=== PATIENT | female | born 1940 | race Caucasian/White ===

== ENCOUNTER → 2018-06-03 13:21 | Outpatient (CLI) | payer MEDICARE, OTHER, SELFPAY ==
--- NOTE | 2018-06-03 13:24 | BI_ITS ---
MAMMOGRAPHY - BILATERAL DIAGNOSTIC REASON FOR EXAM: Female, 77 years old. LT 2 LUMPS FOUND BY T 1 WEEK AGO-ALMOND SIZE JUST UNDER THE SKIN SURFACE UIQ CLOSE TOGETHER WITH SKIN REDNESS AND IRRITATION PERTINENT HISTORY: P/H AGE 68, MAT AUNT AGE 60, SISTER AGE 71, MAT COUSIN AGE 40 AND 60 LT LUMPECTOMY 03/29/11 WITH RAD TX , LT NEEDLE BX 10+YRS AGO, LT BRUISE BIPPLE AREA FROM FALL 5 MONTHS AGO TECHNIQUE: Digital bilateral breast opal (3D mammographic acquisition) in the CC and MLO projections. 2-D mediolateral oblique (MLO) and craniocaudad (CC) views of both breasts were obtained. CAD: Full Field Digital Mammography with Computer Added Detection was performed. COMPARISON: 07/10/2017, 07/06/2016, 07/05/2015 FINDINGS: Breast Composition: The breasts are heterogeneously dense, which may obscure small masses. There is a scar in the upper medial aspect of the left breast at a previous lumpectomy site is unchanged since the previous studies. No other significant abnormalities are identified. BI/DIAG MAMM W/CAD, BILAT IMPRESSION: No mammographic abnormality in the area of palpable lump. Further evaluation by ultrasound is recommended and is performed on the same day. ASSESSMENT CATEGORY: BIRADS Category 0: Incomplete. Need additional imaging evaluation. A letter regarding these results will be sent to the patient by the facility within 30 days. Approximately 10% of breast cancers are not detected by mammography. A normal mammogram should not delay biopsy of a clinically suspicious abnormality. Electronically Signed: hPil Noguera MD at 19:10 EDT Tel , Service support ,
--- NOTE | 2018-06-03 13:24 | US_ITS ---
STUDY: ULTRASOUND BREAST - LEFT REASON FOR EXAM: Female, 77 years old. Palpable lump at the upper inner aspect of the left breast TECHNIQUE: Axial and longitudinal images of the LEFT breast were performed with a high resolution ultrasound transducer. COMPARISON: None. FINDINGS: LEFT Breast: There is a lesion #1 in the upper inner quadrant. The lesion measures 1.6 x 1.2 x 0.8 cm in size. Clock notation: 9 o'clock position. Distance from nipple: 3 cm. Posterior Enhancement: No. Posterior Shadowing: None. Margins: Sharp and smooth. Echogenicity: Hyperechoic. Compression effect on Shape: No change. There is a lesion #2 in the upper inner quadrant. The lesion measures 1.5 x 2.5 x 0.8 cm in size. Clock notation: 10 o'clock position. Distance from nipple: 3 cm. Posterior Enhancement: No. Posterior Shadowing: None. Margins: Sharp and smooth. Echogenicity: Hyperechoic. Compression effect on Shape: No change. US/Breast Limited Unilateral IMPRESSION: 2 lesions in the upper outer aspect of the left breast most likely represent lipomas. A follow-up in 6 months would be recommended to ensure stability. ASSESSMENT CATEGORY: BIRADS Category 3: Probably Benign - Short-Interval Follow-up Suggested. A letter regarding these results will be sent to the patient by the facility within 30 days. Electronically Signed: Phil Noguera MD at 19:04 EDT Tel , Service support ,
== END ==
PROVIDERS: Family Provider Family Medicine; PCP Family Medicine; Visit Provider Internal Medicine Hematology & Oncology
DX: D05.12 Intraductal carcinoma in situ of left breast (principal); N63.20 Unspecified lump in the left breast, unspecified quadrant
CPT/HCPCS: 76642; 77062; 77066; G0279

== ENCOUNTER → 2018-06-17 16:11 | Outpatient (CLI) | payer MEDICARE, OTHER, SELFPAY ==
--- NOTE | 2018-06-17 13:30 | BRBX_PTH ---
PATIENT: RAYMUNDO LANDRY LOC: [facility] U#:[id number] AGE/SX: 85/F ROOM: RE06/17/[address]: Dr. Reuben Membreno MD : [id number] BED: DIS: SPEC #: [id number] RECD: 06/17/18 15:36 STATUS: PHILIP NICOLETTE #: [id number] RENUKA: 06/17/18 13:[address]: Reuben Membreno DEPT: SURGICAL PATHOLOGY RECD BY: Ru Roa ENTERED: 06/18/18 07:05 SP TYPE: BREAST BX OTHR DR: Dr. Justin Tierney MD Tissues: A - Left breast, NOS B - Left breast, NOS Procedures: Surgery Specimen Level IV HEADER OPERATION: Left breast core x2 PRE-OP DIAGNOSIS: Palp breast lump x2 TISSUE SUBMITTED: A ? Left breast 9 o?clock, B ? Left breast 10 o?clock MICROSCOPIC DIAGNOSIS A. Left breast, 9 o?clock, core biopsy: Extensive fat necrosis, chronic inflammation and fibrosis. Negative for malignancy. B. Left breast, 10 o?clock, core biopsy: Extensive fat necrosis, chronic inflammation and fibrosis. Negative for malignancy. Breast tissue is not identified in the submitted specimen. SJ:rg 06/19/18 COMMENT A. The specimen predominantly consists of fibroadipose tissue. 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 MICROSCOPIC DESCRIPTION Slides are reviewed. GROSS DESCRIPTION A - Received in fixative is one container labeled with the patient's name and designated left breast 9 o?clock. The specimen consists of an elongated piece of garcia-yellow fibroadipose tissue measuring 1.5 cm in length and 0.1 cm in diameter. The specimen is totally submitted in one cassette. B - Received in fixative is one container labeled with the patient's name and designated left breast 10 o?clock. The specimen consists of multiple elongated fragments of garcia-yellow fibroadipose tissue measuring in aggregate 2.5 x 0.5 x 0.1 cm. The specimen is totally submitted in one cassette. / SJ:rg 06/18/18 TC:5 CPT: 66970 x2
== END ==
PROVIDERS: Family Provider Family Medicine; PCP Family Medicine; Visit Provider Surgery
DX: N63.0 Unspecified lump in unspecified breast (principal)
CPT/HCPCS: 88305

== ENCOUNTER → 2018-10-17 12:49 | Outpatient (CLI) | payer MEDICARE, OTHER, SELFPAY ==
[2018-06-12 08:37] VITALS: BMI 32.1
--- NOTE | 2018-10-17 13:03 | BD_ITS ---
STUDY: DUAL ENERGY X-RAY ABSORPTIOMETRY / DXA REASON FOR EXAM: Female, 78 years old. The patient is postmenopausal. Loss of height. TECHNIQUE: Bone Mineral Density (BMD) measurements of lumbar spine and bilateral hips were obtained. COMPARISON: Comparison is made with prior study dated July 06, 2016. FINDINGS: Lumbar Spine (L1-L4): g/cm2 (1.169) / T-score (0.0) / Z-score (1.8) Findings are suggestive of normal bone density with a low fracture risk. Left Femur Total: g/cm2 (0.859) / T-score (-1.2) / Z-score (0.6) Left Femoral Neck: g/cm2 (0.725) / T-score (-2.3) / Z-score (-0.3) Right Femur Total: g/cm2 (0.874) / T-score (-1.1) / Z-score (0.7) Right Femoral Neck: g/cm2 (0.757) / T-score (-2.0) / Z-score (-0.1) The T-Scores on the most recent prior examination were: Lumbar Spine (L1-L4): There has been improvement of bone density since the previous examination. Left Femur Total: which represents a worsening of 0.1%. Right Femur Total: which represents no significant change. . BD/Dexa Bone Density Study IMPRESSION: The patient is considered osteopenic as outlined below according to World Jet Organization (WHO) criteria with a moderate fracture risk. There has been worsening of bone density since the previous examination. Reference Information: The T-score is the number of standard deviations above or below the standard which is normal for young adults at their peak bone mineral density. The World Health Organization (WHO) interprets the T-scores as follows: Above -1 Normal bone density Between -1 and -2.5 Osteopenia Equal to / or below -2.5 Osteoporosis As a practical clinical guideline, osteopenia may be graded as follows: Mild -1 through -1.5 Moderate -1.6 through -2.0 Severe -2.1 through -2.4 The Z-score is the number of standard deviations above or below age-matched controls. A Z-score of less than -1.5 would be considered abnormal. References: 1. NIH Osteoporosis and Related Bone Diseases http://www.osteo.org 2. International Society for Clinical Densitometry http://www.iscd.org 3. National Osteoporosis Foundation http://www.nof.org Electronically Signed: Gurpreet Chase MD at 11:38 EST Tel [phone], Service support ,
== END ==
PROVIDERS: Family Provider Family Medicine; PCP Family Medicine; Visit Provider Physician Assistant
DX: M89.9 Disorder of bone, unspecified (principal); Z13.820 Encounter for screening for osteoporosis; M75.41 Impingement syndrome of right shoulder; M75.51 Bursitis of right shoulder
CPT/HCPCS: 77080; 97110

== ENCOUNTER 2018-10-31 10:00 | Outpatient (RCR) | payer MEDICARE, OTHER, SELFPAY ==
[2018-06-12 08:37] VITALS: BMI 32.1
--- NOTE | 2018-09-30 14:24 | HP.PTEVAL_ITS ---
Patient's Visit Information RAYMUNDO LANDRY is a 78 year old F referred to Physical Therapy by Justin Tierney MD with a diagnosis of SHOULDER RIGHT BURSITIS ,SHOULDER IMPINGEMENT SYNDROME RIGHT. Date of Evaluation: 09/30/18 Physical Therapist: Nnamdi Newman PT, - Visit Plan Frequency: 2x /Week Duration: 4 Weeks Plan: RTC/SCAPULAR STRENGTHENING,POSTURAL EX''S ,MODALITIES FOR PAIN RELEIVE - Subjective Subjective: This 78 y/o female presents to physical therapy with right shoulder pain for 2 weeks. Patient pain became worse especially at night. Patient pain left shoulder UE to deltoid/scapular. Described as sharp pain.Seen DR injection right shoulder decreased pain . Patient pain worse with sleeping ,reaching, ifting . Patinet pain bettter with heat/MEDS. Denies parathesia/tingling.Patient pain affects QOL and ADL'S. SOCAIL: single. VOCATION: retired - Pain Right Shoulder Pain Intensity (Out of 10): 3 - Objective POSTURE: mild foward posture. PALAPTION:tender AC joint. NEURO: denies parathesia/tingling. AROM: shoulder 140 degrees flexion pain ,abduction 120 degrees pain,ER 80 degrees,IR 65 degrees pain. PROM: 150 degrees abd/flexion. OVERPRRESSURE: incease pain. MMT: infraspinatius 4-/5,supraspinatous 4-/5 pain ,subscapularis 4/5,deltoid 4-/5 pain. CERVICAL ROM: flexion min ,lateral flexion/rotation mod pain to UT right,left min/mod. extension mod - Special Tests C/S Radiculapathy - Left Upper limb tension test: Negative C/S Radiculapathy - Left Spurlings: Negative C/S Radiculapathy - Left Cervical distraction: Positive R Shoulder External Rotation Lag Test - RC Tear: Negative R Shoulder Neer - Impingement: Positive R Shoulder Santiago Adeel - Impingement: Positive - Goals Goal 1:: Independant with HEP Goal Time Frame: 4-6 Weeks Goal 2:: Improve posture for ADL'S Goal Time Frame: 2-4 Weeks Goal 3:: Decrease shoulder pain by 50% or greatwer to improve function Goal Time Frame: 4-6 Weeks Goal 4:: Patient improve ROM right shoulder symmtrical right to left with less pain for ADL'S Goal Time Frame: 4-6 Weeks Goal 5:: Patient be able to perform ADL's and houseworks choeres above 90 Degrees Goal Time Frame: 4-6 Weeks Goal 6:: Patient improve dash shoulder by 10 pints to improve QOL Goal Time Frame: 4-6 Weeks - Rehabilitation Potential Physical Therapy Diagnosis: This patient has impingement right shoulder with RTC involevment with pain weakness loss ROM along with h/o cervical pain radiating to right UT impairs ADL'S and housework task's thus benifits from skilled PT Rehabilitation Potential: Good - Anticipated Interventions Patient/Client Instruction: Educate patient on: Condition, Plan of Care For the Purpose of:: To decrease pain, To increase ROM, To improve muscle perfo rmance and motor function, To improve ability to perform ADL's, To increase tolerance to activity/condition/position, To improve ability of physical actions for home/community/work/leisure, To improve health of tissue, To decrease soft tissue restriction, To increase flexibility/ROM, To improve ability to perform tasks related to life management TENS: Yes IF ES: Yes Cryotherapy (ice pack, ice massage): Yes Thermo therapy (hot pack): Yes Ultrasound (thermal/non thermal): Yes For the Purpose of:: To decrease pain, To decrease swelling/inflammation, To increase ROM, To improve nutrient delivery to tissue, To improve health of tissue, To decrease soft tissue restriction Thank you for the opportunity to evaluate your patient. For Medicare and Medicare HMO plans, please review the plan of care and approve it. It will need to be FAXED BACK to us at [phone] for Medicare purposes. Please let me know if there are questions or concerns regarding this plan of care. Physician Signature: Date:
--- NOTE | 2018-10-31 10:28 | HP.PTDCSUM_ITS ---
HP - PT D/C Summary It has been my pleasure to treat RAYMUNDO LANDRY under orders from Justin Tierney MD, for the diagnosis of SHOULDER RIGHT BURSITIS ,SHOULDER IMPINGEMENT SYNDROME RIGHT for a total of 8 visit(s). Discharge Date: 10/31/18 Please see the following information for a summary of their discharge status. - Subjective Subjective: Doing well..Return to prior level of functin - Pain Right Shoulder Pain Intensity (Out of 10): 0 - Overall Improvement % Improvement: 95 - Objective Objective/Function: POSTURE: mild foward posture. AROM: flexion shoulder 160 de grees,150 degrees abd,ER 90. MMT:RTC 4/5,DELTOID 4-/5 no pain - Goals Goal 1:: Independant with HEP Goal Progress: Goal Met Goal 2:: Improve posture for ADL'S Goal Progress: Goal Met Goal 3:: Decrease shoulder pain by 50% or greatwer to improve function Goal Progress: Goal Met Goal 4:: Patient improve ROM right shoulder symmtrical right to left with less pain for ADL'S Goal Progress: Goal Met Goal 5:: Patient be able to perform ADL's and houseworks choeres above 90 Degrees Goal Progress: Goal Met Goal 6:: Patient improve dash shoulder by 10 pints to improve QOL Goal Progress: Goal Met - Plan Plan: D/C TO [facility] - D/C Information Discharge Comments: [facility] If there are questions or concerns regarding this patient's physical therapy, please feel free to call me at [phone]. Thank you for the referral of this patient. Sincerely, Nnamdi Newman PT, Cert MDT, OCS
== END 2018-10-31 19:00 | disposition home or self-care (01) ==
LOC: PT 10:00
PROVIDERS: Family Provider Family Medicine; PCP Family Medicine; Referring Provider Family Medicine; Visit Provider Family Medicine
DX: M75.51 Bursitis of right shoulder (principal); M75.41 Impingement syndrome of right shoulder
CPT/HCPCS: 97035; 97110; 97162; 97530

== ENCOUNTER 2018-11-26 21:14 | Emergency (ER) | payer MEDICARE, OTHER, SELFPAY ==
[2018-11-26 21:15] VITALS: BP 151/82; PULSE 67; RESP 20; TEMP 36.7; O2SAT 95; BMI 34.0
--- NOTE | 2018-11-26 21:50 | CT_ITS ---
STUDY: CT ABDOMEN AND PELVIS WITH CONTRAST REASON FOR EXAM: Female, 78 years old. Trauma. Breast cancer. RADIATION DOSAGE (If Supplied By Facility): CTDIvol = ( 25.20 ) mGy, DLP = ( 1074.79 ) mGycm TECHNIQUE: Transaxial images were obtained from the dome of the diaphragm to the symphysis pubis without oral contrast. 100ML ml of Isovue 300 contrast was administered. Sagittal and coronal images were reconstructed. Individualized dose optimization techniques were used for this CT. COMPARISON: 01/22/16. FINDINGS: See separate report for CT of the chest. There is decreased attenuation of the liver consistent with steatosis. There is hepatomegaly. Normal gallbladder and extrahepatic biliary system. Normal spleen. Normal pancreas. Normal bilateral adrenal glands. Normal right kidney. Normal left kidney. Evaluation of the GI tract is limited by absence of oral contrast. Cannot exclude stomach wall thickening. No dilated loops of bowel or evidence for obstruction. Cannot exclude segmental thickening of the sexton of the small or large bowel. Cannot exclude enteritis or colitis. Moderate diffuse fecal retention. Appendix has been removed. Normal abdominal aorta. Normal inferior vena cava. Normal retroperitoneum. Normal urinary bladder. Normal visualized uterus. Normal abdominal wall. There are diffuse degenerative changes of the visualized lumbar spine. CT/Abdomen/Pelvis W IV Cont ONLY IMPRESSION: There is no acute abnormality. Electronically Signed: Tristan Alfaro MD at 23:07 EST , Service support ,
--- NOTE | 2018-11-26 21:50 | CT_ITS ---
STUDY: CT BRAIN WITHOUT CONTRAST REASON FOR EXAM: Female, 78 years old. Fall. RADIATION DOSAGE (If Supplied By Facility): CTDIvol = ( 44.99 ) mGy, DLP = ( 909.99 ) mGycm TECHNIQUE: Transaxial CT imaging of the brain was performed without administration of intravenous contrast material. Individualized dose optimization techniques were used for this CT. COMPARISON: None. FINDINGS: There is a very large focal 4.5 cm subcutaneous hematoma over the left zygoma. There is also very prominent scalp hematoma and soft tissue swelling over the top of the skull. No definite fractures. Normal size ventricles and extra-axial spaces for the patient's age. Normal white matter tracts of the cerebral hemispheres. Normal basal ganglia and thalami. Normal brainstem. Normal cerebellum. There is no intracranial hemorrhage. There are no findings of an acute ischemic infarction. Normal visualized paranasal sinuses. CT/Brain/Head without Contrast IMPRESSION: Normal unenhanced CT scan of the brain. Prominent right cheek and upper scalp hematomas. Electronically Signed: Tristan Alfaro MD at 22:51 EST , Service support ,
--- NOTE | 2018-11-26 21:50 | EKG12_ITS ---
Test Reason : CP Blood Pressure : / mmHG Vent. Rate : 060 BPM Atrial Rate : 060 BPM P-R Int : 156 ms QRS Dur : 086 ms QT Int : 370 ms P-R-T Axes : 070 064 066 degrees QTc Int : 370 ms Normal sinus rhythm Normal ECG Confirmed by GERALDO HARRISON, SHAWNA ([id number]), sound editor KAHLIL ROBERTS ([id number]) on 11/28/2018 3:45:19 PM Referred By: ALEX DEE Confirmed By:SHAWNA CHOW MD
--- NOTE | 2018-11-26 21:51 | CT_ITS ---
STUDY: CT CERVICAL SPINE WITHOUT CONTRAST REASON FOR EXAM: Female, 78 years old. Fall. RADIATION DOSAGE (If Supplied By Facility): CTDIvol = ( 16.70 ) mGy, DLP = ( 330.72 ) mGycm TECHNIQUE: High resolution transaxial imaging was performed without contrast material. Sagittal and coronal images were reconstructed. Individualized dose optimization techniques were used for this CT. COMPARISON: None FINDINGS: No definite acute fracture/dislocation. The cervical junction is intact. C1-C2 articulation is intact. There is straightening. There is 4 mm anterolisthesis of C2 on C3, otherwise normal alignment. Facet joints are intact at all levels bilaterally. No jumped facets. There is multilevel spondyloarthropathy. Multilevel degenerative disc disease seen. Multilevel loss of disc height. Multilevel posterior marginal osteophytes and disc bulges. Multilevel neural foraminal narrowing. Findings most prominent at C5-C6. Visualized paraspinal soft tissues and structures are unremarkable. CT/Spine Cervical without Contras IMPRESSION: There is no definite acute fracture/dislocation. Degenerative changes. Electronically Signed: Tristan Alfaro MD at 22:57 EST , Service support ,
--- NOTE | 2018-11-26 21:51 | CT_ITS ---
STUDY: CT CHEST WITHOUT CONTRAST REASON FOR EXAM: Female, 78 years old. Fall. Breast cancer. Chest pain. RADIATION DOSAGE (If Supplied By Facility): CTDIvol = ( 18.96 ) mGy, DLP = ( 620.61 ) mGycm TECHNIQUE: Transaxial imaging was performed without the administration of intravenous contrast material. Individualized dose optimization techniques were used for this CT. COMPARISON: None. FINDINGS: There is hyperexpansion of the lungs. Streaky densities radiating from the left hilum to the pleural surface of the left upper lobe are most consistent with fibrosis probably from radiation treatments. Small areas of probable scarring seen in the periphery of the right middle lobe and both posterior lower lobes. No pneumothorax. No infiltrates. No masses or suspicious nodules. No effusions. Normal heart and pericardium. There are calcifications of the coronary arteries. Normal mediastinum. Normal hilar regions. There is prominence of the pulmonary hilar arteries without peripheral pulmonary vascular congestion, suggesting pulmonary hypertension. There is atherosclerotic calcification of the aortic arch with tortuosity and elongation of the aortic arch and descending thoracic aorta. There are multi-level degenerative changes of the thoracic spine. There is a mildly displaced and mildly angulated fracture through the upper aspect of the sternum, only seen on lateral view, axial image 146. CT/Chest without Contrast IMPRESSION: Fracture of the upper sternum. 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 Electronically Signed: Tristan Alfaro MD at 23:02 EST , Service support ,
--- NOTE | 2018-11-26 21:52 | RAD_ITS ---
STUDY: X-RAY - LEFT HAND REASON FOR EXAM: Female, 78 years old. Fall. Pain. TECHNIQUE: 3 view(s) of the hand. COMPARISON: None. FINDINGS: No acute fracture or dislocation. Severe demineralization. Normal visualized carpal bones. Normal carpal articulations There is degenerative arthrosis of the carpometacarpal (CMC) articulation of the thumb. Normal second through fifth carpometacarpal joints. Normal metacarpi. There is degenerative arthrosis of the metacarpophalangeal (MCP) joints. Normal interphalangeal joint of the thumb. Normal proximal and distal phalanges of the thumb. Normal metacarpophalangeal joints of the second through fifth fingers. Normal proximal and distal interphalangeal joints of the second through fifth fingers. Normal phalanges of the second through fifth fingers. The soft tissue structures are unremarkable. RAD/Hand Min 3 Views IMPRESSION: No acute fracture or dislocation. Electronically Signed: Tristan Alfaro MD at 23:12 EST , Service support ,
--- NOTE | 2018-11-26 21:52 | RAD_ITS ---
STUDY: X-RAY - LEFT KNEE REASON FOR EXAM: Female, 78 years old. Status post fall pain TECHNIQUE: 3 view(s) of the knee. COMPARISON: None. FINDINGS: Normal visualized distal femur. Normal visualized proximal tibia and fibula. Normal proximal tibiofibular articulation. There is visualized soft tissue swelling especially anterior to the patellar tendon. There is a left knee arthroplasty. There is no visualized fracture. RAD/Knee 3 Views IMPRESSION: Left knee arthroplasty. Superficial soft tissue swelling no visualized fracture. Electronically Signed: Vanessa Alcantara MD at 23:19 EST Tel , Service support ,
--- NOTE | 2018-11-26 21:52 | CT_ITS ---
STUDY: CT FACIAL BONES WITHOUT CONTRAST REASON FOR EXAM: Female, 78 years old. Fall. RADIATION DOSAGE (If Supplied By Facility): CTDIvol = ( 29.38 ) mGy, DLP = ( 330.72 ) mGycm TECHNIQUE: The patient was scanned in a multi detector CT scanner. Sagittal and coronal images were reconstructed. Individualized dose optimization techniques were used for this CT. COMPARISON: None. FINDINGS: Prominent subcutaneous hematoma seen over the right zygoma, 4.5 cm in size and surrounded by additional induration. No fractures are seen. Normal orbital sexton and orbital contents. Normal nasal bones and anterior nasal spine. Normal facial bones. There is no demonstrated fracture. Normal visualized paranasal sinuses. CT/Sinus/Facial Bone IMPRESSION: No facial fractures are seen. Electronically Signed: Tristan Alfaro MD at 22:55 EST , Service support ,
[2018-11-26] MEDS: fentaNYL 100 MCG/2 ML Ampul 50 MCG IV (22:02)
[2018-11-26] MEDS: 0.9% Normal Saline 1,000 ML 150 ML IV (22:02)
[2018-11-26 22:05] VITALS: BP 151/80; PULSE 72; RESP 12; O2SAT 95
--- NOTE | 2018-11-26 22:07 | RAD_ITS ---
STUDY: X-RAY - RIGHT HAND REASON FOR EXAM: Female, 78 years old. Fall. Pain. TECHNIQUE: 3 view(s) of the hand. COMPARISON: None. FINDINGS: No acute fracture or dislocation. Severe demineralization. Normal visualized carpal bones. Normal carpal articulations There is degenerative arthrosis of the carpometacarpal articulation of the thumb with lateral subluxation of the first metacarpus. Normal second through fifth carpometacarpal joints. Normal metacarpi. Normal metacarpophalangeal joint of the thumb. Normal interphalangeal joint of the thumb. Normal proximal and distal phalanges of the thumb. Normal metacarpophalangeal joints of the second through fifth fingers. Normal proximal and distal interphalangeal joints of the second through fifth fingers. Normal phalanges of the second through fifth fingers. The soft tissue structures are unremarkable. RAD/Hand Min 3 Views IMPRESSION: No acute fracture or dislocation. Electronically Signed: Tristan Alfaro MD at 23:11 EST , Service support ,
--- NOTE | 2018-11-26 22:07 | RAD_ITS ---
STUDY: X-RAY - RIGHT KNEE REASON FOR EXAM: Female, 78 years old. Fall. TECHNIQUE: 3 view(s) of the knee. COMPARISON: None. FINDINGS: Normal visualized distal femur. Normal visualized proximal tibia and fibula. Normal proximal tibiofibular articulation. There is no demonstrated fracture. Normal appearance of the total knee arthroplasty. The soft tissue structures are unremarkable. RAD/Knee 3 Views IMPRESSION: No acute fracture or dislocation. Electronically Signed: Tristan Alfaro MD at 23:15 EST , Service support ,
[2018-11-26 22:28] LABS: Absolute Lymphocyte Count 1.24 X10^3/ul (0.83-4.51); Basophil# 0.01 X10^3/uL; Basophil% 0.1 % (0-1); Eosinophil# 0.12 X10^3/uL; Eosinophils% 1.3 % (0-5); Hematocrit 43.3 % (37-47); Hemoglobin 14.2 g/dl (12.0-15.0); Lymphocyte # 1.24 X10^3/ul (4.0); Lymphocyte % 13.5 % (19-41); Mean Corp Hgb Conc 32.8 g/gl (32-36); Mean Corpuscular Hgb 29.8 pg (27.0-32.0); Mean Platelet Vol. 9.6 fl (6.2-12.0); Monocyte# 0.84 X10^3/uL; Monocyte% 9.1 % (0-10); Neutrophil # 6.96 X10^3/uL (2.7-7.7); Neutrophil % 75.7 % (47-70); Platelet Count 241 K/mm3 (150-450); RBC Distribution Width CV 13.3 % (11.6-14.6); RBC Distribution Width SD 44.2 fl (35.1-43.9); Red Blood Count 4.76 M/mm3 (4.2-5.4); White Blood Count 9.2 K/mm3 (4.4-11.0)
[2018-11-26 22:37] LABS: ALB/GLOB Ratio 1.1 RATIO (0.9-2.4); AST(SGOT) 14 U/L (15-37); Alanine Aminotransfer ALT/SGPT 14 U/L (13-56); Albumin, Serum 3.8 g/dL (3.2-5.0); Alkaline Phosphatase 71 U/L (45-117); Anion Gap 9 (5-15); BUN 18 mg/dL (7-18); BUN/Creat Ratio 19.5 RATIO (10-20); Calcium,Total 9.1 mg/dL (8.5-10.1); Chloride 98 mmol/L (98-107); Creatinine, Serum 0.92 mg/dL (0.55-1.02); EST Glomerular Filtration Rate 63 mL/min (>60); Est Glom Filt Rate - Afr Amer 76 mL/min (>60); Estimated Creatinine Clearance 43.03 ml/min; Globulin 3.4 g/dL (2.2-4.2); Glucose 101 mg/dL (74-106); Potassium 3.4 mmol/L (3.5-5.1); Protein, Total 7.2 g/dL (6.4-8.2); Sodium Level 137 mmol/L (136-145)
[2018-11-26 22:40] LABS: POSITIVE COUNT NO; POSITIVE DIFFERENTIAL NO; POSITIVE MORPHOLOGY NO
--- NOTE | 2018-11-26 22:40 | RAD_ITS ---
STUDY: X-RAY - LEFT ANKLE REASON FOR EXAM: Female, 78 years old. Trauma. Previous surgeries. TECHNIQUE: 3 view(s) of the ankle. COMPARISON: None. FINDINGS: There is no acute fracture or dislocation. However there is widening of the ankle mortise. Compression plate and screws are seen across the distal fibula. 2 screws are seen through the medial malleolus. Probable widening of the intraosseous space. RAD/Ankle min 3 Views IMPRESSION: No acute fracture or dislocation. Widening of the ankle mortise. Electronically Signed: Tristan Alfaro MD at 23:09 EST , Service support ,
--- NOTE | 2018-11-27 | ED.VISSUMM ---
- ER Visit Summary Date of Service: 11/27/18 Chief Complaint: [Mechanical fall] History of Present Illness: The patient is a 78 F [presents to the emergency department with complaint of a fall that occurred while at a restaurant tonight. Patient apparently fell head over heels down a flight of 6 steps made of marble. Patient denies loss of consciousness. She is complaining of head and chest pain. Patient complaining of bilateral knee pain and left ankle pain. Patient has a mild headache and states that she has a lump on her scalp. Patient complaining of right-sided facial pain. She denies any significant abdominal pain. She denies any significant neck pain. She denied any numbness or tingling or weakness the extremities.] Physical Examination: [HEENT-PERRLA, EOMI. Cranial nerves II through XII grossly intact. TMs clear. Mucous membranes moist. No adenopathy. Patient has a large posterior scalp hematoma. Patient has a large hematoma over the right zygomatic arch with about a 2.5 cm superficial laceration. The wound does not gape open and there is a large hematoma underlying the laceration therefore I cannot approximate the wound edges with pressure.. No significant C-spine tenderness on palpation. Cardiovascular-regular rate and rhythm without murmur or ectopy Lungs-clear to auscultation, chest wall stable without crepitus or subcu emphysema. Patient does have tenderness palpation over the sternum and anterior chest wall. Abdomen-normoactive bowel sounds, soft. Patient has some diffuse tenderness palpation with some mild guarding. No rebound, rigidity, or perineal signs. Extremities-intact ?4, normal range of motion, normal pulses. Right hand-patient has diffuse soft tissue swelling and ecchymosis about the right middle finger with some mild diffuse tenderness. No obvious deformity. Neurovascular intact. Evaluation of the left hand reveals soft tissue swelling hematoma to the dorsal lateral aspect of the hand over the area of the fourth and fifth meta carpals. Knees-patient has some diffuse tenderness to both knees without any significant ecchymosis or bruising noted. Patient is able to flex and extend the knees without difficulty. She is neurovascular intact distally. Dilation of the left ankle reveals some diffuse tenderness palpation and again there is no ecchymosis or bruising noted.] Test Results: [EKG obtained arrival shows sinus rhythm with a ventricular rate of 60 bpm with no acute I segment changes. CBC with differential was unremarkable. Chemistries unremarkable. Troponin was slightly elevated 0.051. CT scan of the brain without contrast showed nothing acute just a hematoma. CT of the cervical spine showed degenerative changes. CT scan of the abdomen pelvis showed nothing acute. CT scan of the chest showed sternal fracture that is nondisplaced. Facial bone CT showed no fractures. X-rays of bilateral hands and bilateral knees and left ankle obtained showed no fractures.] Emergency Department Course and Treatment: [Patient was medicated with fentanyl 50 mg IV. Patient was given normal saline. Patient had to be remedicated with fentanyl.] Treatment Plan: [Transfer to trauma center. Discussed case with [facility] at the patient's request given that hospitalist here did not feel comfortable keeping the patient here being that she is a trauma and suspect she may have a cardiac contusion associated with her sternal fracture. Patient was accepted at [facility] by Dr. Rossi who was the trauma surgeon on-call.] Disposition: [Transfer] Impression: [Mechanical fall Closed head injury Sternal fracture Cardiac contusion Facial contusion with superficial laceration-no repair indicated. Bilateral knee contusions Bilateral hand contusions Left ankle sprain] This note was generated with vLex dictation software. It may contain incorrect words, spelling, and punctuation that were not noted in review of the chart prior to signing ED Disposition - Plan for ED Patient: Chief Complaint: Fall Referrals: Justin Tierney MD [Primary Care Provider] -
--- NOTE | 2018-11-27 00:08 | ED.DCSUM_ITS ---
- ER Visit Summary Date of Service: 11/27/18 Chief Complaint: [Mechanical fall] History of Present Illness: The patient is a 78 F [presents to the emergency department with complaint of a fall that occurred while at a restaurant tonight. Patient apparently fell head over heels down a flight of 6 steps made of marble. Patient denies loss of consciousness. She is complaining of head and chest pain. Patient complaining of bilateral knee pain and left ankle pain. Patient has a mild headache and states that she has a lump on her scalp. Patient complaining of right-sided facial pain. She denies any significant abdominal pain. She denies any significant neck pain. She denied any numbness or tingling or weakness the extremities.] Physical Examination: [HEENT-PERRLA, EOMI. Cranial nerves II through XII grossly intact. TMs clear. Mucous membranes moist. No adenopathy. Patient has a large posterior scalp hematoma. Patient has a large hematoma over the right zygomatic arch with about a 2.5 cm superficial laceration. The wound does not gape open and there is a large hematoma underlying the laceration therefore I cannot approximate the wound edges with pressure.. No significant C-spine tenderness on palpation. Cardiovascular-regular rate and rhythm without murmur or ectopy Lungs-clear to auscultation, chest wall stable without crepitus or subcu emphysema. Patient does have tenderness palpation over the sternum and anterior chest wall. Abdomen-normoactive bowel sounds, soft. Patient has some diffuse tenderness palpation with some mild guarding. No rebound, rigidity, or perineal signs. Extremities-intact ?4, normal range of motion, normal pulses. Right hand- patient has diffuse soft tissue swelling and ecchymosis about the right middle finger with some mild diffuse tenderness. No obvious deformity. Neurovascular intact. Evaluation of the left hand reveals soft tissue swelling hematoma to the dorsal lateral aspect of the hand over the area of the fourth and fifth meta carpals. Knees-patient has some diffuse tenderness to both knees without any significant ecchymosis or bruising noted. Patient is able to flex and extend the knees without difficulty. She is neurovascular intact distally. Dilation of the left ankle reveals some diffuse tenderness palpation and again there is no ecchymosis or bruising noted.] Test Results: [EKG obtained arrival shows sinus rhythm with a ventricular rate of 60 bpm with no acute I segment changes. CBC with differential was unremarkable. Chemistries unremarkable. Troponin was slightly elevated 0.051. CT scan of the brain without contrast showed nothing acute just a hematoma. CT of the cervical spine showed degenerative changes. CT scan of the abdomen pelvis showed nothing acute. CT scan of the chest showed sternal fracture that is nondisplaced. Facial bone CT showed no fractures. X-rays of bilateral hands and bilateral knees and left ankle obtained showed no fractures.] Emergency Department Course and Treatment: [Patient was medicated with fentanyl 50 mg IV. Patient was given normal saline. Patient had to be remedicated with fentanyl.] Treatment Plan: [Transfer to trauma center. Discussed case with [facility] at the patient's request given that hospitalist here did not feel comfortable keeping the patient here being that she is a trauma and suspect she may have a cardiac contusion associated with her sternal fracture. Patient was accepted at [facility] by Dr. Rossi who was the trauma surgeon on-call.] Disposition: [Transfer] Impression: [Mechanical fall Closed head injury Sternal fracture Cardiac contusion Facial contusion with superficial laceration-no repair indicated. Bilateral knee contusions Bilateral hand contusions Left ankle sprain] This note was generated with [employer] dictation software. It may contain incorrect words, spelling, and punctuation that were not noted in review of the chart prior to signing ED Disposition - Plan for ED Patient: Chief Complaint: Fall Referrals: Justin Tierney MD [Primary Care Provider] -
[2018-11-27 00:09] VITALS: BP 145/99; PULSE 80; RESP 17; O2SAT 95
[2018-11-27] MEDS: fentaNYL 100 MCG/2 ML Ampul 50 MCG IV (00:10)
[2018-11-27] MEDS: Diphth,Pertuss(Acell),Tet Vac 0.5 ML Vial IM (00:10)
[2018-11-27 00:50] VITALS: BP 121/54; PULSE 74; RESP 17; O2SAT 96
== END 2018-11-27 01:09 | disposition short-term general hospital (02) ==
PROVIDERS: Emergency Provider Emergency Medicine; Family Provider Family Medicine; PCP Family Medicine
DX: S26.91XA Contusion of heart, unspecified with or without hemopericardium, initial encounter (principal); S22.20XA Unspecified fracture of sternum, initial encounter for closed fracture; S01.411A Laceration without foreign body of right cheek and temporomandibular area, initial encounter; S80.02XA Contusion of left knee, initial encounter; S80.01XA Contusion of right knee, initial encounter; S60.222A Contusion of left hand, initial encounter; S60.221A Contusion of right hand, initial encounter; S93.402A Sprain of unspecified ligament of left ankle, initial encounter; S09.90XA Unspecified injury of head, initial encounter; I10 Essential (primary) hypertension; E78.00 Pure hypercholesterolemia, unspecified; Z79.82 Long term (current) use of aspirin; Z79.891 Long term (current) use of opiate analgesic; Z79.899 Other long term (current) drug therapy; W10.9XXA Fall (on) (from) unspecified stairs and steps, initial encounter; Y93.01 Activity, walking, marching and hiking; Y92.511 Restaurant or cafe as the place of occurrence of the external cause; Y99.8 Other external cause status
CPT/HCPCS: 70450; 70486; 71250; 72125; 73130; 73562; 73610; 74177; 80053; 84484; 85025; 90715; 93005; 96361; 96374; 96376; 99285; J7030; Q9967; A4216

== ENCOUNTER → 2019-04-15 | Outpatient (CLI) | payer MEDICARE, OTHER, MEDICAID, SELFPAY ==
[2019-04-08 10:35] VITALS: BMI 31.6
[2019-04-15 10:59] LABS: AST(SGOT) 12 U/L (15-37); Alanine Aminotransfer ALT/SGPT 11 U/L (13-56); Albumin, Serum 3.8 g/dL (3.2-5.0); Alkaline Phosphatase 68 U/L (45-117); Bilirubin, Direct 0.17 mg/dL (0.00-0.30); Cholesterol 103 mg/dL (200); Globulin 3.8 g/dL (2.2-4.2); High Density Lipoprotein 42 mg/dL; Protein, Total 7.6 g/dL (6.4-8.2); Triglycerides 108 mg/dL; Very Low Density Lipoprotein 22 mg/dL (5-40)
== END | disposition home or self-care (01) ==
PROVIDERS: Family Provider Family Medicine; PCP Family Medicine; Referring Provider Internal Medicine Cardiovascular Disease; Visit Provider Internal Medicine Cardiovascular Disease
DX: E78.5 Hyperlipidemia, unspecified (principal); R06.09 Other forms of dyspnea; R74.8 Abnormal levels of other serum enzymes
CPT/HCPCS: 36415; 80061; 80076

== ENCOUNTER → 2019-05-06 | Outpatient (CLI) | payer MEDICARE, OTHER, MEDICAID, SELFPAY ==
[2019-04-08 10:35] VITALS: BMI 31.6
--- NOTE | 2019-05-06 13:51 | ECHOD_ITS ---
Reason For Study: CHEST PAIN Procedure This was a 2D Doppler, Color Flow transthoracic echocardiogram. Exam performed in department. Left Ventricle Normal size and thickness. The estimated ejection fraction is 70 %. Stage 1 diastolic dysfunction. No regional wall motion abnormalities noted. Right Ventricle Normal size and thickness. Normal systolic function. Atria Normal left atrium. Normal right atrium. Normal atrial septum. Mitral Valve The mitral valve is structurally normal. No prolapse or stenosis seen. Mild (1+) mitral valve insufficiency. Tricuspid Valve Normal tricuspid valve. Mild (1+) eccentric tricuspid valve insufficiency. Right ventricular systolic pressure estimated to be 54 mmHg. Moderate pulmonary hypertension. Aortic Valve Trisinus/trileaflet aortic valve. Mild diffuse aortic valve thickening. Pulmonic Valve Normal pulmonic valve. Great Vessels Normal aortic root. Normal arch. Normal inferior vena cava. Inferior vena cava collapse with sniff. Pericardium/Pleural No pericardial effusion. MMode/2D Measurements & Calculations LVIDd: 4.1 cm IVSd: 0.89 cm Ao root diam: 3.4 cm LVIDs: 3.0 cm LVPWd: 0.78 cm RVDd: 3.3 cm FS: 26.9 % LAV(MOD-bp): 58.5 ml LVAd ap4: 27.6 cm2 SV(MOD-sp4): 50.6 ml LAV(MOD-bp) Indexed: 30.9 ml/m2 EDV(MOD-sp4): 84.9 ml LAV(MOD-sp2): 67.1 ml EDV(sp4-el): 89.8 ml LAV(MOD-sp4): 48.9 ml LVAs ap4: 15.6 cm2 ESV(MOD-sp4): 34.2 ml ESV(sp4-el): 34.6 ml EF(MOD-sp4): 59.7 % EF(sp4-el): 61.4 % SV(sp4-el): 55.2 ml LA A4 area: 18.4 cm2 LA dimension(2D): 3.7 cm RA A4 area: 13.8 cm2 Time Measurements MV dec time: 0.27 sec Doppler Measurements & Calculations MV E max ramos: 91.8 cm/sec Lat Peak E' Ramos: 8.4 cm/sec Med Peak E' Ramos: 9.1 cm/sec MV A max ramos: 125.7 cm/sec E/E' lat: 10.9 E/E' med: 10.1 MV E/A: 0.73 Ao V2 max: 171.1 cm/sec LV V1 max: 121.0 cm/sec PA V2 max: 98.6 cm/sec Ao max P.7 mmHg LV V1 max P.9 mmHg TR max ramos: 349.2 cm/sec TR max P.8 mmHg Interpretation Summary The estimated ejection fraction is 70 %. Stage 1 diastolic dysfunction. Mild (1+) mitral valve insufficiency. Mild (1+) eccentric tricuspid valve insufficiency. Right ventricular systolic pressure estimated to be 54 mmHg. Moderate pulmonary hypertension. Compared to echo report dated 11/19/2007, LV function has remained the same, but RVSP has increased from 26 to 54 mm Hg. Ordering Physician: Raul Valdez Referring Physician: NANCY CARROLL Performed By: Lisa Wyman RDCS
== END | disposition home or self-care (01) ==
LOC: CVS 13:50
PROVIDERS: Family Provider Family Medicine; PCP Family Medicine; Referring Provider Internal Medicine Cardiovascular Disease; Visit Provider Internal Medicine Cardiovascular Disease
DX: R06.09 Other forms of dyspnea (principal); R07.9 Chest pain, unspecified
CPT/HCPCS: 93306

== ENCOUNTER → 2019-05-12 | Outpatient (CLI) | payer MEDICARE, OTHER, MEDICAID, SELFPAY ==
[2019-04-08 10:35] VITALS: BMI 31.6
--- NOTE | 2019-05-12 08:25 | CT_ITS ---
STUDY: CTA CHEST REASON FOR EXAM: Female, 78 years old. Abnormal echo, history of breast cancer RADIATION DOSAGE (If Supplied By Facility): CTDIvol = ( 11.28 ) mGy, DLP = ( 482.95 ) mGycm TECHNIQUE: The examination was performed with the intravenous administration of 100 IV Isovue 300. Post-processing of the angiographic images was performed, with multiplanar reformation and 3D reconstruction. Individualized dose optimization techniques were used for this CT. COMPARISON: 11/26/2018 FINDINGS: Normal enhancement of the main pulmonary artery and right and left pulmonary arteries. Normal enhancement of the bilateral peripheral pulmonary arteries. There is no demonstrated pulmonary embolism. Normal thoracic aorta and visualized great vessels. There is no demonstrated aortic dissection. Normal heart and pericardium. Normal mediastinum. Normal hilar regions. Normal visualized trachea and bronchi. Stable scarring in the left lung. Normal pleura. Normal chest wall structures. There are degenerative changes of thoracic spine. Normal visualized upper abdomen. CT/CTA Chest W/WO Contrast IMPRESSION: Normal CTA chest examination, without a demonstrated pulmonary embolism or arterial dissection. Electronically Signed: Rico Perdomo MD at 9:06 EDT Tel , Service support ,
[2019-05-12 08:46] LABS: CREATININE FINGERSTICK 0.9 mg/dL (0.55-1.02); EGFR FINGERSTICK > 60.0000 mL/min (>60)
== END | disposition home or self-care (01) ==
LOC: CT 08:22
PROVIDERS: Family Provider Family Medicine; PCP Family Medicine; Referring Provider Internal Medicine Cardiovascular Disease; Visit Provider Internal Medicine Cardiovascular Disease
DX: R06.02 Shortness of breath (principal); R07.9 Chest pain, unspecified; I27.20 Pulmonary hypertension, unspecified
CPT/HCPCS: 71275; Q9967

== ENCOUNTER → 2019-05-14 09:13 | Outpatient (CLI) | payer MEDICARE, OTHER, MEDICAID, SELFPAY ==
[2019-04-08 10:35] VITALS: BMI 31.6
--- NOTE | 2019-05-14 09:16 | STEWCON_ITS ---
Reason For Study: Chest Pain Stress Results Protocol: Dobutamine Stress Echo Maximum Predicted HR: 144 bpm Target HR: 122 bpm % Maximum Predicted HR: 84 % DurationHeart Rate Stage (mm:ss) (bpm) BP Comment Baseline 68 139/79No Chest Pain; Diluted Definity 7 ML Given DSE 10 MCG 3:10 77 120/66No Chest Pain DSE 20 MCG 3:04 94 132/56Mild Chest Pain DSE 30 MCG 3:00 109 120/7010/10 Chest Pain-Aching DSE 40 MCG 1:46 121 136/7210/10 Chest Pain-Aching; Mild SOB Recovery 90 147/79No Chest Pain Stress Duration: 11:00 mm:ss Maximum Stress HR: 121 bpm METS: 1 Baseline Echocardiogram Findings The estimated ejection fraction is 65 %. Stress Echo Wall motion Data Resting WM Intermediate WM Stress WM Resting Wall Motion Wall Motion Stress No regional wall motion No regional wall motion abnormalities noted. abnormalities noted. EKG Data The baseline ECG displays normal sinus rhythm. The patient was titrated from 10 mcg to a maximum of 40 mcg of dobutamine during the stress. The maximum heart rate attained was 131 beats per minute. This was 90% of maximum predicted heart rate. During dobutamine infusion, there were no ST or T wave changes noted to suggest ischemia. No clinical angina was noted. Interpretation Summary The estimated ejection fraction is 65 %. Normal, adequate, dobutamine echocardiogram. Negative for ischemia by EKG and echocardiographic criteria. No anginal symptoms noted. Rare PVCs noted. Appropriate blood pressure response to dobutamine. Decreased sensitivity due to poor echo windows requiring Definity agent. Final LVEF is 75%. Test terminated due to target heart rate achieved. No complications. The study was technically difficult. A transesophageal echocardiogram is recommended. Ordering Physician: Raul Valdez Referring Physician: Justin Tierney Performed By: Agustina Rashid, HIMANSHU, RVT
== END ==
PROVIDERS: Family Provider Family Medicine; PCP Family Medicine; Referring Provider Internal Medicine Cardiovascular Disease; Visit Provider Internal Medicine Cardiovascular Disease
DX: R07.9 Chest pain, unspecified (principal); R06.09 Other forms of dyspnea; I10 Essential (primary) hypertension; E78.5 Hyperlipidemia, unspecified; E74.8 Other specified disorders of carbohydrate metabolism
CPT/HCPCS: 93017; 93350; J7040; Q9957; A4216; C8928

== ENCOUNTER → 2019-05-20 | Outpatient (CLI) | payer MEDICARE, OTHER, MEDICAID, SELFPAY ==
[2019-04-08 10:35] VITALS: BMI 31.6
== END | disposition home or self-care (01) ==
LOC: SL 20:22
PROVIDERS: Family Provider Family Medicine; PCP Family Medicine; Referring Provider Psychiatry & Neurology Psychiatry; Visit Provider Psychiatry & Neurology Psychiatry
DX: G47.33 Obstructive sleep apnea (adult) (pediatric) (principal)
CPT/HCPCS: 95810

== ENCOUNTER 2019-08-11 16:00 | Outpatient (RCR) | payer MEDICARE, MEDICAID, OTHER, SELFPAY ==
[2019-04-08 10:35] VITALS: BMI 31.6
--- NOTE | 2019-06-07 10:52 | HP.PTEVAL_ITS ---
Patient's Visit Information RAYMUNDO LANDRY is a 78 year old F referred to Physical Therapy by Justin Tierney MD with a diagnosis of L shoulder pain. Date of Evaluation: 06/04/19 Physical Therapist: Paul Garcia DPT - Visit Plan Frequency: 2-3x /Week Duration: 4 Weeks Plan: 1) Start with modalities to reduce symptoms 2.) progress PROM/AAROM as tolerated don't push too far into painful symptoms, 3.) add in isometrics of deltoid and RTC. 4.) once ROM has been restored progress RTC phase III light. - Subjective Findings: Pt. is here today for her initial evaluation with diagnosis of L shoulder pain. Pt. reports physician thinks she might have some bursitis in her L shoulder. Pt. reprots falling down some stairs ~5-6 months ago resulting in head contusion and broken sternum. Pt. reports that has healed, but ~2 weeks ago started having increased L shoulder pain limiting her ability to raise her arm, lift, get dressed and complete ADls. Pt. reports some difficulty sleeping on that side as well. Pt. denies N/T. Pt. has not trialed any exercises at this point in time. Pt. 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 - Pain L shoulder Pain Intensity (Out of 10): 2 Pain Intensity Range: 1, 8 Comment: increased pain with any overhead movements. - Objective POSTURE: Pt. has fwrd head posture, rounded shoulders, equal shoulder heights. PALPATION: Pt. has increased pain at subacromial space, posterior aspect of lópez barcomial space, infraspinatus insertion, infraspinatus muscle belly and bicipital groove. NEURO: normal throughout. ROM: RUE- flexion 155deg, abd 150deg, functional ER C2, functional IR L5. LUE- shoulder- flexion 88deg, abd 78deg, functional ER C1 abherrant motion, functional IR greater trochanter. MMT: RUE_ 4+/5 throughout; LUE- ebow 4+/5 throughout; shoulder- flexion 4-/5, abd 4-/5, IR 4-/5 increase NW, ER 4/5 increase NW, ext 5/5 NE. - Special Tests L Shoulder External Rotation Lag Test - RC Tear: Negative L Shoulder Supine Impingement Test - RC Tear: Negative L Shoulder Lift Off Test - Subscapular Tear: Negative L Shoulder Drop Sign - IS Test: Negative L Shoulder Empty Can - SS: Positive L Shoulder Belly Press - SupScap: Negative L Shoulder Neer - Impingement: Positive L Shoulder Santiago Adeel - Impingement: Positive L Shoulder Apprehension Test - Anterior Instability: Negative L Shoulder Speeds Test - Labrum/Biceps: Positive L Shoulder Sulcus Sign - Inferior Laxity: Negative - Goals Goal 1:: Pt. to be I with HEP. Goal Time Frame: 4-6 Weeks Goal 2:: Pt. to have increased AROM of L shoulder symmetrical to R without increase in symptoms. Goal Time Frame: 4-6 Weeks Goal 3:: Pt. to sleep throughout the night without increase insymptoms. Goal Time Frame: 4-6 Weeks Goal 4:: Pt. to have icnreased L shoulder strength increased by 1/2 grade of all effective musculature. Goal Time Frame: 4-6 Weeks Goal 5:: Pt. to complete all ADLs and household work without increase insymptoms. - Rehabilitation Potential Physical Therapy Diagnosis: Pt. has signs and symptoms consistent with L shoulder pain. Her symptoms suggest RTC involvement, tendonitis vs partial tear. Without mechanism of injury I would presume either degenerative tear vs tendonitis. I will treat her with modalities to calm her symptoms progressing ROM as tolerated. With talking to her she also have some vertigo like symptoms. From her history and subjective it appears to be BPPV due to increased symptoms with rolling in bed and with positional changes, but PT Hamlet Gustavo will evaluate next week. Rehabilitation Potential: Fair - Anticipated Interventions Patient/Client Instruction: Educate patient on: Condition, Plan of Care, Risk Factors, Benefits of Fitness Program For the Purpose of:: To improve decision making, To facilitate caregiver knowledge, To improve self management, To prevent re-injury, To improve ability to perform tasks related to life management, To improve tolerance to ADL's Therapeutic Exercise to Include: Strength training, Power training, Endurance training, Postural training, Flexibilty training, Passive ROM, Active ROM, Jagdish Exercises, Scapular Strength/Stabilization For the Purpose of:: To decrease pain, To increase ROM, To improve nutrient delivery to tissue, To increase oxygenation perfusion, To improve muscle performance and motor function, To improve ability to perform ADL's, To improve health of tissue, To decrease soft tissue restriction, To increase flexibility/ROM Manual Therapy Techniques to Include: Mobilization, Passive ROM For the Purpose of:: To decrease pain, To decrease swelling/inflammation, To increase ROM TENS: Yes IF ES: Yes Cryotherapy (ice pack, ice massage): Yes Ultrasound (thermal/non thermal): Yes For the Purpose of:: To decrease pain, To decrease swelling/inflammation, To increase ROM, To improve nutrient delivery to tissue Thank you for the opportunity to evaluate your patient. For Medicare and Medicare HMO plans, please review the plan of care and approve it. It will need to be FAXED BACK to us at [phone] for Medicare purposes. For Medicare only, by signing this I certify the plan of care. Please let me know if there are questions or concerns regarding this plan of care. Physician Signature: Date:
--- NOTE | 2019-06-10 11:43 | HP.PTEVAL2 ---
Patient's Visit Information RAYMUNDO LANDRY is a 78 year old F referred to Physical Therapy by Justin Tierney MD with a diagnosis of vertigo. Date of Evaluation: 06/10/19 Physical Therapist: Hamlet Chen, LIANET, OCS, CSCS - Visit Plan Frequency: 2x /Week Duration: 4-6 Weeks Plan: 1-2x/week for 4-6 weeks: Start with positional treatments for BPPV. When improved, move on to balance exercises 2x/week and gait training - Subjective Findings: Going down stairs in November and fell adn hit head and broke sternum. Recovering adn is in therapy for shoulder. Is here now for vertigo which started shortly after fall. Now she gets vertigo if turns in bed and it spins and funny head and it lasts for less than a minute. That happens almost daily when turning in bed. Can also get it getting out of bed and down to bed. Annoying for a minute or so. Bending can also cause it. Sometimes it comes out of the blue. This dizzyness makes some things challenging but I am bullheaded. No other falls since then. Uses cane if walks distance, not at home. No neuropathy. No dizzyness prior to fall. No head aches. Sleeps not great but that is normal for her. Not employed. Spends day watching TV and has started going to [employer] for breakfast and play bingo and dos not get dizzy there. - Objective Objective: Walks slow but I without AD. Trasnfers I. C/S AROM WFL with some pain at symmetrical end range. UE AROM limited to 90 B with L sided pain. + R hallpike for up torsional nystagmus and dizzy for 10 seconds. Treated with Sheri 2x and much better second hallpike. - Goals Goal 1:: abolish vertigo feeling with moving in bed Goal Time Frame: 2-4 Weeks Goal 2:: FGA improved to to minimize fall risk. Goal Time Frame: 4-6 Weeks Goal 3:: I approp balance HEp to minimize future problems. Goal Time Frame: 4-6 Weeks - Rehabilitation Potential Physical Therapy Diagnosis: vertigo and balance problems. Rehabilitation Potential: Fair - Anticipated Interventions Patient/Client Instruction: Educate patient on: Condition, Plan of Care For the Purpose of:: To increase tolerance to activity/condition/position, To improve gait and locomotor functions Therapeutic Exercise to Include: Balance training For the Purpose of:: To increase tolerance to activity/condition/position, To improve gait and locomotor functions, To improve balance, To improve safety with gait Thank you for the opportunity to evaluate your patient. For Medicare and Medicare HMO plans, please review the plan of care and approve it. It will need to be FAXED BACK to us at [phone] for Medicare purposes. For Medicare only, by signing this I certify the plan of care. Please let me know if there are questions or concerns regarding this plan of care. Physician Signature: Date:
--- NOTE | 2019-07-01 16:39 | HP.PTREVAL_ITS ---
Justin Tierney MD, It has been my pleasure to treat RAYMUNDO LANDRY over the last 6 visits for L shoulder pain. Please see the progress note below for an update on the physical therapy plan of care! Subjective: L shoulder pain is still getting better, but its still there Objective/Function: L shoulder ROM: flex= 110, abd= 85, ER= 30, IR WNL. L shoulder MMT: grossly 4-/5 throughout available range and painfull with all testing. L shoulder pain 2/10. 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 to be I with HEP. Goal Time Frame: 4-6 Weeks Goal Progress: Progressing Goal 2:: Pt. to have increased AROM of L shoulder symmetrical to R without increase in symptoms. Goal Time Frame: 4-6 Weeks Goal Progress: Progressing Goal 3:: Pt. to sleep throughout the night without increase insymptoms. Goal Time Frame: 4-6 Weeks Goal Progress: Progressing Goal 4:: Pt. to have icnreased L shoulder strength increased by 1/2 grade of all effective musculature. Goal Time Frame: 4-6 Weeks Goal Progress: Progressing Goal 5:: Pt. to complete all ADLs and household work without increase insymptoms. Goal Progress: Progressing Anticipated Interventions Patient/Client Instruction: Educate patient on: Condition, Plan of Care, Risk Factors, Benefits of Fitness Program For the Purpose of:: To improve decision making, To facilitate caregiver knowledge, To improve self management, To prevent re-injury, To improve ability to perform tasks related to life management, To improve tolerance to ADL's Therapeutic Exercise to Include: Strength training, Power training, Endurance training, Postural training, Flexibilty training, Passive ROM, Active ROM, Jagdish Exercises, Scapular Strength/Stabilization For the Purpose of:: To decrease pain, To increase ROM, To improve nutrient delivery to tissue, To increase oxygenation perfusion, To improve muscle performance and motor function, To improve ability to perform ADL's, To improve health of tissue, To decrease soft tissue restriction, To increase flexibility/ROM Manual Therapy Techniques to Include: Mobilization, Passive ROM For the Purpose of:: To decrease pain, To decrease swelling/inflammation, To increase ROM TENS: Yes IF ES: Yes Cryotherapy (ice pack, ice massage): Yes Ultrasound (thermal/non thermal): Yes For the Purpose of:: To decrease pain, To decrease swelling/inflammation, To increase ROM, To improve nutrient delivery to tissue Please do not hesitate to contact me at [phone] by phone or if you have questions or concerns regarding this new plan of care! Sincerely, Dimitri Pate, PT, ATC
--- NOTE | 2019-07-11 15:23 | HP.PTRE(2) ---
Justin Tierney MD, It has been my pleasure to treat RAYMUNDO LANDRY over the last 4 visits for vertigo. Please see the progress note below for an update on the physical therapy plan of care! Subjective: Dizzyness is mostly gone. None in a while. Has stopped knee to ceiling with head ex as she has been good. Does not think balance is ideal. No falls. Using cane to get around all the time. Objective/Function/Assessment: - B hallpike adn - roll test today. Positional dizzyness seems abolished. No MSQ positions make her dizzy today. Balance still below normal for age and on the verge of fall risk. Educated to use cane and appropriate to [facility] PT for balance work and progress to HEP. Plan Plan: 2x/week for 4 weeks to work on balance vestibular, head turns, foam , weight shifts and gait and progress to I program. Fair prognosis toward balance goals. Goals - Goals Goal 1:: abolish vertigo feeling with moving in bed Goal Time Frame: 2-4 Weeks Goal Progress: Goal Met Goal 2:: FGA improved to to minimize fall risk. Goal Time Frame: 4-6 Weeks Goal Progress: Progressing Goal 3:: I approp balance HEp to minimize future problems. Goal Time Frame: 4-6 Weeks Goal Progress: not yet. Goal 4:: FGA / to minimize fall risk. Goal Time Frame: 2-4 Weeks Goal Progress: NEW GOAL Anticipated Interventions Patient/Client Instruction: Educate patient on: Condition, Plan of Care For the Purpose of:: To increase tolerance to activity/condition/position, To improve gait and locomotor functions Therapeutic Exercise to Include: Balance training For the Purpose of:: To increase tolerance to activity/condition/position, To improve gait and locomotor functions, To improve balance, To improve safety with gait Please do not hesitate to contact me at [phone] by phone or if you have questions or concerns regarding this new plan of care! Sincerely, Hamlet Chen, DPT, OCS, CSCS
--- NOTE | 2019-11-13 13:36 | HP.PTDCNRP_ITS ---
HP - Discharge Summary (1) - Patient Information RAYMUNDO LANDRY was seen in my office for initial evaluation on 06/04/19. The following Plan of Care was established for this patient: Initial Frequency: 2-3x /Week Initial Duration: 4 Weeks - Anticipated Interventions Patient/Client Instruction: Educate patient on: Condition, Plan of Care, Risk Factors, Benefits of Fitness Program For the Purpose of:: To improve decision making, To facilitate caregiver knowledge, To improve self management, To prevent re-injury, To improve ability to perform tasks related to life management, To improve tolerance to ADL's Therapeutic Exercise to Include: Strength training, Power training, Endurance training, Postural training, Flexibilty training, Passive ROM, Active ROM, Jagdish Exercises, Scapular Strength/Stabilization For the Purpose of:: To decrease pain, To increase ROM, To improve nutrient delivery to tissue, To increase oxygenation perfusion, To improve muscle pe rformance and motor function, To improve ability to perform ADL's, To improve health of tissue, To decrease soft tissue restriction, To increase flexibility/ROM Manual Therapy Techniques to Include: Mobilization, Passive ROM For the Purpose of:: To decrease pain, To decrease swelling/inflammation, To increase ROM TENS: Yes IF ES: Yes Cryotherapy (ice pack, ice massage): Yes Ultrasound (thermal/non thermal): Yes For the Purpose of:: To decrease pain, To decrease swelling/inflammation, To increase ROM, To improve nutrient delivery to tissue This patient was last seen in our office 08/11/19. Pertinent comments regarding their Physical therapy will appear below: Pt. was seen for her L shoulder and vestibular issues in PT. Pt. did well with both, but never was 100% better in each. Pt. was no longer having positional dizziness, but was having some L shoulder pain with reaching over head. Pt. was given HEP for both to complete on her own. Pt. was to follow up with PT if needed. Pt. as not been seen in several months and will be DC from PT at this point in time. At this point I will be discontinuing this patient from physical therapy. I would be happy to see this patient again in the future if found appropriate by the physician. Thank you! Paul Garcia DPT
== END 2019-08-11 19:00 | disposition home or self-care (01) ==
LOC: PT 16:00
PROVIDERS: Family Provider Family Medicine; PCP Family Medicine; Referring Provider Family Medicine; Visit Provider Family Medicine
DX: M89.8X1 Other specified disorders of bone, shoulder (principal); M25.512 Pain in left shoulder
CPT/HCPCS: 97035; 97110; 97140; 97161; 97530

== ENCOUNTER 2019-10-11 11:16 | Emergency (ER) | payer MEDICARE, SELFPAY ==
[2019-09-10 15:16] VITALS: BMI 32.1
[2019-10-11 11:17] VITALS: BP 179/83; PULSE 77; RESP 17; TEMP 36.7; O2SAT 97; BMI 32.5
--- NOTE | 2019-10-11 11:35 | EKG12_ITS ---
Test Reason : SHOULDER PAIN Blood Pressure : / mmHG Vent. Rate : 067 BPM Atrial Rate : 067 BPM P-R Int : 126 ms QRS Dur : 074 ms QT Int : 368 ms P-R-T Axes : 025 011 000 degrees QTc Int : 388 ms Normal sinus rhythm with sinus arrhythmia Normal ECG Confirmed by TAHMINA HARRISON, BELKYS ([id number]), magazine editor KAHLIL ROBERTS ([id number]) on 10/13/2019 2:42:39 PM Referred By: ALEX Confirmed By:BELKYS MARTEL MD
--- NOTE | 2019-10-11 11:41 | RAD_ITS ---
STUDY: X-RAY - LEFT SHOULDER REASON FOR EXAM: Female, 79 years old. Left shoulder pain TECHNIQUE: 4 view(s) of the shoulder. COMPARISON: None. FINDINGS: There is no evidence of fracture or dislocation. There are advanced degenerative changes noted. There are no radiodense foreign bodies. RAD/Shoulder min 2 Views IMPRESSION: No fracture or dislocation of the left shoulder. Advanced degenerative change. Electronically Signed: Shola Hong, at 12:12 EST Tel , Service support ,
[2019-10-11] MEDS: HYDROcodone Bitartrate/Apap 5/325 Tablet PO (11:42)
--- NOTE | 2019-10-11 12:37 | ED.DCSUM_ITS ---
- ER Visit Summary Date of Service: 10/11/19 Chief Complaint: [Left shoulder pain] History of Present Illness: The patient is a 79 F [presents to the emergency department with complaint of left shoulder pain that became severe yesterday. Patient states that she is had off-and-on problems with that left shoulder in the past and is gone through physical therapy for it. Patient has history of arthritis. She denies any trauma to it. Patient states that she is scheduled to see her orthopedic surgeon but not till 21 October. Patient was seen at urgent care this morning and was referred to the emergency department to rule out cardiac etiology of her pain. She denies any fevers or significant chest p ain although she states the pain tends to radiate kind of into her chest and into her neck. Patient states that the pain is positional. Patient has not had any fevers.] Physical Examination: ] HE ENT-patient normocephalic and atraumatic, PERRLA, EOMI, mucous membranes moist, TMs are clear. Cardiovascular-heart is regular rate and rhythm without murmur. Lungs-clear to auscultation without rales or wheezes. Chest wall nontender. Abdomen-nontender, normal bowel sounds, soft Extremities-left shoulder-patient has no evidence of trauma. No deformity. Patient has pain with range of motion at the glenohumeral joint. Range of motion reproduces her pain. Neurovascularly intact distally with normal pulses and normal sensation. Test Results: [EKG obtained arrival shows sinus rhythm with a ventricular rate of 67 bpm with occasional PACs. X-rays of the left shoulder showed arthritic changes otherwise nothing acute.] Emergency Department Course and Treatment: [Patient was given 1 [place] in the emergency department she had some pain relief with that.] I feel her pain is musculoskeletal I do not feel patient is having acute coronary syndrome. I suspect she may have a bursitis or pain related to arthritic changes or possibly tendinitis. Treatment Plan: [She will be given a sling however she is advised to take her arm out of the sling for 5 times a day to exercise the arm so that she does not develop a frozen shoulder. Patient to see her orthopedic surgeon on the . Patient advised to return if worsening pain, chest pain, shortness of breath, or conditions worsen anyway.] Disposition: [Discharged home in stable condition] Impression: [Left shoulder pain] This note was generated with [employer] dictation software. It may contain incorrect words, spelling, and punctuation that were not noted in review of the chart prior to signing ED Disposition - Plan for ED Patient: Referrals: Justin Tierney MD [Primary Care Provider] -
--- NOTE | 2019-10-11 12:41 | ED.DEP ---
ED Disposition - Plan for ED Patient: Instructions: SHOULDER PAIN (Uncertain Cause) Prescriptions: Hydrocodone Bitart/Apap 5-325 [[place] 5MG-325MG] 1 tab PO Q4H PRN PRN 2 Days #20 tab PRN Reason: Pain Prescription Printed Referrals: Justin Tierney MD [Primary Care Provider] - Felton Baum MD [STAFF PHYSICIAN] - 5-7 Days
== END 2019-10-11 12:52 | disposition home or self-care (01) ==
LOC: ED 11:43
PROVIDERS: Emergency Provider Emergency Medicine; Family Provider Family Medicine; PCP Family Medicine
DX: M25.512 Pain in left shoulder (principal); K21.9 Gastro-esophageal reflux disease without esophagitis; I10 Essential (primary) hypertension; E78.00 Pure hypercholesterolemia, unspecified; E03.9 Hypothyroidism, unspecified; Z79.82 Long term (current) use of aspirin; Z79.899 Other long term (current) drug therapy
CPT/HCPCS: 73030; 93005; 99283

== ENCOUNTER → 2019-11-10 13:43 | Outpatient (CLI) | payer MEDICARE, SELFPAY ==
[2019-10-11 11:17] VITALS: BMI 32.5
--- NOTE | 2019-11-10 13:44 | BI_ITS ---
MAMMOGRAPHY - BILATERAL SCREENING 3-D TOMOSYNTHESIS REASON FOR EXAM: Female, 79 years old. 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 TECHNIQUE: 2-D mammograms and 3-D Tomosynthesis of the breast (s) were performed. CAD was performed. COMPARISON: 03 June 2018. FINDINGS: The breast composition is heterogeneously dense that can obscure small breast masses. Scattered benign calcifications are seen. No dense spiculated masses or suspicious microcalcifications are identified. No architectural distortion is identified. There is no skin thickening or retraction. 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 There are multiple typically benign-appearing calcifications bilaterally. There are multiple, stable, well-circumscribed, subcentimeter nodules. There has been no significant change since the prior study. BI/SCREEN MAMM (CAD) W/ROSENDO BILAT IMPRESSION: No mammographic signs of malignancy. Routine yearly mammograms recommended. ASSESSMENT CATEGORY: BIRADS Category 2: Benign. A letter regarding these results will be sent to the patient by the facility within 30 days. FOLLOW UP RECOMMENDATION: Yearly follow up mammogram recommended. (A) Approximately 10% of breast cancers are not detected by mammography. A normal mammogram should not delay biopsy of a clinically suspicious abnormality. Electronically Signed: Sukhdev Nielson MD at 16:05 EST , Service support ,
== END ==
PROVIDERS: Family Provider Family Medicine; PCP Family Medicine; Referring Provider Radiology Radiation Oncology; Visit Provider Radiology Radiation Oncology
DX: Z12.31 Encounter for screening mammogram for malignant neoplasm of breast (principal); Z85.3 Personal history of malignant neoplasm of breast
CPT/HCPCS: 77063; 77067

== ENCOUNTER → 2020-12-03 14:17 | Outpatient (CLI) | payer MEDICARE, MEDICAID, SELFPAY ==
--- NOTE | 2020-12-03 14:20 | BI_ITS ---
MAMMOGRAPHY - BILATERAL SCREENING REASON FOR EXAM: Female, 80 years old. Routine annual screening examination. PERTINENT HISTORY: Personal history of breast cancer. Prior left lumpectomy and radiation treatment. Sister with breast cancer. Aunt with breast cancer. TECHNIQUE: Digital bilateral breast rosendo (3D mammographic acquisition) in the CC and MLO projections. 2-D mediolateral oblique (MLO) and craniocaudad (CC) views of both breasts were obtained. CAD: Full Field Digital Mammography with Computer Added Detection was performed. COMPARISON: Comparison is made with prior examination dated 11/10/2019 and 06/03/2018. FINDINGS: Breast Composition: The breasts are heterogeneously dense, which may obscure small masses. There are no dominant masses or suspicious calcifications. Once again, the patient is status post lumpectomy in the upper deep central portion of the left breast with resultant deformity and scarring at the operative site. This is unchanged. No other significant abnormalities are identified. There has been no significant change since the prior study. BI/SCRN MAMM (CAD)W/ROSENDO BILAT IMPRESSION: Stable bilateral screening mammogram. Yearly follow-up mammogram recommended. (A) ASSESSMENT CATEGORY: BIRADS Category 2: Benign. A letter regarding these results will be sent to the patient by the facility within 30 days. Approximately 10% of breast cancers are not detected by mammography. A normal mammogram should not delay biopsy of a clinically suspicious abnormality. [id number] Electronically Signed: Gurpreet Chsae MD at 15:22 EST , Service support ,
== END ==
PROVIDERS: PCP Family Medicine; Referring Provider Radiology Radiation Oncology; Visit Provider Radiology Radiation Oncology
DX: Z12.31 Encounter for screening mammogram for malignant neoplasm of breast (principal); Z85.3 Personal history of malignant neoplasm of breast
CPT/HCPCS: 77063; 77067

== ENCOUNTER 2020-12-23 16:28 | Emergency (ER) | payer MEDICARE, MEDICAID, SELFPAY ==
[2020-12-23 16:29] VITALS: BP 162/86; PULSE 71; RESP 18; TEMP 36.4; O2SAT 96; BMI 31.2
--- NOTE | 2020-12-23 16:40 | RAD_ITS ---
STUDY: X-RAY - LEFT ELBOW REASON FOR EXAM: Female, 80 years old. twisting injury, left elbow pain, best images possible obtained due to patients'' pain TECHNIQUE: 4 view(s) of the elbow. COMPARISON: None. FINDINGS: Normal visualized humerus, radius and ulna. Small cortical osteophytes are present at the radial head neck junction as well as the distal humerus proximal ulnar articulation. The soft tissue structures are unremarkable. There is no demonstrated fracture. RAD/Elbow min 3 Views IMPRESSION: No visualized acute fracture. Electronically Signed: Rickie Najera MD at 17:33 EST , Service support ,
--- NOTE | 2020-12-23 17:58 | ED.DCSUM_ITS ---
- ER Visit Summary Date of Service: 12/23/20 Chief Complaint: [Left elbow pain] History of Present Illness: The patient is a 80 F [presents to the emergency department complaint of left elbow pain that started yesterday. Patient denies any injury or trauma. Patient states that she was getting ready to shovel some snow and had a broom and a shovel in her arms when she started having sudden onset of severe pain. She denies falling. She had not started shoveling it. Patient states the pain is severe and especially worse with movement. The pain at times will radiate towards the wrist and at times towards her left shoulder. She denies any chest pain or shortness of breath. Patient states that she was scheduled to have a heart cath tomorrow.] Physical Examination: [HEENT-PERRLA, EOMI. Cranial nerves II through XII grossly intact. TMs clear. Mucous membranes moist. No adenopathy. Cardiovascular-regular rate and rhythm without murmur or ectopy Lungs-clear to auscultation, chest wall stable without crepitus or subcu emphysema Abdomen-normoactive bowel sounds, soft, nontender, no rebound or rigidity, no peritoneal signs. Extremities-intact ?4, normal range of motion, normal pulses, atraumatic. Left elbow-patient has tenderness palpation over the radial head which is where the patient points to the area of maximum pain. She has pain with pronation and supination. She is neurovascular intact distally with normal station will cap refill. She has normal pulses.] Test Results: [X-rays of the left elbow obtained read by radiology as no acute disease process. On my interpretation however I suspect the patient may have a radial head fracture. I will send radiologist note to relook at the films. Clinically I feel patient also likely has a radial head fracture.] Emergency Department Course and Treatment: [Patient was given 1 [place] in the department. Patient will be placed in a sling. Patient will be referred to orthopedics] Treatment Plan: [Patient given a prescription for [place] and referral to orthopedics for follow-up.] Disposition: [Discharged home in stable condition] Impression: [Left elbow pain Left radial head fracture] This note was generated with [employer] dictation software. It may contain incorrect words, spelling, and punctuation that were not noted in review of the chart prior to signing ED Disposition - Plan for ED Patient: Referrals: Justin Tierney MD [Primary Care Provider] -
--- NOTE | 2020-12-23 18:01 | DCINST.ED_ITS ---
ED Disposition - Plan for ED Patient: Instructions: ED Radial Head Fracture Prescriptions: Hydrocodone Bitart/Apap 5-325 [[place] 5MG-325MG] 1 tab PO Q4H PRN PRN 2 Days #14 tab PRN Reason: Pain Prescription Printed Referrals: Aurelio Nagy MD [STAFF PHYSICIAN] - 3-5 Days
[2020-12-23] MEDS: HYDROcodone Bitartrate/Apap 5/325 Tablet PO (18:11)
== END 2020-12-23 18:26 | disposition home or self-care (01) ==
LOC: ED 18:06
PROVIDERS: Emergency Provider Emergency Medicine; PCP Family Medicine
DX: S52.122A Displaced fracture of head of left radius, initial encounter for closed fracture (principal); I10 Essential (primary) hypertension; X50.9XXA Other and unspecified overexertion or strenuous movements or postures, initial encounter; Y93.89 Activity, other specified; Y92.098 Other place in other non-institutional residence as the place of occurrence of the external cause; Y99.8 Other external cause status
CPT/HCPCS: 73080; 99283

== ENCOUNTER → 2021-10-10 09:07 | Outpatient (CLI) | payer MEDICARE, MEDICAID, SELFPAY ==
--- NOTE | 2021-10-10 09:10 | US_ITS ---
STUDY: ULTRASOUND BREAST - LEFT REASON FOR EXAM: Female, 81 years old. Palpable lump left breast. TECHNIQUE: Axial and longitudinal images of the LEFT breast were performed with a high resolution ultrasound transducer. # OF IMAGES: 17 COMPARISON: Comparison is made with prior mammogram done earlier today. FINDINGS: LEFT Breast: The palpable abnormality corresponds to a 7 mm x 6 mm x 9 mm hypoechoic irregular nodular density with posterior acoustical shadowing at the 12 o''clock position of the breast at 11 cm from nipple. A biopsy recommended. US/Breast Limited Unilateral IMPRESSION: The palpable mildly corresponds to 7 mm x 6 mm x 9 mm hypoechoic irregular nodular density with posterior acoustical shadowing at the 12 o''clock position at 11 cm from the nipple. A biopsy recommended. ASSESSMENT CATEGORY: BIRADS Category 4: Suspicious - Biopsy Should Be Considered. A letter regarding these results will be sent to the patient by the facility within 30 days. Electronically Signed: Gurpreet Chase MD at 12:29 EST , Service support ,
--- NOTE | 2021-10-10 09:10 | BI_ITS ---
MAMMOGRAPHY - UNILATERAL DIAGNOSTIC: LEFT BREAST REASON FOR EXAM: Female, 81 years old. Patient presents with a 3 week history of left breast lump and tenderness. PERTINENT HISTORY: Personal history of breast cancer. Prior left lumpectomy. Sister with breast cancer. Aunt with breast cancer. TECHNIQUE: Digital unilateral breast opal (3D mammographic acquisition) in the CC and MLO projections. 2-D mediolateral oblique (MLO) and craniocaudad (CC) views of both breasts were obtained. CAD: Full Field Digital Mammography with Computer Added Detection was performed. COMPARISON: Comparison is made with prior study dated 12/03/2020 and 11/10/2019. FINDINGS: Breast Composition: The breasts are heterogeneously dense, which may obscure small masses. There are no dominant masses or suspicious calcifications. The patient is status post lumpectomy in the upper deep central portion of the left breast. Postoperative changes are seen. There is been no change. No other significant abnormalities are identified. There has been no significant change since the prior study. BI/DIAG MAMM W/CAD, UNILAT IMPRESSION: Stable unilateral diagnostic mammogram. With the patient''s history of a palpable lump in the left breast, correlation with ultrasound is recommended. ASSESSMENT CATEGORY: BIRADS Category 0: Incomplete. Need additional imaging evaluation. A letter regarding these results will be sent to the patient by the facility within 30 days. Approximately 10% of breast cancers are not detected by mammography. A normal mammogram should not delay biopsy of a clinically suspicious abnormality. Electronically Signed: Gurpreet Chase MD at 10:53 EST , Service support ,
== END ==
PROVIDERS: PCP Family Medicine; Referring Provider Internal Medicine Hematology & Oncology; Visit Provider Internal Medicine Hematology & Oncology
DX: N63.20 Unspecified lump in the left breast, unspecified quadrant (principal); Z85.3 Personal history of malignant neoplasm of breast
CPT/HCPCS: 76642; 77061; 77065; G0279

== ENCOUNTER → 2021-10-14 | Outpatient (CLI) | payer MEDICARE, MEDICAID, SELFPAY ==
--- NOTE | 2021-10-14 | BRBX_PTH ---
PATIENT: RAYMUNDO LANDRY LOC: [facility] U#:[id number] AGE/SX: 81/F ROOM: RE10/14/[address]: Dr. Reuben Membreno MD : 1940 BED: DIS: 10/14/2021 SPEC #: [id number] RECD: 10/14/21 16:13 STATUS: PHILIP REGucci #: [id number] RENUKA: 10/14/21 00:[address]: Reuben Membreno DEPT: SURGICAL PATHOLOGY RECD BY: Rohit Valadez ENTERED: 10/17/21 10:39 SP TYPE: BREAST BX OTHR DR: Dr. Justin Tierney MD Tissues: Left breast, NOS Procedures: Surgery Specimen Level IV HEADER OPERATION: Left breast biopsy PRE-OP DIAGNOSIS: Abnormal breast ultrasound TISSUE SUBMITTED: Left breast tissue MICROSCOPIC DIAGNOSIS Left breast, ultrasound-guided core biopsy: Fibrofatty tissue with focal elastosis. No evidence of malignancy. See comment. AM:ezequiel 10/18/2021 COMMENT Glandular elements are not present in the biopsy. Clinical correlation is suggested. Reference is made to the patient's previous left breast biopsies from 2018 ([id number]) in which extensive fat necrosis was identified. MICROSCOPIC DESCRIPTION Slides are reviewed. GROSS DESCRIPTION Received in fixative is one container labeled with the patient's name and designated left breast tissue. The specimen consists of multiple elongated fragments of garcia-yellow fibroadipose tissue that in aggregate measure 1.3 x 0.5 x 0.1 cm. The entire specimen is submitted in one cassette. / SJ:ezequiel 10/17/21 TC:5 CPT: 47144
== END | disposition home or self-care (01) ==
PROVIDERS: PCP Family Medicine; Visit Provider Surgery
DX: R92.8 Other abnormal and inconclusive findings on diagnostic imaging of breast (principal)
CPT/HCPCS: 88305

== ENCOUNTER 2022-01-19 13:25 | Outpatient (CLI) | payer MEDICARE, MEDICAID, SELFPAY ==
--- NOTE | 2022-01-19 13:31 | BI_ITS ---
MAMMOGRAPHY - BILATERAL SCREENING REASON FOR EXAM: Female, 81 years old. Routine annual screening examination. PERTINENT HISTORY: Personal history of breast cancer. Status post left lumpectomy with radiation therapy. Sister with breast cancer. Underwent with breast cancer. TECHNIQUE: Digital bilateral breast rosendo (3D mammographic acquisition) in the CC and MLO projections. 2-D mediolateral oblique (MLO) and craniocaudad (CC) views of both breasts were obtained. CAD: Full Field Digital Mammography with Computer Added Detection was performed. COMPARISON: Comparison is made with prior study dated 12/03/2020 and 10/10/2021. FINDINGS: Breast Composition: The breasts are heterogeneously dense, which may obscure small masses. There are no dominant masses or suspicious calcifications. The patient is status post lumpectomy in the upper deep central portion of the left breast. Postsurgical changes are seen. No other significant abnormalities are identified. There has been no significant change since the prior study. BI/SCRN MAMM (CAD)W/ROSENDO BILAT IMPRESSION: Stable bilateral screening mammogram. Yearly follow-up mammogram recommended. (A) ASSESSMENT CATEGORY: BIRADS Category 2: Benign. A letter regarding these results will be sent to the patient by the facility within 30 days. Approximately 10% of breast cancers are not detected by mammography. A normal mammogram should not delay biopsy of a clinically suspicious abnormality. [id number] Electronically Signed: Gurpreet Chase MD at 15:11 EST ,
--- NOTE | 2022-01-19 13:31 | US_ITS ---
STUDY: ULTRASOUND BREAST - LEFT REASON FOR EXAM: Female, 81 years old. Follow-up for prior left breast biopsy. TECHNIQUE: Axial and longitudinal images of the LEFT breast were performed with a high resolution ultrasound transducer. # OF IMAGES: 15 COMPARISON: Comparison is made with prior ultrasound dated 10/10/2021 and prior mammogram dated 01/19/2022. FINDINGS: LEFT Breast: Stable 7 mm x 5 mm x 10 mm hypoechoic nodule at the 12 o''clock position of the breast at 11 cm from nipple with posterior acoustical shadowing. A tissue clip marker is seen within. US/Breast Limited Unilateral IMPRESSION: Stable appearance of the hypoechoic nodule at the 12 o''clock position of the breast at the 11 signs of nipple. A tissue clip marker is seen within it. ASSESSMENT CATEGORY: BIRADS Category 2: Benign. A letter regarding these results will be sent to the patient by the facility within 30 days. Electronically Signed: Gurpreet Chase MD at 12:30 EST ,
== END 2022-01-19 23:59 | disposition home or self-care (01) ==
LOC: OPBI 13:26
PROVIDERS: PCP Family Medicine; Visit Provider Surgery
DX: D05.12 Intraductal carcinoma in situ of left breast (principal); Z12.31 Encounter for screening mammogram for malignant neoplasm of breast
CPT/HCPCS: 76642; 77063; 77067

== ENCOUNTER 2022-07-22 22:21 | Inpatient (IN) | payer MEDICARE, MEDICAID, SELFPAY ==
[2022-07-22 22:22] VITALS: BP 148/80; PULSE 79; RESP 16; TEMP 36.9; O2SAT 98; BMI 30.6
--- NOTE | 2022-07-22 22:44 | EKG12_ITS ---
Test Reason : DYSRYTHMIA Blood Pressure : / mmHG Vent. Rate : 078 BPM Atrial Rate : 078 BPM P-R Int : 142 ms QRS Dur : 080 ms QT Int : 352 ms P-R-T Axes : 058 029 019 degrees QTc Int : 401 ms Normal sinus rhythm Normal ECG Confirmed by TAHMINA HARRISON, BELKYS ([id number]), content editor ALYCIA PAZ ([id number]) on 07/24/2022 11:28:16 AM Referred By: ALEX Confirmed By:BELKYS MARTEL MD
--- NOTE | 2022-07-22 22:45 | EDS_ITS ---
HPI HPI - GI History of Present Illness Chief Complaint: GI Bleed Nausea/Vomiting/Emesis GI Symptom: Positive for Nausea; Negative for Vomiting Diarrhea/Melena/Hematochezia GI Symptom: Positive for Melena; Negative for Hematochezia Onset: Weeks (1) Associated Symptoms Associated Symptoms: Negative for Dysuria, Frequency, Hematuria or Urgency Narrative Narrative: Patient has been having melanotic stools for the past week, saw her doctor yesterday had some blood counts that she does not know the results of yet, she had a positive Hemoccult, her omeprazole was doubled from 20 once daily to 20 twice daily, she is still taking her baby aspirin which she takes for preventative purposes. She is not anticoagulated. 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 She has had some lightheadedness with sitting up but that is nothing new, she had that prior to any of the symptoms. She denies any near-syncope or syncope. She has been standing and walking without difficulty. She has felt malaise. No dyspnea or chest pain. No abdominal pain. Nausea but no vomiting. 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 She takes a baby aspirin, she has been continuing that. [facility] Medical History Anemia Arthritis Benign positional vertigo Breast mass, left Cardiac contusion (11/27/18) Chronic kidney disease (CKD) Dyspnea on exertion Elevated troponin (11/27/18) FRACTURE LEFT ANKLE GERD (gastroesophageal reflux disease) History of fall (11/27/18) History of left heart catheterization History of subdural hematoma (post traumatic) (03/19/16) Hx of breast cancer Hyperlipidemia Hypertension Osteopenia Pleural effusion on left Sternal fracture (11/27/18) Thyroid disease Home Medications metoprolol tartrate 50 mg tablet 25 mg PO BID 12/04/14 [History Last Taken 10/11/19] oxybutynin chloride 5 mg tablet 10 mg PO BID 01/23/16 [History Last Taken 10/10/19] aspirin 81 mg tablet,delayed release (Adult Low Dose Aspirin) 81 mg PO QDAY 06/12/18 [History Last Taken 10/11/19] cholecalciferol (vitamin D3) 1,250 mcg (50,000 unit) capsule 50,000 unit PO QWEEK 04/02/19 [History Last Taken 10/05/19] omeprazole 20 mg capsule,delayed release 20 mg PO BID 04/02/19 [History Last Taken 10/11/19] simvastatin 20 mg tablet 20 mg PO QHS 04/02/19 [History Last Taken 10/10/19] trazodone 100 mg tablet 100 mg PO QHS 04/02/19 [History Last Taken 10/10/19] lidocaine 4 % topical patch 1 patch topical DAILY PRN Pain 04/08/19 [History Last Taken 10/09/19] ferrous sulfate 325 mg (65 mg iron) tablet (iron) 325 mg PO QODAY 07/22/22 [History Last Taken Unknown] hydrochlorothiazide 12.5 mg tablet 12.5 mg PO DAILY 07/22/22 [History Last Taken Unknown] Allergy/AdvReac Type Severity Reaction Status Date / Time diazepam [From Valium] AdvReac Severe Other Verified 07/22/22 22:24 eszopiclone [From Lunesta] AdvReac Severe confusion Verified 07/22/22 22:24 morphine AdvReac Severe Other Verified 07/22/22 22:24 paroxetine HCl [From Paxil] AdvReac Severe Other Verified 07/22/22 22:24 zolpidem [From Ambien] AdvReac Severe confusion Verified 07/22/22 22:24 Family History Sister Breast cancer Heart disease Hypertension Father Heart disease Hypertension Surgical History History of bilateral knee replacement History of lumpectomy of left breast History of oophorectomy History of right cataract surgery History of tubal ligation Social History Smoking Status: Never smoker second hand exposure: No alcohol intake: never substance use type: does not use caffeine: Yes Type: coffee Number of servings: 2 what type of physical activity do you participate in: none frequency: does not exercise amador/faith: [employer]ologist of [employer] seatbelt use: sometimes additional 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 She worked in an [employer], had to fly to get there. ROS ROS ED Constitutional Constitutional ED: Reports malaise; Denies chills or fever(s) Eyes Eyes: Denies change in vision or diplopia ENT ENT ED: Denies rhinorrhea or sore throat Cardiovascular Cardiovascular: Denies chest pain or palpitations Respiratory/Chest Respiratory/Chest: Denies cough or dyspnea Gastrointestinal Gastrointestinal: Reports melena and nausea; Denies abdominal pain, diarrhea or vomiting Genitourinary Genitourinary ED: Denies dysuria or hematuria Musculoskeletal Musculoskeletal: Denies back pain or neck pain Integumentary Denies abscess or rash Neurologic Neurologic: Denies headache(s), paresthesias or weakness Psychiatric Psychiatric: Denies anxiety or suicidal thoughts EXAM Physical Exam Const Vital Signs: 07/22/22 22:22 07/22/22 22:50 07/22/22 23:33 Temperature 98.5 F Temperature Source Temporal Pulse Rate 79 83 Pulse Rate [Lying] 77 Pulse Rate [Sitting (for 1 minute prior to obtaining)] 81 Respiratory Rate 16 21 H Blood Pressure 148/80 H 131/70 H Blood Pressure [Lying] 131/62 H Blood Pressure [Sitting (for 1 minute prior to obtaining)] 132/76 H Blood Pressure [Standing (for 1 minute prior to obtaining)] 136/81 H Blood Pressure Mean 102 90 Blood Pressure Mean [Lying] 85 Blood Pressure Mean [Sitting (for 1 minute prior to obtaining)] 94 Blood Pressure Mean [Standing (for 1 minute prior to obtaining)] 99 Pulse Ox 98 91 Oxygen Delivery Method Room Air Room Air Oxygen Flow Rate (L/min) 07/23/22 00:52 07/23/22 02:00 Temperature Temperature Source Pulse Rate 74 88 Pulse Rate [Lying] Pulse Rate [Sitting (for 1 minute prior to obtaining)] Respiratory Rate 16 17 Blood Pressure 117/72 113/66 Blood Pressure [Lying] Blood Pressure [Sitting (for 1 minute prior to obtaining)] Blood Pressure [Standing (for 1 minute prior to obtaining)] Blood Pressure Mean 87 81 Blood Pressure Mean [Lying] Blood Pressure Mean [Sitting (for 1 minute prior to obtaining)] Blood Pressure Mean [Standing (for 1 minute prior to obtaining)] Pulse Ox 93 97 Oxygen Delivery Method Room Air Nasal Cannula Oxygen Flow Rate (L/min) 2 Positive well nourished and well developed Constitutional Narrative: Well-appearing conversive in full sentences General Appearance ED: well developed and NAD HEENT Reports moist mucous membranes normocephalic and atraumatic Eyes PERRL and EOMs intact bilaterally Neck full ROM and supple Resp normal respiratory effort and clear to auscultation bilaterally Cardio regular rate, regular rhythm and no murmurs Rate: Negative for tachycardic GI non-distended GI Narrative: Very mild subjective tenderness in the epigastrium, right of the umbilicus and left of the umbilicus. No guarding or rebound. No pulsatile mass. Active bowel sounds present. Auscultation: normoactive bowel sounds Palpation: soft Back/Spine no CVA tenderness General Back: other FROM Extremity normal to inspection General Extremety ED: Negative for edema, pulses abnormal or tenderness General Extremity: Negative for edema or pulses abnormal Neuro oriented x3, CN's II-XII intact bilaterally and no sensory deficits noted Sensorium / Orientation: awake and alert Motor Exam: strength 5/5 throughout Skin no rashes or lesions noted and no wounds MDM MDM MDM Narrative Medical decision making narrative: Patient's hemoglobin is stable, good at 12.5, orthostatics were technically negative although she did have some lightheadedness when she sat up. While we are waiting for testing to return, the patient did have a couple episodes of mild hypoxemia that was asymptomatic. Initially, she was not hypoxic until she walked to the bathroom and back, she was not hypoxic with ambulating but then she had a reading at 88% with a good waveform on room air. Then that resolved. Then later, she transiently went down to 84% with a good waveform. She developed no tachycardia with this, nor any dyspnea. She states she has a history of pulmonary hypertension, unclear if that is related or if the hypoxemia is even real since she is not hypoxic the majority of time she is resting here, and as I discussed with her, she could also have vascular disease in her left upper extremity where the pulse oximeter has been the entire time that is altering the flow of blood although she is perfusing her arm very well with a palpable pulse. In order to further evaluate, we had an ABG obtained, and it does show a PO2 of 61 correlating with a pulse ox of approximately 90% meaning that the pulse oximetry was probably real. She did develop some left lower chest discomfort, her 2 view chest x-ray on my interpretation shows a large air bubble in the stomach with an elevated left hemidiaphragm that coexists. Otherwise her lungs are clear and there is no free air under the diaphragm. Give her a dose of Mylanta that contains simethicone for this. This resolved her left upper quadrant/left lower chest symptoms/discomfort. Subsequently, her oxygenation was better, maintaining 93-94% at rest, but with ambulation she still desaturates to 87% on room air. I had a D-dimer sent, and as expected it is abnormally elevated, which could be the case because of her GI bleeding. She was then sent for CT angiography of the chest as well as CT of the abdomen/pelvis using that bolus to our advantage since she was having some abdominal pains as well. The results below are noted, it is possible that she has pneumonia causing this hypoxemia. It is also possible that there is mild hypoxemia due to the lingular infiltrate and she chronically is borderline. Since she has an oxygen requirement right now, I am giving her Rocephin and azithromycin and the plan will be for admission and further treatment. We will also give her a dose of Carafate. Of note, GI is not available this weekend. It is Sunday morning. I was not going to admit her for the GI bleeding as it is controlled/stable, and her treatment plan was doubling up on her omeprazole which she already started, Carafate, discontinuing aspirin, and I already gave her a dose of Protonix IV 40 mg here since she already had 2 doses of omeprazole in the past 12-24 hours. Lab Data Attestation: I reviewed the patient's lab results. Labs: Laboratory Results - last 24 hr 07/22/22 07/22/22 07/22/22 23:03 23:03 23:03 WBC 5.2 RBC 4.09 L Hgb 12.5 Hct 37.9 MCV 92.7 MCH 30.6 MCHC 33.0 RDW Std Deviation 43.8 RDW Coeff of Scott 12.9 Plt Count 277 MPV 9.1 Immature Gran % (Auto) 0.400 Neut % (Auto) 65.3 Lymph % (Auto) 19.3 [place] % (Auto) 13.1 H Eos % (Auto) 1.7 Baso % (Auto) 0.2 Absolute Neuts (auto) 3.4 Absolute Lymphs (auto) 1.00 Nucleated RBC % 0 D-Dimer Quant (PE/DVT) Sodium 139 Potassium 3.8 Chloride 103 Carbon Dioxide 30.0 Anion Gap 6 BUN 20 H Creatinine 1.09 H Estim Creat Clear Calc 34.62 Est GFR (MDRD) Af Amer 62 Est GFR (MDRD) Non-Af 51 L BUN/Creatinine Ratio 18.3 Glucose 112 H Calcium 9.2 Troponin I High Sens Blood Type O POSITIVE Antibody Screen NEGATIVE 07/22/22 07/22/22 23:03 23:03 WBC RBC Hgb Hct MCV MCH MCHC RDW Std Deviation RDW Coeff of Scott Plt Count MPV Immature Gran % (Auto) Neut % (Auto) Lymph % (Auto) [place] % (Auto) Eos % (Auto) Baso % (Auto) Absolute Neuts (auto) Absolute Lymphs (auto) Nucleated RBC % D-Dimer Quant (PE/DVT) 2.69 H* Sodium Potassium Chloride Carbon Dioxide Anion Gap BUN Creatinine Estim Creat Clear Calc Est GFR (MDRD) Af Amer Est GFR (MDRD) Non-Af BUN/Creatinine Ratio Glucose Calcium Troponin I High Sens 6 Blood Type Antibody Screen ABG Data ABG results: ABG 07/23/22 01:44 Specimen Type ART Sample Site L Radial pH 7.36 Bicarbonate Actual 27.0 H Total CO2 29 Base Excess 2 O2 Saturation 90 L ABG pCO2 47.7 H ABG pO2 61 L Jose De Jesus Test Positive O2 Delivery Device Room Air Radiography Diagnostic Testing: Clinical Impression(s) from Imaging Studies Chest X-Ray 07/22/22 23:50 IMPRESSION: No radiographic evidence of acute cardiopulmonary disease. Electronically Signed: Fatoumata Nagy MD at 1:18 EDT , Chest CTA 07/23/22 01:52 IMPRESSION: 1. No CTA demonstrated pulmonary embolism or arterial dissection. 2. Lingular airspace disease could represent pneumonia. Electronically Signed: Fatoumata Nagy MD at 3:20 EDT , Abdomen/Pelvis CT 07/23/22 01:54 IMPRESSION: Fluid-filled small bowel and colon suggest possible sequela of acute infectious or inflammatory enteritis or colitis. Electronically Signed: Fatoumata Nagy MD at 3:32 EDT Reading Location ID and State: [facility] / [place] , Service support , Rhythm Strip Rhythm Strip: Sinus Rhythm Rate: 80 Ectopy: None EKG Initial EKG: Attestation: I personally reviewed and interpreted this EKG as follows: Interpretation: Sinus Rhythm and No Acute Injury Pattern Comments: Normal EKG Discharge Plan Dx/Rx/DC Orders Clinical Impression: Hypoxemia, Acute upper gastrointestinal bleeding, Pneumonia, Hx of pulmonary hypertension, Acute abdominal pain in left upper quadrant Disposition Disposition: Acute Care Hospital [facility]
[2022-07-22 22:50] VITALS: BP 131/70; PULSE 83; RESP 21; O2SAT 91
--- NOTE | 2022-07-22 23:13 | ED.RN ---
no old ekgs
[2022-07-22 23:23] LABS: Absolute Neutrophil Count 3.4 X10^3/uL (2.0-7.7); Basophil# 0.01 X10^3/uL; Basophil% 0.2 % (0-1); Eosinophil# 0.09 X10^3/uL; Eosinophils% 1.7 % (0-5); Hematocrit 37.9 % (37-47); Hemoglobin 12.5 g/dL (12.0-15.0); Lymphocyte % 19.3 % (19-41); Mean Corpuscular Hgb 30.6 pg (27.0-32.0); Mean Corpuscular Volume 92.7 fL (81-99); Mean Platelet Vol. 9.1 fl (6.2-12.0); Monocyte# 0.68 X10^3/uL; Monocyte% 13.1 % (0-10); NRBC Flagged by Analyzer 0 % (0-5); Neutrophil # 3.39 X10^3/uL (2.7-7.7); Neutrophil % 65.3 % (47-70); Platelet Count 277 K/mm3 (150-450); RBC Distribution Width CV 12.9 % (11.6-14.6); RBC Distribution Width SD 43.8 fl (35.1-43.9); Red Blood Count 4.09 M/mm3 (4.2-5.4); White Blood Count 5.2 K/mm3 (4.4-11.0)
--- NOTE | 2022-07-22 23:30 | ED.RN ---
pt pulse ox dropping to 87-88% with a good waveform dr meyers notified, cxr ordered
[2022-07-22] MEDS: Ondansetron 4 MG/2 ML Vial IV (23:31)
[2022-07-22 23:33] VITALS: BP 131/62; BP 132/76; BP 136/81; PULSE 77; PULSE 81
[2022-07-22 23:34] LABS: Anion Gap 6 (5-15); BUN 20 mg/dL (7-18); BUN/Creat Ratio 18.3 RATIO (10-20); Calcium,Total 9.2 mg/dL (8.5-10.1); Chloride 103 mmol/L (98-107); Creatinine, Serum 1.09 mg/dL (0.55-1.02); EST Glomerular Filtration Rate 51 mL/min (>60); Est Glom Filt Rate - Afr Amer 62 mL/min (>60); Estimated Creatinine Clearance 34.62 ml/min; Glucose 112 mg/dL (74-106); Potassium 3.8 mmol/L (3.5-5.1); Sodium Level 139 mmol/L (136-145)
--- NOTE | 2022-07-22 23:50 | RAD_ITS ---
STUDY: X-RAY CHEST REASON FOR EXAM: Female, 81 years old patient with hypoxia. TECHNIQUE: PA and lateral views of the chest. COMPARISON: 01/22/2016. FINDINGS: Cardiac monitoring leads are present. There is moderate elevation of left hemidiaphragm. The right lung is hyperexpanded. There is no definite airspace consolidation. There is no demonstrated pleural abnormality. There is borderline cardiomegaly. Normal mediastinum and merrill. Normal visualized pulmonary arteries. There is atherosclerotic calcification of the aortic arch with tortuosity. There is demineralization of the osseous structures. There are degenerative changes of the shoulders and spine. There is a large amount bowel gas in the upper abdomen. RAD/Chest PA and Lateral IMPRESSION: No radiographic evidence of acute cardiopulmonary disease. Electronically Signed: Fatoumata Nagy MD at 1:18 EDT ,
[2022-07-23] VITALS (15 sets, daily range): BP systolic 113–132; BP diastolic 62–74; PULSE 74–92; RESP 16–20; TEMP 36.6–36.8; O2SAT 91–98; BMI 30.2
[2022-07-23] MEDS: Mag Hydrox/Al Hydrox/Simeth 30 ML UDC PO (01:27)
[2022-07-23 01:51] LABS: Allen Test Positive; Base Excess 2 mmol/L (-2 to +2); Blood Gas Specimen Type ART; O2 Delivery Device Room Air; PO2 61 mmHG (75-100); SITE L Radial; SO2 90 % (95-99); Total Carbon Dioxide 29 mmol/L; pCO2 47.7 mmHg (35-45); pH 7.36 (7.35-7.45)
--- NOTE | 2022-07-23 01:52 | CT_ITS ---
STUDY: CTA CHEST REASON FOR EXAM: Female, 81 years old patient with chest pain, hypoxia, and elevated D-Dimer RADIATION DOSAGE (If Supplied By Facility): CTDIvol = ( 16.66 ) mGy, DLP = ( 645.96 ) mGycm TECHNIQUE: The examination was performed with the intravenous administration of 100 mL of Isovue-370. Post-processing of the angiographic images was performed, with multiplanar reformation and 3D reconstruction. Individualized dose optimization techniques were used for this CT. COMPARISON: None. FINDINGS: Normal enhancement of the main pulmonary artery and right and left pulmonary arteries. Normal enhancement of the bilateral peripheral pulmonary arteries. There is no demonstrated pulmonary embolism. There is atherosclerotic calcification of the aortic arch with tortuosity. There is no demonstrated aortic dissection. Normal heart and pericardium. There are calcifications of the coronary arteries. Normal mediastinum. Normal hilar regions. Normal visualized trachea and bronchi. The lungs are well expanded. There is lingular airspace consolidation). Visualized lungs appear to be clear. Normal pleura. Normal chest wall structures. There are degenerative changes of thoracic spine. There is deformity of the sternum suggesting sequela of fracture. Normal visualized upper abdomen. CT/CTA Chest W/WO Contrast IMPRESSION: 1. No CTA demonstrated pulmonary embolism or arterial dissection. 2. Lingular airspace disease could represent pneumonia. Electronically Signed: Fatoumata Nagy MD at 3:20 EDT ,
--- NOTE | 2022-07-23 01:54 | CT_ITS ---
STUDY: CT ABDOMEN AND PELVIS WITH CONTRAST REASON FOR EXAM: Female, 81 years old patient with left upper quadrant abdominal pain. RADIATION DOSAGE (If Supplied By Facility): CTDIvol = ( 21.66 ) mGy, DLP = ( 1067.14 ) mGycm TECHNIQUE: Transaxial images were obtained from the dome of the diaphragm to the symphysis pubis without oral contrast. 100 mL of IV Isovue-370 was administered. Sagittal and coronal images were reconstructed. Individualized dose optimization techniques were used for this CT. COMPARISON: CT of abdomen and pelvis dated 11/26/2018. FINDINGS: The visualized lung bases are unremarkable. The visualized portions of the heart are within normal limits. There is hepatomegaly with diffuse hepatic enlargement. Liver measures approximately 22 cm in greatest dimension. Normal gallbladder and extrahepatic biliary system. Normal spleen. Normal pancreas. Normal bilateral adrenal glands. No evidence for hydronephrosis, hydroureter or radiopaque ureteral calculus. There may be some right-sided renal parenchymal loss possibly secondary to previous infection or ischemia. Normal visualized stomach. There is no obvious dilated bowel, ascites or pneumoperitoneum. There is a large amount of bowel gas as well as fluid filled bowel suggesting possible sequela of acute infectious or inflammatory enteritis. There is also fluid-filled colon. There is gaseous distention of the colon suggesting possible ileus. The appendix is visualized and appears normal. There is mild atherosclerotic calcification of the abdominal aorta with mild elongation and tortuosity, but without a demonstrated aneurysm. Normal inferior vena cava. Normal retroperitoneum. Normal urinary bladder. Normal abdominal wall. There are diffuse degenerative changes of the visualized lumbar spine. CT/Abdomen/Pelvis W IV Cont ONLY IMPRESSION: Fluid-filled small bowel and colon suggest possible sequela of acute infectious or inflammatory enteritis or colitis. Electronically Signed: Fatoumata Nagy MD at 3:32 EDT ,
[2022-07-23 02:26] LABS: D-Dimer Quantitative (DVT/PE) 2.69 FEU/ug/m (0.27-0.49)
[2022-07-23 02:34] LABS: Troponin-I HS 6 pg/mL (3.0-54.0)
--- NOTE | 2022-07-23 03:52 | HP.PCM.HOS_ITS ---
HPI - General General Date of Admission: 07/23/22 Date of Service: 07/23/22 HPI Narrative RAYMUNDO LANDRY, is a 81 F with a PMH as outlined who presents via the ED on with a complaint of melena stools. She had been having these melena stools for ~ 1 week and she had had her omeprazole dose doubled to 20mg bid by her PCP. She had a large melenic stool in the early hours of today, and says her BP checks at home were systolic in the 90s. She had some associated lightheadedness and mild abdominal pain as well. She is on aspirin. She denied any dizziness, palpitations, or any other symptoms. She was not on any other anticoagulants. She was also noted to be hypoxic with ambulation, with her sats dropping to the high 80s. Vitals were BP of 113/66, KS of 88 and RR of 17. She was saturating at ~ 84% on room air, but went up to 97% on 2L of oxygen. CBC showed hb of 12.5. wbc of 5.2 and platelets of 277. CHemistry was essentialy unremarkable apart from Cr of 1.09. ABG showed pH of 7.36 and pCO2 of 47.7 as well as pO2 of 61mmHg. D dimer was 2.69, but CTA of the chest showed no evidence of PE and lingular airspace disease which could represent pneumonia. Initial troponin was negative. ED initially planned to dc her home as her GI bleed was stable, to follow up with GI on outpatient basis. However, patient remained hypoxic on room air, and with CTA findings of lingular airspace disease, she was started on ceftriaxone and azithromycin, and admitted to be managed for hypoxia due to community acquired pneumonia. Patient did state that she had a history of pulmonary hypertension and wondered if that could be the cause of her hypoxia. [facility] Medical History Anemia Arthritis Benign positional vertigo Breast mass, left Cardiac contusion (11/27/18) Chronic kidney disease (CKD) Dyspnea on exertion Elevated troponin (11/27/18) FRACTURE LEFT ANKLE GERD (gastroesophageal reflux disease) History of fall (11/27/18) History of left heart catheterization History of subdural hematoma (post traumatic) (03/19/16) Hx of breast cancer Hyperlipidemia Hypertension Osteopenia Pleural effusion on left Sternal fracture (11/27/18) Thyroid disease Home Medications metoprolol tartrate 50 mg tablet 25 mg PO BID 12/04/14 [History Last Taken 10/11/19] oxybutynin chloride 5 mg tablet 10 mg PO BID 01/23/16 [History Last Taken 10/10/19] aspirin 81 mg tablet,delayed release (Adult Low Dose Aspirin) 81 mg PO QDAY 06/12/18 [History Last Taken 10/11/19] cholecalciferol (vitamin D3) 1,250 mcg (50,000 unit) capsule 50,000 unit PO QWEEK 04/02/19 [History Last Taken 10/05/19] omeprazole 20 mg capsule,delayed release 20 mg PO BID 04/02/19 [History Last Taken 10/11/19] simvastatin 20 mg tablet 20 mg PO QHS 04/02/19 [History Last Taken 10/10/19] trazodone 100 mg tablet 100 mg PO QHS 04/02/19 [History Last Taken 10/10/19] lidocaine 4 % topical patch 1 patch topical DAILY PRN Pain 04/08/19 [History Last Taken 10/09/19] ferrous sulfate 325 mg (65 mg iron) tablet (iron) 325 mg PO QODAY 07/22/22 [History Last Taken Unknown] hydrochlorothiazide 12.5 mg tablet 12.5 mg PO DAILY 07/22/22 [History Last Taken Unknown] Allergy/AdvReac Type Severity Reaction Status Date / Time diazepam [From Valium] AdvReac Severe Other Verified 07/22/22 22:24 eszopiclone [From Lunesta] AdvReac Severe confusion Verified 07/22/22 22:24 morphine AdvReac Severe Other Verified 07/22/22 22:24 paroxetine HCl [From Paxil] AdvReac Severe Other Verified 07/22/22 22:24 zolpidem [From Ambien] AdvReac Severe confusion Verified 07/22/22 22:24 Family History Sister Breast cancer Heart disease Hypertension Father Heart disease Hypertension Surgical History History of bilateral knee replacement History of lumpectomy of left breast History of oophorectomy History of right cataract surgery History of tubal ligation Social History Smoking Status: Never smoker second hand exposure: No alcohol intake: never substance use type: does not use caffeine: Yes Type: coffee Number of servings: 2 what type of physical activity do you participate in: none frequency: does not exercise 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 She worked in an [employer], had to fly to get there. ROS Review of Systems ROS Unobtainable: Denies due to encephalopathy Constitutional Constitutional: Denies anorexia, chills, fatigue, fever(s), malaise, night sweats or weakness Eyes Eyes: Denies change in vision ENT HEENT: Reports ear pain; Denies dysphagia, headache(s), nasal congestion or sore throat Cardiovascular Cardiovascular: Reports lightheadedness; Denies chest pain, dyspnea on exertion, edema, orthopnea, palpitations, paroxysmal nocturnal dyspnea, rapid heart rate or syncope Respiratory/Chest Respiratory/Chest: Reports hemoptysis; Denies cough, dyspnea, productive cough, shortness of breath at rest, shortness of breath with exertion or wheezing Gastrointestinal Gastrointestinal: Reports abdominal pain and melena; Denies coffee ground arlen sis, constipation, diarrhea, dyspepsia, hematemesis, nausea or vomiting Genitourinary Genitourinary: Denies burning urination, difficulty urinating or dysuria Musculoskeletal Musculoskeletal: Denies arthralgias Neurologic Neurologic: Denies confusion, dizziness, focal weakness, headache(s), seizures, syncope or tingling Psychiatric Psychiatric: Denies anxiety or depression Endocrine Endocrinology: Denies change in body appearance Hematologic/Lymphatic Hematologic/Lymphatic: Denies anemia Vital Signs Vital Signs Vital Signs: 07/22/22 22:22 07/22/22 22:50 07/22/22 23:33 Temperature 98.5 F Temperature Source Temporal Pulse Rate 79 83 Pulse Rate [Lying] 77 Pulse Rate [Sitting (for 1 minute prior to obtaining)] 81 Respiratory Rate 16 21 H Blood Pressure 148/80 H 131/70 H Blood Pressure [Lying] 131/62 H Blood Pressure [Sitting (for 1 minute prior to obtaining)] 132/76 H Blood Pressure [Standing (for 1 minute prior to obtaining)] 136/81 H Blood Pressure Mean 102 90 Blood Pressure Mean [Lying] 85 Blood Pressure Mean [Sitting (for 1 minute prior to obtaining)] 94 Blood Pressure Mean [Standing (for 1 minute prior to obtaining)] 99 Pulse Ox 98 91 Oxygen Delivery Method Room Air Room Air Oxygen Flow Rate (L/min) 07/23/22 00:52 07/23/22 02:00 Temperature Temperature Source Pulse Rate 74 88 Pulse Rate [Lying] Pulse Rate [Sitting (for 1 minute prior to obtaining)] Respiratory Rate 16 17 Blood Pressure 117/72 113/66 Blood Pressure [Lying] Blood Pressure [Sitting (for 1 minute prior to obtaining)] Blood Pressure [Standing (for 1 minute prior to obtaining)] Blood Pressure Mean 87 81 Blood Pressure Mean [Lying] Blood Pressure Mean [Sitting (for 1 minute prior to obtaining)] Blood Pressure Mean [Standing (for 1 minute prior to obtaining)] Pulse Ox 93 97 Oxygen Delivery Method Room Air Nasal Cannula Oxygen Flow Rate (L/min) 2 Weight Weight: 173 lb Body Mass Index (BMI) 30.6 Physical Exam Const alert, oriented x3 and no apparent distress General Appearance: cooperative HEENT normocephalic, head/scalp atraumatic, hearing grossly normal bilaterally and moist oral mucous membranes Mouth: oral and palatal mucosa normal Eyes PERRL, EOMs intact bilaterally and conjunctivae normal Neck no lymphadenopathy, supple and no JVD Resp Resp Narrative: diminished breath sounds bibasally, no wheezes or crackles. On 2L of oxygen by nasal canula Cardio regular rate, regular rhythm, S1 normal heart sound, S2 normal heart sound and no murmurs GI soft to palpation and non-tender GI Narrative: mild abdominal distension, no guarding or rebound tenderness, abdomen tympanitic to percussion Extremity normal to inspection, full ROM and no clubbing, cyanosis or edema Neuro oriented x3, CN's II-XII intact bilaterally, moves all extremities and no focal motor deficits Sensorium / Orientation: awake and alert Speech: speech normal Motor Exam: strength 5/5 throughout Psych affect normal Results Lab / Micro Data Result Diagrams: 07/22/22 23:03 07/22/22 23:03 Labs: Laboratory Results - last 24 hr 07/22/22 23:03: Blood Type O POSITIVE, Antibody Screen NEGATIVE 07/22/22 23:03: WBC 5.2, RBC 4.09 L, Hgb 12.5, Hct 37.9, MCV 92.7, MCH 30.6, MCHC 33.0, RDW Std Deviation 43.8, RDW Coeff of Scott 12.9, Plt Count 277, MPV 9.1, Immature Gran % (Auto) 0.400, Neut % (Auto) 65.3, Lymph % (Auto) 19.3, [place] % (Auto) 13.1 H, Eos % (Auto) 1.7, Baso % (Auto) 0.2, Absolute Neuts (auto) 3.4, Absolute Lymphs (auto) 1.00, Nucleated RBC % 0 07/22/22 23:03: Sodium 139, Potassium 3.8, Chloride 103, Carbon Dioxide 30.0, Anion Gap 6, BUN 20 H, Creatinine 1.09 H, Estim Creat Clear Calc 34.62, Est GFR (MDRD) Af Amer 62, Est GFR (MDRD) Non-Af 51 L, BUN/Creatinine Ratio 18.3, Glucose 112 H, Calcium 9.2 07/22/22 23:03: D-Dimer Quant (PE/DVT) 2.69 H* 07/22/22 23:03: Troponin I High Sens 6 ABG Data ABG results: ABG 07/23/22 01:44 Specimen Type ART Sample Site L Radial pH 7.36 Bicarbonate Actual 27.0 H Total CO2 29 Base Excess 2 O2 Saturation 90 L ABG pCO2 47.7 H ABG pO2 61 L Jose De Jesus Test Positive O2 Delivery Device Room Air Rhythm Strip Rhythm Strip: Sinus Rhythm Rate: 80 Ectopy: None Radiology Impression Chest X-Ray 07/22/22 23:50 IMPRESSION: No radiographic evidence of acute cardiopulmonary disease. Electronically Signed: Fatoumata Nagy MD at 1:18 EDT , Chest CTA 07/23/22 01:52 IMPRESSION: 1. No CTA demonstrated pulmonary embolism or arterial dissection. 2. Lingular airspace disease could represent pneumonia. Electronically Signed: Fatoumata Nagy MD at 3:20 EDT , Abdomen/Pelvis CT 07/23/22 01:54 IMPRESSION: Fluid-filled small bowel and colon suggest possible sequela of acute infectious or inflammatory enteritis or colitis. Electronically Signed: Fatoumata Nagy MD at 3:32 EDT Reading Location ID and State: [address] [place] [address] , Service support , Assessment & Plan Assessment/Plan (1) Acute upper gastrointestinal bleeding: (2) Hypoxemia: (3) Pneumonia: PLAN: Plan #Acute GI bleed * Hb is stable at ~ 12.5. * had been having melena stools for a week, and had a large melena stool today, which made her come to the ED * on pantoprazole 20mg bid. * will place on IV pantoprazole 40mg bid * hydrate gently with IVF * stop aspirin * consult GI; GI apparently not available this weekend, so will likely see tomorrow * CT abdomen and pelvis showed fluid filled small bowel and colon suggest possible sequela of acute infectious or inflammatory enteritis or colitis * #Hypoxia due to community acquired pneumonia * Patient was saturating in the 80s. She required 2 L of oxygen to saturate in the 90s. * CTA chest done to rule out a PE but did show lingular airspace disease likely pneumonia. * She does not have any leukocytosis and says she does have a history of pulmonary hypertension. * 2D echo from 2019 showed RVSP of 54 mmHg indicating moderate pulmonary hypertension with EF of 70% and stage I diastolic dysfunction. * Patient started on IV ceftriaxone and azithromycin. Check urine for strep and Legionella antigens. * Titrate oxygen to maintain saturation above 90%. Breathing treatments with bronchodilators. * she also tells me she has a history of JEANA, diagnosed per sleep study, but has never been on CPAP because she wasnt fitted for it. * #hyperlipidemia: on statin #Hypertension: on metoprolol #History of breast cancer: stable DVT prophylaxis: SCDs. No anticoagulation due to GI bleed COde status: full code * Patient counseled extensively about different types of CODE STATUS including full code, DNR CCA and DNR CCA. Patient elects to be full code. * Total oqbe-fp-[id number] time 16 minutes. Charges/Coding Visit Charges OBSV E&M: 19959 Initial observation care L2 Procedures Hospitalists Procedures: 91365 Advncd Care Plan 30 Min
[2022-07-23] MEDS: Ceftriaxone 1 GM/50 ML BAG IV ×2 (04:00→22:05)
[2022-07-23] MEDS: Sucralfate 1 GM Tablet PO (04:37)
[2022-07-23] MEDS: 0.9% Normal Saline 1,000 ML 125 ML IV (06:25)
--- NOTE | 2022-07-23 07:26 | PN.HOSP_ITS ---
Hospitalist Note Seen and examined. H&P, vitals, labs, imaging assessment plan reviewed. Patient 81-year-old female was admitted with melena intermittently for 1 week. Her blood pressure at home was systolic 90s. She had lightheadedness mild abdominal pain. Denies chest pain or palpitation. Not on anticoagulant. She has never smoked. Denies history of chronic lung disease including COPD, asthma, environmental or occupational exposure or ILD. Patient was hypoxic on room air, CTA shows lingular airspace disease and was started on ceftriaxone and azithromycin 1. Acute GI bleed: Hemoglobin 11.8 g. Hematocrit 36%. Platelet count 265,000. Did not need blood transfusion. Heart rate and blood pressure in normal range. Continue IV PPI 40 mg twice daily. GI consulted. Aspirin started.CT abdomen and pelvis showed fluid filled small bowel and colon suggest possible sequela of acute infectious or inflammatory enteritis or colitis 2. Hypoxia probably due to community-acquired pneumonia: Urinary antigens are negative. Initially patient required 2 L of oxygen but currently pulse ox 96% on room air. Hypoxia resolved. CTA shows lingular airspace likely pneumonia. On IV ceftriaxone and azithromycin. Echo shows EF 70% with stage I diastolic dysfunction, RVSP 54 mmHg on echo from 2019 suggestive of chronic HFpEF with moderate pulmonary hypertension. Obstructive sleep apnea, never had CPAP. Microbiology Past 72 Hours 07/23/22 05:50 Urine, Clean Catch Legionella Antigen - Final 07/23/22 05:50 Urine, Clean Catch Streptococcus pneumoniae Antigen (M - Final Laboratory Results 07/22/22 23:03: Blood Type O POSITIVE, Antibody Screen NEGATIVE 07/22/22 23:03: WBC 5.2, RBC 4.09 L, Hgb 12.5, Hct 37.9, MCV 92.7, MCH 30.6, MCHC 33.0, RDW Std Deviation 43.8, RDW Coeff of Scott 12.9, Plt Count 277, MPV 9.1, Immature Gran % (Auto) 0.400, Neut % (Auto) 65.3, Lymph % (Auto) 19.3, [place] % (Auto) 13.1 H, Eos % (Auto) 1.7, Baso % (Auto) 0.2, Absolute Neuts (auto) 3.4, Absolute Lymphs (auto) 1.00, Nucleated RBC % 0 07/22/22 23:03: Sodium 139, Potassium 3.8, Chloride 103, Carbon Dioxide 30.0, Anion Gap 6, BUN 20 H, Creatinine 1.09 H, Estim Creat Clear Calc 34.62, Est GFR (MDRD) Af Amer 62, Est GFR (MDRD) Non-Af 51 L, BUN/Creatinine Ratio 18.3, Glucose 112 H, Calcium 9.2 07/22/22 23:03: D-Dimer Quant (PE/DVT) 2.69 H* 07/22/22 23:03: Troponin I High Sens 6 07/22/22 23:03: B-Natriuretic Peptide 82.0 07/23/22 01:44: Specimen Type ART, Sample Site L Radial, pH 7.36, Bicarbonate Actual 27.0 H, Total CO2 29, Base Excess 2, O2 Saturation 90 L, ABG pCO2 47.7 H, ABG pO2 61 L, Jose De Jesus Test Positive, O2 Delivery Device Room Air 07/23/22 07:33: WBC 5.2, RBC 3.93 L, Hgb 11.8 L, Hct 36.8 L, MCV 93.6, MCH 30.0, MCHC 32.1, RDW Std Deviation 45.1 H, RDW Coeff of Scott 13.1, Plt Count 265, MPV 9 .2, Immature Gran % (Auto) 0.800, Neut % (Auto) 67.3, Lymph % (Auto) 18.0 L, [place] % (Auto) 12.2 H, Eos % (Auto) 1.5, Baso % (Auto) 0.2, Absolute Neuts (auto) 3.5, Absolute Lymphs (auto) 0.93, Nucleated RBC % 0 07/23/22 07:33: Sodium 137, Potassium 3.4 L, Chloride 102, Carbon Dioxide 29.0, Anion Gap 6, BUN 14, Creatinine 0.85, Estim Creat Clear Calc 44.39, Est GFR (MDRD) Af Amer 83, Est GFR (MDRD) Non-Af 69, BUN/Creatinine Ratio 16.5, Glucose 89, Calcium 8.7
[2022-07-23 08:03] LABS: Absolute Lymphocyte Count 0.93 X10^3/uL (0.83-4.51); Absolute Neutrophil Count 3.5 X10^3/uL (2.0-7.7); Basophil# 0.01 X10^3/uL; Basophil% 0.2 % (0-1); Eosinophil# 0.08 X10^3/uL; Eosinophils% 1.5 % (0-5); Hematocrit 36.8 % (37-47); Hemoglobin 11.8 g/dL (12.0-15.0); Lymphocyte # 0.93 X10^3/ul (0.83-4.51); Mean Corp Hgb Conc 32.1 g/dL (32-36); Mean Corpuscular Volume 93.6 fL (81-99); Mean Platelet Vol. 9.2 fl (6.2-12.0); Monocyte# 0.63 X10^3/uL; Monocyte% 12.2 % (0-10); NRBC Flagged by Analyzer 0 % (0-5); Neutrophil # 3.49 X10^3/uL (2.7-7.7); Neutrophil % 67.3 % (47-70); Platelet Count 265 K/mm3 (150-450); RBC Distribution Width CV 13.1 % (11.6-14.6); RBC Distribution Width SD 45.1 fl (35.1-43.9); Red Blood Count 3.93 M/mm3 (4.2-5.4); White Blood Count 5.2 K/mm3 (4.4-11.0)
[2022-07-23 08:40] LABS: Anion Gap 6 (5-15); BUN 14 mg/dL (7-18); BUN/Creat Ratio 16.5 RATIO (10-20); Calcium,Total 8.7 mg/dL (8.5-10.1); Chloride 102 mmol/L (98-107); Creatinine, Serum 0.85 mg/dL (0.55-1.02); EST Glomerular Filtration Rate 69 mL/min (>60); Est Glom Filt Rate - Afr Amer 83 mL/min (>60); Estimated Creatinine Clearance 44.39 ml/min; Glucose 89 mg/dL (74-106); Potassium 3.4 mmol/L (3.5-5.1); Sodium Level 137 mmol/L (136-145)
[2022-07-23] MEDS: Oxybutynin 5 MG Tablet 10 MG PO ×2 (09:48→21:23)
[2022-07-23] MEDS: Ferrous Sulfate 325 MG Tablet PO (09:48)
[2022-07-23] MEDS: hydroCHLOROthiazide 12.5mg 12.5 MG PO (09:48)
[2022-07-23] MEDS: Metoprolol Tartrate 25 MG Tablet PO ×2 (09:49→21:23)
[2022-07-23] MEDS: Acetaminophen 325 MG Tablet 650 MG PO (14:06)
[2022-07-23] MEDS: Ondansetron 4 MG/2 ML Vial IV (20:24)
[2022-07-23] MEDS: 0.9% Saline Lock 10 ML Syringe IV ×2 (20:24→21:22)
[2022-07-23] MEDS: traZODone 100 MG Tablet PO (21:23)
[2022-07-23] MEDS: Atorvastatin Calcium 10 MG Tablet PO (21:24)
[2022-07-23] MEDS: Calcium Carbonate 500 MG Tablet PO (22:48)
[2022-07-24] VITALS (9 sets, daily range): BP systolic 100–125; BP diastolic 57–84; PULSE 63–86; RESP 16–18; TEMP 36.7–36.8; O2SAT 93–95
[2022-07-24] MEDS: Metoprolol Tartrate 25 MG Tablet PO ×2 (10:11→20:44)
[2022-07-24] MEDS: Oxybutynin 5 MG Tablet 10 MG PO ×2 (10:11→20:44)
[2022-07-24] MEDS: hydroCHLOROthiazide 12.5mg 12.5 MG PO (10:11)
[2022-07-24] MEDS: Calcium Carbonate 500 MG Tablet PO ×2 (10:15→16:05)
[2022-07-24] MEDS: 0.9% Saline Lock 10 ML Syringe IV ×3 (10:15→20:01)
--- NOTE | 2022-07-24 10:30 | CASEMGMT ---
RN CM Face to Face with patient for initial transition planning/care coordination assessment. RN CM introduced self and role at [facility]. Patient lying in bed, alert and oriented. Patient willing to participate in assessment and is able to answer all questions appropriately. Care providers, pharmacy, and demographics verified. Patient wishes to discharge home, will monitor for HHC vs SNF pending progress with therapy. Patient states she has no further needs or concerns at this time. CM to follow for discharge planning needs that may arise. PCP: Kelsy Specialists: [place] medicare insurance specialist [facility]erred Pharmacy: [facility] Insurance: [employer] Prescription Benefit: yes Living Will/HPOA: none LNOK: sister, nephew Living Arrangements: patient lives alone in a mobile home with elevator lift for patient. Patient states she is independent at home for self care and goes to [employer] 2 times per week. Transportation: self, [place], Nephew DME/HHC: Shower chair, raised toilet, cane, walker, rollator, and grab bars. Patient has had HHC in the past but cannot recall agency. Patient has previously been to [facility]. Disposition Plan: TBD, HHC vs SNF pending progress with therapy. Blanka TORRES, RN, CM
--- NOTE | 2022-07-24 11:24 | PCM.PN.HOSP ---
Documented by User: Luzma Samaniego NP, AUTO JOB ESTIMATOR-C 07/24/22 11:45 Subjective Subjective Patient seen and examined. Patient denies shortness of breath. Now on room air. Plan for work-up for GI bleed. Objective Data Objective Data Vital Signs: Vital Signs Temp Pulse Resp BP Pulse Ox O2 Del Method O2 Flow Rate 98.2 F 86 18 125/60 H 95 Room Air 1 07/24/22 08:00 07/24/22 10:11 07/24/22 08:00 07/24/22 08:00 07/24/22 08:16 07/24/22 08:16 07/23/22 07:30 Oxygen Flow Rate (L/min) 1 Oxygen Delivery Method Room Air Weight: 170 lb 13.732 oz Body Mass Index (BMI) 30.2 Intake & Output: Intake and Output for Last 24 Hours 07/22/22 07/23/22 07/24/22 23:59 23:59 23:59 Intake Total 2015.92 / 2014. 288.5 / 288.5 Output Total 550 / 550 Balance 1465.92 / 1465.92 288.5 / 288.5 Lab / Micro Data Result Diagrams: 07/23/22 07:33 07/23/22 07:33 Micro: Microbiology 07/23/22 05:50 Urine, Clean Catch Legionella Antigen - Final 07/23/22 05:50 Urine, Clean Catch Streptococcus pneumoniae Antigen (M - Final Rhythm Strip Rhythm Strip: Sinus Rhythm Rate: 80 Ectopy: None Physical Exam Const alert and oriented x3 HEENT normocephalic and moist oral mucous membranes Eyes PERRL, EOMs intact bilaterally and conjunctivae normal Neck no lymphadenopathy Resp clear to auscultation bilaterally Auscultation: diminished lung sounds Cardio regular rate, regular rhythm and no murmurs Peripheral Pulses: pulses 2+ throughout GI normal to inspection, nondistended, normoactive bowel sounds, non-tender and non-distended Extremity normal to inspection General Extremity: edema bilateral lower extremity Details: trace Skin no rashes or lesions noted Lesions: no lesions Rashes: no rashes Trauma: no lacerations or abrasions Neuro CN's II-XII intact bilaterally, no focal motor deficits, no sensory deficits noted and deep tendon reflexes 2+ bilaterally Psych mental status grossly normal and affect normal Assessment & Plan Assessment/Plan (1) Acute upper gastrointestinal bleeding: (2) Hypoxemia: (3) Pneumonia: PLAN: Plan 1. GI bleed-recent ongoing melanotic stool. IV PPI. GI consulted. Hemoglobin stable. Plan for endoscopy. 2. Acute hypoxia secondary to community-acquired pneumonia-oxygen now stable on room air. Patient will need ambulatory pulse ox prior to discharge. IV azithromycin and IV Rocephin. Albuterol and DuoNeb aerosols. 3. Hypertension-stable, continue home regimen. 4. Hyperlipidemia-continue statin. 5. History of breast cancer-continue outpatient follow-up. 6. JEANA-previously diagnosed however did not follow-up with getting CPAP. Recommend outpatient follow-up. DVT prophylaxis- SCDs This patient was seen by АЛЕКСАНДР Spencer under the supervision of Dr. Montague. Time spent examining patient, reviewing data and subsequent management of care: 14 minutes Documented by User: Dr. Desmond Montague MD 07/24/22 13:06 Objective Data Lab / Micro Data Result Diagrams: 07/23/22 07:33 07/23/22 07:33 Assessment & Plan Assessment/Plan (1) Acute upper gastrointestinal bleeding: (2) Hypoxemia: (3) Pneumonia: Charges/Coding Addendum Addendum: Addendum: Dr. Montague I personally examined the patient and reviewed the chart. I agree with the above. 81-year-old female presented to the hospital with melena as well as shortness of breath. Her hypoxia has resolved and her anemia has been stable at 11.8. We will continue her IV antibiotics for community-acquired pneumonia. Her GI bleed is stable and we have increased her PPI. GI has been consulted so will await their evaluation prior to making discharge planning. Likely endoscopy. Clinical time spent in all aspects of patient care: 20 minutes Visit Charges Inpatient E&M: 44076 Subs Hosp L2
--- NOTE | 2022-07-24 11:46 | CM.UR ---
Social Work SW called [facility] home Blanka PEÑA ([phone]). Updated and informed of pt admittance to [facility]. Blanka reported pt receives 5 meals every two weeks and also goes to [facility] [place] on Sunday and . MARIANA Moscoso requesting discharge information when pt is ready to leave. JASON Machado
[2022-07-24] MEDS: Ondansetron 4 MG/2 ML Vial IV (20:01)
[2022-07-24] MEDS: Acetaminophen 325 MG Tablet 650 MG PO (20:01)
[2022-07-24] MEDS: Ceftriaxone 1 GM/50 ML BAG IV (20:40)
[2022-07-24] MEDS: traZODone 100 MG Tablet PO (20:44)
[2022-07-24] MEDS: Atorvastatin Calcium 10 MG Tablet PO (20:44)
[2022-07-25] VITALS (8 sets, daily range): BP systolic 110–128; BP diastolic 61–68; PULSE 59–81; RESP 16–18; TEMP 36.4–36.7; O2SAT 89–94
[2022-07-25 06:12] LABS: Absolute Lymphocyte Count 1.07 X10^3/uL (0.83-4.51); Absolute Neutrophil Count 3.8 X10^3/uL (2.0-7.7); Basophil# 0.02 X10^3/uL; Basophil% 0.3 % (0-1); Eosinophil# 0.18 X10^3/uL; Eosinophils% 3.1 % (0-5); Hematocrit 35.4 % (37-47); Hemoglobin 11.5 g/dL (12.0-15.0); Lymphocyte # 1.07 X10^3/ul (0.83-4.51); Lymphocyte % 18.6 % (19-41); Mean Corp Hgb Conc 32.5 g/dL (32-36); Mean Corpuscular Hgb 30.3 pg (27.0-32.0); Mean Corpuscular Volume 93.2 fL (81-99); Monocyte# 0.69 X10^3/uL; NRBC Flagged by Analyzer 0 % (0-5); Neutrophil # 3.77 X10^3/uL (2.7-7.7); Neutrophil % 65.7 % (47-70); Platelet Count 241 K/mm3 (150-450); RBC Distribution Width CV 12.6 % (11.6-14.6); RBC Distribution Width SD 43.1 fl (35.1-43.9); White Blood Count 5.8 K/mm3 (4.4-11.0)
[2022-07-25 06:48] LABS: Anion Gap 8 (5-15); BUN 6 mg/dL (7-18); BUN/Creat Ratio 8.1 RATIO (10-20); Calcium,Total 8.7 mg/dL (8.5-10.1); Chloride 95 mmol/L (98-107); Creatinine, Serum 0.74 mg/dL (0.55-1.02); EST Glomerular Filtration Rate 80 mL/min (>60); Est Glom Filt Rate - Afr Amer 97 mL/min (>60); Estimated Creatinine Clearance 37.74 ml/min; Glucose 97 mg/dL (74-106); Potassium 3.9 mmol/L (3.5-5.1); Sodium Level 132 mmol/L (136-145)
[2022-07-25] MEDS: hydroCHLOROthiazide 12.5mg 12.5 MG PO (09:32)
[2022-07-25] MEDS: Metoprolol Tartrate 25 MG Tablet PO (09:32)
[2022-07-25] MEDS: Oxybutynin 5 MG Tablet 10 MG PO (09:32)
[2022-07-25] MEDS: Ferrous Sulfate 325 MG Tablet PO (09:36)
[2022-07-25] MEDS: 0.9% Saline Lock 10 ML Syringe IV ×2 (10:26→10:52)
[2022-07-25] MEDS: Lidocaine 5% Patch 1 PATCH TOPICAL (10:32)
[2022-07-25] MEDS: Acetaminophen 325 MG Tablet 650 MG PO (10:32)
--- NOTE | 2022-07-25 12:57 | DCINST_ITS ---
Discharge Instructions Diet Discharge Diet: Light diet - advance as tolerated Activity Discharge Activity: Return to Normal Activity Dressing / Incision Call your doctor if you observe: Shortness of breath, Dizziness and Chest pain Follow Up Care Test Results: Test results from this visit will be discussed in further detail at your follow- up appointment, if applicable. Discharge Plan Admission Admit Date/Time: 07/23/22 12:59 Primary Reason for Your Visit: Pneumonia Attending Provider: Desmond Montague Primary Care Provider: Justin Tierney Consulting Providers: Fara Young ; Tiburcio Arteaga Discharge Orders/Prescriptions Prescriptions: New sucralfate [Carafate] 1 gram tablet 1 g PO TID Qty: 90 0RF amoxicillin-pot clavulanate 875-125 mg tablet 1 tab PO BID Qty: 10 0RF pantoprazole [Protonix] 40 mg tablet,delayed release (DR/EC) 40 mg PO BID Qty: 60 0RF Continued aspirin [Adult Low Dose Aspirin] 81 mg tablet,delayed release (DR/EC) 81 mg PO QHS cholecalciferol (vitamin D3) 50,000 unit capsule 50,000 unit PO Rx Instructions: simvastatin 20 mg tablet 20 mg PO QHS trazodone 100 mg tablet 100 mg PO QHS lidocaine 4 % adhesive patch,medicated 1 patch TOPICAL DAILY PRN (Reason: Pain) metoprolol tartrate 50 MG tablet 25 mg PO BID Label Comments: blood pressure oxybutynin chloride 5 MG tablet 10 mg PO BID Label Comments: BLADDER CONTROL ferrous sulfate [iron] 325 mg (65 mg iron) Tablet 325 mg PO QODAY hydrochlorothiazide 12.5 mg Tablet 12.5 mg PO DAILY cyanocobalamin (vitamin B-12) 1,000 mcg tablet 1,000 mcg PO DAILY Label Comments: Take 1 tablet by mouth once daily. Discontinued omeprazole 20 mg capsule,delayed release(DR/EC) 20 mg PO BID Referrals / Follow Up: Justin Tierney MD [Primary Care Provider] - In 1 Week Reynaldo Littlejohn DO [Med Staff - Active Staff] - Within 2 Weeks Disposition Disposition (needs filled in before D/C Order can be placed): Home, Self Care
--- NOTE | 2022-07-25 13:05 | DS.PCM_ITS ---
Documented by User: Luzma Samaniego NP, [employer] OPERATOR-C 07/25/22 13:10 Providers Date of Admission: 07/23/22 Date of Discharge: 07/25/22 Primary Care Physician: Dr. Justin Tierney MD Consultations 07/23/22 14:57 Consult: Gastroenterology Routine Consulting Provider: [facility] Reason for Consult: acute upper gi bleed for 7 days, stable vitals EMERGENT Consult: No MD Notified: Yes Date Notified: 07/23/22 Time Notified: 14:57 Method of Notification: Text Reason For Visit: ACUTE GI BLEED, HYPOXIA Diagnosis Discharge Diagnosis (1) Acute upper gastrointestinal bleeding: Status: Acute Code(s): K92.2 - Gastrointestinal hemorrhage, unspecified (2) Hypoxemia: Status: Acute Code(s): R09.02 - Hypoxemia (3) Pneumonia: Status: Acute Code(s): J18.9 - Pneumonia, unspecified organism Medications at Discharge Home Medications metoprolol tartrate 50 mg tablet 25 mg PO BID HTN 12/04/14 oxybutynin chloride 5 mg tablet 10 mg PO BID bladder 01/23/16 cholecalciferol (vitamin D3) 1,250 mcg (50,000 unit) capsule 50,000 unit PO TH supplement 04/02/19 simvastatin 20 mg tablet 20 mg PO QHS cholesterol 04/02/19 trazodone 100 mg tablet 100 mg PO QHS sleep 04/02/19 lidocaine 4 % topical patch 1 patch topical DAILY PRN Pain 04/08/19 ferrous sulfate 325 mg (65 mg iron) tablet (iron) 325 mg PO QODAY supplement 07/22/22 hydrochlorothiazide 12.5 mg tablet 12.5 mg PO DAILY diuretic 07/22/22 cyanocobalamin (vitamin B-12) 1,000 mcg tablet 1,000 mcg PO DAILY supplement 07/23/22 amoxicillin 875 mg-potassium clavulanate 125 mg tablet 1 tab PO BID #10 tabs 07/25/22 pantoprazole 40 mg tablet,delayed release (Protonix) 40 mg PO BID #60 tabs 07/25/22 sucralfate 1 gram tablet (Carafate) 1 g PO TID #90 tabs 07/25/22 Hospital Course Operations None Procedures None Summary of Care Provided Hospital Course: Patient is a 81-year-old female admitted 07/23/2022 due to dark stools. 1. GI bleed-recent melanotic stool.? No further BM during admission. Hemoglobin has remained stable. Plan for outpatient follow-up with GI. Continue PPI, Carafate. Follow-up with PCP in 1 week. 2. Acute hypoxia secondary to community-acquired pneumonia-ambulatory pulse ox completed and patient did not require further supplemental oxygen. IV azithromycin and IV Rocephin during admission, transition to oral Augmentin at discharge to complete course.? 3. Hypertension-stable, continue home regimen. 4. Hyperlipidemia-continue statin. 5. History of breast cancer-continue outpatient follow-up. 6. JEANA-previously diagnosed however did not follow-up with getting CPAP.? Recommend outpatient follow-up. Physical Exam Const alert and oriented x3 HEENT normocephalic and moist oral mucous membranes Eyes PERRL, EOMs intact bilaterally and conjunctivae normal Neck no lymphadenopathy Resp clear to auscultation bilaterally Auscultation: diminished lung sounds Cardio regular rate, regular rhythm and no murmurs Peripheral Pulses: pulses 2+ throughout GI normal to inspection, nondistended, normoactive bowel sounds, non-tender and non-distended Extremity normal to inspection General Extremity: edema bilateral lower extremity Details: trace Skin no rashes or lesions noted Lesions: no lesions Rashes: no rashes Trauma: no lacerations or abrasions Neuro CN's II-XII intact bilaterally, no focal motor deficits, no sensory deficits noted and deep tendon reflexes 2+ bilaterally Psych mental status grossly normal and affect normal Patient seen and examined prior to discharge. Physical assessment as noted above. Patient is stable for discharge with follow up recommendations as noted above. This patient was seen by АЛЕКСАНДР Spencer under the supervision of Dr. Montague. Time spent examining patient, reviewing data and subsequent management of care: 23 minutes Weight / BMI Weight Weight: 170 lb 13.732 oz Body Mass Index (BMI) 30.2 ABG / Lab / Microbiology Data Result Diagrams: 07/25/22 06:00 07/25/22 06:00 Laboratory: Laboratory Results - last 24 hr 07/25/22 06:00: WBC 5.8, RBC 3.80 L, Hgb 11.5 L, Hct 35.4 L, MCV 93.2, MCH 30.3, MCHC 32.5, RDW Std Deviation 43.1, RDW Coeff of Scott 12.6, Plt Count 241, MPV 9.0, Immature Gran % (Auto) 0.300, Neut % (Auto) 65.7, Lymph % (Auto) 18.6 L, Steele % (Auto) 12.0 H, Eos % (Auto) 3.1, Baso % (Auto) 0.3, Absolute Neuts (auto) 3.8, Absolute Lymphs (auto) 1.07, Nucleated RBC % 0 07/25/22 06:00: Sodium 132 L, Potassium 3.9, Chloride 95 L, Carbon Dioxide 29.0, Anion Gap 8, BUN 6 L, Creatinine 0.74, Estim Creat Clear Calc 37.74, Est GFR (MDRD) Af Amer 97, Est GFR (MDRD) Non-Af 80, BUN/Creatinine Ratio 8.1 L, Glucose 97, Calcium 8.7 Microbiology: Microbiology 07/23/22 05:50 Urine, Clean Catch Legionella Antigen - Final 07/23/22 05:50 Urine, Clean Catch Streptococcus pneumoniae Antigen (M - Final D/C Instructions Discharge Diet: Light diet - advance as tolerated Call your doctor if you observe: Shortness of breath, Dizziness and Chest pain Meaningful Use Info Meaningful Use Diagnoses (Choose all that apply): None applicable Discharge Plan Admission Admit Date/Time: 07/23/22 12:59 Primary Reason for Your Visit: Pneumonia Attending Provider: Desmond Montague Primary Care Provider: Justin Tierney Consulting Providers: aFra Young ; Tiburcio Arteaga Discharge Orders/Prescriptions Prescriptions: New sucralfate [Carafate] 1 gram tablet 1 g PO TID Qty: 90 0RF amoxicillin-pot clavulanate 875-125 mg tablet 1 tab PO BID Qty: 10 0RF pantoprazole [Protonix] 40 mg tablet,delayed release (DR/EC) 40 mg PO BID Qty: 60 0RF Continued cholecalciferol (vitamin D3) 50,000 unit capsule 50,000 unit PO TH Rx Instructions: simvastatin 20 mg tablet 20 mg PO QHS trazodone 100 mg tablet 100 mg PO QHS lidocaine 4 % adhesive patch,medicated 1 patch TOPICAL DAILY PRN (Reason: Pain) metoprolol tartrate 50 MG tablet 25 mg PO BID Label Comments: blood pressure oxybutynin chloride 5 MG tablet 10 mg PO BID Label Comments: BLADDER CONTROL ferrous sulfate [iron] 325 mg (65 mg iron) Tablet 325 mg PO QODAY hydrochlorothiazide 12.5 mg Tablet 12.5 mg PO DAILY cyanocobalamin (vitamin B-12) 1,000 mcg tablet 1,000 mcg PO DAILY Label Comments: Take 1 tablet by mouth once daily. Discontinued aspirin [Adult Low Dose Aspirin] 81 mg tablet,delayed release (DR/EC) 81 mg PO QHS omeprazole 20 mg capsule,delayed release(DR/EC) 20 mg PO BID Referrals / Follow Up: Justin Tierney MD [Primary Care Provider] - In 1 Week FriendReynaldo DO [Med Staff - Active Staff] - Within 2 Weeks Disposition Disposition (needs filled in before D/C Order can be placed): Home, Self Care Documented by User: Dr. Desmond Montague MD 07/25/22 13:13 Providers Date of Admission: 07/23/22 Reason For Visit: ACUTE GI BLEED, HYPOXIA Diagnosis Discharge Diagnosis (1) Acute upper gastrointestinal bleeding: Status: Acute Code(s): K92.2 - Gastrointestinal hemorrhage, unspecified (2) Hypoxemia: Status: Acute Code(s): R09.02 - Hypoxemia (3) Pneumonia: Status: Acute Code(s): J18.9 - Pneumonia, unspecified organism Medications at Discharge Home Medications metoprolol tartrate 50 mg tablet 25 mg PO BID HTN 12/04/14 oxybutynin chloride 5 mg tablet 10 mg PO BID bladder 01/23/16 cholecalciferol (vitamin D3) 1,250 mcg (50,000 unit) capsule 50,000 unit PO TH supplement 04/02/19 simvastatin 20 mg tablet 20 mg PO QHS cholesterol 04/02/19 trazodone 100 mg tablet 100 mg PO QHS sleep 04/02/19 lidocaine 4 % topical patch 1 patch topical DAILY PRN Pain 04/08/19 ferrous sulfate 325 mg (65 mg iron) tablet (iron) 325 mg PO QODAY supplement 07/22/22 hydrochlorothiazide 12.5 mg tablet 12.5 mg PO DAILY diuretic 07/22/22 cyanocobalamin (vitamin B-12) 1,000 mcg tablet 1,000 mcg PO DAILY supplement 07/23/22 amoxicillin 875 mg-potassium clavulanate 125 mg tablet 1 tab PO BID #10 tabs 07/25/22 pantoprazole 40 mg tablet,delayed release (Protonix) 40 mg PO BID #60 tabs 07/25/22 sucralfate 1 gram tablet (Carafate) 1 g PO TID #90 tabs 07/25/22 ABG / Lab / Microbiology Data Result Diagrams: 07/25/22 06:00 07/25/22 06:00 Discharge Plan Admission Admit Date/Time: 07/23/22 12:59 Primary Reason for Your Visit: Pneumonia Attending Provider: Desmond Montague Primary Care Provider: Justin Tierney Consulting Providers: Fara Young ; Tiburcio Arteaga Discharge Orders/Prescriptions Prescriptions: New sucralfate [Carafate] 1 gram tablet 1 g PO TID Qty: 90 0RF amoxicillin-pot clavulanate 875-125 mg tablet 1 tab PO BID Qty: 10 0RF pantoprazole [Protonix] 40 mg tablet,delayed release (DR/EC) 40 mg PO BID Qty: 60 0RF Continued cholecalciferol (vitamin D3) 50,000 unit capsule 50,000 unit PO Rx Instructions: simvastatin 20 mg tablet 20 mg PO QHS trazodone 100 mg tablet 100 mg PO QHS lidocaine 4 % adhesive patch,medicated 1 patch TOPICAL DAILY PRN (Reason: Pain) metoprolol tartrate 50 MG tablet 25 mg PO BID Label Comments: blood pressure oxybutynin chloride 5 MG tablet 10 mg PO BID Label Comments: BLADDER CONTROL ferrous sulfate [iron] 325 mg (65 mg iron) Tablet 325 mg PO QODAY hydrochlorothiazide 12.5 mg Tablet 12.5 mg PO DAILY cyanocobalamin (vitamin B-12) 1,000 mcg tablet 1,000 mcg PO DAILY Label Comments: Take 1 tablet by mouth once daily. Discontinued aspirin [Adult Low Dose Aspirin] 81 mg tablet,delayed release (DR/EC) 81 mg PO QHS omeprazole 20 mg capsule,delayed release(DR/EC) 20 mg PO BID Referrals / Follow Up: Justin Tierney MD [Primary Care Provider] - In 1 Week Friend,DO Reynaldo [Med Staff - Active Staff] - Within 2 Weeks Disposition Disposition (needs filled in before D/C Order can be placed): Home, Self Care Charges/Coding Addendum Addendum: Dr. Montague I personally examined the patient and reviewed the chart. I agree with the above.? 81-year-old female presented to the hospital with melena as well as shortness of breath.? Her hypoxia has resolved and her anemia has been stable at 11.8.? We will continue her IV antibiotics for community-acquired pneumonia.? Her GI bleed is stable and we have increased her PPI.? GI has been consulted so will await their evaluation prior to making discharge planning.? Likely endoscopy.? Clinical time spent in all aspects of patient care: 20 minutes 07/25/2022: Doing well today, no longer hypoxic and her hemoglobin is stable. She is little bit constipated so we did discuss [id number] medications that she can take at home. Furthermore she is unsure whether or not she wants to undergo testing for GI bleeding. She states that is the 1 test that she has avoided doing and she is never had a colonoscopy. Since she is stable and her hemoglobin remained stable I discussed with her the possibility for discharge and she expressed understanding of the risk and benefits of going home and would like to go home today. I did encourage her to speak to her primary care physician and also with gastroenterology as an outpatient so that way she could fully understand the risks and benefits of these procedures and that way she can make a more informed decision of proceeding with testing on her own terms. We will continue with outpatient antibiotics for her pneumonia as well as doubling up her PPI to twice daily dosing as well as her on care at I also encouraged her hold her aspirin until she follows up with her PCP and gastroenterology. I do recommend PCP follow-up in 3 to 5 days and we will also have her follow-up with gastroenterology as an outpatient. Clinical time spent in all aspects of patient care including discharge plannin minutes Visit Charges Inpatient E&M: 32271 Disch Hosp
--- NOTE | 2022-07-25 13:09 | CASEMGMT ---
Addendum entered by Sarita Michael 07/25/22 14:11: Pt states her machine rebuilder from [facility] is setting up her unskilled care. She is aware that this RN CM is setting up skilled care only. Addendum entered by Sarita Michael 07/25/22 14:08: Spoke with Misty from [facility], they can accept pt for services. She wanted pt to know the aide will be coming out of the [place] office and the therapy will be coming from the [place] office. Updated pt on the above. Original Note: RN CM in to pt room, pt sitting up in chair dressed. Discussed HHC with patient. Pt is agreeable to having HHC therapy. She states she will also have an aide in the future. Patient was provided a list of HHC providers including quality and resource use data and consistent with the patient?s preferred geographic region, medical needs, and insurance network were provided from the [facility] Guide. Pt chose [facility] as this is where her aide will be through. Referral made to [facility] via [facility] at this time.
--- NOTE | 2022-07-26 15:15 | CASEMGMT ---
Social Work This SW received notification from [facility] ADELIA Miller, that Blanka Zayas from [facility] called to request discharge instructions for pt. This SW faxed over requested information to MARIANA Moscoso at this time. JASON Machado
== END 2022-07-25 14:59 | disposition home health service (06) | DRG 194 ==
LOC: ED 07-23 03:56 → MS3 07-23 04:37
PROVIDERS: Nurse Practitioner Family; Admitting Provider Student in an Organized Health Care Education/Training Program; Emergency Provider Emergency Medicine; PCP Family Medicine; Visit Provider Family Medicine
DX: J18.9 Pneumonia, unspecified organism (principal); K92.1 Melena; I27.20 Pulmonary hypertension, unspecified; I12.9 Hypertensive chronic kidney disease with stage 1 through stage 4 chronic kidney disease, or unspecified chronic kidney disease; E78.5 Hyperlipidemia, unspecified; K21.9 Gastro-esophageal reflux disease without esophagitis; N18.2 Chronic kidney disease, stage 2 (mild); G47.33 Obstructive sleep apnea (adult) (pediatric); D64.9 Anemia, unspecified; Z87.19 Personal history of other diseases of the digestive system; Z85.3 Personal history of malignant neoplasm of breast; Z79.899 Other long term (current) drug therapy; Z79.82 Long term (current) use of aspirin; R09.02 Hypoxemia
CPT/HCPCS: 36415; 36600; 71046; 71275; 74177; 80048; 82803; 83880; 84484; 85025; 85379; 86850; 86900; 86901; 87449; 93005; 97162; 97165; 97530; 99285; J7030; J7050; Q9967; A4216; J2405; J3490

== ENCOUNTER 2022-10-04 23:49 | Inpatient (IN) | payer MEDICARE, MEDICAID, SELFPAY ==
[2022-10-04 23:49] VITALS: BP 82/52; PULSE 92; RESP 18; TEMP 36.8; O2SAT 81; BMI 31.0
[2022-10-04 23:54] VITALS: BP 85/52; PULSE 92; RESP 18; TEMP 36.8; O2SAT 81
[2022-10-04 23:55] VITALS: PULSE 89; RESP 20; O2SAT 90
--- NOTE | 2022-10-04 23:59 | EKG12_ITS ---
Test Reason : WEAKNESS Blood Pressure : / mmHG Vent. Rate : 086 BPM Atrial Rate : 086 BPM P-R Int : 140 ms QRS Dur : 084 ms QT Int : 362 ms P-R-T Axes : 064 047 020 degrees QTc Int : 433 ms Normal sinus rhythm Nonspecific ST abnormality Abnormal ECG Confirmed by TAHMINA HARRISON, BELKYS ([id number]), greeting card editor ALYCIA PAZ ([id number]) on 10/09/2022 11:48:24 AM Referred By: Confirmed By:BELKYS MARTEL MD
[2022-10-05] VITALS (18 sets, daily range): BP systolic 93–129; BP diastolic 50–80; PULSE 87–121; RESP 16–28; TEMP 36.6–37.2; O2SAT 92–100; BMI 29.7
--- NOTE | 2022-10-05 00:01 | EDS_ITS ---
HPI History of Present Illness Chief Complaint: Weakness Detail of Chief Complaint: Generalized weakness and cough since yesterday Informant: patient Narrative Narrative: Patient presents the emergency department complaint not feeling well since yesterday. Patient generally feels weak. Patient states she chronically has a cough but it is changed since yesterday and is more frequent. He has had no fever. Cough is nonproductive. She denies chest pain. She denies abdominal pain. She denies urinary symptoms. Patient has had her COVID-vaccine. [facility] Medical History Anemia Arthritis Benign positional vertigo Breast mass, left Cardiac contusion (11/27/18) Chronic kidney disease (CKD) Dyspnea on exertion Elevated troponin (11/27/18) FRACTURE LEFT ANKLE GERD (gastroesophageal reflux disease) History of fall (11/27/18) History of left heart catheterization History of subdural hematoma (post traumatic) (03/19/16) Hx of breast cancer Hyperlipidemia Hypertension Osteopenia Pleural effusion on left Sternal fracture (11/27/18) Thyroid disease Home Medications metoprolol tartrate 50 mg tablet 25 mg PO BID HTN 12/04/14 [History Last Taken 07/22/22] cholecalciferol (vitamin D3) 1,250 mcg (50,000 unit) capsule 50,000 unit PO TH supplement 04/02/19 [History Last Taken 07/20/22] simvastatin 20 mg tablet 20 mg PO QHS cholesterol 04/02/19 [History Last Taken 07/21/22] trazodone 100 mg tablet 100 mg PO QHS sleep 04/02/19 [History Last Taken ] lidocaine 4 % topical patch 1 patch topical DAILY PRN Pain 04/08/19 [History Last Taken 10/09/19] hydrochlorothiazide 12.5 mg tablet 12.5 mg PO DAILY diuretic 07/22/22 [History Last Taken 07/22/22] cyanocobalamin (vitamin B-12) 1,000 mcg tablet 1,000 mcg PO DAILY supplement 07/23/22 [History Last Taken 07/22/22] pantoprazole 40 mg tablet,delayed release (Protonix) 40 mg PO BID #60 tabs [Rx Last Taken Unknown] acyclovir 400 mg tablet 400 mg TID 10/05/22 [History Last Taken Unknown] aspirin 81 mg capsule 81 mg PO DAILY 10/05/22 [History Last Taken Unknown] benzonatate 200 mg capsule 200 mg PO TID 10/05/22 [History Last Taken Unknown] glucosamine 250 [id number]-[id number]-csq 200 mg-D3 1,500 [id number]-A-pvuex-herbs tablet 1 tab PO DAILY 10/05/22 [History Last Taken Unknown] nabumetone 500 mg tablet 500 mg DAILY 10/05/22 [History Last Taken Unknown] oxybutynin chloride 10 mg tablet,extended release 24 hr 20 mg PO DAILY 10/05/22 [History Last Taken Unknown] sucralfate 1 gram tablet (Carafate) 1 g PO QODAY 10/05/22 [History Last Taken Unknown] Allergy/AdvReac Type Severity Reaction Status Date / Time diazepam [From Valium] AdvReac Severe Other Verified 10/05/22 00:01 eszopiclone [From Lunesta] AdvReac Severe confusion Verified 10/05/22 00:01 morphine AdvReac Severe Other Verified 10/05/22 00:01 paroxetine HCl [From Paxil] AdvReac Severe Other Verified 10/05/22 00:01 zolpidem [From Ambien] AdvReac Severe confusion Verified 10/05/22 00:01 Family History Sister Breast cancer Heart disease Hypertension Father Heart disease Hypertension Surgical History History of bilateral knee replacement History of lumpectomy of left breast History of oophorectomy History of right cataract surgery History of tubal ligation Social History Smoking Status: Never smoker second hand exposure: No alcohol intake: never substance use type: does not use caffeine: Yes Type: coffee Number of servings: 2 what type of physical activity do you participate in: none frequency: does not exercise amador/worship: Zoroastrianism of [place] Islam seatbelt use: sometimes additional 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 She worked in an [employer], had to fly to get there. ROS ROS ED Review of Systems ROS Unobtainable: other Constitutional Constitutional ED: Reports lethargy; Denies chills, fever(s), sweats or weight loss Eyes Eyes: Denies blurry vision, change in vision or diplopia ENT ENT ED: Denies rhinorrhea or sore throat Cardiovascular Cardiovascular: Denies chest pain, orthopnea or racing heartbeat Respiratory/Chest Respiratory/Chest: Reports cough, dyspnea and dyspnea on exertion; Denies orthopnea or sputum Gastrointestinal Gastrointestinal: Denies abdominal pain, diarrhea, nausea or vomiting Genitourinary Genitourinary ED: Denies dysuria, hematuria or urinary frequency Musculoskeletal Musculoskeletal: Denies arthralgias, back pain, myalgias or neck pain Integumentary Denies abscess, Abrasions or rash Neurologic Neurologic: Reports weakness; Denies headache(s) Psychiatric Psychiatric: Denies anxiety, depression or suicidal thoughts Endocrine Endocrinology: Denies polydipsia, polyphagia or polyuria Hematologic/Lymphatic Hematologic/Lymphatic: Denies easy bleeding, easy bruising or lymphadenopathy Allergic/Immunologic Allergic/Immunologic ED: Denies mouth swelling, tongue swelling or urticaria EXAM Physical Exam Const Vital Signs: 10/04/22 23:49 10/04/22 23:54 10/04/22 23:55 Temperature 98.2 F 98.2 F Temperature Source Oral Oral Pulse Rate 92 92 89 Respiratory Rate 18 18 20 H Respiratory Effort Respiratory Pattern Blood Pressure 82/52 L 85/52 L Blood Pressure Mean 62 63 Pulse Ox 81 81 90 Oxygen Delivery Method Room Air Room Air Nasal Cannula Oxygen Flow Rate (L/min) 4 10/05/22 00:22 10/05/22 00:25 10/05/22 01:09 Temperature Temperature Source Pulse Rate 87 87 Respiratory Rate 26 H 28 H Respiratory Effort Non-Labored Respiratory Pattern Normal Blood Pressure 93/51 L 101/54 L Blood Pressure Mean 65 69 Pulse Ox 92 95 Oxygen Delivery Method Nasal Cannula Nasal Cannula Oxygen Flow Rate (L/min) 4 4 Positive well nourished and well developed General Appearance ED: well developed and NAD HEENT Reports TM's clear and moist mucous membranes normocephalic and atraumatic; Negative for trauma or tenderness Tympanic Membrane ED: Yes TM's clear Eyes PERRL and EOMs intact bilaterally General Eye ED: Negative for pale conjunctiva or scleral icterus Neck no lymphadenopathy, supple and no JVD General: Negative for tenderness Chest Wall inspection of chest normal and palpation of chest normal Chest: Negative for tenderness Resp normal respiratory effort Resp Narrative: No significant tachypnea. No sensory muscle use or retractions. No conversational dyspnea. Patient does have some coarse rhonchi bilaterally. With few rales in the bases. Effort and Inspection: Negative for respiratory distress or pain with movement Auscultation: rhonchi; Negative for wheezes or diminished lung sounds Cardio regular rate, regular rhythm, S1 normal heart sound, S2 normal heart sound and no murmurs Peripheral Pulses: pulses 2+ throughout GI normal to inspection, nondistended, normoactive bowel sounds, soft to palpation, non-tender, non-distended and no masses Back/Spine no CVA tenderness and no thoracic nor lumbar tenderness Extremity normal to inspection General Extremety ED: Negative for edema General Extremity: Negative for edema Neuro oriented x3, CN's II-XII intact bilaterally, no sensory deficits noted and gait normal Sensorium / Orientation: awake, alert, oriented to person, oriented to place and oriented to time Motor Exam: strength 5/5 throughout and strength abnormal Psych mental status grossly normal Skin no rashes or lesions noted and no wounds MDM MDM MDM Narrative Medical decision making narrative: I feel establish arrival. Patient had blood cultures ordered. Lab work-up showed white count of 12.3. Lactate was 2.0. Troponin was normal at 46. BNP was elevated 414. Chemistries showed a slightly depressed potassium of 3.2 and BUN was 29 creatinine 1.42. Chest x-ray obtained showed bibasilar infiltrates. Patient was placed on nasal cannula O2. Patient was given a liter normal saline fluid bolus. Her blood pressure responded and is now in the low 100s systolic. Patient started on Rocephin and Zithromax. COVID and influenza rapid test were negative. Patient will be discussed with hospitalist evaluate patient for admission. Lab Data Attestation: I reviewed the patient's lab results. Labs: Laboratory Results - last 24 hr 10/05/22 10/05/22 10/05/22 00:05 00:05 00:05 WBC 12.3 H RBC 3.63 L Hgb 10.5 L Hct 33.4 L MCV 92.0 MCH 28.9 MCHC 31.4 L RDW Std Deviation 43.9 RDW Coeff of Scott 13.0 Plt Count 249 MPV 9.3 Immature Gran % (Auto) 2.500 H Neut % (Auto) 86.8 H Lymph % (Auto) 3.4 L [place] % (Auto) 7.1 Eos % (Auto) 0.0 Baso % (Auto) 0.2 Absolute Neuts (auto) 10.6 H Absolute Lymphs (auto) 0.42 L Nucleated RBC % 0 Differential Comment SCANNED Sodium Potassium Chloride Carbon Dioxide Anion Gap BUN Creatinine Estim Creat Clear Calc Est GFR (MDRD) Af Amer Est GFR (MDRD) Non-Af BUN/Creatinine Ratio Glucose Lactic Acid 2.0 Calcium Troponin I High Sens 46 B-Natriuretic Peptide 10/05/22 10/05/22 00:05 00:05 WBC RBC Hgb Hct MCV MCH MCHC RDW Std Deviation RDW Coeff of Scott Plt Count MPV Immature Gran % (Auto) Neut % (Auto) Lymph % (Auto) [place] % (Auto) Eos % (Auto) Baso % (Auto) Absolute Neuts (auto) Absolute Lymphs (auto) Nucleated RBC % Differential Comment Sodium 136 Potassium 3.2 L Chloride 100 Carbon Dioxide 29.0 Anion Gap 7 BUN 29 H Creatinine 1.42 H Estim Creat Clear Calc 26.14 Est GFR (MDRD) Af Amer 46 L Est GFR (MDRD) Non-Af 38 L BUN/Creatinine Ratio 20.4 H Glucose 131 H Lactic Acid Calcium 8.9 Troponin I High Sens B-Natriuretic Peptide 414.7 H Radiography Diagnostic Testing: Clinical Impression(s) from Imaging Studies Chest X-Ray 10/05/22 00:25 IMPRESSION: Bibasilar pneumonia. Electronically Signed: Phil Noguera MD at 0:51 EST , 1 view chest x-ray obtained interpreted by myself as bilateral infiltrates. Radiology in agreement. EKG Initial EKG: Attestation: I personally reviewed and interpreted this EKG as follows: Comments: Sinus rhythm with a ventricular rate of [address] changes. Discharge Plan Dx/Rx/DC Orders Clinical Impression: Pneumonia, Hypoxemia, Transient hypotension, Weakness, HANNY (acute kidney injury), Sepsis Disposition Disposition: Acute Care Hospital [facility]
[2022-10-05] MEDS: 0.9% Normal Saline 1,000 ML 999 ML IV (00:16)
[2022-10-05 00:23] LABS: Absolute Lymphocyte Count 0.42 X10^3/uL (0.83-4.51); Absolute Neutrophil Count 10.6 X10^3/uL (2.0-7.7); Basophil# 0.02 X10^3/uL; Basophil% 0.2 % (0-1); Hematocrit 33.4 % (37-47); Hemoglobin 10.5 g/dL (12.0-15.0); Lymphocyte # 0.42 X10^3/ul (0.83-4.51); Lymphocyte % 3.4 % (19-41); Mean Corp Hgb Conc 31.4 g/dL (32-36); Mean Corpuscular Hgb 28.9 pg (27.0-32.0); Mean Platelet Vol. 9.3 fl (6.2-12.0); Monocyte# 0.87 X10^3/uL; Monocyte% 7.1 % (0-10); NRBC Flagged by Analyzer 0 % (0-5); Neutrophil # 10.64 X10^3/uL (2.7-7.7); Neutrophil % 86.8 % (47-70); POSITIVE DIFFERENTIAL YES; Platelet Count 249 K/mm3 (150-450); RBC Distribution Width SD 43.9 fl (35.1-43.9); Red Blood Count 3.63 M/mm3 (4.2-5.4); White Blood Count 12.3 K/mm3 (4.4-11.0)
--- NOTE | 2022-10-05 00:25 | RAD_ITS ---
STUDY: X-RAY CHEST REASON FOR EXAM: Female, 82 years old. dyspnea TECHNIQUE: Single AP portable view of the chest. COMPARISON: None. FINDINGS: Patchy airspace opacities are seen in the right and left lung bases suggesting bilateral pneumonia. There is no demonstrated pleural abnormality. Normal size heart. Normal mediastinum and merrill. Normal visualized pulmonary arteries. Normal visualized aortic arch and descending thoracic aorta. Normal visualized thoracic spine. There is degenerative osteoarthritis of the bilateral shoulders. There is no demonstrated abnormality of the visualized soft tissue structures of the upper abdomen. RAD/Chest 1 View (Portable) IMPRESSION: Bibasilar pneumonia. Electronically Signed: Phil Noguera MD at 0:51 EST ,
[2022-10-05 00:26] LABS: Differential Indicated SCAN CRITERIA MET
[2022-10-05 00:42] LABS: Troponin-I HS 46 pg/mL (3.0-54.0)
[2022-10-05 00:43] LABS: Differential Comment SCANNED
[2022-10-05 00:44] LABS: BNP,B-Type NATRIURETIC PEPTIDE 414.7 pg/mL (0-100)
[2022-10-05 01:04] LABS: Anion Gap 7 (5-15); BUN 29 mg/dL (7-18); BUN/Creat Ratio 20.4 RATIO (10-20); Calcium,Total 8.9 mg/dL (8.5-10.1); Chloride 100 mmol/L (98-107); Creatinine, Serum 1.42 mg/dL (0.55-1.02); EST Glomerular Filtration Rate 38 mL/min (>60); Est Glom Filt Rate - Afr Amer 46 mL/min (>60); Estimated Creatinine Clearance 26.14 ml/min; Glucose 131 mg/dL (74-106); Potassium 3.2 mmol/L (3.5-5.1); Sodium Level 136 mmol/L (136-145)
[2022-10-05] MEDS: Ceftriaxone 1 GM/50 ML BAG IV ×2 (01:07→21:02)
[2022-10-05] MEDS: Potassium Chloride Oral Tablet 20 MEQ 40 MEQ PO (01:13)
--- NOTE | 2022-10-05 01:42 | HP.PCM.HOS_ITS ---
HPI - General General Date of Admission: 10/05/22 Date of Service: 10/05/22 Chief Complaint: weakness HPI Narrative RAYMUNDO LANDRY, is a 82 F with a significant history of GERD; pulmonary hypertension and hypertension who presents to the emergency department with 2- day history of progressively worsening weakness. On the day of presentation patient was too weak that she sat down between the shower and the toilet and she could not get up. Associated with her symptom is progressively worsening cough. Her cough is dry. Also she reports subjective fever. She denies chills. COUNTS INCLUDE 234 BEDS AT THE [facility] Medical History Anemia Arthritis Benign positional vertigo Breast mass, left Cardiac contusion (11/27/18) Chronic kidney disease (CKD) Dyspnea on exertion Elevated troponin (11/27/18) FRACTURE LEFT ANKLE GERD (gastroesophageal reflux disease) History of fall (11/27/18) History of left heart catheterization History of subdural hematoma (post traumatic) (03/19/16) Hx of breast cancer Hx of pulmonary hypertension Hyperlipidemia Hypertension Osteopenia Pleural effusion on left Sternal fracture (11/27/18) Thyroid disease Home Medications metoprolol tartrate 50 mg tablet 25 mg PO BID HTN 12/04/14 [History Last Taken 07/22/22] cholecalciferol (vitamin D3) 1,250 mcg (50,000 unit) capsule 50,000 unit PO TH supplement 04/02/19 [History Last Taken 07/20/22] simvastatin 20 mg tablet 20 mg PO QHS cholesterol 04/02/19 [History Last Taken 07/21/22] trazodone 100 mg tablet 100 mg PO QHS sleep 04/02/19 [History Last Taken 07/21/22] lidocaine 4 % topical patch 1 patch topical DAILY PRN Pain 04/08/19 [History Last Taken 10/09/19] hydrochlorothiazide 12.5 mg tablet 12.5 mg PO DAILY diuretic 07/22/22 [History Last Taken 07/22/22] cyanocobalamin (vitamin B-12) 1,000 mcg tablet 1,000 mcg PO DAILY supplement 07/23/22 [History Last Taken 07/22/22] pantoprazole 40 mg tablet,delayed release (Protonix) 40 mg PO BID #60 tabs 07/25/22 [Rx Last Taken Unknown] acyclovir 400 mg tablet 400 mg TID 10/05/22 [History Last Taken Unknown] aspirin 81 mg capsule 81 mg PO DAILY 10/05/22 [History Last Taken Unknown] benzonatate 200 mg capsule 200 mg PO TID 10/05/22 [History Last Taken Unknown] glucosamine 250 mo-olirn-utv 200 mg-D3 1,500 cbzr-M-kjobt-herbs tablet 1 tab PO DAILY 10/05/22 [History Last Taken Unknown] nabumetone 500 mg tablet 500 mg DAILY 10/05/22 [History Last Taken Unknown] oxybutynin chloride 10 mg tablet,extended release 24 hr 20 mg PO DAILY 10/05/22 [History Last Taken Unknown] sucralfate 1 gram tablet (Carafate) 1 g PO QODAY 10/05/22 [History Last Taken Unknown] Allergy/AdvReac Type Severity Reaction Status Date / Time diazepam [From Valium] AdvReac Severe Other Verified 10/05/22 00:01 eszopiclone [From Lunesta] AdvReac Severe confusion Verified 10/05/22 00:01 morphine AdvReac Severe Other Verified 10/05/22 00:01 paroxetine HCl [From Paxil] AdvReac Severe Other Verified 10/05/22 00:01 zolpidem [From Ambien] AdvReac Severe confusion Verified 10/05/22 00:01 Family History Sister Breast cancer Heart disease Hypertension Father Heart disease Hypertension Surgical History History of bilateral knee replacement History of lumpectomy of left breast History of oophorectomy History of right cataract surgery History of tubal ligation Social History Smoking Status: Never smoker second hand exposure: No alcohol intake: never substance use type: does not use caffeine: Yes Type: coffee Number of servings: 2 what type of physical activity do you participate in: none frequency: does not exercise amador/mu-ism: Jew of [place] Protestant seatbelt use: sometimes additional social history: 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 She worked in an [employer], had to fly to get there. ROS ROS Narrative Pertinent positives and pertinent negatives as noted in HPI. All other systems were reviewed and are negative Vital Signs Vital Signs Vital Signs: 10/04/22 23:49 10/04/22 23:54 10/04/22 23:55 Temperature 98.2 F 98.2 F Temperature Source Oral Oral Pulse Rate 92 92 89 Respiratory Rate 18 18 20 H Respiratory Effort Respiratory Pattern Blood Pressure 82/52 L 85/52 L Blood Pressure Mean 62 63 Pulse Ox 81 81 90 Oxygen Delivery Method Room Air Room Air Nasal Cannula Oxygen Flow Rate (L/min) 4 10/05/22 00:22 10/05/22 00:25 10/05/22 01:09 Temperature Temperature Source Pulse Rate 87 87 Respiratory Rate 26 H 28 H Respiratory Effort Non-Labored Respiratory Pattern Normal Blood Pressure 93/51 L 101/54 L Blood Pressure Mean 65 69 Pulse Ox 92 95 Oxygen Delivery Method Nasal Cannula Nasal Cannula Oxygen Flow Rate (L/min) 4 4 10/05/22 01:17 Temperature 98.1 F Temperature Source Temporal Pulse Rate 87 Respiratory Rate 18 Respiratory Effort Respiratory Pattern Blood Pressure 116/63 Blood Pressure Mean 80 Pulse Ox 96 Oxygen Delivery Method Nasal Cannula Oxygen Flow Rate (L/min) 4 Weight Weight: 79.5 kg Body Mass Index (BMI) 31.0 Physical Exam Narrative Physical exam: General: Well-nourished, well-developed. Head: Normocephalic, atraumatic, no tenderness Eyes: Vision is grossly intact. EOMI ENT, no trauma, dry mucous membranes, no rhinorrhea Neck: Nontender, full range of motion. CVS: Regular rate and rhythm. S1-S2 present. No murmur, gallop or rub. Respiratory : Rales and rhonchi. chest wall nontender. Abdomen: Soft, nontender, nondistended, normal bowel sounds, no masses : Deferred Back: Nontender, no CVA tenderness. Extremities: Nontender full range of motion, no trauma Skin: Pallor, no trauma, no abrasions Neuro: Alert, oriented, cranial nerves II through XII grossly intact. Psychiatry: Normal mood. Normal affect. Not depressed. Not anxious. Results Lab / Micro Data Result Diagrams: 10/05/22 00:05 10/05/22 00:05 Labs: Laboratory Results - last 24 hr 10/05/22 00:05: Troponin I High Sens 46 10/05/22 00:05: Lactic Acid 2.0 10/05/22 00:05: WBC 12.3 H, RBC 3.63 L, Hgb 10.5 L, Hct 33.4 L, MCV 92.0, MCH 28.9, MCHC 31.4 L, RDW Std Deviation 43.9, RDW Coeff of Scott 13.0, Plt Count 249, MPV 9.3, Immature Gran % (Auto) 2.500 H, Neut % (Auto) 86.8 H, Lymph % (Auto) 3.4 L, Wood % (Auto) 7.1, Eos % (Auto) 0.0, Baso % (Auto) 0.2, Absolute Neuts (auto) 10.6 H, Absolute Lymphs (auto) 0.42 L, Nucleated RBC % 0, Differential Comment SCANNED 10/05/22 00:05: Sodium 136, Potassium 3.2 L, Chloride 100, Carbon Dioxide 29.0, Anion Gap 7, BUN 29 H, Creatinine 1.42 H, Estim Creat Clear Calc 26.14, Est GFR (MDRD) Af Amer 46 L, Est GFR (MDRD) Non-Af 38 L, BUN/Creatinine Ratio 20.4 H, G lucose 131 H, Calcium 8.9 10/05/22 00:05: B-Natriuretic Peptide 414.7 H Micro: Microbiology 10/05/22 00:30 Nasal Secretion SARS-CoV-2 & FLU Antigen (Rapid) - Final Radiology Impression Chest X-Ray 10/05/22 00:25 IMPRESSION: Bibasilar pneumonia. Electronically Signed: Phil Noguera MD at 0:51 EST , Assessment & Plan Assessment/Plan (1) Sepsis: (2) Pneumonia: (3) Hypoxia: (4) HANNY (acute kidney injury): PLAN: Plan Sepsis/pneumonia with hypoxia The patient presented with sepsis due to pneumonia with acute sepsis related organ dysfunction as evidenced by initial SBP < 90 SIRS criteria: Respiratory rate more than 20; WBC more than 12,000 Blood culture ?2 is pending Chest x-ray: Bibasilar infiltrates. Actual chest x-ray image was independently interpreted and I agree with radiologist interpretation. Strep pneumoniae and Legionella urine antigen ordered. Respiratory Gram stain and culture ordered at the ED Antibiotics: Rocephin and azithromycin ordered at the ED and continued. Trend CBC. Received normal saline bolus with effective response; and did not require 30ml per kilogram bolus. DuoNeb PRN ordered. Oxygen per protocol to keep oxygen saturation to at least 90%. Tesbelén Ruiz and Mucinex ordered Debility PT and OT to work with patient. Case management consult. HANNY Creatinine of 1.42. Baseline creatinine is less than 1. BUN is 29. BUN over creatinine is 20.4. Likely prerenal and increasing renal from toxic effect of sepsis. IV hydration. Avoid nephrotoxic's. Hypokalemia Potassium presentation was 3.2. Likely secondary to hydrochlorothiazide use. Replaced at the ED. Trend BMP. Hypotension Likely secondary to sepsis. Hold home blood pressure medications. Trend blood pressures. DVT prophylaxis Subcutaneous Lovenox ordered. Charges/Coding Visit Charges Inpatient E&M: 91352 Init Hosp L3
[2022-10-05] MEDS: 0.9% Normal Saline 1,000 ML 75 ML IV (03:08)
[2022-10-05 04:16] LABS: Reflex Lactate? Y
[2022-10-05 04:27] LABS: Absolute Lymphocyte Count 0.41 X10^3/uL (0.83-4.51); Absolute Neutrophil Count 9.7 X10^3/uL (2.0-7.7); Basophil# 0.02 X10^3/uL; Basophil% 0.2 % (0-1); Hematocrit 32.4 % (37-47); Hemoglobin 10.2 g/dL (12.0-15.0); Lymphocyte # 0.41 X10^3/ul (0.83-4.51); Lymphocyte % 3.6 % (19-41); Mean Corp Hgb Conc 31.5 g/dL (32-36); Mean Corpuscular Hgb 29.1 pg (27.0-32.0); Mean Corpuscular Volume 92.6 fL (81-99); Monocyte% 6.2 % (0-10); NRBC Flagged by Analyzer 0 % (0-5); Neutrophil # 9.73 X10^3/uL (2.7-7.7); Neutrophil % 86.4 % (47-70); POSITIVE DIFFERENTIAL YES; POSITIVE MORPHOLOGY YES; Platelet Count 232 K/mm3 (150-450); RBC Distribution Width CV 12.9 % (11.6-14.6); RBC Distribution Width SD 43.6 fl (35.1-43.9); White Blood Count 11.3 K/mm3 (4.4-11.0)
[2022-10-05 04:29] LABS: Differential Indicated SCAN CRITERIA MET
[2022-10-05 04:44] LABS: Anion Gap 8 (5-15); BUN 30 mg/dL (7-18); BUN/Creat Ratio 23.3 RATIO (10-20); Calcium,Total 8.5 mg/dL (8.5-10.1); Chloride 103 mmol/L (98-107); Creatinine, Serum 1.29 mg/dL (0.55-1.02); EST Glomerular Filtration Rate 42 mL/min (>60); Est Glom Filt Rate - Afr Amer 51 mL/min (>60); Estimated Creatinine Clearance 28.77 ml/min; Glucose 122 mg/dL (74-106); Potassium 3.6 mmol/L (3.5-5.1); Sodium Level 137 mmol/L (136-145)
[2022-10-05 05:18] LABS: Differential Comment SCANNED
[2022-10-05] MEDS: Acetaminophen 325 MG Tablet 650 MG PO ×3 (05:51→22:37)
[2022-10-05] MEDS: Acyclovir 200 MG Capsule 400 MG PO ×3 (05:52→21:04)
[2022-10-05] MEDS: Benzonatate 100 MG Capsule 200 MG PO ×3 (05:54→21:03)
[2022-10-05] MEDS: Tolterodine Tartrate 4 MG CAP.SA PO (09:36)
[2022-10-05] MEDS: Enoxaparin 30 MG/0.3 ML Syringe SC (09:36)
[2022-10-05] MEDS: Pantoprazole Sodium 40 MG Tablet PO ×2 (09:37→21:04)
[2022-10-05] MEDS: Cyanocobalamin 500 MCG Tablet 1000 MCG PO (09:37)
[2022-10-05] MEDS: guaiFENesin 1,200 MG Tablet 1200 MG PO ×2 (09:37→21:04)
[2022-10-05] MEDS: Ergocalciferol 1.25 MG (50, 000 UNIT) Capsule PO (09:37)
--- NOTE | 2022-10-05 13:14 | PN.HOSP_ITS ---
Subjective Subjective Patient was seen and examined. Patient is on 2L oxygen. Admitted with sepsis secondary to pneumonia/HANNY Vitals reviewed; labs reviewed - hypokalemia, resolved Continue on ceftriaxone and azithromycin Encourage use of incentive spirometer Objective Data Objective Data Vital Signs: Vital Signs Temp Pulse Resp BP Pulse Ox O2 Del Method O2 Flow Rate 97.9 F 104 H 18 104/58 L 96 Nasal Cannula 1 10/05/22 11:46 10/05/22 11:46 10/05/22 11:46 10/05/22 11:46 10/05/22 11:46 10/05/22 11:46 10/05/22 11:46 Oxygen Flow Rate (L/min) 1 Oxygen Delivery Method Nasal Cannula Weight: 76.3 kg Body Mass Index (BMI) 29.7 Intake & Output: Intake and Output for Last 24 Hours 10/03/22 10/04/22 10/05/22 23:59 23:59 23:59 Intake Total 2084 / 2084 Balance 2084 Lab / Micro Data Result Diagrams: 10/05/22 04:16 10/05/22 04:16 Labs: Laboratory Results - last 24 hr 10/05/22 00:05: Troponin I High Sens 46 10/05/22 00:05: Lactic Acid 2.0 10/05/22 00:05: WBC 12.3 H, RBC 3.63 L, Hgb 10.5 L, Hct 33.4 L, MCV 92.0, MCH 28.9, MCHC 31.4 L, RDW Std Deviation 43.9, RDW Coeff of Scott 13.0, Plt Count 249, MPV 9.3, Immature Gran % (Auto) 2.500 H, Neut % (Auto) 86.8 H, Lymph % (Auto) 3.4 L, Treasure % (Auto) 7.1, Eos % (Auto) 0.0, Baso % (Auto) 0.2, Absolute Neuts (auto) 10.6 H, Absolute Lymphs (auto) 0.42 L, Nucleated RBC % 0, Differential Comment SCANNED 10/05/22 00:05: Sodium 136, Potassium 3.2 L, Chloride 100, Carbon Dioxide 29.0, Anion Gap 7, BUN 29 H, Creatinine 1.42 H, Estim Creat Clear Calc 26.14, Est GFR (MDRD) Af Amer 46 L, Est GFR (MDRD) Non-Af 38 L, BUN/Creatinine Ratio 20.4 H, Glucose 131 H, Calcium 8.9 10/05/22 00:05: B-Natriuretic Peptide 414.7 H 10/05/22 04:16: WBC 11.3 H, RBC 3.50 L, Hgb 10.2 L, Hct 32.4 L, MCV 92.6, MCH 29.1, MCHC 31.5 L, RDW Std Deviation 43.6, RDW Coeff of Scott 12.9, Plt Count 232, MPV 9.0, Immature Gran % (Auto) 3.600 H, Neut % (Auto) 86.4 H, Lymph % (Auto) 3 .6 L, Treasure % (Auto) 6.2, Eos % (Auto) 0.0, Baso % (Auto) 0.2, Absolute Neuts (auto) 9.7 H, Absolute Lymphs (auto) 0.41 L, Nucleated RBC % 0, Differential Comment SCANNED 10/05/22 04:16: Sodium 137, Potassium 3.6, Chloride 103, Carbon Dioxide 26.0, Anion Gap 8, BUN 30 H, Creatinine 1.29 H, Estim Creat Clear Calc 28.77, Est GFR (MDRD) Af Amer 51 L, Est GFR (MDRD) Non-Af 42 L, BUN/Creatinine Ratio 23.3 H, Glucose 122 H, Calcium 8.5 10/05/22 04:16: Lactic Acid 1.0 Micro: Microbiology 10/05/22 07:25 Urine, Clean Catch Legionella Antigen - Final 10/05/22 07:25 Urine, Random Streptococcus pneumoniae Antigen (M - Final 10/05/22 00:30 Nasal Secretion SARS-CoV-2 & FLU Antigen (Rapid) - Final Radiography Diagnostic Testing: Radiology Impression Chest X-Ray 10/05/22 00:25 IMPRESSION: Bibasilar pneumonia. Electronically Signed: Phil Noguera MD at 0:51 EST ,
[2022-10-05] MEDS: traZODone 100 MG Tablet PO (21:03)
[2022-10-05] MEDS: Atorvastatin Calcium 10 MG Tablet PO (21:04)
[2022-10-06] VITALS (19 sets, daily range): BP systolic 112–152; BP diastolic 71–92; PULSE 88–128; RESP 16–20; TEMP 36.7–37.2; O2SAT 92–98
[2022-10-06] MEDS: Acyclovir 200 MG Capsule 400 MG PO ×3 (06:02→22:05)
[2022-10-06] MEDS: Benzonatate 100 MG Capsule 200 MG PO ×3 (06:02→22:05)
[2022-10-06] MEDS: Sucralfate 1 GM Tablet PO (06:03)
[2022-10-06] MEDS: Pantoprazole Sodium 40 MG Tablet PO ×2 (07:53→22:06)
[2022-10-06] MEDS: Metoprolol Tartrate 25 MG Tablet PO ×2 (07:53→22:06)
[2022-10-06] MEDS: guaiFENesin 1,200 MG Tablet 1200 MG PO ×2 (07:53→22:05)
[2022-10-06] MEDS: Tolterodine Tartrate 4 MG CAP.SA PO (07:53)
[2022-10-06] MEDS: Cyanocobalamin 500 MCG Tablet 1000 MCG PO (07:54)
[2022-10-06 08:18] LABS: Absolute Neutrophil Count 9.3 X10^3/uL (2.0-7.7); Basophil# 0.02 X10^3/uL; Basophil% 0.2 % (0-1); Eosinophil# 0.17 X10^3/uL; Eosinophils% 1.5 % (0-5); Hematocrit 28.9 % (37-47); Hemoglobin 9.7 g/dL (12.0-15.0); Lymphocyte % 7.3 % (19-41); Mean Corp Hgb Conc 33.6 g/dL (32-36); Mean Corpuscular Hgb 30.3 pg (27.0-32.0); Mean Corpuscular Volume 90.3 fL (81-99); Mean Platelet Vol. 9.6 fl (6.2-12.0); Monocyte# 0.62 X10^3/uL; Monocyte% 5.6 % (0-10); NRBC Flagged by Analyzer 0 % (0-5); Neutrophil # 9.34 X10^3/uL (2.7-7.7); Neutrophil % 84.8 % (47-70); Platelet Count 232 K/mm3 (150-450); RBC Distribution Width CV 12.7 % (11.6-14.6); RBC Distribution Width SD 42.2 fl (35.1-43.9)
[2022-10-06 08:46] LABS: ALB/GLOB Ratio 0.6 RATIO (0.9-2.4); AST(SGOT) 17 U/L (15-37); Alanine Aminotransfer ALT/SGPT 12 U/L (13-56); Albumin, Serum 2.4 g/dL (3.2-5.0); Alkaline Phosphatase 61 U/L (45-117); Anion Gap 4 (5-15); BUN 24 mg/dL (7-18); BUN/Creat Ratio 26.3 RATIO (10-20); Calcium,Total 8.8 mg/dL (8.5-10.1); Chloride 106 mmol/L (98-107); Creatinine, Serum 0.91 mg/dL (0.55-1.02); EST Glomerular Filtration Rate 63 mL/min (>60); Est Glom Filt Rate - Afr Amer 76 mL/min (>60); Estimated Creatinine Clearance 40.79 ml/min; Globulin 3.7 g/dL (2.2-4.2); Glucose 98 mg/dL (74-106); Potassium 3.6 mmol/L (3.5-5.1); Protein, Total 6.1 g/dL (6.4-8.2); Sodium Level 138 mmol/L (136-145)
[2022-10-06] MEDS: Enoxaparin 30 MG/0.3 ML Syringe SC (09:01)
[2022-10-06] MEDS: Ipratropium/Albuterol Sulfate 3 ML AMPUL.NEB INHALATION (09:29)
--- NOTE | 2022-10-06 12:00 | CASEMGMT ---
RN MARIANA Face to Face with patient for initial transition planning/care coordination assessment. RN CM introduced self and role at [facility]. Patient sitting in chair, alert and oriented. Patient willing to participate in assessment and is able to answer all questions appropriately. Care providers, pharmacy, and demographics verified. Patient wishes to discharge home with resumption of HHC and aide services. Patient states she has no further needs or concerns at this time. CM to follow for discharge planning needs that may arise. PCP: Kelsy Specialists: Mireille custom grinder; Venkat cart pusher Preferred Pharmacy: [facility] Insurance: JDCPhosphate Prescription Benefit: yes Living Will/HPOA: none LNOK: daughter, sister Living Arrangements: Patient lives alone in a mobile home, daughter is currently visiting for a few months and staying with patient. Patient has stair lift to enter the home. Patient states she is independent for self care at home. Transportation: self, daughter DME/HHC: Patient states she has shower chair, raised toilet, cane, walker, rollator, and grab bars at home. Patient has been to [facility] in the past. Patient has waiver program. Patient states she has aides through [facility] and nursing and therapy through [facility]. Disposition Plan: Patient to discharge home with resumption of HHC, family support, and follow-up plans in place. Will monitor for home oxygen at discharge. Blanka TORRES, RN, CM
[2022-10-06] MEDS: Acetaminophen 325 MG Tablet 650 MG PO (13:05)
--- NOTE | 2022-10-06 13:05 | CASEMGMT ---
DIRK PEÑA NOTE: Call placed to Adina @ [facility] and she was notified of pt's admission to [facility]. Pt is active w/PT and OT. Order placed for PERICO and SN added. Adina notified. [facility]. DIRK PEÑA to room. Introduced self and role. Pt provided w/list of DME companies, should she need Oxygen @ discharge. Pt chooses [employer]. Pt to be given pulse ox @ discharge, if she goes home on oxygen. Pulse ox placed w/pt's chart for nursing to provide to pt. . Martina TORRES RN, CM
--- NOTE | 2022-10-06 13:46 | CASEMGMT ---
DIRK PEÑA called [facility] to update on patient being admitted to [facility]. Per Krishna at [facility], patient's heel caser is Blanka Brock [phone]. Patient is active to [facility] for aide services, Sunday for 3 hours and Sunday for 5 hours. Patient goes to [facility] of Sunday. Patient receives 5 meals every 2 weeks. Krishna request discharge information be faxed to [phone] when available. Green sheet on chart.
--- NOTE | 2022-10-06 14:48 | PCM.PN.HOSP ---
Subjective Subjective Follow-up on sepsis/pneumonia: Patient was seen and examined. She remains on 2 L of oxygen. She complains of feeling unwell today. She was tachycardic earlier on, resumed on her home metoprolol. Objective Data Objective Data Vital Signs: Vital Signs Temp Pulse Resp BP Pulse Ox O2 Del Method O2 Flow Rate 98.4 F 105 H 18 120/71 96 Nasal Cannula 2 10/06/22 13:02 10/06/22 13:15 10/06/22 13:02 10/06/22 13:02 10/06/22 13:15 10/06/22 13:15 10/06/22 13:15 Oxygen Flow Rate (L/min) 2 Oxygen Delivery Method Nasal Cannula Weight: 76.3 kg Body Mass Index (BMI) 29.7 Intake & Output: Intake and Output for Last 24 Hours 10/04/22 10/05/22 10/06/22 23:59 23:59 23:59 Intake Total 3640 / 3640 360 / 360 Balance 3640 / 3640 360 / 360 Lab / Micro Data Result Diagrams: 10/06/22 07:39 10/06/22 07:39 Labs: Laboratory Results - last 24 hr 10/06/22 07:39: WBC 11.0, RBC 3.20 L, Hgb 9.7 L, Hct 28.9 L, MCV 90.3, MCH 30.3, MCHC 33.6 D, RDW Std Deviation 42.2, RDW Coeff of Scott 12.7, Plt Count 232, MPV 9.6, Immature Gran % (Auto) 0.600, Neut % (Auto) 84.8 H, Lymph % (Auto) 7.3 L, [place]dwell % (Auto) 5.6, Eos % (Auto) 1.5, Baso % (Auto) 0.2, Absolute Neuts (auto) 9.3 H, Absolute Lymphs (auto) 0.80 L, Nucleated RBC % 0 10/06/22 07:39: Sodium 138, Potassium 3.6, Chloride 106, Carbon Dioxide 28.0, Anion Gap 4 L, BUN 24 H, Creatinine 0.91, Estim Creat Clear Calc 40.79, Est GFR (MDRD) Af Amer 76, Est GFR (MDRD) Non-Af 63, BUN/Creatinine Ratio 26.3 H, Glucose 98, Calcium 8.8, Total Bilirubin 0.50, AST 17, ALT 12 L, Alkaline Phosphatase 61, Total Protein 6.1 L, Albumin 2.4 L, Globulin 3.7, Albumin/Globulin Ratio 0.6 L Micro: Microbiology 10/05/22 07:25 Urine, Clean Catch Legionella Antigen - Final 10/05/22 07:25 Urine, Random Streptococcus pneumoniae Antigen (M - Final 10/05/22 00:30 Nasal Secretion SARS-CoV-2 & FLU Antigen (Rapid) - Final Physical Exam Narrative Physical exam: General: Alert, Oriented x3, Cooperative, appears frail, on 2 L of oxygen HEENT: Atraumatic Oral: Moist Mucosa Neck: Supple Lungs:Diminished to auscultation, few coarse crackles heard at the lung bases Cardiovascular: HS I+II, regular, no murmurs Abdomen: Bowel Sounds Present, Soft, Non Tender Extremities: Trace bilateral leg edema Skin: No rashes, No breakdown Neurological: Grossly intact Psych/Mental Status: Appropriate Assessment & Plan Assessment/Plan (1) Hypoxia: (2) Pneumonia: PLAN: Plan 1. Sepsis secondary to pneumonia,slowly improving Admitting chest x-ray showed bibasilar pneumonia Blood cultures are pending, urine Legionella and strep antigen negative Continue IV ceftriaxone and azithromycin 2. Acute hypoxia secondary to pneumonia Continue to encourage use of incentive spirometer, wean off for SPO2 more than 94% Trial of Lasix 40 mg IV x1 3. Hypertension, controlled, continue metoprolol Continue to hold hydrochlorothiazide 4. Sinus tachycardia likely secondary to beta-[place] withdrawal Patient's home metoprolol confirmed, continue on metoprolol 5. GERD, recent upper GI bleed, continue PPI twice daily 6. History of breast CA, continued outpatient follow-up 7. DVT PPx- Lovenox SC Charges/Coding Visit Charges Inpatient E&M: 91803 Subs Hosp L3
[2022-10-06] MEDS: 0.9% Saline Lock 10 ML Syringe IV ×2 (15:13→20:16)
[2022-10-06] MEDS: Furosemide 40 MG/4 ML Vial IV (15:13)
[2022-10-06] MEDS: Ceftriaxone 1 GM/50 ML BAG IV (20:16)
[2022-10-06] MEDS: traZODone 100 MG Tablet PO (22:05)
[2022-10-06] MEDS: Atorvastatin Calcium 10 MG Tablet PO (22:05)
[2022-10-07] VITALS (12 sets, daily range): BP systolic 111–128; BP diastolic 60–78; PULSE 100–115; RESP 16–20; TEMP 36.8–37.4; O2SAT 89–99
[2022-10-07] MEDS: Acetaminophen 325 MG Tablet 650 MG PO (01:27)
[2022-10-07] MEDS: Ipratropium/Albuterol Sulfate 3 ML AMPUL.NEB INHALATION ×2 (01:35→08:48)
[2022-10-07] MEDS: Acyclovir 200 MG Capsule 400 MG PO ×2 (05:35→14:05)
[2022-10-07] MEDS: Benzonatate 100 MG Capsule 200 MG PO ×2 (05:35→14:05)
[2022-10-07] MEDS: Aspirin 81 MG TAB.CHEW PO (09:28)
[2022-10-07] MEDS: guaiFENesin 1,200 MG Tablet 1200 MG PO (09:28)
[2022-10-07] MEDS: Cyanocobalamin 500 MCG Tablet 1000 MCG PO (09:28)
[2022-10-07] MEDS: Tolterodine Tartrate 4 MG CAP.SA PO (09:29)
[2022-10-07] MEDS: Metoprolol Tartrate 25 MG Tablet PO (09:29)
[2022-10-07] MEDS: Pantoprazole Sodium 40 MG Tablet PO (09:29)
[2022-10-07] MEDS: Enoxaparin 30 MG/0.3 ML Syringe SC (09:30)
--- NOTE | 2022-10-07 10:24 | DCINST_ITS ---
Discharge Instructions Diet Discharge Diet: 2000 mg Sodium Diet Activity Discharge Activity: Return to Normal Activity Follow Up Care Test Results: Test results from this visit will be discussed in further detail at your follow- up appointment, if applicable. Discharge Plan Admission Admit Date/Time: 10/05/22 01:16 Primary Reason for Your Visit: Acute pneumonia Attending Provider: Rose Mary Ta Primary Care Provider: Justin Tierney Consulting Providers: Nawaf Cabral Instructions Additional Instructions / Restrictions: Continue to use your incentive spirometer Complete your antibiotics Take note of changes to your medications Follow-up with your primary care doctor within 1 week Discharge Orders/Prescriptions Prescriptions: New Mucus Relief ER 1,200 mg Tablet Extended Release 12hr 1,200 mg PO BID 7 Days Qty: 14 0RF amoxicillin-pot clavulanate [Augmentin] 500-125 mg tablet 1 tab PO BID 5 Days Qty: 10 0RF Continued cholecalciferol (vitamin D3) 50,000 unit capsule 50,000 unit PO Rx Instructions: simvastatin 20 mg tablet 20 mg PO QHS trazodone 100 mg tablet 100 mg PO QHS lidocaine 4 % adhesive patch,medicated 1 patch TOPICAL DAILY PRN (Reason: Pain) metoprolol tartrate 50 MG tablet 25 mg PO BID Label Comments: blood pressure cyanocobalamin (vitamin B-12) 1,000 mcg tablet 1,000 mcg PO DAILY Label Comments: Take 1 tablet by mouth once daily. pantoprazole [Protonix] 40 mg tablet,delayed release (DR/EC) 40 mg PO BID Qty: 60 0RF oxybutynin chloride 10 mg tablet extended release 24hr 20 mg PO DAILY Label Comments: Take 2 tablets by mouth once daily. benzonatate 200 mg capsule 200 mg PO TID Label Comments: Take 1 capsule by mouth three times daily as needed. acyclovir 400 mg tablet 400 mg TID nabumetone 500 mg tablet 500 mg DAILY Label Comments: Take 1 tablet by mouth once daily. TAKE WITH FOOD [id number] 250 mg-200 mg- 1,500 unit Tablet 1 tab PO DAILY aspirin 81 mg Capsule 81 mg PO DAILY sucralfate [Carafate] 1 gram tablet 1 g PO QODAY Discontinued hydrochlorothiazide 12.5 mg Tablet 12.5 mg PO DAILY Referrals / Follow Up: Justin Tierney MD [Primary Care Provider] - In 1 Week Disposition Disposition (needs filled in before D/C Order can be placed): Home Health Service
--- NOTE | 2022-10-07 11:15 | PCM.DC.SUM ---
Providers Date of Admission: 10/05/22 Date of Discharge: 10/07/22 Primary Care Physician: Dr. Justin Tierney MD Reason For Visit: SEPSIS, PNEUMONIA Diagnosis Discharge Diagnosis (1) Hypoxia: Status: Acute Code(s): R09.02 - Hypoxemia (2) Pneumonia: Status: Acute Code(s): J18.9 - Pneumonia, unspecified organism Plan 1. Sepsis secondary to pneumonia 2. Acute hypoxia, resolved 3. Hypertension 4. HANNY 5. GERD 6. History of breast CA Medications at Discharge Home Medications metoprolol tartrate 50 mg tablet 25 mg PO BID HTN 12/04/14 cholecalciferol (vitamin D3) 1,250 mcg (50,000 unit) capsule 50,000 unit PO TH supplement 04/02/19 simvastatin 20 mg tablet 20 mg PO QHS cholesterol 04/02/19 trazodone 100 mg tablet 100 mg PO QHS sleep 04/02/19 lidocaine 4 % topical patch 1 patch topical DAILY PRN Pain 04/08/19 cyanocobalamin (vitamin B-12) 1,000 mcg tablet 1,000 mcg PO DAILY supplement 07/23/22 pantoprazole 40 mg tablet,delayed release (Protonix) 40 mg PO BID #60 tabs 07/25/22 acyclovir 400 mg tablet 400 mg TID 10/05/22 aspirin 81 mg capsule 81 mg PO DAILY 10/05/22 benzonatate 200 mg capsule 200 mg PO TID 10/05/22 glucosamine 250 zg-yhptm-spe 200 mg-D3 1,500 wdwy-Y-aeltt-herbs tablet 1 tab PO DAILY 10/05/22 nabumetone 500 mg tablet 500 mg DAILY 10/05/22 oxybutynin chloride 10 mg tablet,extended release 24 hr 20 mg PO DAILY 10/05/22 sucralfate 1 gram tablet (Carafate) 1 g PO QODAY 10/05/22 amoxicillin 500 mg-potassium clavulanate 125 mg tablet (Augmentin) 1 tab PO BID 5 days #10 tabs 10/07/22 guaifenesin 1,200 mg tablet, extended release 12 hr (Mucus Relief ER) 1,200 mg PO BID 7 days #14 tabs 10/07/22 Hospital Course Operations None Procedures None Summary of Care Provided Minutes Spent on Discharge: 35 Hospital Course: 82-year-old female with past medical history of CAD, hypertension who comes in with a 2-day history of progressive weakness. Patient admitted to cough that is worse, dry, she also has subjective fever but denies chills. In the emergency room, her white cell count was 12.3, lactic acid 2.0, BNP was elevated at 414. Patient potassium was 3.2, BUN was 29, creatinine was 1.42. Admitting chest x-ray showed bibasilar infiltrates. She was admitted to the progressive care unit, she was managed on IV antibiotics. Urine Legionella and strep antigens were negative. COVID-19 rapid antigen was negative. Patient was also managed on IV fluids. Had acute kidney injury improved back to his baseline less than 1. She had replacement in her potassium. Patient later on had her beta-[place] resumed. She was slightly tachycardic prior to resumption. Patient continued to improve and was not on oxygen at time of discharge. She was strongly recommended to follow-up with her primary care doctor within 1 week. She was also encouraged to use incentive spirometer. Physical Exam Narrative Physical exam: General: Alert, Oriented x3, Cooperative, appears frail HEENT: Atraumatic Oral: Moist Mucosa Neck: Supple Lungs:Diminished to auscultation Cardiovascular: HS I+II, regular, no murmurs Abdomen: Bowel Sounds Present, Soft, Non Tender Extremities: Trace bilateral leg edema Skin: No rashes, No breakdown Neurological: Grossly intact Psych/Mental Status: Appropriate Weight / BMI Weight Weight: 76.3 kg Body Mass Index (BMI) 29.7 ABG / Lab / Microbiology Data Result Diagrams: 10/06/22 07:39 10/06/22 07:39 Microbiology: Microbiology 10/05/22 00:50 Blood Culture (Wb) - Right Hand Blood Culture - Preliminary No growth in 48 hours. 10/05/22 00:05 Blood Culture (Wb) - Anticubital Right Blood Culture - Preliminary No growth in 48 hours. 10/05/22 07:25 Urine, Clean Catch Legionella Antigen - Final 10/05/22 07:25 Urine, Random Streptococcus pneumoniae Antigen (M - Final 10/05/22 00:30 Nasal Secretion SARS-CoV-2 & FLU Antigen (Rapid) - Final D/C Instructions Discharge Diet: 2000 mg Sodium Diet Meaningful Use Info Meaningful Use Diagnoses (Choose all that apply): None applicable Discharge Plan Admission Admit Date/Time: 10/05/22 01:16 Primary Reason for Your Visit: Acute pneumonia Attending Provider: Rose Mary Ta Primary Care Provider: Justin Tierney Consulting Providers: Nawaf Cabral Instructions Additional Instructions / Restrictions: Continue to use your incentive spirometer Complete your antibiotics Take note of changes to your medications - your hydrochlorothiazide was held in the hospital because of your low blood pressure Follow-up with your primary care doctor within 1 week for repeat blood work. Discharge Orders/Prescriptions Prescriptions: New Mucus Relief ER 1,200 mg Tablet Extended Release 12hr 1,200 mg PO BID 7 Days Qty: 14 0RF amoxicillin-pot clavulanate [Augmentin] 500-125 mg tablet 1 tab PO BID 5 Days Qty: 10 0RF Continued cholecalciferol (vitamin D3) 50,000 unit capsule 50,000 unit PO Rx Instructions: simvastatin 20 mg tablet 20 mg PO QHS trazodone 100 mg tablet 100 mg PO QHS lidocaine 4 % adhesive patch,medicated 1 patch TOPICAL DAILY PRN (Reason: Pain) metoprolol tartrate 50 MG tablet 25 mg PO BID Label Comments: blood pressure cyanocobalamin (vitamin B-12) 1,000 mcg tablet 1,000 mcg PO DAILY Label Comments: Take 1 tablet by mouth once daily. pantoprazole [Protonix] 40 mg tablet,delayed release (DR/EC) 40 mg PO BID Qty: 60 0RF oxybutynin chloride 10 mg tablet extended release 24hr 20 mg PO DAILY Label Comments: Take 2 tablets by mouth once daily. benzonatate 200 mg capsule 200 mg PO TID Label Comments: Take 1 capsule by mouth three times daily as needed. acyclovir 400 mg tablet 400 mg TID nabumetone 500 mg tablet 500 mg DAILY Label Comments: Take 1 tablet by mouth once daily. TAKE WITH FOOD [id number] 250 mg-200 mg- 1,500 unit Tablet 1 tab PO DAILY aspirin 81 mg Capsule 81 mg PO DAILY sucralfate [Carafate] 1 gram tablet 1 g PO QODAY Discontinued hydrochlorothiazide 12.5 mg Tablet 12.5 mg PO DAILY Referrals / Follow Up: Justin Tierney MD [Primary Care Provider] - In 1 Week Disposition Disposition (needs filled in before D/C Order can be placed): Home Health Service Charges/Coding Visit Charges Inpatient E&M: 76124 Disch Hosp
--- NOTE | 2022-10-07 13:30 | NURSING ---
This RN attempted to call pt's daughter, Neela, to inform her of patient's discharge home today per pt request. Daughter did not answer phone and voicemail is not currently set up. Will attempt to call back later.
--- NOTE | 2022-10-07 16:11 | NURSING ---
Discharge instructions reviewed with patient and patient's daughter at bedside. Instruction on continuing to use IS and PEEP therapy when discharged.
== END 2022-10-07 16:20 | disposition home health service (06) | DRG 871 ==
LOC: ED 10-05 01:13 → PCU 10-05 04:34
PROVIDERS: Admitting Provider Hospitalist; Emergency Provider Emergency Medicine; PCP Family Medicine; Visit Provider Internal Medicine
DX: A41.9 Sepsis, unspecified organism (principal); J18.9 Pneumonia, unspecified organism; N17.9 Acute kidney failure, unspecified; I12.9 Hypertensive chronic kidney disease with stage 1 through stage 4 chronic kidney disease, or unspecified chronic kidney disease; E78.5 Hyperlipidemia, unspecified; N18.9 Chronic kidney disease, unspecified; K21.9 Gastro-esophageal reflux disease without esophagitis; E87.6 Hypokalemia; R09.02 Hypoxemia; Z85.3 Personal history of malignant neoplasm of breast
CPT/HCPCS: 36415; 71045; 80048; 80053; 83605; 83880; 84484; 85025; 87040; 87428; 87449; 93005; 94640; 97110; 97116; 97162; 97166; 97530; 97535; 99285; J7030; A4216; J1940

== ENCOUNTER 2022-10-13 13:30 | Inpatient (IN) | payer MEDICARE, MEDICAID, SELFPAY ==
[2022-10-13] VITALS (11 sets, daily range): BP systolic 113–155; BP diastolic 55–76; PULSE 66–84; RESP 18–23; TEMP 36.1–36.9; O2SAT 91–97; BMI 30.6; BMI 30.5
--- NOTE | 2022-10-13 14:00 | EKG12_ITS ---
Test Reason : SOB Blood Pressure : / mmHG Vent. Rate : 068 BPM Atrial Rate : 068 BPM P-R Int : 142 ms QRS Dur : 080 ms QT Int : 400 ms P-R-T Axes : 040 039 020 degrees QTc Int : 425 ms Normal sinus rhythm Normal ECG Confirmed by TAHMINA HARRISON, BELKYS ([id number]), assistant film editor ALYCIA PAZ ([id number]) on 10/17/2022 11:42:16 AM Referred By: Confirmed By:BELKYS MARTEL MD
--- NOTE | 2022-10-13 14:14 | EDS_ITS ---
HPI <CAMILLE Villalpando - Last Filed: 10/13/22 21:43> History of Present Illness Chief Complaint: Shortness of Breath Narrative Narrative: Patient presents today for shortness of breath and weakness. She was recently hospitalized 10/05-10/07 for sepsis secondary to pneumonia and acute hypoxia. She states she finished her antibiotics yesterday but has not recovered from her illness and still feels very weak and short of breath. She saw her PCP today an d her O2 sat dropped to 88% while walking and she was orthostatic so they sent her here. She denies chest pain, abdominal pain, nausea, and vomiting. She is also complaining of left shoulder pain. She states she has had this pain for about a week and a half but fell last Sunday and the pain is much worse. She is unsure about the mechanism of her fall. She said the range of motion in her left arm is significantly decreased and she has tingling in her L fingers. [facility] <CAMILLE Villalpando - Last Filed: 10/13/22 21:43> [facility] Medical History Anemia Arthritis Benign positional vertigo Breast mass, left Cardiac contusion (11/27/18) Chronic kidney disease (CKD) Dyspnea on exertion Elevated troponin (11/27/18) FRACTURE LEFT ANKLE GERD (gastroesophageal reflux disease) History of fall (11/27/18) History of left heart catheterization History of subdural hematoma (post traumatic) (03/19/16) Hx of breast cancer Hx of pulmonary hypertension Hyperlipidemia Hypertension Osteopenia Pleural effusion on left Sternal fracture (11/27/18) Thyroid disease Home Medications cholecalciferol (vitamin D3) 1,250 mcg (50,000 unit) capsule 50,000 unit PO TH supplement 04/02/19 [History Last Taken 10/12/22] simvastatin 20 mg tablet 20 mg PO QHS cholesterol 04/02/19 [History Last Taken 10/12/22] trazodone 100 mg tablet 100 mg PO QHS sleep 04/02/19 [History Last Taken 10/12/22] lidocaine 4 % topical patch 1 patch topical DAILY PRN Pain 04/08/19 [History Last Taken 10/09/19] cyanocobalamin (vitamin B-12) 1,000 mcg tablet 1,000 mcg PO DAILY supplement 07/23/22 [History Last Taken 10/12/22] pantoprazole 40 mg tablet,delayed release (Protonix) 40 mg PO BID #60 tabs 07/25/22 [Rx Last Taken 10/13/22] aspirin 81 mg capsule 81 mg PO DAILY 10/05/22 [History Last Taken 10/12/22] glucosamine 250 [id number] 200 mg-D3 1,500 sast-Q-lfmcc-herbs tablet 1 tab PO DAILY 10/05/22 [History Last Taken Unknown] nabumetone 500 mg tablet 500 mg DAILY 10/05/22 [History Last Taken 10/12/22] oxybutynin chloride 10 mg tablet,extended release 24 hr 10 mg PO DAILY 10/05/22 [History Last Taken 10/13/22] sucralfate 1 gram tablet (Carafate) 1 g PO QODAY 10/05/22 [History Last Taken 10/13/22] metoprolol tartrate 25 mg tablet 25 mg PO DAILY HTN 10/13/22 [History Last Taken 10/13/22] Allergy/AdvReac Type Severity Reaction Status Date / Time diazepam [From Valium] AdvReac Severe Other Verified 10/13/22 13:34 eszopiclone [From Lunesta] AdvReac Severe confusion Verified 10/13/22 13:34 morphine AdvReac Severe Other Verified 10/13/22 13:34 paroxetine HCl [From Paxil] AdvReac Severe Other Verified 10/13/22 13:34 zolpidem [From Ambien] AdvReac Severe confusion Verified 10/13/22 13:34 Family History Sister Breast cancer Heart disease Hypertension Father Heart disease Hypertension Surgical History History of bilateral knee replacement History of lumpectomy of left breast History of oophorectomy History of right cataract surgery History of tubal ligation Social History housing: house current occupational status: retired Smoking Status: Never smoker second hand exposure: No alcohol intake: never substance use type: does not use caffeine: Yes Type: coffee Number of servings: 2 what type of physical activity do you participate in: none frequency: does not exercise amador/quaker: [employer] seatbelt use: sometimes additional social history: 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 She worked in an [employer], had to fly to get there. ROS <CAMILLE Villalpando - Last Filed: 10/13/22 21:43> ROS ED Constitutional Constitutional ED: Denies chills, fever(s) or sweats Eyes Eyes: Denies blurry vision, change in vision or diplopia ENT ENT ED: Denies nasal congestion, rhinorrhea or sore throat Cardiovascular Cardiovascular: Denies chest pain, palpitations or racing heartbeat Respiratory/Chest Respiratory/Chest: Reports shortness of breath at rest and shortness of breath with exertion; Denies cough Gastrointestinal Gastrointestinal: Denies abdominal pain, diarrhea, nausea or vomiting Genitourinary Genitourinary ED: Denies dysuria, hematuria or urinary frequency Musculoskeletal Musculoskeletal: Reports extremity pain and limited range of motion; Denies back pain, myalgias or neck pain Integumentary Denies abscess, Abrasions or rash Neurologic Neurologic: Denies headache(s), paresthesias or weakness Psychiatric Psychiatric: Denies anxiety or depression EXAM <CAMILLE Villalpando - Last Filed: 10/13/22 21:43> Physical Exam Const Vital Signs: 10/13/22 13:32 10/13/22 13:34 10/13/22 13:46 Temperature 97 F L 97 F L Temperature Source Temporal Temporal Pulse Rate 70 70 Pulse Rate [Lying] Pulse Rate [Sitting (for 1 minute prior to obtaining)] Pulse Rate [Standing (for 1 minute prior to obtaining)] Respiratory Rate 18 18 Respiratory Effort Short of Breath Blood Pressure 139/76 H 139/76 H Blood Pressure [Lying] Blood Pressure [Sitting (for 1 minute prior to obtaining)] Blood Pressure [Standing (for 1 minute prior to obtaining)] Blood Pressure Mean 97 97 Blood Pressure Mean [Lying] Blood Pressure Mean [Sitting (for 1 minute prior to obtaining)] Blood Pressure Mean [Standing (for 1 minute prior to obtaining)] Pulse Ox 95 95 Oxygen Delivery Method Room Air Room Air Room Air Oxygen Flow Rate (L/min) 10/13/22 14:18 10/13/22 15:38 10/13/22 16:19 Temperature Temperature Source Pulse Rate 68 Pulse Rate [Lying] 66 Pulse Rate [Sitting (for 1 minute prior to obtaining)] 72 Pulse Rate [Standing (for 1 minute prior to obtaining)] 70 Respiratory Rate 18 Respiratory Effort Blood Pressure 155/76 H Blood Pressure [Lying] 113/55 L Blood Pressure [Sitting (for 1 minute prior to obtaining)] 140/64 H Blood Pressure [Standing (for 1 minute prior to obtaining)] 146/65 H Blood Pressure Mean 102 Blood Pressure Mean [Lying] 74 Blood Pressure Mean [Sitting (for 1 minute prior to obtaining)] 89 Blood Pressure Mean [Standing (for 1 minute prior to obtaining)] 92 Pulse Ox 91 Oxygen Delivery Method Room Air Room Air Oxygen Flow Rate (L/min) 92 10/13/22 16:19 Temperature Temperature Source Pulse Rate 75 Pulse Rate [Lying] Pulse Rate [Sitting (for 1 minute prior to obtaining)] Pulse Rate [Standing (for 1 minute prior to obtaining)] Respiratory Rate 23 H Respiratory Effort Blood Pressure Blood Pressure [Lying] Blood Pressure [Sitting (for 1 minute prior to obtaining)] Blood Pressure [Standing (for 1 minute prior to obtaining)] Blood Pressure Mean Blood Pressure Mean [Lying] Blood Pressure Mean [Sitting (for 1 minute prior to obtaining)] Blood Pressure Mean [Standing (for 1 minute prior to obtaining)] Pulse Ox Oxygen Delivery Method Oxygen Flow Rate (L/min) Positive well developed and obese General Appearance ED: well developed Nutritional Appearance: obese HEENT Reports moist mucous membranes atraumatic; Negative for tenderness Eyes PERRL and EOMs intact bilaterally Neck no lymphadenopathy, supple, no meningeal signs and no JVD Resp normal respiratory effort Resp Narrative: Very minimal crackles in right lower lung. Other than that lungs are clear to auscultation. Cardio regular rate, regular rhythm and no murmurs GI non-tender, non-distended and no masses Palpation: soft Extremity Extremity Narrative: Patient has decreased range of motion in her left shoulder. She is slightly tender to palpation in her left shoulder. Radial pulses 2+ with capillary refill <2 seconds. Neuro oriented x3, CN's II-XII intact bilaterally and no sensory deficits noted Sensorium / Orientation: alert Speech: speech normal Gait (Neuro): normal gait Motor Exam: strength 5/5 throughout Psych mental status grossly normal Thought Process: normal thought process Skin no wounds and skin turgor normal Lesions: no lesions Rashes: no rashes <Dr. Raul [place], DO - Last Filed: 10/13/22 14:32> Physical Exam Const Vital Signs: 10/13/22 13:32 10/13/22 13:34 10/13/22 13:46 Temperature 97 F L 97 F L Temperature Source Temporal Temporal Pulse Rate 70 70 Pulse Rate [Lying] Pulse Rate [Sitting (for 1 minute prior to obtaining)] Pulse Rate [Standing (for 1 minute prior to obtaining)] Respiratory Rate 18 18 Respiratory Effort Short of Breath Blood Pressure 139/76 H 139/76 H Blood Pressure [Lying] Blood Pressure [Sitting (for 1 minute prior to obtaining)] Blood Pressure [Standing (for 1 minute prior to obtaining)] Blood Pressure Mean 97 97 Blood Pressure Mean [Lying] Blood Pressure Mean [Sitting (for 1 minute prior to obtaining)] Blood Pressure Mean [Standing (for 1 minute prior to obtaining)] Pulse Ox 95 95 Oxygen Delivery Method Room Air Room Air Room Air Oxygen Flow Rate (L/min) 10/13/22 14:18 10/13/22 15:38 10/13/22 16:19 Temperature Temperature Source Pulse Rate 68 Pulse Rate [Lying] 66 Pulse Rate [Sitting (for 1 minute prior to obtaining)] 72 Pulse Rate [Standing (for 1 minute prior to obtaining)] 70 Respiratory Rate 18 Respiratory Effort Blood Pressure 155/76 H Blood Pressure [Lying] 113/55 L Blood Pressure [Sitting (for 1 minute prior to obtaining)] 140/64 H Blood Pressure [Standing (for 1 minute prior to obtaining)] 146/65 H Blood Pressure Mean 102 Blood Pressure Mean [Lying] 74 Blood Pressure Mean [Sitting (for 1 minute prior to obtaining)] 89 Blood Pressure Mean [Standing (for 1 minute prior to obtaining)] 92 Pulse Ox 91 Oxygen Delivery Method Room Air Room Air Oxygen Flow Rate (L/min) 92 10/13/22 16:19 Temperature Temperature Source Pulse Rate 75 Pulse Rate [Lying] Pulse Rate [Sitting (for 1 minute prior to obtaining)] Pulse Rate [Standing (for 1 minute prior to obtaining)] Respiratory Rate 23 H Respiratory Effort Blood Pressure Blood Pressure [Lying] Blood Pressure [Sitting (for 1 minute prior to obtaining)] Blood Pressure [Standing (for 1 minute prior to obtaining)] Blood Pressure Mean Blood Pressure Mean [Lying] Blood Pressure Mean [Sitting (for 1 minute prior to obtaining)] Blood Pressure Mean [Standing (for 1 minute prior to obtaining)] Pulse Ox Oxygen Delivery Method Oxygen Flow Rate (L/min) [facility] <CAMILLE Villalpando - Last Filed: 10/13/22 21:43> [facility] Narrative Medical decision making narrative: I obtained an x-ray of the left humerus, clavicle, and shoulder because patient was complaining of severe left arm pain after falling a few days ago with very limited range of motion in the left arm. No signs of acute fracture. Chest x- ray shows partial resolution of bibasilar pneumonia and minimal right basilar atelectasis. Orthostatics are normal here. Patient's pulse ox dropped to 89% while walking and has dropped to 91% on RA at rest. Patient was given Duoneb and stated it allowed her to take a much deeper breath. However, she still feels short of breath and is currently at 91% on RA shortly after treatment. When given the option to discharge home on antibiotics and an inhaler or be admitted, she stated she would be much more comfortable staying in the hospital and receiving treatment. She has been given a dose of Zosyn and vancomycin here in the ED. I agree that patient should be admitted to the hospital. Lab Data Attestation: I reviewed the patient's lab results. Lab results narrative: Anemia unchanged from previous visit. Slightly elevated neutrophils with decreased lymphocytes. BMP unremarkable. Troponin within normal limits, lactic acid within normal limits. Labs: Laboratory Results - last 24 hr 10/13/22 10/13/22 10/13/22 14:15 14:15 14:15 WBC 4.8 RBC 3.11 L Hgb 9.2 L Hct 28.3 L MCV 91.0 MCH 29.6 MCHC 32.5 RDW Std Deviation 43.4 RDW Coeff of Scott 13.2 Plt Count 433 MPV 8.4 Immature Gran % (Auto) 0.800 Neut % (Auto) 78.5 H Lymph % (Auto) 11.9 L [place] % (Auto) 6.1 Eos % (Auto) 2.3 Baso % (Auto) 0.4 Absolute Neuts (auto) 3.7 Absolute Lymphs (auto) 0.57 L Nucleated RBC % 0 Sodium 138 Potassium 4.0 Chloride 104 Carbon Dioxide 29.0 Anion Gap 5 BUN 11 Creatinine 0.94 Estim Creat Clear Calc 39.49 Est GFR (MDRD) Af Amer 74 Est GFR (MDRD) Non-Af 61 BUN/Creatinine Ratio 11.7 Glucose 124 H Lactic Acid 0.8 Calcium 9.0 Troponin I High Sens 11 B-Natriuretic Peptide Urine Color Urine Clarity Urine pH Ur Specific [place] Urine Protein Urine Glucose (UA) Urine Ketones Urine Occult Blood Urine Nitrite Urine Bilirubin Urine Urobilinogen Ur Leukocyte Esterase Urine RBC Urine WBC Ur Squamous Epith Cells Urine Bacteria Urine Mucus 10/13/22 10/13/22 14:15 15:35 WBC RBC Hgb Hct MCV MCH MCHC RDW Std Deviation RDW Coeff of Scott Plt Count MPV Immature Gran % (Auto) Neut % (Auto) Lymph % (Auto) [place] % (Auto) Eos % (Auto) Baso % (Auto) Absolute Neuts (auto) Absolute Lymphs (auto) Nucleated RBC % Sodium Potassium Chloride Carbon Dioxide Anion Gap BUN Creatinine Estim Creat Clear Calc Est GFR (MDRD) Af Amer Est GFR (MDRD) Non-Af BUN/Creatinine Ratio Glucose Lactic Acid Calcium Troponin I High Sens B-Natriuretic Peptide 250.9 H Urine Color Yellow Urine Clarity Clear Urine pH 6.0 Ur Specific [place] 1.015 Urine Protein Negative Urine Glucose (UA) Normal Urine Ketones Negative Urine Occult Blood Negative Urine Nitrite Negative Urine Bilirubin Negative Urine Urobilinogen Normal Ur Leukocyte Esterase Negative Urine RBC 0 SEEN Urine WBC 0 SEEN Ur Squamous Epith Cells 0-5 SEEN Urine Bacteria 0 SEEN Urine Mucus 0 SEEN Radiography Diagnostic Testing: Clinical Impression(s) from Imaging Studies Chest X-Ray 10/13/22 14:40 IMPRESSION: Partial resolution of bibasilar pneumonia. Minimal right basilar atelectasis. Electronically Signed: Helga Mcnair MD at 15:22 EST Reading Location ID and State: [facility] / [place] Tel , Service support , Clavicle X-Ray 10/13/22 14:40 IMPRESSION: Degenerative changes. Electronically Signed: Helga Mcnair MD at 15:25 EST , Humerus X-Ray 10/13/22 14:40 IMPRESSION: No acute osseous injury. Degenerative changes. Electronically Signed: Helga Mcnair MD at 15:26 EST , Shoulder X-Ray 10/13/22 14:40 IMPRESSION: Degenerative changes. Electronically Signed: Helga Mcnair MD at 15:26 EST , All x-rays have been reviewed. I agree with radiologist impressions. These have also been reviewed by attending ED physician. EKG Initial EKG: Attestation: I personally reviewed and interpreted this EKG as follows: Interpretation: Sinus Rhythm Comments: [address] elevation no signs of cardiac ischemia. This EKG has also been reviewed by attending ED physician. Prior EKG tracings: available for review and not available for review <Dr. Raul Falcon, DO - Last Filed: 10/13/22 14:32> [facility] Lab Data Labs: Laboratory Results - last 24 hr 10/13/22 10/13/22 10/13/22 14:15 14:15 14:15 WBC 4.8 RBC 3.11 L Hgb 9.2 L Hct 28.3 L MCV 91.0 MCH 29.6 MCHC 32.5 RDW Std Deviation 43.4 RDW Coeff of Scott 13.2 Plt Count 433 MPV 8.4 Immature Gran % (Auto) 0.800 Neut % (Auto) 78.5 H Lymph % (Auto) 11.9 L [place] % (Auto) 6.1 Eos % (Auto) 2.3 Baso % (Auto) 0.4 Absolute Neuts (auto) 3.7 Absolute Lymphs (auto) 0.57 L Nucleated RBC % 0 Sodium 138 Potassium 4.0 Chloride 104 Carbon Dioxide 29.0 Anion Gap 5 BUN 11 Creatinine 0.94 Estim Creat Clear Calc 39.49 Est GFR (MDRD) Af Amer 74 Est GFR (MDRD) Non-Af 61 BUN/Creatinine Ratio 11.7 Glucose 124 H Lactic Acid 0.8 Calcium 9.0 Troponin I High Sens 11 B-Natriuretic Peptide Urine Color Urine Clarity Urine pH Ur Specific [place] Urine Protein Urine Glucose (UA) Urine Ketones Urine Occult Blood Urine Nitrite Urine Bilirubin Urine Urobilinogen Ur Leukocyte Esterase Urine RBC Urine WBC Ur Squamous Epith Cells Urine Bacteria Urine Mucus 10/13/22 10/13/22 14:15 15:35 WBC RBC Hgb Hct MCV MCH MCHC RDW Std Deviation RDW Coeff of Scott Plt Count MPV Immature Gran % (Auto) Neut % (Auto) Lymph % (Auto) [place] % (Auto) Eos % (Auto) Baso % (Auto) Absolute Neuts (auto) Absolute Lymphs (auto) Nucleated RBC % Sodium Potassium Chloride Carbon Dioxide Anion Gap BUN Creatinine Estim Creat Clear Calc Est GFR (MDRD) Af Amer Est GFR (MDRD) Non-Af BUN/Creatinine Ratio Glucose Lactic Acid Calcium Troponin I High Sens B-Natriuretic Peptide 250.9 H Urine Color Yellow Urine Clarity Clear Urine pH 6.0 Ur Specific [place] 1.015 Urine Protein Negative Urine Glucose (UA) Normal Urine Ketones Negative Urine Occult Blood Negative Urine Nitrite Negative Urine Bilirubin Negative Urine Urobilinogen Normal Ur Leukocyte Esterase Negative Urine RBC 0 SEEN Urine WBC 0 SEEN Ur Squamous Epith Cells 0-5 SEEN Urine Bacteria 0 SEEN Urine Mucus 0 SEEN Radiography Diagnostic Testing: Clinical Impression(s) from Imaging Studies Chest X-Ray 10/13/22 14:40 IMPRESSION: Partial resolution of bibasilar pneumonia. Minimal right basilar atelectasis. Electronically Signed: Helga Mcnair MD at 15:22 EST Reading Location ID and State: [facility] / [place] Tel , Service support , Clavicle X-Ray 10/13/22 14:40 IMPRESSION: Degenerative changes. Electronically Signed: Helga Mcnair MD at 15:25 EST , Humerus X-Ray 10/13/22 14:40 IMPRESSION: No acute osseous injury. Degenerative changes. Electronically Signed: Helga Mcnair MD at 15:26 EST , Shoulder X-Ray 10/13/22 14:40 IMPRESSION: Degenerative changes. Electronically Signed: Helga Mcnair MD at 15:26 EST , Treatment and Re-Evaluation Narrative: I performed a history and physical examination of the patient and discussed management plan with the physician optometric assistant. I reviewed the physician optometric assistant's note and agree with the documented findings and plan of care. Raul Falcon DO, MS Discharge Plan Dx/Rx/DC Orders Clinical Impression: Pneumonia, Hypoxia, SOB (shortness of breath), Pain in left shoulder Disposition Disposition: Acute Care Hospital [facility] Discharge Date/Time: 10/13/22 19:00
[2022-10-13 14:31] LABS: Absolute Lymphocyte Count 0.57 X10^3/uL (0.83-4.51); Absolute Neutrophil Count 3.7 X10^3/uL (2.0-7.7); Basophil# 0.02 X10^3/uL; Basophil% 0.4 % (0-1); Eosinophil# 0.11 X10^3/uL; Eosinophils% 2.3 % (0-5); Hematocrit 28.3 % (37-47); Hemoglobin 9.2 g/dL (12.0-15.0); Lymphocyte # 0.57 X10^3/ul (0.83-4.51); Lymphocyte % 11.9 % (19-41); Mean Corp Hgb Conc 32.5 g/dL (32-36); Mean Corpuscular Hgb 29.6 pg (27.0-32.0); Mean Platelet Vol. 8.4 fl (6.2-12.0); Monocyte# 0.29 X10^3/uL; Monocyte% 6.1 % (0-10); NRBC Flagged by Analyzer 0 % (0-5); Neutrophil # 3.74 X10^3/uL (2.7-7.7); Neutrophil % 78.5 % (47-70); POSITIVE DIFFERENTIAL YES; Platelet Count 433 K/mm3 (150-450); RBC Distribution Width CV 13.2 % (11.6-14.6); RBC Distribution Width SD 43.4 fl (35.1-43.9); Red Blood Count 3.11 M/mm3 (4.2-5.4); White Blood Count 4.8 K/mm3 (4.4-11.0)
[2022-10-13 14:32] LABS: Differential Indicated SCAN CRITERIA MET
--- NOTE | 2022-10-13 14:40 | RAD_ITS ---
INDICATION: fall, shoulder pain EXAMINATION/TECHNIQUE: X-RAY - LEFT XR Shoulder 5 VIEWS COMPARISON: October 11, 2019 FINDINGS: SOFT TISSUES: No soft tissue swelling or gas. No radiopaque foreign body. BONES/JOINTS: No acute fracture or subluxation.. Normal alignment. There are advanced degenerative changes. No sclerotic or destructive changes observed. RAD/Shoulder min 2 Views IMPRESSION: Degenerative changes. Electronically Signed: Helga Mcnair MD at 15:26 EST ,
--- NOTE | 2022-10-13 14:40 | RAD_ITS ---
INDICATION: fall, pain L arm EXAMINATION/TECHNIQUE: X-RAY - LEFT Humerus 4 VIEWS COMPARISON: None. FINDINGS: SOFT TISSUES: No soft tissue swelling or gas. No radiopaque foreign body. BONES/JOINTS: No acute fracture or subluxation.. Normal alignment. There are degenerative changes of the left shoulder. No sclerotic or destructive changes observed. RAD/Humerus min 2 Views IMPRESSION: No acute osseous injury. Degenerative changes. Electronically Signed: Helga Mcnair MD at 15:26 EST ,
--- NOTE | 2022-10-13 14:40 | RAD_ITS ---
Examination: X-ray of the left clavicle. INDICATION: Fall. Pain. TECHNIQUE: 2 views of the left clavicle were obtained. COMPARISON: Left shoulder dated October 11, 2019 FINDINGS: No fracture nor dislocation is visualized. There are advanced degenerative changes. RAD/Clavicle IMPRESSION: Degenerative changes. Electronically Signed: Helga Mcnair MD at 15:25 EST ,
--- NOTE | 2022-10-13 14:40 | RAD_ITS ---
INDICATION: SOB, recent pneumonia EXAMINATION/TECHNIQUE: X-RAY - XR Chest 2 Views COMPARISON: October 05, 2022 FINDINGS: LINES/DEVICES: None. LUNGS: There is persistent elevation of the left hemidiaphragm. There is partial resolution of the bibasilar opacities. There is a linear opacity within the right lower lung. MEDIASTINUM AND CARDIOVASCULAR STRUCTURES: There is cardiomegaly. Central airways and mediastinal contour are unremarkable. BONES AND SOFT TISSUES: Unremarkable. RAD/Chest PA and Lateral IMPRESSION: Partial resolution of bibasilar pneumonia. Minimal right basilar atelectasis. Electronically Signed: Helga Mcnair MD at 15:22 EST ,
[2022-10-13 14:50] LABS: Anion Gap 5 (5-15); BUN 11 mg/dL (7-18); BUN/Creat Ratio 11.7 RATIO (10-20); Chloride 104 mmol/L (98-107); Creatinine, Serum 0.94 mg/dL (0.55-1.02); EST Glomerular Filtration Rate 61 mL/min (>60); Est Glom Filt Rate - Afr Amer 74 mL/min (>60); Estimated Creatinine Clearance 39.49 ml/min; Glucose 124 mg/dL (74-106); Sodium Level 138 mmol/L (136-145); Troponin-I HS 11 pg/mL (3.0-54.0)
[2022-10-13 14:54] LABS: Lactic Acid 0.8 mmol/L (0.4-1.9)
[2022-10-13 15:47] LABS: Bacteria 0 SEEN /hpf (None Seen); Mucous, Urine 0 SEEN /hpf (<or=2+); Red Blood Cells-Urine 0 SEEN /hpf (0-5); White Blood Cells 0 SEEN /hpf (0-5)
[2022-10-13 15:56] LABS: Color, Urine Yellow (Yellow); Glucose, Dipstick Normal (Normal); Ketone-Dipstick Negative (Negative); Leukocyte Esterase-Dipstick Negative /ul (Negative); Nitrite-Dipstick Negative (Negative); Occult Blood-Urine Negative /ul (Negative); Protein-Dipstick Negative (Negative); Specific Gravity, Urine 1.015 (1.002-1.030); Urine Bilirubin Dipstick Negative (Negative); Urine Clarity Clear (Clear); Urine Urobilinogen Normal (Normal)
[2022-10-13 16:07] LABS: Squamous Epithelial Cells - UA 0-5 SEEN /hpf (5-10)
[2022-10-13] MEDS: Ipratropium/Albuterol Sulfate 3 ML AMPUL.NEB INHALATION (16:17)
--- NOTE | 2022-10-13 17:23 | HP.PCM.HOS_ITS ---
HPI - General General Date of Admission: 10/13/22 Date of Service: 10/13/22 Chief Complaint: Dyspnea, hypoxia, recent completion abx therapy after PNA, Fall. HPI Narrative The patient is an 82 y/o F w/ PMHx: Chronic anemia, BPPV, CKD stage III unclear subtype, HTN, HLD, Hypothyriodism, GERD, Hx Breast CA, Hx Fall w/ prior SDH, Hx prior GI bleed, JEANA with failure to follow-up outpatient for CPAP set-up per records who presents to the [facility] ED on 10/13/22 with history of recent hospitalization 10/05-10/07 for sepsis secondary to pneumonia with acute hypoxia at that time reportedly finishing her antibiotics the day prior however she still feels very fatigued and weak with ongoing dyspnea which is worsened with PCP evaluation the day prior with oxygen desaturation to 88% while walking and reportedly orthostatic there prompting ED referral. Patient also upon presentation complains of left shoulder pain following a fall the prior with increased pain with diminished range of motion secondary to the fall and some occasional tingling's in the fingers. From review of records patient also had acute kidney injury. Her urine Legionella and strep antigens were both negative. Her kidney function also improved. She was discharged on Augmentin. She does note that her stools are dark in appearance. She from discussions may or may not be taking her Fe supplementation. Work-up in the ED included T 97, heart rate 70, BP 139/76, respiratory rate 18, 95% room air, orthostatic vitals with increase in blood pressure with standing of note and similar heart rate, CBC with WC 4.8, hemoglobin 9.2, MCV 91, platelet 433 with mildly increased neutrophils and lymphopenia, BMP with glucose 124 otherwise not marked appearing, lactic acid 0.8, troponin 11, urinalysis unremarkable with no obvious UTI, rapid SARS COVID and influenza negative, RSV antigen negative, chest x-ray with partial resolution of bibasilar pneumonia, minimal right basilar atelectasis compared to 10/05/2022 film, left clavicular film with degenerative changes, plain film of the left humerus with no acute osseous injury with degenerative changes, plain film of the left shoulder with degenerative changes with no acute osseous findings. In the ED patient ministered DuoNeb therapy as well as IV vanc and zosyn. [facility] Medical History Anemia Arthritis Benign positional vertigo Breast mass, left Cardiac contusion (11/27/18) Chronic kidney disease (CKD) Dyspnea on exertion Elevated troponin (11/27/18) FRACTURE LEFT ANKLE GERD (gastroesophageal reflux disease) History of fall (11/27/18) History of left heart catheterization History of subdural hematoma (post traumatic) (03/19/16) Hx of breast cancer Hx of pulmonary hypertension Hyperlipidemia Hypertension Osteopenia Pleural effusion on left Sternal fracture (11/27/18) Thyroid disease Home Medications cholecalciferol (vitamin D3) 1,250 mcg (50,000 unit) capsule 50,000 unit PO TH supplement 04/02/19 [History Last Taken 10/12/22] simvastatin 20 mg tablet 20 mg PO QHS cholesterol 04/02/19 [History Last Taken 10/12/22] trazodone 100 mg tablet 100 mg PO QHS sleep 04/02/19 [History Last Taken 10/12/22] lidocaine 4 % topical patch 1 patch topical DAILY PRN Pain 04/08/19 [History Last Taken 10/09/19] cyanocobalamin (vitamin B-12) 1,000 mcg tablet 1,000 mcg PO DAILY supplement 07/23/22 [History Last Taken 10/12/22] pantoprazole 40 mg tablet,delayed release (Protonix) 40 mg PO BID #60 tabs 07/25/22 [Rx Last Taken 10/13/22] aspirin 81 mg capsule 81 mg PO DAILY 10/05/22 [History Last Taken 10/12/22] glucosamine 250 ym-qpaxl-nnu 200 mg-D3 1,500 ookz-X-miroj-herbs tablet 1 tab PO DAILY 10/05/22 [History Last Taken Unknown] nabumetone 500 mg tablet 500 mg DAILY 10/05/22 [History Last Taken 10/12/22] oxybutynin chloride 10 mg tablet,extended release 24 hr 10 mg PO DAILY 10/05/22 [History Last Taken 10/13/22] sucralfate 1 gram tablet (Carafate) 1 g PO QODAY 10/05/22 [History Last Taken 10/13/22] metoprolol tartrate 25 mg tablet 25 mg PO DAILY HTN 10/13/22 [History Last Taken 10/13/22] Allergy/AdvReac Type Severity Reaction Status Date / Time diazepam [From Valium] AdvReac Severe Other Verified 10/13/22 13:34 eszopiclone [From Lunesta] AdvReac Severe confusion Verified 10/13/22 13:34 morphine AdvReac Severe Other Verified 10/13/22 13:34 paroxetine HCl [From Paxil] AdvReac Severe Other Verified 10/13/22 13:34 zolpidem [From Ambien] AdvReac Severe confusion Verified 10/13/22 13:34 Family History Sister Breast cancer Heart disease Hypertension Father Heart disease Hypertension Surgical History History of bilateral knee replacement History of lumpectomy of left breast History of oophorectomy History of right cataract surgery History of tubal ligation Social History housing: house current occupational status: retired Smoking Status: Never smoker second hand exposure: No alcohol intake: never substance use type: does not use caffeine: Yes Type: coffee Number of servings: 2 what type of physical activity do you participate in: none frequency: does not exercise amador/yazidi: [employer] seatbelt use: sometimes additional social history: 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 She worked in an [employer], had to fly to get there. ROBER RICHTER Narrative Admission Review of Systems: CONSTITUTIONAL: No weight loss, fever, chills, + weakness or fatigue. HEENT: Eyes: No visual loss, blurred vision, double vision or yellow sclerae. Ears, Nose, Throat: No hearing loss, sneezing, congestion, runny nose or sore throat. SKIN: + Notable staged ecchymoses secondary recent falls. CARDIOVASCULAR: No chest pain, chest pressure or chest discomfort, palpitations, edema, orthopnea, syncopal events. RESPIRATORY: + shortness of breath, cough without ability to bring up sputum, No wheezing, hemoptysis. GASTROINTESTINAL: + Dark appearing stools, No anorexia, nausea, vomiting or diarrhea, abdominal pain, no specifically reported melena, BRBPR. GENITOURINARY: No dysuria, frequency, urgency or retention. NEUROLOGICAL: No headache, dizziness, syncope, paralysis, ataxia, numbness or tingling in the extremities, focal weakness, change in bowel or bladder control, seizure. MUSCULOSKELETAL: + muscle, back pain, joint pain or stiffness. HEMATOLOGIC: + anemia, bleeding or bruising. LYMPHATICS: No enlarged nodes. No history of splenectomy. PSYCHIATRIC: No history of depression or anxiety. ENDOCRINOLOGIC: No reports of sweating, cold or heat intolerance. No polyuria or polydipsia. ALLERGIES: No history of asthma, hives, eczema or rhinitis. Vital Signs Vital Signs Vital Signs: 10/13/22 13:32 10/13/22 13:34 10/13/22 13:46 Temperature 97 F L 97 F L Temperature Source Temporal Temporal Pulse Rate 70 70 Pulse Rate [Lying] Pulse Rate [Sitting (for 1 minute prior to obtaining)] Pulse Rate [Standing (for 1 minute prior to obtaining)] Respiratory Rate 18 18 Respiratory Effort Short of Breath Blood Pressure 139/76 H 139/76 H Blood Pressure [Lying] Blood Pressure [Sitting (for 1 minute prior to obtaining)] Blood Pressure [Standing (for 1 minute prior to obtaining)] Blood Pressure Mean 97 97 Blood Pressure Mean [Lying] Blood Pressure Mean [Sitting (for 1 minute prior to obtaining)] Blood Pressure Mean [Standing (for 1 minute prior to obtaining)] Pulse Ox 95 95 Oxygen Delivery Method Room Air Room Air Room Air Oxygen Flow Rate (L/min) 10/13/22 14:18 10/13/22 15:38 10/13/22 16:19 Temperature Temperature Source Pulse Rate 68 Pulse Rate [Lying] 66 Pulse Rate [Sitting (for 1 minute prior to obtaining)] 72 Pulse Rate [Standing (for 1 minute prior to obtaining)] 70 Respiratory Rate 18 Respiratory Effort Blood Pressure 155/76 H Blood Pressure [Lying] 113/55 L Blood Pressure [Sitting (for 1 minute prior to obtaining)] 140/64 H Blood Pressure [Standing (for 1 minute prior to obtaining)] 146/65 H Blood Pressure Mean 102 Blood Pressure Mean [Lying] 74 Blood Pressure Mean [Sitting (for 1 minute prior to obtaining)] 89 Blood Pressure Mean [Standing (for 1 minute prior to obtaining)] 92 Pulse Ox 91 Oxygen Delivery Method Room Air Room Air Oxygen Flow Rate (L/min) 92 10/13/22 16:19 Temperature Temperature Source Pulse Rate 75 Pulse Rate [Lying] Pulse Rate [Sitting (for 1 minute prior to obtaining)] Pulse Rate [Standing (for 1 minute prior to obtaining)] Respiratory Rate 23 H Respiratory Effort Blood Pressure Blood Pressure [Lying] Blood Pressure [Sitting (for 1 minute prior to obtaining)] Blood Pressure [Standing (for 1 minute prior to obtaining)] Blood Pressure Mean Blood Pressure Mean [Lying] Blood Pressure Mean [Sitting (for 1 minute prior to obtaining)] Blood Pressure Mean [Standing (for 1 minute prior to obtaining)] Pulse Ox Oxygen Delivery Method Oxygen Flow Rate (L/min) Weight Weight: 173 lb Body Mass Index (BMI) 30.6 Physical Exam Narrative Physical Examination: General: Awake, alert, oriented x 3 and cooperative, seated upright in the ED bed, fatigued, notes ongoing discomfort to the left shoulder and debility. Skin: Normal color, normal turgor, no icterus, no cyanosis except occasional staged ecchymoses especially given recent fall. HEENT: AT/NC, EOMI, PERRLA, mildly dry MM, no carotid bruits or JVD noted. Lungs: Diminished, greater bases, left greater than right, mildly coarse at the bases, no evidence of any distress, no marked rales, ronchi or wheezing. Heart: Regular rate and rhythm; no gallop, rub audible. Abdomen: Soft, obese, NTTP, ND, distant normal BS, no HSM. Extremities: No cyanosis, clubbing, or edema. 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 Psychiatric: Affect appears fatigued otherwise normal, no acute evidence of depressive or anxiety feelings. Results Lab / Micro Data Result Diagrams: 10/13/22 14:15 10/13/22 14:15 Labs: Laboratory Results - last 24 hr 10/13/22 14:15: WBC 4.8, RBC 3.11 L, Hgb 9.2 L, Hct 28.3 L, MCV 91.0, MCH 29.6, MCHC 32.5, RDW Std Deviation 43.4, RDW Coeff of Scott 13.2, Plt Count 433, MPV 8.4, Immature Gran % (Auto) 0.800, Neut % (Auto) 78.5 H, Lymph % (Auto) 11.9 L, [place] % (Auto) 6.1, Eos % (Auto) 2.3, Baso % (Auto) 0.4, Absolute Neuts (auto) 3.7, Absolute Lymphs (auto) 0.57 L, Nucleated RBC % 0 10/13/22 14:15: Sodium 138, Potassium 4.0, Chloride 104, Carbon Dioxide 29.0, Anion Gap 5, BUN 11, Creatinine 0.94, Estim Creat Clear Calc 39.49, Est GFR (MDRD) Af Amer 74, Est GFR (MDRD) Non-Af 61, BUN/Creatinine Ratio 11.7, Glucose 124 H, Calcium 9.0, Troponin I High Sens 11 10/13/22 14:15: Lactic Acid 0.8 10/13/22 15:35: Urine Color Yellow, Urine Clarity Clear, Urine pH 6.0, Ur Specific Bovill 1.015, Urine Protein Negative, Urine Glucose (UA) Normal, Urine Ketones Negative, Urine Occult Blood Negative, Urine Nitrite Negative, Urine Bilirubin Negative, Urine Urobilinogen Normal, Ur Leukocyte Esterase Negative, Urine RBC 0 SEEN, Urine WBC 0 SEEN, Ur Squamous Epith Cells 0-5 SEEN, Urine Bacteria 0 SEEN, Urine Mucus 0 SEEN Micro: Microbiology 10/13/22 14:56 Interface Orders Rapid RSV (DFA) - Final 10/13/22 14:30 Nasal Secretion SARS-CoV-2 & FLU Antigen (Rapid) - Final Radiology Impression Chest X-Ray 10/13/22 14:40 IMPRESSION: Partial resolution of bibasilar pneumonia. Minimal right basilar atelectasis. Electronically Signed: Helga Mcnair MD at 15:22 EST , Clavicle X-Ray 10/13/22 14:40 IMPRESSION: Degenerative changes. Electronically Signed: Helga Mcnair MD at 15:25 EST , Humerus X-Ray 10/13/22 14:40 IMPRESSION: No acute osseous injury. Degenerative changes. Electronically Signed: Helga Mcnair MD at 15:26 EST Reading Location ID and State: [facility] / [place] Tel , Service support , Shoulder X-Ray 10/13/22 14:40 IMPRESSION: Degenerative changes. Electronically Signed: Helga Mcnair MD at 15:26 EST Reading Location ID and State: [facility] / [place] Tel , Service support , Assessment & Plan Assessment/Plan (1) Hypoxia: PLAN: Plan The patient is an 82 y/o F w/ PMHx: Chronic anemia, BPPV, CKD stage III unclear subtype, HTN, HLD, Hypothyriodism, GERD, Hx Breast CA, Hx Fall w/ prior SDH, Hx prior GI bleed, JEANA with failure to follow-up outpatient for CPAP set-up per records who presents to the [facility] ED on 10/13/22 with history of recent hospitalization 10/05-10/07 for sepsis secondary to pneumonia with acute hypoxia at that time reportedly finishing her antibiotics the day prior however she still feels very fatigued and weak with ongoing dyspnea which is worsened with PCP evaluation the day prior with oxygen desaturation to 88% while walking and reportedly orthostatic there prompting ED referral. Patient also upon presentation complains of left shoulder pain following a fall the prior Sunday with increased pain with diminished range of motion secondary to the fall and some occasional tingling's in the fingers. #1. Persistent cough, worsened with recurrent Acute hypoxia concerning for Worsening Pneumonia versus Acute Viral Syndrome, complicated secondary to recent Pneumonia Diagnosis: Will admit to MS, maintain on oxygen with wean as tolerated to room air, continue ATC duonebs, PRN albuterol, maintained on IV Zosyn and Vancomycin given recent hospitalization, recurrent hypoxia although CXR does report mild improvement from prior, HOB, IS parameters w/ pending sputum cultures if able to produce sample, full respiratory viral panel and urine antigens. Procalcitonin requested. If acute viral syndrome confirmed would de- escalate abx therapy. If felt more likely bacterial then de-escalate abx regimen as able pending results. Although lower suspicion to be cautious given currently CBC without marked WBC elevation or L shift and afebrile will obtain ECHO and BNP. PT/OT/CM for discharge planning. #2. Recent mechanical fall with intractable left shoulder pain and debility: Plain film of the left shoulder with no acute findings however patient has significant debility with inability to even lift the arm, to be cautious will place in a sling and maintain nonweightbearing status to left upper extremity pending a CT of the shoulder. If findings are significant will involve orthopedic surgery. #3. Chronic Anemia, normocytic with history of prior GI bleed: Admission hemoglobin 9.2 and from review of records has been decreasing since 07/23/2022 with hemoglobin 11.8 that time but steadily trending downward, most recently 10/06/2022 hemoglobin 9.7. She did have GI bleed admission 07/2022 with start on PPI and carafate at that time with outpatient GI follow-up but no note in the system and unclear endoscopy results. We will continue patient home PPI and sucralfate regimen. #4. Chronic Kidney Disease Stage III, unclear subtype: Admission BUN/Cr 11/0.94, baseline renal function 0.8-1.0 primarily, repeat BMP in AM. #5. History of breast cancer: Unclear type, status post lobectomy, considered in remission. #6. Hypertension: Continue home regimen including metoprolol, PRN hydralazine. #7. Hyperlipidemia: We will continue patient home simvastatin. #8. JEANA: From prior notes patient had unfortunately failed to follow-up outpatient for CPAP set up, will order CPAP here in house. #9. DVT prophylaxis: SCDs, will hold off on chemoprophylaxis pending #3 evaluation to be cautious. #10. CODE status: Discussed CODE status at length including difference between FULL code, DNR-CCA and DNR-CC status. Following discussions about the differences in these status, requested DNR-CCA, no intubation status. Advanced Care Planning Face to Face Time: 16 minutes. Charges/Coding Visit Charges Inpatient E&M: 58234 Init Hosp L3 Procedures Hospitalists Procedures: 18332 Advncd Care Plan 30 Min
[2022-10-13 18:30] LABS: BNP,B-Type NATRIURETIC PEPTIDE 250.9 pg/mL (0-100)
--- NOTE | 2022-10-13 18:30 | CT_ITS ---
STUDY: CT LEFT SHOULDER REASON FOR EXAM: Female, 82 years old. Shoulder pain after fall 2 days ago. Tingling in the left fingers with decreased range of motion. RADIATION DOSAGE (If Supplied By Facility): CTDIvol = ( 26.65 ) mGy, DLP = ( 621.02 ) mGycm TECHNIQUE: The patient was scanned in a multi detector CT scanner. High resolution transaxial imaging was performed without the administration of intravenous contrast material. Sagittal and coronal images were reconstructed. Individualized dose optimization techniques were used for this CT. COMPARISON: Left shoulder, October 13, 2022. FINDINGS: There is severe osteoarthritis, with severe articular joint space narrowing, osteoarthritic spurring, articular remodeling, and with articular erosions. Normal glenoid rim, neck and visualized scapula. Areas of subchondral cystic changes in the humeral head. No evidence of humeral fracture. Normal coracoid process. Normal visualized lateral clavicle. There is mild osteoarthritis with articular joint space narrowing. There is a Type II morphology (curved), with a neutral orientation. There is decreased swelling about the biceps tendon sheath passing possible inflammatory change or tendinous injury. CT/Extremity Upper without Contra IMPRESSION: 1. Marked degenerative changes of the shoulders. There is no acute fracture or dislocation. 2. Prominent proximal biceps tendon sheath. Question inflammation or tendinous injury. This will be better evaluated with MRI. Electronically Signed: Miguel Angel Oh DO at 20:38 EST ,
[2022-10-13 19:09] LABS: Procalcitonin 0.09 ng/mL (0.00-0.09)
--- NOTE | 2022-10-13 19:26 | ECHOD_ITS ---
Reason For Study: Dyspnea/SOB Procedure This was a 2D Doppler, Color Flow transthoracic echocardiogram. Exam performed portable in patient room. Left Ventricle Normal size and thickness. The left ventricular ejection fraction is 60 %. Stage 2 diastolic dysfunction. Right Ventricle Normal right ventricle. Atria The left atrium is mildly enlarged. Normal right atrium. Mitral Valve Trivial mitral valve insufficiency. Tricuspid Valve Moderately severe (3+) tricuspid valve insufficiency. Right ventricular systolic pressure estimated to be 74 mmHg. Severe pulmonary hypertension. Aortic Valve Aortic sclerosis, no stenosis. Pulmonic Valve The pulmonic valve is not well visualized. Great Vessels Mildly dilated aortic root. Pericardium/Pleural No pericardial effusion. MMode/2D Measurements & Calculations LVIDd: 4.6 cm IVSd: 0.87 cm Ao root diam: 3.7 cm LVIDs: 3.0 cm LVPWd: 0.84 cm LA dimension: 3.9 cm RVDd: 4.3 cm FS: 34.0 % LAV(MOD-bp): 72.3 ml LA A4 area: 24.0 cm2 RA A4 area: 19.1 cm2 LAV(MOD-bp) Indexed: 39.8 ml/m2 LAV(MOD-sp2): 66.4 ml LAV(MOD-sp4): 72.5 ml Time Measurements MV dec time: 0.21 sec Doppler Measurements & Calculations MV E max ramos: 84.1 cm/sec Lat Peak E' Ramos: 6.8 cm/sec Med Peak E' Ramos: 7.1 cm/sec MV A max ramos: 108.6 cm/sec E/E' lat: 12.4 E/E' med: 11.8 MV E/A: 0.77 MV V2 max: 131.9 cm/sec MV P1/2t max ramos: 129.1 cm/sec Ao V2 max: 179.8 cm/sec MV max P.0 mmHg MV P1/2t: 86.8 msec Ao max P.9 mmHg MV V2 mean: 69.4 cm/sec MV dec slope: 435.5 cm/sec2 Ao V2 mean: 124.9 cm/sec MV mean P.4 mmHg MVA(P1/2t): 2.5 cm2 Ao mean P.0 mmHg MV V2 VTI: 36.3 cm Ao V2 VTI: 35.4 cm AV (velocity ratio): 0.79 LV V1 max: 137.6 cm/sec PA V2 max: 106.4 cm/sec TR max ramos: 402.0 cm/sec LV V1 max P.6 mmHg TR max P.6 mmHg LV V1 mean P.3 mmHg LV V1 mean: 97.7 cm/sec LV V1 VTI: 28.0 cm ECHO/Echo Complete Interpretation Summary The left ventricular ejection fraction is 60 %. Stage 2 diastolic dysfunction. The left atrium is mildly enlarged. Moderately severe (3+) tricuspid valve insufficiency. Severe pulmonary hypertension. Mildly dilated aortic root. Ordering Physician: Corinna Emmanuel Performed By: Bhupendra León RCS
[2022-10-13] MEDS: Lidocaine 5% Patch 2 PATCH TOPICAL (20:35)
[2022-10-13] MEDS: 0.9% Saline Lock 10 ML Syringe IV (20:35)
[2022-10-13] MEDS: 0.9% Normal Saline 1,000 ML 100 ML IV (20:36)
[2022-10-13] MEDS: HYDROcodone Bitartrate/Apap 5/325 Tablet PO (20:36)
--- NOTE | 2022-10-13 21:45 | PCM.RX.CS ---
Consult Pharmacy has been consulted to manage selected antiobiotic: Vancomycin Type of Consult: New start Labs: Sodium 138 mmol/L (136-145) 10/13/22 14:15 Potassium 4.0 mmol/L (3.5-5.1) 10/13/22 14:15 Chloride 104 mmol/L (98-107) 10/13/22 14:15 Carbon Dioxide 29.0 mmol/L (21.0-32.0) 10/13/22 14:15 Anion Gap 5 (5-15) 10/13/22 14:15 BUN 11 mg/dL (7-18) 10/13/22 14:15 Creatinine 0.94 mg/dL (0.55-1.02) 10/13/22 14:15 Est GFR (MDRD) Af Amer 74 mL/min (>60) 10/13/22 14:15 Est GFR (MDRD) Non-Af 61 mL/min (>60) 10/13/22 14:15 BUN/Creatinine Ratio 11.7 RATIO (10-20) 10/13/22 14:15 Glucose 124 mg/dL (74-106) H 10/13/22 14:15 Microbiology: Microbiology 10/13/22 15:35 Urine, Clean Catch Legionella Antigen - Final 10/13/22 15:35 Urine, Clean Catch Streptococcus pneumoniae Antigen (M - Final 10/13/22 14:56 Interface Orders Rapid RSV (DFA) - Final 10/13/22 14:30 Nasal Secretion SARS-CoV-2 & FLU Antigen (Rapid) - Final Weight used for dosin kg Estimated Creatinine Clearance: 40 Goal Trough: 15-20 mcg/mL Pharmacy Plan for Drug Dosing: Pharmacy Service will continue to monitor and adjust dosing as required. Medications Vancomycin HCl () 500 mg in 100 mls @ 100 mls/hr IV Q12H AGNES Discontinued Medications Vancomycin HCl 1,250 mg/ (Sodium Chloride) 275 mls @ 167 mls/hr IV X1 ONE Stop: 10/13/22 20:03 Last Admin: 10/13/22 20:35 Dose: 167 mls/hr Follow-Up Labs: Trough Vancomycin Labs to be done on [date and time ordered]: 10/15 @ 0800
[2022-10-13] MEDS: traZODone 100 MG Tablet PO (22:43)
[2022-10-13] MEDS: Atorvastatin Calcium 10 MG Tablet PO (22:43)
[2022-10-13] MEDS: Pantoprazole Sodium 40 MG Tablet PO (22:44)
[2022-10-13] MEDS: guaiFENesin 10 ML UDC (200MG/10ML) 20 ML PO (22:46)
[2022-10-13] MEDS: Albuterol 2.5 MG/3 ML VIAL.NEB. INHALATION (23:01)
--- NOTE | 2022-10-13 23:03 | CPS ---
Patient stated that she has been told that she snores and has sleep apnea, however does not use a machine at night. Patient doesn't wish to wear one while here, when offered by RT
[2022-10-14] VITALS (11 sets, daily range): BP systolic 101–126; BP diastolic 46–60; PULSE 72–97; RESP 18–28; TEMP 36.3–37.2; O2SAT 20–98
[2022-10-14] MEDS: HYDROcodone Bitartrate/Apap 5/325 Tablet PO ×3 (01:19→21:11)
[2022-10-14] MEDS: Albuterol 2.5 MG/3 ML VIAL.NEB. INHALATION ×3 (04:32→20:28)
[2022-10-14 07:31] LABS: Absolute Lymphocyte Count 0.72 X10^3/uL (0.83-4.51); Absolute Neutrophil Count 3.5 X10^3/uL (2.0-7.7); Basophil# 0.02 X10^3/uL; Basophil% 0.4 % (0-1); Eosinophil# 0.15 X10^3/uL; Eosinophils% 3.1 % (0-5); Hematocrit 25.4 % (37-47); Hemoglobin 7.9 g/dL (12.0-15.0); Lymphocyte # 0.72 X10^3/ul (0.83-4.51); Lymphocyte % 14.8 % (19-41); Mean Corp Hgb Conc 31.1 g/dL (32-36); Mean Corpuscular Hgb 28.4 pg (27.0-32.0); Mean Corpuscular Volume 91.4 fL (81-99); Mean Platelet Vol. 8.7 fl (6.2-12.0); Monocyte# 0.45 X10^3/uL; Monocyte% 9.2 % (0-10); Neutrophil % 71.9 % (47-70); Platelet Count 424 K/mm3 (150-450); RBC Distribution Width CV 13.2 % (11.6-14.6); RBC Distribution Width SD 44.7 fl (35.1-43.9); Red Blood Count 2.78 M/mm3 (4.2-5.4); White Blood Count 4.9 K/mm3 (4.4-11.0)
[2022-10-14 08:16] LABS: ALB/GLOB Ratio 0.6 RATIO (0.9-2.4); AST(SGOT) 7 U/L (15-37); Alanine Aminotransfer ALT/SGPT 8 U/L (13-56); Albumin, Serum 2.3 g/dL (3.2-5.0); Alkaline Phosphatase 53 U/L (45-117); Anion Gap 3 (5-15); BUN 9 mg/dL (7-18); BUN/Creat Ratio 10.9 RATIO (10-20); Calcium,Total 8.6 mg/dL (8.5-10.1); Chloride 109 mmol/L (98-107); Creatinine, Serum 0.83 mg/dL (0.55-1.02); EST Glomerular Filtration Rate 71 mL/min (>60); Est Glom Filt Rate - Afr Amer 85 mL/min (>60); Estimated Creatinine Clearance 44.72 ml/min; Ferritin 67 ng/mL (8-252); Globulin 3.6 g/dL (2.2-4.2); Glucose 100 mg/dL (74-106); Iron 19 ug/dL (50-170); Iron Binding Capacity,Total 239 ug/dL (250-450); PERCENT IRON SATURATION 7.9 % (15.0-55.0); Potassium 3.4 mmol/L (3.5-5.1); Protein, Total 5.9 g/dL (6.4-8.2); Sodium Level 142 mmol/L (136-145)
[2022-10-14] MEDS: Etodolac 200 MG Capsule PO (08:37)
[2022-10-14] MEDS: Aspirin 81 MG TAB.CHEW PO (08:37)
[2022-10-14] MEDS: Vancomycin IV 500 MG/100 ML BAG 100 MG IV ×2 (09:27→20:46)
[2022-10-14] MEDS: Metoprolol Tartrate 25 MG Tablet PO (11:46)
[2022-10-14] MEDS: Pantoprazole Sodium 40 MG Tablet PO ×2 (11:46→21:09)
[2022-10-14] MEDS: Tolterodine Tartrate 4 MG CAP.SA PO (11:47)
[2022-10-14] MEDS: 0.9% Saline Lock 10 ML Syringe IV (11:49)
[2022-10-14] MEDS: guaiFENesin 10 ML UDC (200MG/10ML) 20 ML PO ×2 (11:52→21:11)
--- NOTE | 2022-10-14 12:33 | CASEMGMT ---
Social Work SW met w/pt in room in regard to prior level of function and anticipated discharge. Pt was just here and discharged on 10/07. As per pt, she has been having difficulty with her oxygen dropping at home. She states she does not have home O2. Pt states her daughter is staying w/her from [place]. She also has Passport services, Blanka is her continuous pillowcase cutter. Pt has aide services through [employer] 8 hours per week, and therapy through [facility]. We spoke about anticipated discharge plan. Pt states is not certain at this time. Pt has been to [facility] in the past. SW provided to pt a list of group home facilities via [facility], complete with quality and resource use data, that takes her insurance, in her preferred geographic area. Pt states she would be okay with [facility] or [facility] if SNF needed, she did not at present state which is preferred over the other. SW explained to pt that SW will follow up w/her Sunday to see if SNF is needed, and which is her preference. Pt states if she needs oxygen she will want to go to SNF. SW offered to call pt's paz jacobs pt declined, states will speak w/daughter herself. SW will follow up w/pt Sunday to confirm discharge plan. BEAN Paniagua
--- NOTE | 2022-10-14 13:23 | PN.HOSP_ITS ---
Subjective Subjective Patient seen and examined. SHe feels weak and tired. She feels sore all over. She admits to occasional fever and chills, and admits to a cough which is not productive. She denies any urinary symptoms. Review of systems is otherwise negative. She has remained hemodynamically stable. Objective Data Objective Data Vital Signs: Vital Signs Temp Pulse Resp BP Pulse Ox O2 Del Method O2 Flow Rate 98.0 F 82 19 H 101/46 L 98 Nasal Cannula 3 10/14/22 11:40 10/14/22 12:59 10/14/22 12:59 10/14/22 11:46 10/14/22 11:40 10/14/22 11:40 10/14/22 11:40 Oxygen Flow Rate (L/min) 3 Oxygen Delivery Method Nasal Cannula Weight: 172 lb 6.424 oz Body Mass Index (BMI) 30.5 Intake & Output: Intake and Output for Last 24 Hours 10/12/22 10/13/22 10/14/22 23:59 23:59 23:59 Intake Total 685 / 685 200 / 200 Balance 685 / 685 200 / 200 Lab / Micro Data Result Diagrams: 10/14/22 06:44 10/14/22 06:44 Labs: Laboratory Results - last 24 hr 10/13/22 14:15: WBC 4.8, RBC 3.11 L, Hgb 9.2 L, Hct 28.3 L, MCV 91.0, MCH 29.6, MCHC 32.5, RDW Std Deviation 43.4, RDW Coeff of Scott 13.2, Plt Count 433, MPV 8.4, Immature Gran % (Auto) 0.800, Neut % (Auto) 78.5 H, Lymph % (Auto) 11.9 L, [place] % (Auto) 6.1, Eos % (Auto) 2.3, Baso % (Auto) 0.4, Absolute Neuts (auto) 3.7, Absolute Lymphs (auto) 0.57 L, Nucleated RBC % 0 10/13/22 14:15: Sodium 138, Potassium 4.0, Chloride 104, Carbon Dioxide 29.0, Anion Gap 5, BUN 11, Creatinine 0.94, Estim Creat Clear Calc 39.49, Est GFR (MDRD) Af Amer 74, Est GFR (MDRD) Non-Af 61, BUN/Creatinine Ratio 11.7, Glucose 124 H, Calcium 9.0, Troponin I High Sens 11 10/13/22 14:15: Lactic Acid 0.8 10/13/22 14:15: B-Natriuretic Peptide 250.9 H 10/13/22 15:35: Urine Color Yellow, Urine Clarity Clear, Urine pH 6.0, Ur Specific [place] 1.015, Urine Protein Negative, Urine Glucose (UA) Normal, Urine Ketones Negative, Urine Occult Blood Negative, Urine Nitrite Negative, Urine Bilirubin Negative, Urine Urobilinogen Normal, Ur Leukocyte Esterase Negative, Urine RBC 0 SEEN, Urine WBC 0 SEEN, Ur Squamous Epith Cells 0-5 SEEN, Urine Bacteria 0 SEEN, Urine Mucus 0 SEEN 10/13/22 18:00: Procalcitonin 0.09 10/14/22 06:44: WBC 4.9, RBC 2.78 L, Hgb 7.9 L, Hct 25.4 L, MCV 91.4, MCH 28.4, MCHC 31.1 L, RDW Std Deviation 44.7 H, RDW Coeff of Scott 13.2, Plt Count 424, MPV 8.7, Immature Gran % (Auto) 0.600, Neut % (Auto) 71.9 H, Lymph % (Auto) 14.8 L, [place] % (Auto) 9.2, Eos % (Auto) 3.1, Baso % (Auto) 0.4, Absolute Neuts (auto) 3.5, Absolute Lymphs (auto) 0.72 L, Nucleated RBC % 1.0 10/14/22 06:44: Sodium 142, Potassium 3.4 L, Chloride 109 H, Carbon Dioxide 30.0, Anion Gap 3 L, BUN 9, Creatinine 0.83, Estim Creat Clear Calc 44.72, Est GFR (MDRD) Af Amer 85, Est GFR (MDRD) Non-Af 71, BUN/Creatinine Ratio 10.9, Glucose 100, Calcium 8.6, Iron 19 L, TIBC 239 L, Iron Saturation 7.9 L, Ferritin 67, Total Bilirubin 0.40, AST 7 L, ALT 8 L, Alkaline Phosphatase 53, Total Pr otein 5.9 L, Albumin 2.3 L, Globulin 3.6, Albumin/Globulin Ratio 0.6 L, Folate 10.30 Micro: Microbiology 10/13/22 20:05 Interface Orders Respiratory Panel (PCR) - Final 10/13/22 15:35 Urine, Clean Catch Legionella Antigen - Final 10/13/22 15:35 Urine, Clean Catch Streptococcus pneumoniae Antigen (M - Final 10/13/22 14:56 Interface Orders Rapid RSV (DFA) - Final 10/13/22 14:30 Nasal Secretion SARS-CoV-2 & FLU Antigen (Rapid) - Final Radiography Diagnostic Testing: Radiology Impression Chest X-Ray 10/13/22 14:40 IMPRESSION: Partial resolution of bibasilar pneumonia. Minimal right basilar atelectasis. Electronically Signed: Helga Mcnair MD at 15:22 EST , Clavicle X-Ray 10/13/22 14:40 IMPRESSION: Degenerative changes. Electronically Signed: Helga Mcnair MD at 15:25 EST , Humerus X-Ray 10/13/22 14:40 IMPRESSION: No acute osseous injury. Degenerative changes. Electronically Signed: Helga Mcnair MD at 15:26 EST , Shoulder X-Ray 10/13/22 14:40 IMPRESSION: Degenerative changes. Electronically Signed: Helga Mcnair MD at 15:26 EST , Upper Extremity CT 10/13/22 18:30 IMPRESSION: 1. Marked degenerative changes of the shoulders. There is no acute fracture or dislocation. 2. Prominent proximal biceps tendon sheath. Question inflammation or tendinous injury. This will be better evaluated with MRI. Electronically Signed: Miguel Angel Oh DO at 20:38 EST Reading Location ID and State: [facility] Tel [phone], Service support , Echocardiogram 10/13/22 19:26 Interpretation Summary The left ventricular ejection fraction is 60 %. Stage 2 diastolic dysfunction. The left atrium is mildly enlarged. Moderately severe (3+) tricuspid valve insufficiency. Severe pulmonary hypertension. Mildly dilated aortic root. Ordering Physician: Corinna Emmanuel Performed By: Bhupendra León RCS Physical Exam Const alert, oriented x3 and no apparent distress Orientation / Consciousness: lethargic HEENT head/scalp atraumatic, moist oral mucous membranes and oropharynx normal Head and Scalp: normocephalic Mouth: oral and palatal mucosa normal Eyes PERRL, EOMs intact bilaterally and conjunctivae normal Neck no lymphadenopathy and supple Resp Resp Narrative: diminished breath sounds bibasally, few crackles. No wheezing or rhonchi. On 3L of oxygen by nasal canula Cardio regular rate, regular rhythm, S1 normal heart sound, S2 normal heart sound and no murmurs GI normal to inspection, nondistended, normoactive bowel sounds, soft to palpation, non-tender and non-distended Extremity normal to inspection, full ROM and no clubbing, cyanosis or edema General Extremity: edema Neuro oriented x3, CN's II-XII intact bilaterally, moves all extremities and no focal motor deficits Sensorium / Orientation: awake Motor Exam: strength 5/5 throughout Psych affect normal Assessment & Plan Assessment/Plan (1) Pneumonia: (2) SOB (shortness of breath): PLAN: Plan #Hypoxia due to worsening pneumonia * was recently treated for pneumonia and discharged home. Says she still felt short of breath * on IV vancomycin and zosyn. Breathing treatments with bronchodilators * respiratory panel negative * breathing treatment with bronchodilators * titrate oxygen to maintain sats >90% * urine for strep and legionella negative. * #Debility due to mechanical fall with left shoulder pain * xray of the left shoulder showed no acute findings * PT/OT on board * LUE placed in sling. * CT of the left shoulder pending * #Chronic anemia: * stable. Hb is 7.9. * Baseline Hb is 12.5 from September 2022. * check stool for occult blood. #History of breast cancer: s/p lobectomy. In remission #Hypertension: on metoprolol. IV hydralazine prn #Hyperlipidemia: on simvastatin #JEANA: not on CPAP. DVT prophylaxis: SCDs Charges/Coding Visit Charges Inpatient E&M: 57951 Subs Hosp L2
--- NOTE | 2022-10-14 14:40 | NURSING ---
[address] Young potassium level is 3.4, she has viewed the text but has not responded yet.
[2022-10-14] MEDS: traZODone 100 MG Tablet PO (21:11)
[2022-10-14] MEDS: Atorvastatin Calcium 10 MG Tablet PO (21:14)
[2022-10-15] VITALS (11 sets, daily range): BP systolic 130–156; BP diastolic 64–88; PULSE 75–104; RESP 18–20; TEMP 36.8–37.1; O2SAT 95–98
[2022-10-15] MEDS: Acetaminophen 325 MG Tablet 650 MG PO (03:41)
[2022-10-15] MEDS: Sucralfate 1 GM Tablet PO (06:49)
[2022-10-15 06:58] LABS: Absolute Lymphocyte Count 0.64 X10^3/uL (0.83-4.51); Absolute Neutrophil Count 4.8 X10^3/uL (2.0-7.7); Basophil# 0.02 X10^3/uL; Basophil% 0.3 % (0-1); Eosinophil# 0.22 X10^3/uL; Eosinophils% 3.5 % (0-5); Hematocrit 27.4 % (37-47); Hemoglobin 8.6 g/dL (12.0-15.0); Lymphocyte # 0.64 X10^3/ul (0.83-4.51); Lymphocyte % 10.3 % (19-41); Mean Corp Hgb Conc 31.4 g/dL (32-36); Mean Corpuscular Volume 92.3 fL (81-99); Mean Platelet Vol. 8.6 fl (6.2-12.0); Monocyte# 0.46 X10^3/uL; Monocyte% 7.4 % (0-10); NRBC Flagged by Analyzer 0 % (0-5); Neutrophil # 4.82 X10^3/uL (2.7-7.7); Neutrophil % 77.9 % (47-70); Platelet Count 484 K/mm3 (150-450); RBC Distribution Width CV 13.5 % (11.6-14.6); RBC Distribution Width SD 45.7 fl (35.1-43.9); Red Blood Count 2.97 M/mm3 (4.2-5.4); White Blood Count 6.2 K/mm3 (4.4-11.0)
[2022-10-15 07:27] LABS: Anion Gap 4 (5-15); BUN 9 mg/dL (7-18); BUN/Creat Ratio 12.4 RATIO (10-20); Calcium,Total 8.5 mg/dL (8.5-10.1); Chloride 105 mmol/L (98-107); Creatinine, Serum 0.73 mg/dL (0.55-1.02); EST Glomerular Filtration Rate 82 mL/min (>60); Est Glom Filt Rate - Afr Amer 99 mL/min (>60); Estimated Creatinine Clearance 37.12 ml/min; Glucose 100 mg/dL (74-106); Potassium 3.9 mmol/L (3.5-5.1); Sodium Level 139 mmol/L (136-145)
[2022-10-15] MEDS: Albuterol 2.5 MG/3 ML VIAL.NEB. INHALATION ×3 (07:47→20:13)
[2022-10-15] MEDS: Etodolac 200 MG Capsule PO (07:54)
[2022-10-15] MEDS: Aspirin 81 MG TAB.CHEW PO (07:54)
[2022-10-15 09:11] LABS: Vancomycin, Trough Level 9.8 ug/mL (5.0-15.0)
--- NOTE | 2022-10-15 09:32 | PCM.RX.CS ---
Consult Pharmacy has been consulted to manage selected antiobiotic: Vancomycin Type of Consult: Follow-up Labs: Sodium 139 mmol/L (136-145) 10/15/22 05:40 Potassium 3.9 mmol/L (3.5-5.1) 10/15/22 05:40 Chloride 105 mmol/L (98-107) 10/15/22 05:40 Carbon Dioxide 30.0 mmol/L (21.0-32.0) 10/15/22 05:40 Anion Gap 4 (5-15) L 10/15/22 05:40 BUN 9 mg/dL (7-18) 10/15/22 05:40 Creatinine 0.73 mg/dL (0.55-1.02) 10/15/22 05:40 Est GFR (MDRD) Af Amer 99 mL/min (>60) 10/15/22 05:40 Est GFR (MDRD) Non-Af 82 mL/min (>60) 10/15/22 05:40 BUN/Creatinine Ratio 12.4 RATIO (10-20) 10/15/22 05:40 Glucose 100 mg/dL (74-106) 10/15/22 05:40 Vancomycin Trough 9.8 ug/mL (5.0-15.0) 10/15/22 08:28 Microbiology: Microbiology 10/13/22 20:05 Interface Orders Respiratory Panel (PCR) - Final 10/13/22 15:35 Urine, Clean Catch Legionella Antigen - Final 10/13/22 15:35 Urine, Clean Catch Streptococcus pneumoniae Antigen (M - Final 10/13/22 14:56 Interface Orders Rapid RSV (DFA) - Final 10/13/22 14:30 Nasal Secretion SARS-CoV-2 & FLU Antigen (Rapid) - Final Pharmacy Plan for Drug Dosing: VANCOMYCIN LEVEL RECEIVED Current Vancomycin Dose: 500MG Q12 Number of Doses Received: 500MG X2, 1250X1 Vancomycin Level: 9.8 MG/DL Hours Since Last Dose: 12 Renal Function: SCR 0.73, CRCL 61.5 ML/MIN USING ADJ BW Renal Function Trend: IMPROVED Lab/Micro: NO CULTURES Vancomycin Plan/Comments: WILL INCREASE DOSE TO 1000MG Q12 AND GET A TROUGH PRIOR TO 4TH DOSE OF NEW REGIMEN. Pending Level: 10/16/22 @ 2100 Pharmacy Service will continue to monitor and adjust dosing as required.
[2022-10-15] MEDS: Vancomycin IV 1,000 MG/200 ML BAG 200 MG IV ×2 (10:07→21:06)
[2022-10-15] MEDS: Tolterodine Tartrate 4 MG CAP.SA PO (10:08)
[2022-10-15] MEDS: Lidocaine 5% Patch 2 PATCH TOPICAL (10:08)
[2022-10-15] MEDS: Metoprolol Tartrate 25 MG Tablet PO (10:10)
[2022-10-15] MEDS: Pantoprazole Sodium 40 MG Tablet PO ×2 (10:10→21:06)
--- NOTE | 2022-10-15 10:27 | PN.HOSP_ITS ---
Subjective Subjective Patient seen and examined. She complained of wheezing and hypoxia. SHe says her sats were down to 80s on room air. She denies any coughing, chest pain, palpitations, nausea, vomiting or diarrhea./ Review of systems is otherwise negative. Objective Data Objective Data Vital Signs: Vital Signs Temp Pulse Resp BP Pulse Ox O2 Del Method O2 Flow Rate 98.6 F 99 18 156/70 H 95 Nasal Cannula 3 10/15/22 07:58 10/15/22 10:10 10/15/22 07:58 10/15/22 07:58 10/15/22 07:58 10/15/22 07:58 10/15/22 07:58 Oxygen Flow Rate (L/min) 3 Oxygen Delivery Method Nasal Cannula Weight: 176 lb 5.917 oz Body Mass Index (BMI) 30.5 Intake & Output: Intake and Output for Last 24 Hours 10/13/22 10/14/22 10/15/22 23:59 23:59 23:59 Intake Total 685 / 685 452 / 452 50 / 50 Output Total 500 / 500 Balance 685 / 685 452 / -48 -450 / -450 Lab / Micro Data Result Diagrams: 10/15/22 05:40 10/15/22 05:40 Labs: Laboratory Results - last 24 hr 10/15/22 05:40: WBC 6.2, RBC 2.97 L, Hgb 8.6 L, Hct 27.4 L, MCV 92.3, MCH 29.0, MCHC 31.4 L, RDW Std Deviation 45.7 H, RDW Coeff of Scott 13.5, Plt Count 484 H, MPV 8.6, Immature Gran % (Auto) 0.600, Neut % (Auto) 77.9 H, Lymph % (Auto) 10.3 L, [place] % (Auto) 7.4, Eos % (Auto) 3.5, Baso % (Auto) 0.3, Absolute Neuts (auto) 4.8, Absolute Lymphs (auto) 0.64 L, Nucleated RBC % 0 10/15/22 05:40: Sodium 139, Potassium 3.9, Chloride 105, Carbon Dioxide 30.0, Anion Gap 4 L, BUN 9, Creatinine 0.73, Estim Creat Clear Calc 37.12, Est GFR (MDRD) Af Amer 99, Est GFR (MDRD) Non-Af 82, BUN/Creatinine Ratio 12.4, Glucose 100, Calcium 8.5 10/15/22 08:28: Vancomycin Trough 9.8 Micro: Microbiology 10/13/22 20:05 Interface Orders Respiratory Panel (PCR) - Final 10/13/22 15:35 Urine, Clean Catch Legionella Antigen - Final 10/13/22 15:35 Urine, Clean Catch Streptococcus pneumoniae Antigen (M - Final 10/13/22 14:56 Interface Orders Rapid RSV (DFA) - Final 10/13/22 14:30 Nasal Secretion SARS-CoV-2 & FLU Antigen (Rapid) - Final Radiography Diagnostic Testing: Radiology Impression Echocardiogram 10/13/22 19:26 Interpretation Summary The left ventricular ejection fraction is 60 %. Stage 2 diastolic dysfunction. The left atrium is mildly enlarged. Moderately severe (3+) tricuspid valve insufficiency. Severe pulmonary hypertension. Mildly dilated aortic root. Ordering Physician: Corinna Emmanuel Performed By: Bhupendra León RCS Physical Exam Const alert, oriented x3 and no apparent distress HEENT head/scalp atraumatic, moist oral mucous membranes and oropharynx normal Head and Scalp: normocephalic Mouth: oral and palatal mucosa normal Eyes PERRL, EOMs intact bilaterally and conjunctivae normal Neck no lymphadenopathy and supple Resp Resp Narrative: diminished breath sounds bibasally, few crackles. No wheezing or rhonchi. On 3L of oxygen by nasal canula Cardio regular rate, regular rhythm, S1 normal heart sound, S2 normal heart sound and no murmurs GI normal to inspection, nondistended, normoactive bowel sounds, soft to palpation, non-tender and non-distended Extremity normal to inspection, full ROM and no clubbing, cyanosis or edema General Extremity: edema Neuro oriented x3, CN's II-XII intact bilaterally, moves all extremities and no focal motor deficits Sensorium / Orientation: awake Motor Exam: strength 5/5 throughout Psych affect normal Assessment & Plan Assessment/Plan (1) Pneumonia: (2) SOB (shortness of breath): PLAN: Plan #Hypoxia due to worsening pneumonia * was recently treated for pneumonia and discharged home. * on IV vancomycin and zosyn. Breathing treatments with bronchodilators * respiratory panel negative * breathing treatment with bronchodilators * titrate oxygen to maintain sats >90% * urine for strep and legionella negative. * #Debility due to mechanical fall with left shoulder pain * xray of the left shoulder showed no acute findings * PT/OT on board * LUE placed in sling. * CT of the left shoulder showed marked degenerative changes with no acute fracture or dislocation and prominent proximal biceps tendon sheath, question inflammation or tendinous injury; this will be better evaluated with MRI * #Chronic anemia: * stable. Hb is 7.9. * Baseline Hb is 12.5 from September 2022. * check stool for occult blood. #Severe pulmonary hypertension * 2D echo showed 3+ tricuspid valve insufficiency with RVSP of 74mmHg. * will need follow up with pulmonology on outpatient basis * #History of breast cancer: s/p lobectomy. In remission #Hypertension: on metoprolol. IV hydralazine prn #Hyperlipidemia: on simvastatin #JEANA: not on CPAP. DVT prophylaxis: SCDs Charges/Coding Visit Charges Inpatient E&M: 39216 Subs Hosp L2
[2022-10-15] MEDS: HYDROcodone Bitartrate/Apap 5/325 Tablet PO ×2 (16:21→23:36)
[2022-10-15] MEDS: Atorvastatin Calcium 10 MG Tablet PO (21:06)
[2022-10-15] MEDS: traZODone 100 MG Tablet PO (21:06)
[2022-10-16] VITALS (11 sets, daily range): BP systolic 111–143; BP diastolic 65–72; PULSE 80–102; RESP 16–22; TEMP 36.7–37.2; O2SAT 94–98
[2022-10-16] MEDS: Albuterol 2.5 MG/3 ML VIAL.NEB. INHALATION ×2 (04:37→11:44)
[2022-10-16 05:50] LABS: Absolute Lymphocyte Count 0.88 X10^3/uL (0.83-4.51); Absolute Neutrophil Count 4.7 X10^3/uL (2.0-7.7); Basophil# 0.03 X10^3/uL; Basophil% 0.5 % (0-1); Eosinophil# 0.29 X10^3/uL; Eosinophils% 4.5 % (0-5); Hematocrit 27.4 % (37-47); Hemoglobin 8.4 g/dL (12.0-15.0); Lymphocyte # 0.88 X10^3/ul (0.83-4.51); Lymphocyte % 13.6 % (19-41); Mean Corp Hgb Conc 30.7 g/dL (32-36); Mean Corpuscular Hgb 28.2 pg (27.0-32.0); Mean Corpuscular Volume 91.9 fL (81-99); Mean Platelet Vol. 8.3 fl (6.2-12.0); Monocyte# 0.54 X10^3/uL; Monocyte% 8.3 % (0-10); NRBC Flagged by Analyzer 0 % (0-5); Neutrophil % 72.6 % (47-70); Platelet Count 453 K/mm3 (150-450); RBC Distribution Width CV 13.5 % (11.6-14.6); RBC Distribution Width SD 45.5 fl (35.1-43.9); Red Blood Count 2.98 M/mm3 (4.2-5.4); White Blood Count 6.5 K/mm3 (4.4-11.0)
[2022-10-16 06:28] LABS: Anion Gap 4 (5-15); BUN 9 mg/dL (7-18); BUN/Creat Ratio 12.6 RATIO (10-20); Calcium,Total 8.8 mg/dL (8.5-10.1); Chloride 103 mmol/L (98-107); Creatinine, Serum 0.71 mg/dL (0.55-1.02); EST Glomerular Filtration Rate 84 mL/min (>60); Est Glom Filt Rate - Afr Amer 101 mL/min (>60); Estimated Creatinine Clearance 37.12 ml/min; Glucose 98 mg/dL (74-106); Potassium 3.6 mmol/L (3.5-5.1); Sodium Level 139 mmol/L (136-145)
[2022-10-16 09:00] LABS: Vitamin B12 1304 pg/mL (211-911)
[2022-10-16] MEDS: Furosemide 20 MG/2 ML VIAL IV (09:41)
[2022-10-16] MEDS: Tolterodine Tartrate 4 MG CAP.SA PO (09:42)
[2022-10-16] MEDS: Etodolac 200 MG Capsule PO (09:42)
[2022-10-16] MEDS: Aspirin 81 MG TAB.CHEW PO (09:42)
[2022-10-16] MEDS: Vancomycin IV 1,000 MG/200 ML BAG 200 MG IV ×2 (09:51→21:07)
[2022-10-16] MEDS: Pantoprazole Sodium 40 MG Tablet PO ×2 (09:52→21:08)
[2022-10-16] MEDS: Lidocaine 5% Patch 2 PATCH TOPICAL (09:52)
[2022-10-16] MEDS: Metoprolol Tartrate 25 MG Tablet PO (09:54)
[2022-10-16] MEDS: Bisacodyl 5 MG Tablet PO (10:04)
--- NOTE | 2022-10-16 10:35 | CASEMGMT ---
Discharge Tool Machine Shop Supervisor Isabella at [facility] has accepted. Pre-cert has not been started yet. Connie LARRY Applier
--- NOTE | 2022-10-16 10:48 | CASEMGMT ---
Social Work After reviewing PT/OT notes SW in to speak with pt regarding SNF placement. Pt stated still not feeling well and would like to go to [facility]. Pt requested a referral be sent. Dianelys Montiel, Discharge General Store Manager was notified of need for referral. Referral to be sent. PLAN: [facility], pending acceptance and precert JASON Machado
--- NOTE | 2022-10-16 10:55 | PN.HOSP_ITS ---
Subjective Subjective Doing well, still short of breath and on 4 L, she has been on oxygen since admission and she was on oxygen during her last admission at the end of September. Objective Data Objective Data Vital Signs: Vital Signs Temp Pulse Resp BP Pulse Ox O2 Del Method O2 Flow Rate 98.8 F 102 H 18 136/65 H 95 Nasal Cannula 4 10/16/22 10:05 10/16/22 10:05 10/16/22 10:05 10/16/22 10:05 10/16/22 10:05 10/16/22 10:05 10/16/22 10:05 Oxygen Flow Rate (L/min) 4 Oxygen Delivery Method Nasal Cannula Weight: 178 lb 2.136 oz Body Mass Index (BMI) 30.5 Intake & Output: Intake and Output for Last 24 Hours 10/15/22 10/16/22 10/17/22 03:59 03:59 03:59 Intake Total 502 / 502 1350 / 1350 50 / 50 Output Total 500 / 500 600 / 600 Balance 2 / 2 750 / 750 50 / 50 Lab / Micro Data Result Diagrams: 10/16/22 05:31 10/16/22 05:31 Labs: Laboratory Results - last 24 hr 10/14/22 06:44: Vitamin B12 1304 H 10/16/22 05:31: WBC 6.5, RBC 2.98 L, Hgb 8.4 L, Hct 27.4 L, MCV 91.9, MCH 28.2, MCHC 30.7 L, RDW Std Deviation 45.5 H, RDW Coeff of Scott 13.5, Plt Count 453 H, MPV 8.3, Immature Gran % (Auto) 0.500, Neut % (Auto) 72.6 H, Lymph % (Auto) 13.6 L, [place] % (Auto) 8.3, Eos % (Auto) 4.5, Baso % (Auto) 0.5, Absolute Neuts (auto) 4.7, Absolute Lymphs (auto) 0.88, Nucleated RBC % 0 10/16/22 05:31: Sodium 139, Potassium 3.6, Chloride 103, Carbon Dioxide 32.0, Anion Gap 4 L, BUN 9, Creatinine 0.71, Estim Creat Clear Calc 37.12, Est GFR (MDRD) Af Amer 101, Est GFR (MDRD) Non-Af 84, BUN/Creatinine Ratio 12.6, Glucose 98, Calcium 8.8 Micro: Microbiology 10/13/22 20:05 Interface Orders Respiratory Panel (PCR) - Final 10/13/22 15:35 Urine, Clean Catch Legionella Antigen - Final 10/13/22 15:35 Urine, Clean Catch Streptococcus pneumoniae Antigen (M - Final 10/13/22 14:56 Interface Orders Rapid RSV (DFA) - Final 10/13/22 14:30 Nasal Secretion SARS-CoV-2 & FLU Antigen (Rapid) - Final Physical Exam Narrative General: Alert, Oriented x3, Cooperative, No apparent distress HEENT: Atraumatic, PERRLA, EOMI, Normocephalic Oral: Moist Mucosa Neck: Supple, No JVD Lungs: Diminished, Normal air movement, No rhonchi, wheeze, No rales Cardiovascular: Regular rate, Regular Rhythm, Normal S1, Normal S2, No murmurs Abdomen: Soft, Non Tender, Non-Distended, No Hepato-splenomegaly Extremities: Trace edema, Capillary Refill Less than 3 Seconds Skin: No rashes, No breakdown Musculoskeletal: No Tenderness to Palpation of Joints or Extremities Neurological: Cranial nerves II-XII grossly intact, Motor Exam 5/5 strength throughout, Sensory exam intact to light touch and pain Psych/Mental Status: Normal Affect, Appropriate Assessment & Plan Assessment/Plan (1) Pneumonia: (2) SOB (shortness of breath): PLAN: Plan 1. Acute hypoxic respiratory failure secondary to pneumonia versus volume ov erload/severe pulmonary hypertension/HTN/HLD/chronic diastolic CHF ? She has been on antibiotics for over 7 days without any significant improvement ? Echo with an EF of 60% with stage II diastolic dysfunction and severe pulmonary artery hypertension with an RVSP of 74 mmHg ? We will trial her on Lasix ?We will continue with her blood pressure medications as well as her statin 2. Debility secondary to mechanical fall with left shoulder pain ? X-rays were unremarkable ? PT/OT 3. GERD ? Stable ? Continue with PPI 4. Chronic anemia ? Hemoglobin is stable ? We will place on a bowel regimen to see if she can have a bowel movement to obtain the stool occult DVT prophylaxis: SCDs Charges/Coding Visit Charges Inpatient E&M: 41020 Subs Hosp L2
--- NOTE | 2022-10-16 10:56 | CASEMGMT ---
[facility]charge [facility] Sales This auto service writer sent referral to Isabella at [facility] via [facility]. Connie LARRY Communication Specialist
--- NOTE | 2022-10-16 11:51 | CASEMGMT ---
DIRK PEÑA Note: Call placed to [facility] and spoke w/Adina. She was made aware pt has been admitted to [facility] and the plan is to go to a SNF @ discharge. Martina TORRES RN CM
--- NOTE | 2022-10-16 12:36 | CASEMGMT ---
Discharge Line Director Isabella from [facility] reached out. Patient has not been accepted. Pre-cert has not been started yet. Connie LARRY Transmission Assembler
[2022-10-16] MEDS: HYDROcodone Bitartrate/Apap 5/325 Tablet PO ×2 (14:31→21:08)
[2022-10-16] MEDS: MELATONIN 3 MG TABLET PO (21:08)
[2022-10-16] MEDS: traZODone 100 MG Tablet PO (21:08)
[2022-10-16] MEDS: Atorvastatin Calcium 10 MG Tablet PO (21:08)
[2022-10-16 21:55] LABS: Vancomycin, Trough Level 17.4 ug/mL (5.0-15.0)
[2022-10-17] VITALS (11 sets, daily range): BP systolic 130–138; BP diastolic 57–67; PULSE 76–105; RESP 16–18; TEMP 36.6–37.2; O2SAT 93–99
[2022-10-17] MEDS: Albuterol 2.5 MG/3 ML VIAL.NEB. INHALATION ×5 (00:10→22:24)
--- NOTE | 2022-10-17 03:25 | PCM.RX.CS ---
Consult Pharmacy has been consulted to manage selected antiobiotic: Vancomycin Type of Consult: Follow-up Labs: Sodium 139 mmol/L (136-145) 10/16/22 05:31 Potassium 3.6 mmol/L (3.5-5.1) 10/16/22 05:31 Chloride 103 mmol/L (98-107) 10/16/22 05:31 Carbon Dioxide 32.0 mmol/L (21.0-32.0) 10/16/22 05:31 Anion Gap 4 (5-15) L 10/16/22 05:31 BUN 9 mg/dL (7-18) 10/16/22 05:31 Creatinine 0.71 mg/dL (0.55-1.02) 10/16/22 05:31 Est GFR (MDRD) Af Amer 101 mL/min (>60) 10/16/22 05:31 Est GFR (MDRD) Non-Af 84 mL/min (>60) 10/16/22 05:31 BUN/Creatinine Ratio 12.6 RATIO (10-20) 10/16/22 05:31 Glucose 98 mg/dL (74-106) 10/16/22 05:31 Vancomycin Trough 17.4 ug/mL (5.0-15.0) H 10/16/22 20:47 Microbiology: Microbiology 10/13/22 20:05 Interface Orders Respiratory Panel (PCR) - Final 10/13/22 15:35 Urine, Clean Catch Legionella Antigen - Final 10/13/22 15:35 Urine, Clean Catch Streptococcus pneumoniae Antigen (M - Final 10/13/22 14:56 Interface Orders Rapid RSV (DFA) - Final 10/13/22 14:30 Nasal Secretion SARS-CoV-2 & FLU Antigen (Rapid) - Final Pharmacy Plan for Drug Dosing: Pharmacy Service will continue to monitor and adjust dosing as required. TROUGH 17.4 @ 9 HRS. NO CHANGES, FOLLOW UP TROUGH IN 2 DAYS
[2022-10-17] MEDS: HYDROcodone Bitartrate/Apap 5/325 Tablet PO ×4 (04:13→22:09)
[2022-10-17] MEDS: Sucralfate 1 GM Tablet PO (04:17)
[2022-10-17 06:27] LABS: Absolute Lymphocyte Count 0.65 X10^3/uL (0.83-4.51); Absolute Neutrophil Count 4.7 X10^3/uL (2.0-7.7); Basophil# 0.02 X10^3/uL; Basophil% 0.3 % (0-1); Eosinophil# 0.25 X10^3/uL; Eosinophils% 4.1 % (0-5); Hematocrit 26.4 % (37-47); Hemoglobin 8.4 g/dL (12.0-15.0); Lymphocyte # 0.65 X10^3/ul (0.83-4.51); Lymphocyte % 10.6 % (19-41); Mean Corp Hgb Conc 31.8 g/dL (32-36); Mean Corpuscular Hgb 29.2 pg (27.0-32.0); Mean Corpuscular Volume 91.7 fL (81-99); Mean Platelet Vol. 8.4 fl (6.2-12.0); Monocyte# 0.55 X10^3/uL; NRBC Flagged by Analyzer 0 % (0-5); Neutrophil # 4.66 X10^3/uL (2.7-7.7); Neutrophil % 75.8 % (47-70); Platelet Count 458 K/mm3 (150-450); RBC Distribution Width CV 13.5 % (11.6-14.6); RBC Distribution Width SD 45.1 fl (35.1-43.9); Red Blood Count 2.88 M/mm3 (4.2-5.4); White Blood Count 6.1 K/mm3 (4.4-11.0)
[2022-10-17 07:09] LABS: Anion Gap 2 (5-15); BUN 11 mg/dL (7-18); BUN/Creat Ratio 15.1 RATIO (10-20); Calcium,Total 8.7 mg/dL (8.5-10.1); Chloride 104 mmol/L (98-107); Creatinine, Serum 0.73 mg/dL (0.55-1.02); EST Glomerular Filtration Rate 82 mL/min (>60); Est Glom Filt Rate - Afr Amer 99 mL/min (>60); Estimated Creatinine Clearance 37.12 ml/min; Glucose 104 mg/dL (74-106); Potassium 3.8 mmol/L (3.5-5.1); Sodium Level 138 mmol/L (136-145)
[2022-10-17] MEDS: Etodolac 200 MG Capsule PO (08:48)
[2022-10-17] MEDS: Metoprolol Tartrate 25 MG Tablet PO (08:48)
[2022-10-17] MEDS: Tolterodine Tartrate 4 MG CAP.SA PO (08:48)
[2022-10-17] MEDS: Bisacodyl 5 MG Tablet PO (08:48)
[2022-10-17] MEDS: Aspirin 81 MG TAB.CHEW PO (08:49)
[2022-10-17] MEDS: Pantoprazole Sodium 40 MG Tablet PO ×2 (08:49→22:09)
[2022-10-17] MEDS: Lidocaine 5% Patch 2 PATCH TOPICAL (09:19)
[2022-10-17] MEDS: Furosemide 40 MG/4 ML Vial IV (09:19)
[2022-10-17] MEDS: Vancomycin IV 1,000 MG/200 ML BAG 200 MG IV ×2 (09:19→20:40)
--- NOTE | 2022-10-17 09:34 | CASEMGMT ---
Social Work? ? SW in to pt room to verify advance directives. Pt denied having HCPOA/LW documents. Stated daughter wants the documents completed by pt refuses as daughter would not listen to what pt wants. Pt declined information for AD. ? JASON Machado?
--- NOTE | 2022-10-17 10:25 | PCM.PN.HOSP ---
Subjective Subjective Little bit better today after her Lasix yesterday. She was on 4 L and now she is down to 2 L nasal cannula. No issues overnight Objective Data Objective Data Vital Signs: Vital Signs Temp Pulse Resp BP Pulse Ox O2 Del Method O2 Flow Rate 97.9 F 105 H 18 130/57 H 93 Nasal Cannula 2 10/17/22 08:53 10/17/22 08:53 10/17/22 08:53 10/17/22 08:53 10/17/22 08:53 10/17/22 08:53 10/17/22 08:53 Oxygen Flow Rate (L/min) 2 Oxygen Delivery Method Nasal Cannula Weight: 178 lb 5.663 oz Body Mass Index (BMI) 30.5 Intake & Output: Intake and Output for Last 24 Hours 10/16/22 10/17/22 10/18/22 03:59 03:59 03:59 Intake Total 1350 / 1350 1230 / 1230 50 / 50 Output Total 600 / 600 Balance 750 / 750 1230 / 1230 50 / 50 Lab / Micro Data Result Diagrams: 10/17/22 05:52 10/17/22 05:52 Labs: Laboratory Results - last 24 hr 10/16/22 20:47: Vancomycin Trough 17.4 H 10/17/22 05:52: WBC 6.1, RBC 2.88 L, Hgb 8.4 L, Hct 26.4 L, MCV 91.7, MCH 29.2, MCHC 31.8 L, RDW Std Deviation 45.1 H, RDW Coeff of Scott 13.5, Plt Count 458 H, MPV 8.4, Immature Gran % (Auto) 0.200, Neut % (Auto) 75.8 H, Lymph % (Auto) 10.6 L, [place] % (Auto) 9.0, Eos % (Auto) 4.1, Baso % (Auto) 0.3, Absolute Neuts (auto) 4.7, Absolute Lymphs (auto) 0.65 L, Nucleated RBC % 0 10/17/22 05:52: Sodium 138, Potassium 3.8, Chloride 104, Carbon Dioxide 32.0, Anion Gap 2 L, BUN 11, Creatinine 0.73, Estim Creat Clear Calc 37.12, Est GFR (MDRD) Af Amer 99, Est GFR (MDRD) Non-Af 82, BUN/Creatinine Ratio 15.1, Glucose 104, Calcium 8.7 Micro: Microbiology 10/13/22 20:05 Interface Orders Respiratory Panel (PCR) - Final 10/13/22 15:35 Urine, Clean Catch Legionella Antigen - Final 10/13/22 15:35 Urine, Clean Catch Streptococcus pneumoniae Antigen (M - Final 10/13/22 14:56 Interface Orders Rapid RSV (DFA) - Final 10/13/22 14:30 Nasal Secretion SARS-CoV-2 & FLU Antigen (Rapid) - Final Physical Exam Narrative General: Alert, Oriented x3, Cooperative, No apparent distress HEENT: Atraumatic, PERRLA, EOMI, Normocephalic Oral: Moist Mucosa Neck: Supple, No JVD Lungs: Diminished, Normal air movement, No rhonchi, wheeze, No rales Cardiovascular: Regular rate, Regular Rhythm, Normal S1, Normal S2, No murmurs Abdomen: Soft, Non Tender, Non-Distended, No Hepato-splenomegaly Extremities: Trace edema, Capillary Refill Less than 3 Seconds Skin: No rashes, No breakdown Musculoskeletal: No Tenderness to Palpation of Joints or Extremities Neurological: Cranial nerves II-XII grossly intact, Motor Exam 5/5 strength throughout, Sensory exam intact to light touch and pain Psych/Mental Status: Normal Affect, Appropriate Assessment & Plan Assessment/Plan (1) Pneumonia: (2) SOB (shortness of breath): PLAN: Plan 1. Acute hypoxic respiratory failure secondary to pneumonia versus volume overload/severe pulmonary hypertension/HTN/HLD/chronic diastolic CHF ? She has been on antibiotics for over 7 days without any significant improvement ? Echo with an EF of 60% with stage II diastolic dysfunction and severe pulmonary artery hypertension with an RVSP of 74 mmHg ? We will trial her on Lasix ? We will continue with her blood pressure medications as well as her statin 2. Debility secondary to mechanical fall with left shoulder pain ? X-rays were unremarkable ? PT/OT 3. GERD ? Stable ? Continue with PPI 4. Chronic anemia ? Hemoglobin is stable ? We will place on a bowel regimen to see if she can have a bowel movement to obtain the stool occult DVT: SCDs Charges/Coding Visit Charges Inpatient E&M: 87270 Subs Hosp L2
[2022-10-17] MEDS: Polyethylene Glycol 3350 17 GM PACKET PO (11:57)
[2022-10-17] MEDS: traZODone 100 MG Tablet PO (22:09)
[2022-10-17] MEDS: Atorvastatin Calcium 10 MG Tablet PO (22:09)
[2022-10-17] MEDS: MELATONIN 3 MG TABLET PO (22:09)
[2022-10-18] VITALS (12 sets, daily range): BP systolic 109–139; BP diastolic 55–92; PULSE 82–102; RESP 16–24; TEMP 36.8–36.9; O2SAT 86–96
[2022-10-18] MEDS: HYDROcodone Bitartrate/Apap 5/325 Tablet PO ×3 (06:26→20:21)
[2022-10-18 06:58] LABS: Absolute Lymphocyte Count 0.71 X10^3/uL (0.83-4.51); Absolute Neutrophil Count 5.3 X10^3/uL (2.0-7.7); Basophil# 0.04 X10^3/uL; Basophil% 0.6 % (0-1); Eosinophil# 0.22 X10^3/uL; Eosinophils% 3.2 % (0-5); Hematocrit 28.9 % (37-47); Hemoglobin 8.7 g/dL (12.0-15.0); Lymphocyte # 0.71 X10^3/ul (0.83-4.51); Lymphocyte % 10.4 % (19-41); Mean Corp Hgb Conc 30.1 g/dL (32-36); Mean Corpuscular Hgb 27.6 pg (27.0-32.0); Mean Corpuscular Volume 91.7 fL (81-99); Mean Platelet Vol. 8.7 fl (6.2-12.0); Monocyte# 0.56 X10^3/uL; Monocyte% 8.2 % (0-10); NRBC Flagged by Analyzer 0.3 % (0-5); Neutrophil # 5.28 X10^3/uL (2.7-7.7); Neutrophil % 77.2 % (47-70); Platelet Count 515 K/mm3 (150-450); RBC Distribution Width CV 13.4 % (11.6-14.6); RBC Distribution Width SD 45.2 fl (35.1-43.9); Red Blood Count 3.15 M/mm3 (4.2-5.4); White Blood Count 6.8 K/mm3 (4.4-11.0)
[2022-10-18 07:20] LABS: Anion Gap 2 (5-15); BUN 14 mg/dL (7-18); BUN/Creat Ratio 15.9 RATIO (10-20); Calcium,Total 8.7 mg/dL (8.5-10.1); Chloride 103 mmol/L (98-107); Creatinine, Serum 0.88 mg/dL (0.55-1.02); EST Glomerular Filtration Rate 66 mL/min (>60); Est Glom Filt Rate - Afr Amer 79 mL/min (>60); Estimated Creatinine Clearance 42.18 ml/min; Glucose 97 mg/dL (74-106); Potassium 3.8 mmol/L (3.5-5.1); Sodium Level 138 mmol/L (136-145)
--- NOTE | 2022-10-18 07:42 | CASEMGMT ---
Discharge Territory Outside Sales Manager Isabella reached out. Pre-cert has been obtained. Connie LARRY Carpet Sewing Machine Operator
[2022-10-18] MEDS: Pantoprazole Sodium 40 MG Tablet PO ×2 (08:06→21:15)
[2022-10-18] MEDS: Furosemide 40 MG/4 ML Vial IV (08:06)
[2022-10-18] MEDS: Bisacodyl 5 MG Tablet PO (08:07)
[2022-10-18] MEDS: Lidocaine 5% Patch 2 PATCH TOPICAL (08:07)
[2022-10-18] MEDS: Tolterodine Tartrate 4 MG CAP.SA PO (08:07)
[2022-10-18] MEDS: Aspirin 81 MG TAB.CHEW PO (08:07)
[2022-10-18] MEDS: Metoprolol Tartrate 25 MG Tablet PO (08:07)
[2022-10-18] MEDS: Etodolac 200 MG Capsule PO (08:07)
[2022-10-18] MEDS: Albuterol 2.5 MG/3 ML VIAL.NEB. INHALATION ×2 (10:39→20:55)
[2022-10-18] MEDS: guaiFENesin/D-Methorphan TAB.SR.12H 1 TABLET PO ×2 (11:18→20:20)
--- NOTE | 2022-10-18 12:03 | PN.HOSP_ITS ---
Subjective Subjective Doing well today, she was maintaining her oxygen saturations on room air however she did need 2 L with ambulation she did become very short of breath with ambulation and did not feel comfortable going to the shelter today. Objective Data Objective Data Vital Signs: Vital Signs Temp Pulse Resp BP Pulse Ox O2 Del Method O2 Flow Rate 98.2 F 96 18 134/57 H 90 Room Air 0 10/18/22 08:27 10/18/22 10:30 10/18/22 10:30 10/18/22 08:27 10/18/22 11:50 10/18/22 10:35 10/18/22 11:50 Oxygen Flow Rate (L/min) [ 2 AMBULATING with Oxygen #1] Oxygen Flow Rate (L/min) [ 0 AMBULATING on Room Air] Oxygen Flow Rate (L/min) [At 0 REST on Room Air] Oxygen Flow Rate (L/min) 2 Oxygen Delivery Method Room Air Weight: 176 lb 12.972 oz Body Mass Index (BMI) 30.5 Intake & Output: Intake and Output for Last 24 Hours 10/17/22 10/18/22 10/19/22 03:59 03:59 03:59 Intake Total 1230 / 1230 1800 / 1800 50 / 50 Output Total 1050 / 1050 600 / 600 Balance 1230 / 1230 750 / 750 -550 / -550 Lab / Micro Data Result Diagrams: 10/18/22 06:22 10/18/22 06:22 Labs: Laboratory Results - last 24 hr 10/18/22 06:22: WBC 6.8, RBC 3.15 L, Hgb 8.7 L, Hct 28.9 L, MCV 91.7, MCH 27.6, MCHC 30.1 L D, RDW Std Deviation 45.2 H, RDW Coeff of Scott 13.4, Plt Count 515 H, MPV 8.7, Immature Gran % (Auto) 0.400, Neut % (Auto) 77.2 H, Lymph % (Auto) 10.4 L, [place] % (Auto) 8.2, Eos % (Auto) 3.2, Baso % (Auto) 0.6, Absolute Neuts (auto) 5.3, Absolute Lymphs (auto) 0.71 L, Nucleated RBC % 0.3 10/18/22 06:22: Sodium 138, Potassium 3.8, Chloride 103, Carbon Dioxide 33.0 H, Anion Gap 2 L, BUN 14, Creatinine 0.88, Estim Creat Clear Calc 42.18, Est GFR (MDRD) Af Amer 79, Est GFR (MDRD) Non-Af 66, BUN/Creatinine Ratio 15.9, Glucose 97, Calcium 8.7 Micro: Microbiology 10/13/22 20:05 Interface Orders Respiratory Panel (PCR) - Final 10/13/22 15:35 Urine, Clean Catch Legionella Antigen - Final 10/13/22 15:35 Urine, Clean Catch Streptococcus pneumoniae Antigen (M - Final 10/13/22 14:56 Interface Orders Rapid RSV (DFA) - Final 10/13/22 14:30 Nasal Secretion SARS-CoV-2 & FLU Antigen (Rapid) - Final Physical Exam Narrative General: Alert, Oriented x3, Cooperative, No apparent distress HEENT: Atraumatic, PERRLA, EOMI, Normocephalic Oral: Moist Mucosa Neck: Supple, No JVD Lungs: Diminished, Normal air movement, No rhonchi, wheeze, No rales Cardiovascular: Regular rate, Regular Rhythm, Normal S1, Normal S2, No murmurs Abdomen: Soft, Non Tender, Non-Distended, No Hepato-splenomegaly Extremities: Trace edema, Capillary Refill Less than 3 Seconds Skin: No rashes, No breakdown Musculoskeletal: No Tenderness to Palpation of Joints or Extremities Neurological: Cranial nerves II-XII grossly intact, Motor Exam 5/5 strength throughout, Sensory exam intact to light touch and pain Psych/Mental Status: Normal Affect, Appropriate Assessment & Plan Assessment/Plan (1) Pneumonia: (2) SOB (shortness of breath): PLAN: Plan 1. Acute hypoxic respiratory failure secondary to pneumonia versus volume overload/severe pulmonary hypertension/HTN/HLD/chronic diastolic CHF ?We will discontinue antibiotics if she is having over 10 days of appropriate antibiotics most of her shortness of breath and respiratory failure is due to volume overload ? Echo with an EF of 60% with stage II diastolic dysfunction and severe pulmonary artery hypertension with an RVSP of 74 mmHg ?Continue with Lasix ? We will continue with her blood pressure medications as well as her statin 2. Debility secondary to mechanical fall with left shoulder pain ? X-rays were unremarkable ? PT/OT 3. GERD ? Stable ? Continue with PPI 4. Chronic anemia ? Hemoglobin is stable ? We will place on a bowel regimen to see if she can have a bowel movement to obtain the stool occult DVT: SCDs Charges/Coding Visit Charges Inpatient E&M: 91945 Subs Hosp L2
--- NOTE | 2022-10-18 13:20 | CASEMGMT ---
Social Work ADELIA notified pt that SNF reached out and pt can admit today. informed wants to do ambulatory pulse ox. Test was conducted, pt does not feel ready to discharge today. was notified of pt concern and want to speak regarding discharge or pt stated would like to appeal the discharge under Medicare. Dr. Montague willing to allow pt stay 1 more night. ADELIA informed pt will allow pt to stay and discharge tomorrow. ADELIA also updated Isabella at [facility] that pt will discharge tomorrow 10/19. PLAN: Discharge tomorrow to [facility]
[2022-10-18] MEDS: Magnesium Hydroxide 30 ML UDC PO (16:40)
[2022-10-18] MEDS: Furosemide 40 MG Tablet PO (17:57)
[2022-10-18] MEDS: traZODone 100 MG Tablet PO (20:20)
[2022-10-18] MEDS: Docusate Sodium 100 MG Capsule PO ×2 (20:20)
[2022-10-18] MEDS: MELATONIN 3 MG TABLET PO (20:20)
[2022-10-18] MEDS: Atorvastatin Calcium 10 MG Tablet PO (20:21)
[2022-10-18 22:01] LABS: Vancomycin, Trough Level 18.3 ug/mL (5.0-15.0)
[2022-10-19] VITALS (10 sets, daily range): BP systolic 109–158; BP diastolic 56–83; PULSE 86–103; RESP 16–20; TEMP 36.8–37.1; O2SAT 87–96
[2022-10-19] MEDS: HYDROcodone Bitartrate/Apap 5/325 Tablet PO ×3 (00:21→19:26)
[2022-10-19] MEDS: Sucralfate 1 GM Tablet PO (05:23)
[2022-10-19 07:18] LABS: Anion Gap 4 (5-15); BUN 14 mg/dL (7-18); BUN/Creat Ratio 17.4 RATIO (10-20); Calcium,Total 8.5 mg/dL (8.5-10.1); Chloride 100 mmol/L (98-107); EST Glomerular Filtration Rate 73 mL/min (>60); Est Glom Filt Rate - Afr Amer 88 mL/min (>60); Glucose 97 mg/dL (74-106); Potassium 3.8 mmol/L (3.5-5.1); Sodium Level 136 mmol/L (136-145)
[2022-10-19] MEDS: Tolterodine Tartrate 4 MG CAP.SA PO (08:03)
[2022-10-19] MEDS: Aspirin 81 MG TAB.CHEW PO (08:03)
[2022-10-19] MEDS: Metoprolol Tartrate 25 MG Tablet PO (08:03)
[2022-10-19] MEDS: Lidocaine 5% Patch 2 PATCH TOPICAL (08:05)
[2022-10-19] MEDS: guaiFENesin/D-Methorphan TAB.SR.12H 1 TABLET PO ×2 (08:06→21:11)
[2022-10-19] MEDS: Pantoprazole Sodium 40 MG Tablet PO ×2 (08:06→21:11)
[2022-10-19] MEDS: Albuterol 2.5 MG/3 ML VIAL.NEB. INHALATION (09:37)
[2022-10-19] MEDS: Bisacodyl 5 MG Tablet PO (10:18)
[2022-10-19] MEDS: Docusate Sodium 100 MG Capsule PO ×2 (10:43→21:11)
[2022-10-19] MEDS: Furosemide 40 MG Tablet PO (10:44)
--- NOTE | 2022-10-19 11:52 | TREXTCAR_ITS ---
Diet Diet Order/Speech Therapy: 10/13/22 19:26 Diet: Cardiac - Heart Healthy Food consistency:: Regular Liquid Consistency:: Regular/Thin Diet Comments: magic cup w/ lunch and dinner Routine Orders/Code Status Routine Lab Work: CBC and BMP Code Status: DNRCC-A Therapies Weight Bearing: Non weight bearing Physical Therapy: Eval and Treat Occupational Therapy: Eval and Treat Problem/Diagnosis (1) Pneumonia: Status: Acute Code(s): J18.9 - Pneumonia, unspecified organism (2) SOB (shortness of breath): Status: Acute Code(s): R06.02 - Shortness of breath Plan 1. Acute hypoxic respiratory failure secondary to pneumonia versus volume overload/severe pulmonary hypertension/HTN/HLD/chronic diastolic CHF ?We will discontinue antibiotics if she is having over 10 days of appropriate antibiotics most of her shortness of breath and respiratory failure is due to volume overload ? Echo with an EF of 60% with stage II diastolic dysfunction and severe pulmonary artery hypertension with an RVSP of 74 mmHg ?Continue with Lasix ? We will continue with her blood pressure medications as well as her statin 2. Debility secondary to mechanical fall with left shoulder pain ? X-rays were unremarkable ? PT/OT 3. GERD ? Stable ? Continue with PPI 4. Chronic anemia ? Hemoglobin is stable ? We will place on a bowel regimen to see if she can have a bowel movement to obtain the stool occult DVT: SCDs Allergies/Procedures Done in Hospital Allergies diazepam [From Valium] Adverse Reaction (Severe, Verified 10/13/22 13:34) Other MAKES ME CRAZY, paranoia eszopiclone [From Lunesta] Adverse Reaction (Severe, Verified 10/13/22 13:34) confusion morphine Adverse Reaction (Severe, Verified 10/13/22 13:34) Other MAKES ME GOOFY (hallucinations) paroxetine HCl [From Paxil] Adverse Reaction (Severe, Verified 10/13/22 13:34) Other MAKES ME FEEL LIKE I'M GOING TO FALL (vertigo) zolpidem [From Ambien] Adverse Reaction (Severe, Verified 10/13/22 13:34) confusion Procedures: 2-D Echocardiogram Type of Care/Length of Stay Estimated LOS: Convalescent Care Less Than 30 days Type of Care Needed: Skilled Rehab Potential: Good Prognosis: Good Additional Orders/Day of Discharge Day of Discharge: 10/19/22 Dietary and Speech Recommendations Dietitian Recommendations/Changes: Will continue cardiac diet as ordered Will d/c ensure plus at med pass and give magic cup w/ lunch and dinner per pt request Discharge Plan Admission Admit Date/Time: 10/13/22 17:43 Attending Provider: Desmond Montague Primary Care Provider: Justin Tierney Consulting Providers: Corinna Emmanuel ; Fara Young Discharge Orders/Prescriptions Prescriptions: New hydrocodone-acetaminophen 5-325 mg Tablet 1 tab PO Q4H PRN PRN (Reason: pain 4-10) 3 Days Qty: 10 0RF magnesium hydroxide 400 mg/5 mL Suspension 30 ml PO DAILY PRN PRN (Reason: constipation) Qty: 0 0RF lidocaine 5 % Adhesive Patch,Medicated 2 patch topical DAILY Qty: 0 0RF Protocol: *Topical Application Instructions APPLICATION INSTRUCTIONS: L shoulder docusate sodium 100 mg Capsule 100 mg PO BID Qty: 0 0RF bisacodyl 5 mg Tablet,Delayed Release (Dr/Ec) 5 mg PO DAILY Qty: 0 0RF Mucinex DM 30-600 mg Tablet Extended Release 12 Hr 1 tab PO BID Qty: 0 0RF melatonin 3 mg Tablet 3 mg PO QHS PRN PRN (Reason: Insomnia) Qty: 0 0RF furosemide [Lasix] 40 mg tablet 40 mg PO DAILY Qty: 30 0RF Continued cholecalciferol (vitamin D3) 50,000 unit capsule 50,000 unit PO Rx Instructions: simvastatin 20 mg tablet 20 mg PO QHS trazodone 100 mg tablet 100 mg PO QHS lidocaine 4 % adhesive patch,medicated 1 patch TOPICAL DAILY PRN (Reason: Pain) cyanocobalamin (vitamin B-12) 1,000 mcg tablet 1,000 mcg PO DAILY Label Comments: Take 1 tablet by mouth once daily. pantoprazole [Protonix] 40 mg tablet,delayed release (DR/EC) 40 mg PO BID Qty: 60 0RF oxybutynin chloride 10 mg tablet extended release 24hr 10 mg PO DAILY Label Comments: Take 2 tablets by mouth once daily. nabumetone 500 mg tablet 500 mg DAILY Label Comments: Take 1 tablet by mouth once daily. TAKE WITH FOOD [id number] 250 mg-200 mg- 1,500 unit Tablet 1 tab PO DAILY metoprolol tartrate 25 mg tablet 25 mg PO DAILY Label Comments: Take 1 tablet by mouth twice daily. Changed sucralfate [Carafate] 1 gram tablet 1 g PO DAILY Qty: 1 0RF Held aspirin 81 mg Capsule 81 mg PO DAILY Hold Instructions: Resume on 10/25/22. Referrals / Follow Up: Justin Tierney MD [Primary Care Provider] - Disposition Disposition (needs filled in before D/C Order can be placed): Shelter Facility
--- NOTE | 2022-10-19 13:48 | DS.PCM_ITS ---
Providers Date of Admission: 10/13/22 Primary Care Physician: Dr. Justin Tierney MD Reason For Visit: PNA, HYPOXIA Diagnosis Discharge Diagnosis (1) Pneumonia: Status: Acute Code(s): J18.9 - Pneumonia, unspecified organism (2) SOB (shortness of breath): Status: Acute Code(s): R06.02 - Shortness of breath Plan 1. Acute hypoxic respiratory failure secondary to pneumonia versus volume overload/severe pulmonary hypertension/HTN/HLD/chronic diastolic CHF ?We will discontinue antibiotics if she is having over 10 days of appropriate antibiotics most of her shortness of breath and respiratory failure is due to volume overload ? Echo with an EF of 60% with stage II diastolic dysfunction and severe pulmonary artery hypertension with an RVSP of 74 mmHg ?Continue with Lasix ? We will continue with her blood pressure medications as well as her statin 2. Debility secondary to mechanical fall with left shoulder pain ? X-rays were unremarkable ? PT/OT 3. GERD ? Stable ? Continue with PPI 4. Chronic anemia ? Hemoglobin is stable ? We will place on a bowel regimen to see if she can have a bowel movement to obtain the stool occult DVT: SCDs Medications at Discharge Home Medications cholecalciferol (vitamin D3) 1,250 mcg (50,000 unit) capsule 50,000 unit PO TH supplement 04/02/19 simvastatin 20 mg tablet 20 mg PO QHS cholesterol 04/02/19 trazodone 100 mg tablet 100 mg PO QHS sleep 04/02/19 lidocaine 4 % topical patch 1 patch topical DAILY PRN Pain 04/08/19 cyanocobalamin (vitamin B-12) 1,000 mcg tablet 1,000 mcg PO DAILY supplement 07/23/22 pantoprazole 40 mg tablet,delayed release (Protonix) 40 mg PO BID #60 tabs 07/25/22 aspirin 81 mg capsule 81 mg PO DAILY 10/05/22 glucosamine 250 hl-cyzcz-ops 200 mg-D3 1,500 azbc-P-bzura-herbs tablet 1 tab PO DAILY 10/05/22 nabumetone 500 mg tablet 500 mg DAILY 10/05/22 oxybutynin chloride 10 mg tablet,extended release 24 hr 10 mg PO DAILY 10/05/22 metoprolol tartrate 25 mg tablet 25 mg PO DAILY HTN 10/13/22 bisacodyl 5 mg tablet,delayed release 5 mg PO DAILY #0 tabs 10/19/22 dextromethorphan-guaifenesin 30 mg-600 mg tablet extended voizret41 hr (Mucinex DM) 1 tab PO BID #0 tabs 10/19/22 docusate sodium 100 mg capsule 100 mg PO BID #0 caps 10/19/22 furosemide 40 mg tablet (Lasix) 40 mg PO DAILY #30 tabs 10/19/22 hydrocodone-acetaminophen 5-325mg 5mg-325mg 1 tab PO Q4H PRN PRN pain 4-10 3 days #10 tabs 10/19/22 lidocaine 5 % topical patch 2 patch topical DAILY #0 ea 10/19/22 magnesium hydroxide 400 mg/5 mL oral suspension 30 ml PO DAILY PRN PRN constipation #0 mL 10/19/22 melatonin 3 mg tablet 3 mg PO QHS PRN PRN Insomnia #0 tabs 10/19/22 sucralfate 1 gram tablet (Carafate) 1 g PO DAILY #1 TAB 10/19/22 Hospital Course Operations None Procedures 2-D Echocardiogram Summary of Care Provided Minutes Spent on Discharge: 46 Hospital Course: Per HPI: The patient is an 82 y/o F w/ PMHx: Chronic anemia, BPPV, CKD stage III unclear subtype, HTN, HLD, Hypothyriodism, GERD, Hx Breast CA, Hx Fall w/ prior SDH, Hx prior GI bleed, JEANA with failure to follow-up outpatient for CPAP set-up per records who presents to the [facility] ED on 10/13/22 with history of recent hospitalization 10/05-10/07 for sepsis secondary to pneumonia with acute hypoxia at that time reportedly finishing her antibiotics the day prior however she still feels very fatigued and weak with ongoing dyspnea which is worsened with PCP evaluation the day prior with oxygen desaturation to 88% while walking and reportedly orthostatic there prompting ED referral.? Patient also upon presentation complains of left shoulder pain following a fall the prior Sunday with increased pain with diminished range of motion secondary to the fall and some occasional tingling's in the fingers.? From review of records patient also had acute kidney injury.? Her urine Legionella and strep antigens were both negative.? Her kidney function also improved.? She was discharged on Augmentin. She does note that her stools are dark in appearance. She from discussions may or may not be taking her Fe supplementation. Work-up in the ED included T 97, heart rate 70, BP 139/76, respiratory rate 18, 95% room air, orthostatic vitals with increase in blood pressure with standing of note and similar heart rate, CBC with WC 4.8, hemoglobin 9.2, MCV 91, platelet 433 with mildly increased neutrophils and lymphopenia, BMP with glucose 124 otherwise not marked appearing, lactic acid 0.8, troponin 11, urinalysis unremarkable with no obvious UTI, rapid SARS COVID and influenza negative, RSV antigen negative, chest x-ray with partial resolution of bibasilar pneumonia, minimal right basilar atelectasis compared to 10/05/2022 film, left clavicular film with degenerative changes, plain film of the left humerus with no acute osseous injury with degenerative changes, plain film of the left shoulder with degenerative changes with no acute osseous findings.? In the ED patient ministered DuoNeb therapy as well as IV vanc and zosyn. Hospital Course: 1. Acute hypoxic respiratory failure secondary to severe pulmonary hypertension/HTN/HLD/chronic diastolic CHF/debility secondary to mechanical fall with left shoulder pain?82-year-old female presented to the hospital with worsening shortness of breath as well as a fall with shoulder pain, x-rays were unremarkable. She was hypoxic on admission and needed about 4 to 5 L nasal can nula. It was initially felt that this could be due to worsening pneumonia as she had been recently discharged from the hospital for pneumonia, however prior to admission she had completed 7 days of antibiotics and then has completed another 5 days of vancomycin and Zosyn. However echo during this stay demonstrated RVSP of 74 mmHg therefore she was started on IV Lasix and with that her respiratory status improved significantly. I discussed with her the plan for discharge today to SNF and she expressed understanding of the risk benefits going and would like to go today to start physical therapy. I do recommend that she be placed on oral Lasix for her pulmonary hypertension as well as outpatient monitoring for her BMP to monitor her renal function. Her other blood pressure medications were continued. 2. GERD with chronic anemia?she did have a colonoscopy and EGD in July which showed gastritis and a polyp. Her hemoglobin has been in between 8.5-10 since September. She is asymptomatic and her hemoglobin yesterday did rise to 8.7 part of her decreased hemoglobin is likely secondary to multiple lab draws as well as possible oozing however she does not want to proceed with a gastroenterology work-up at this time she would like to get stronger first and go to SNF. Therefore we will continue with her Carafate daily as well as her twice daily Protonix. I do recommend holding her aspirin for a few days as well as her nabumetone and outpatient monitoring of her CBC. Per nursing staff stools today were not melanotic. Physical Exam Narrative General: Alert, Oriented x3, Cooperative, No apparent distress HEENT: Atraumatic, PERRLA, EOMI, Normocephalic Oral: Moist Mucosa Neck: Supple, No JVD Lungs: Diminished, Normal air movement, No rhonchi, wheeze, No rales Cardiovascular: Regular rate, Regular Rhythm, Normal S1, Normal S2, No murmurs Abdomen: Soft, Non Tender, Non-Distended, No Hepato-splenomegaly Extremities: Trace edema, Capillary Refill Less than 3 Seconds Skin: No rashes, No breakdown Musculoskeletal: No Tenderness to Palpation of Joints or Extremities Neurological: Cranial nerves II-XII grossly intact, Motor Exam 5/5 strength throughout, Sensory exam intact to light touch and pain Psych/Mental Status: Normal Affect, Appropriate Weight / BMI Weight Weight: 179 lb 7.3 oz Body Mass Index (BMI) 30.5 ABG / Lab / Microbiology Data Result Diagrams: 10/18/22 06:22 10/19/22 06:37 Laboratory: Laboratory Results - last 24 hr 10/18/22 20:54: Vancomycin Trough 18.3 H 10/19/22 06:37: Sodium 136, Potassium 3.8, Chloride 100, Carbon Dioxide 32.0, Anion Gap 4 L, BUN 14, Creatinine 0.80, Estim Creat Clear Calc 46.40, Est GFR (MDRD) Af Amer 88, Est GFR (MDRD) Non-Af 73, BUN/Creatinine Ratio 17.4, Glucose 97, Calcium 8.5 Microbiology: Microbiology 10/18/22 17:30 Stool Stool Occult Blood (CRISTINO) - Final Occult Blood Positive 10/13/22 20:05 Interface Orders Respiratory Panel (PCR) - Final 10/13/22 15:35 Urine, Clean Catch Legionella Antigen - Final 10/13/22 15:35 Urine, Clean Catch Streptococcus pneumoniae Antigen (M - Final 10/13/22 14:56 Interface Orders Rapid RSV (DFA) - Final 10/13/22 14:30 Nasal Secretion SARS-CoV-2 & FLU Antigen (Rapid) - Final D/C Instructions Discharge Diet: Low fat / Low cholesterol Meaningful Use Info Meaningful Use Diagnoses (Choose all that apply): None applicable Discharge Plan Admission Admit Date/Time: 10/13/22 17:43 Attending Provider: Desmond Montague Primary Care Provider: Justin Tierney Consulting Providers: Corinna Emmanuel ; Fara Young Discharge Orders/Prescriptions Prescriptions: New hydrocodone-acetaminophen 5-325 mg Tablet 1 tab PO Q4H PRN PRN (Reason: pain 4-10) 3 Days Qty: 10 0RF magnesium hydroxide 400 mg/5 mL Suspension 30 ml PO DAILY PRN PRN (Reason: constipation) Qty: 0 0RF lidocaine 5 % Adhesive Patch,Medicated 2 patch topical DAILY Qty: 0 0RF Protocol: *Topical Application Instructions APPLICATION INSTRUCTIONS: L shoulder docusate sodium 100 mg Capsule 100 mg PO BID Qty: 0 0RF bisacodyl 5 mg Tablet,Delayed Release (Dr/Ec) 5 mg PO DAILY Qty: 0 0RF Mucinex DM 30-600 mg Tablet Extended Release 12 Hr 1 tab PO BID Qty: 0 0RF melatonin 3 mg Tablet 3 mg PO QHS PRN PRN (Reason: Insomnia) Qty: 0 0RF furosemide [Lasix] 40 mg tablet 40 mg PO DAILY Qty: 30 0RF Continued cholecalciferol (vitamin D3) 50,000 unit capsule 50,000 unit PO Rx Instructions: simvastatin 20 mg tablet 20 mg PO QHS trazodone 100 mg tablet 100 mg PO QHS lidocaine 4 % adhesive patch,medicated 1 patch TOPICAL DAILY PRN (Reason: Pain) cyanocobalamin (vitamin B-12) 1,000 mcg tablet 1,000 mcg PO DAILY Label Comments: Take 1 tablet by mouth once daily. pantoprazole [Protonix] 40 mg tablet,delayed release (DR/EC) 40 mg PO BID Qty: 60 0RF oxybutynin chloride 10 mg tablet extended release 24hr 10 mg PO DAILY Label Comments: Take 2 tablets by mouth once daily. nabumetone 500 mg tablet 500 mg DAILY Label Comments: Take 1 tablet by mouth once daily. TAKE WITH FOOD [id number] 250 mg-200 mg- 1,500 unit Tablet 1 tab PO DAILY metoprolol tartrate 25 mg tablet 25 mg PO DAILY Label Comments: Take 1 tablet by mouth twice daily. Changed sucralfate [Carafate] 1 gram tablet 1 g PO DAILY Qty: 1 0RF Held aspirin 81 mg Capsule 81 mg PO DAILY Hold Instructions: Resume on 10/25/22. Referrals / Follow Up: Justin Tierney MD [Primary Care Provider] - Disposition Disposition (needs filled in before D/C Order can be placed): [facility] Charges/Coding Visit Charges Inpatient E&M: 63000 Disch Hosp
--- NOTE | 2022-10-19 16:39 | CASEMGMT ---
Social Work Precert has been obtained and [facility] can accept pt on this date. Physician updated and pt can discharge at this time. Pt notified and agreeable to discharge. Transportation arranged with [facility] for [address] pick[address] via [employer]. [id number] Convalescent form completed in [facility] and sent along with orders and covid results to [facility] via [employer] (formerly [employer]). Phone call to pt yamila Keita and updated on discharge plan. Phone call to Pt Direction [employer] Blanka Haile ([phone]) and notified of pt admission and discharge plan. Pt receives 3 hrs of Aid services on Tuesdays, 5 hrs on and goes to adult day care on Sunday. Pt receives 5 meals every other week. Discharge summary faxed to [facility] Disposition: [facility], Skilled level of care under convalescent stay JASON Rowe
--- NOTE | 2022-10-19 18:25 | NURSING ---
Report given to RN at [facility]
[2022-10-19] MEDS: Atorvastatin Calcium 10 MG Tablet PO (21:11)
[2022-10-19] MEDS: traZODone 100 MG Tablet PO (21:11)
== END 2022-10-19 21:30 | disposition skilled nursing facility (03) | DRG 291 ==
LOC: ED 17:53 → MS3 18:24
PROVIDERS: Physician Assistant; Student in an Organized Health Care Education/Training Program; Admitting Provider Family Medicine; Emergency Provider Emergency Medicine; PCP Family Medicine; Visit Provider Family Medicine
DX: I13.0 Hypertensive heart and chronic kidney disease with heart failure and stage 1 through stage 4 chronic kidney disease, or unspecified chronic kidney disease (principal); J18.9 Pneumonia, unspecified organism; J96.01 Acute respiratory failure with hypoxia; I50.32 Chronic diastolic (congestive) heart failure; I27.20 Pulmonary hypertension, unspecified; N18.30 Chronic kidney disease, stage 3 unspecified; K21.9 Gastro-esophageal reflux disease without esophagitis; E78.5 Hyperlipidemia, unspecified; I07.1 Rheumatic tricuspid insufficiency; G47.33 Obstructive sleep apnea (adult) (pediatric); M19.012 Primary osteoarthritis, left shoulder; D64.9 Anemia, unspecified; E03.9 Hypothyroidism, unspecified; E66.9 Obesity, unspecified; Z68.30 Body mass index [BMI] 30.0-30.9, adult; Z66 Do not resuscitate; Z20.822 Contact with and (suspected) exposure to COVID-19; Z79.1 Long term (current) use of non-steroidal anti-inflammatories (NSAID); Z79.82 Long term (current) use of aspirin; Z79.899 Other long term (current) drug therapy; Z85.3 Personal history of malignant neoplasm of breast
CPT/HCPCS: 36415; 71046; 73000; 73030; 73060; 73200; 80048; 80053; 80202; 81001; 82274; 82607; 82728; 82746; 83540; 83550; 83605; 83880; 84145; 84484; 85025; 87426; 87428; 87449; 87633; 87807; 93005; 93306; 94640; 97110; 97162; 97165; 97530; 97535; 97802; 99251; 99285; J7030; J7050; Q9957; A4216; G0463; J1940

== ENCOUNTER → 2022-10-23 | Outpatient (REF) | payer MEDICARE, MEDICAID, SELFPAY ==
[2022-10-23 09:02] LABS: Absolute Lymphocyte Count 0.31 X10^3/uL (0.83-4.51); Basophil# 0.03 X10^3/uL; Basophil% 0.3 % (0-1); Hemoglobin 8.7 g/dL (12.0-15.0); Lymphocyte # 0.31 X10^3/ul (0.83-4.51); Lymphocyte % 2.9 % (19-41); Mean Corp Hgb Conc 31.1 g/dL (32-36); Mean Corpuscular Hgb 27.5 pg (27.0-32.0); Mean Corpuscular Volume 88.6 fL (81-99); Mean Platelet Vol. 9.7 fl (6.2-12.0); Monocyte# 1.13 X10^3/uL; Monocyte% 10.7 % (0-10); NRBC Flagged by Analyzer 0 % (0-5); Neutrophil # 8.98 X10^3/uL (2.7-7.7); Neutrophil % 85.4 % (47-70); POSITIVE DIFFERENTIAL YES; Platelet Count 317 K/mm3 (150-450); RBC Distribution Width CV 13.2 % (11.6-14.6); RBC Distribution Width SD 42.5 fl (35.1-43.9); Red Blood Count 3.16 M/mm3 (4.2-5.4); White Blood Count 10.5 K/mm3 (4.4-11.0)
[2022-10-23 09:05] LABS: Differential Indicated SCAN CRITERIA MET
[2022-10-23 09:17] LABS: Anion Gap 6 (5-15); BUN 12 mg/dL (7-18); BUN/Creat Ratio 17.7 RATIO (10-20); Calcium,Total 8.7 mg/dL (8.5-10.1); Chloride 96 mmol/L (98-107); Creatinine, Serum 0.68 mg/dL (0.55-1.02); EST Glomerular Filtration Rate 89 mL/min (>60); Est Glom Filt Rate - Afr Amer 107 mL/min (>60); Glucose 143 mg/dL (74-106); Potassium 3.4 mmol/L (3.5-5.1); Sodium Level 133 mmol/L (136-145)
[2022-10-23 09:35] LABS: Differential Comment SCANNED
[2022-10-23 09:56] LABS: Vitamin D,25 Hydroxy 80.7 ng/mL
== END ==
LOC: OLS.WHLTCC 05:00
PROVIDERS: PCP Family Medicine; Visit Provider Nurse Practitioner Adult Health
DX: D63.1 Anemia in chronic kidney disease (principal); J96.01 Acute respiratory failure with hypoxia; K59.00 Constipation, unspecified; M13.80 Other specified arthritis, unspecified site; M19.90 Unspecified osteoarthritis, unspecified site; E55.9 Vitamin D deficiency, unspecified; G47.33 Obstructive sleep apnea (adult) (pediatric); G47.00 Insomnia, unspecified; E78.5 Hyperlipidemia, unspecified; H81.10 Benign paroxysmal vertigo, unspecified ear; N18.9 Chronic kidney disease, unspecified
CPT/HCPCS: 36415; 80048; 82306; 85025

== ENCOUNTER → 2022-11-14 | Outpatient (REF) | payer MEDICARE, MEDICAID, SELFPAY ==
[2022-11-14 09:31] LABS: Absolute Lymphocyte Count 0.72 X10^3/uL (0.83-4.51); Absolute Neutrophil Count 3.1 X10^3/uL (2.0-7.7); Basophil# 0.03 X10^3/uL; Basophil% 0.7 % (0-1); Eosinophil# 0.09 X10^3/uL; Hematocrit 27.9 % (37-47); Hemoglobin 8.6 g/dL (12.0-15.0); Lymphocyte # 0.72 X10^3/ul (0.83-4.51); Lymphocyte % 16.1 % (19-41); Mean Corp Hgb Conc 30.8 g/dL (32-36); Mean Corpuscular Hgb 26.4 pg (27.0-32.0); Mean Corpuscular Volume 85.6 fL (81-99); Mean Platelet Vol. 9.1 fl (6.2-12.0); Monocyte# 0.56 X10^3/uL; Monocyte% 12.6 % (0-10); NRBC Flagged by Analyzer 0 % (0-5); Neutrophil # 3.05 X10^3/uL (2.7-7.7); Neutrophil % 68.4 % (47-70); Platelet Count 294 K/mm3 (150-450); RBC Distribution Width CV 15.8 % (11.6-14.6); RBC Distribution Width SD 49.5 fl (35.1-43.9); Red Blood Count 3.26 M/mm3 (4.2-5.4); White Blood Count 4.5 K/mm3 (4.4-11.0)
[2022-11-14 10:36] LABS: Anion Gap 7 (5-15); BUN 14 mg/dL (7-18); BUN/Creat Ratio 18.1 RATIO (10-20); Calcium,Total 8.9 mg/dL (8.5-10.1); Chloride 97 mmol/L (98-107); Creatinine, Serum 0.77 mg/dL (0.55-1.02); EST Glomerular Filtration Rate 76 mL/min (>60); Est Glom Filt Rate - Afr Amer 92 mL/min (>60); Glucose 75 mg/dL (74-106); Potassium 3.8 mmol/L (3.5-5.1); Sodium Level 134 mmol/L (136-145)
== END ==
LOC: OLS.WHLTCC 05:00
PROVIDERS: PCP Family Medicine; Visit Provider Internal Medicine
DX: J96.01 Acute respiratory failure with hypoxia (principal); R09.81 Nasal congestion; K59.00 Constipation, unspecified; E87.6 Hypokalemia; D63.1 Anemia in chronic kidney disease; N18.9 Chronic kidney disease, unspecified; R00.0 Tachycardia, unspecified; E55.9 Vitamin D deficiency, unspecified; E78.5 Hyperlipidemia, unspecified
CPT/HCPCS: 36415; 80048; 85025

== ENCOUNTER 2023-07-27 14:40 | Emergency (ER) | payer MEDICARE, MEDICAID, SELFPAY ==
[2023-07-27 14:41] VITALS: BP 155/78; PULSE 109; RESP 18; TEMP 36.6; O2SAT 93
[2023-07-27 14:56] LABS: Absolute Lymphocyte Count 0.67 X10^3/uL (0.83-4.51); Basophil# 0.01 X10^3/uL; Basophil% 0.1 % (0-1); Hematocrit 36.5 % (37-47); Lymphocyte # 0.67 X10^3/ul (0.83-4.51); Lymphocyte % 7.1 % (19-41); Mean Corp Hgb Conc 32.9 g/dL (32-36); Mean Corpuscular Hgb 29.9 pg (27.0-32.0); Mean Platelet Vol. 8.8 fl (6.2-12.0); Monocyte# 0.65 X10^3/uL; Monocyte% 6.9 % (0-10); NRBC Flagged by Analyzer 0 % (0-5); Neutrophil # 7.98 X10^3/uL (2.7-7.7); Neutrophil % 84.9 % (47-70); Platelet Count 387 K/mm3 (150-450); RBC Distribution Width CV 12.1 % (11.6-14.6); RBC Distribution Width SD 40.9 fl (35.1-43.9); Red Blood Count 4.01 M/mm3 (4.2-5.4); White Blood Count 9.4 K/mm3 (4.4-11.0)
[2023-07-27 15:14] LABS: Anion Gap 5 (5-15); BUN 18 mg/dL (7-18); BUN/Creat Ratio 19.3 RATIO (10-20); Calcium,Total 9.7 mg/dL (8.5-10.1); Chloride 99 mmol/L (98-107); Creatinine, Serum 0.93 mg/dL (0.55-1.02); EST Glomerular Filtration Rate 61 mL/min (>60); Est Glom Filt Rate - Afr Amer 74 mL/min (>60); Glucose 179 mg/dL (74-106); Potassium 3.4 mmol/L (3.5-5.1); Sodium Level 135 mmol/L (136-145)
[2023-07-27 15:33] VITALS: BMI 29.1
[2023-07-27 16:33] VITALS: O2SAT 95
[2023-07-27] MEDS: HYDROcodone Bitartrate/Apap 5/325 Tablet PO (16:40)
[2023-07-27 17:48] VITALS: BP 121/68; O2SAT 93
--- NOTE | 2023-07-27 23:12 | EDS_ITS ---
HPI History of Present Illness Chief Complaint: Shortness of Breath Narrative Narrative: 82-year-old female presenting with, chief complaint of shortness of breath she states she feels tight and wheezy.. She took a breathing treatment prior to coming in and feels about 50% better. It does not radiate. No fevers or chills. No headedness or dizziness. PFSH [facility] Medical History Anemia Arthritis Benign positional vertigo Breast mass, left Cardiac contusion (11/27/18) Chronic kidney disease (CKD) Dyspnea on exertion Elevated troponin (11/27/18) FRACTURE LEFT ANKLE GERD (gastroesophageal reflux disease) History of fall (11/27/18) History of left heart catheterization History of subdural hematoma (post traumatic) (03/19/16) Hx of breast cancer Hx of pulmonary hypertension Hyperlipidemia Hypertension Osteopenia Pain in left shoulder Pleural effusion on left Sternal fracture (11/27/18) Thyroid disease Home Medications cholecalciferol (vitamin D3) 1,250 mcg (50,000 unit) capsule 50,000 unit PO TH supplement 04/02/19 [History Last Taken 10/12/22] simvastatin 20 mg tablet 20 mg PO QHS cholesterol 04/02/19 [History Last Taken 10/12/22] trazodone 100 mg tablet 100 mg PO QHS sleep 04/02/19 [History Last Taken 10/12/22] lidocaine 4 % topical patch 1 patch topical DAILY PRN Pain 04/08/19 [History Last Taken 10/09/19] cyanocobalamin (vitamin B-12) 1,000 mcg tablet 1,000 mcg PO DAILY supplement 07/23/22 [History Last Taken 10/12/22] pantoprazole 40 mg tablet,delayed release (Protonix) 40 mg PO BID #60 tabs 07/25/22 [Rx Last Taken 10/13/22] aspirin 81 mg capsule 81 mg PO DAILY 10/05/22 [History Last Taken 10/12/22] glucosamine 250 [id number] 200 mg-D3 1,500 [id number]-[id number]-herbs tablet 1 tab PO DAILY 10/05/22 [History Last Taken Unknown] nabumetone 500 mg tablet 500 mg DAILY 10/05/22 [History Last Taken 10/12/22] oxybutynin chloride 10 mg tablet,extended release 24 hr 10 mg PO DAILY 10/05/22 [History Last Taken 10/13/22] metoprolol tartrate 25 mg tablet 25 mg PO DAILY HTN 10/13/22 [History Last Taken 10/13/22] bisacodyl 5 mg tablet,delayed release 5 mg PO DAILY #0 tabs 10/19/22 [Rx Last Taken Unknown] dextromethorphan-guaifenesin 30 mg-600 mg tablet extended [id number] hr (Mucinex DM) 1 tab PO BID #0 tabs 10/19/22 [Rx Last Taken Unknown] docusate sodium 100 mg capsule 100 mg PO BID #0 caps 10/19/22 [Rx Last Taken Unknown] furosemide 40 mg tablet (Lasix) 40 mg PO DAILY #30 tabs 10/19/22 [Rx Last Taken Unknown] hydrocodone-acetaminophen 5-325mg 5mg-325mg 1 tab PO Q4H PRN PRN pain 4-10 3 days #10 tabs 10/19/22 [Rx Last Taken Unknown] lidocaine 5 % topical patch 2 patch topical DAILY #0 ea 10/19/22 [Rx Last Taken Unknown] magnesium hydroxide 400 mg/5 mL oral suspension 30 ml PO DAILY PRN PRN constipation #0 mL 10/19/22 [Rx Last Taken Unknown] melatonin 3 mg tablet 3 mg PO QHS PRN PRN Insomnia #0 tabs 10/19/22 [Rx Last Taken Unknown] sucralfate 1 gram tablet (Carafate) 1 g PO DAILY #1 TAB 10/19/22 [Rx Last Taken 10/13/22] tramadol 50 mg tablet 50 mg PO Q6H PRN pain #30 tabs 11/14/22 [Rx Last Taken Unknown] Allergy/AdvReac Type Severity Reaction Status Date / Time diazepam [From Valium] AdvReac Severe Other Verified 07/27/23 14:41 eszopiclone [From Lunesta] AdvReac Severe confusion Verified 07/27/23 14:41 morphine AdvReac Severe Other Verified 07/27/23 14:41 paroxetine HCl [From Paxil] AdvReac Severe Other Verified 07/27/23 14:41 zolpidem [From Ambien] AdvReac Severe confusion Verified 07/27/23 14:41 Family History Sister Breast cancer Heart disease Hypertension Father Heart disease Hypertension Surgical History History of bilateral knee replacement History of lumpectomy of left breast History of oophorectomy History of right cataract surgery History of tubal ligation Social History housing: house current occupational status: retired Smoking Status: Never smoker second hand exposure: No alcohol intake: never substance use type: does not use caffeine: Yes Type: coffee Number of servings: 2 what type of physical activity do you participate in: none frequency: does not exercise amador/confucianist: [employer] seatbelt use: sometimes additional social history: 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 She worked in an [employer], had to fly to get there. ROS ROS ED Constitutional Constitutional ED: Denies chills, fever(s) or sweats Eyes Eyes: Denies blurry vision or change in vision ENT ENT ED: Denies ear pain or sore throat Cardiovascular Cardiovascular: Denies palpitations or racing heartbeat Respiratory/Chest Respiratory/Chest: Reports dyspnea and dyspnea on exertion; Denies cough or sputum Gastrointestinal Gastrointestinal: Denies abdominal pain, constipation, diarrhea, nausea or vomiting Genitourinary Genitourinary ED: Denies dysuria, hematuria or urinary frequency Musculoskeletal Musculoskeletal: Denies arthralgias, myalgias or neck pain Integumentary Denies abscess, Abrasions or rash Neurologic Neurologic: Denies headache(s), paresthesias or weakness Psychiatric Psychiatric: Denies anxiety, depression, suicidal ideation or suicidal thoughts Endocrine Endocrinology: Denies polydipsia or polyuria EXAM Physical Exam Const Vital Signs: 07/27/23 14:41 07/27/23 15:38 07/27/23 15:38 Temperature 97.8 F Temperature Source Temporal Pulse Rate 109 H Respiratory Rate 18 Respiratory Effort Short of Breath Respiratory Depth Normal Respiratory Pattern Normal Blood Pressure 155/78 H Blood Pressure Mean 103 Pulse Ox 93 Oxygen Delivery Method Room Air Room Air 07/27/23 16:33 07/27/23 17:48 Temperature Temperature Source Pulse Rate Respiratory Rate Respiratory Effort Respiratory Depth Respiratory Pattern Blood Pressure 121/68 H Blood Pressure Mean 85 Pulse Ox 95 93 Oxygen Delivery Method Room Air Positive well nourished General Appearance ED: NAD HEENT Reports moist mucous membranes atraumatic Eyes PERRL and EOMs intact bilaterally Neck no lymphadenopathy Resp normal respiratory effort Auscultation: Negative for rales, rhonchi or wheezes Cardio regular rate and regular rhythm GI non-tender Neuro oriented x3 and CN's II-XII intact bilaterally Sensorium / Orientation: alert Motor Exam: strength 5/5 throughout Psych mental status grossly normal Skin no wounds MDM MDM MDM Narrative Medical decision making narrative: Presenting with chest pain and shortness of breath. Patient received a breathing treatment prior to arrival and feels better. Basic labs with normal. Rapid COVID-negative. Patient stood up to ambulate to the bathroom and started to feel like she was wheezing and was given a DuoNeb. Give her a burst for this for home and she has an albuterol inhaler she can use. Patient ambulated and maintained normal pulse ox. Discharge stable condition. Impression: 1. Dyspnea Lab Data Labs: Laboratory Results - last 24 hr 07/27/23 14:26 WBC 9.4 RBC 4.01 L Hgb 12.0 Hct 36.5 L MCV 91.0 MCH 29.9 MCHC 32.9 RDW Std Deviation 40.9 RDW Coeff of Scott 12.1 Plt Count 387 MPV 8.8 Immature Gran % (Auto) 1.000 H Neut % (Auto) 84.9 H Lymph % (Auto) 7.1 L [place] % (Auto) 6.9 Eos % (Auto) 0.0 Baso % (Auto) 0.1 Absolute Neuts (auto) 8.0 H Absolute Lymphs (auto) 0.67 L Nucleated RBC % 0 Sodium 135 L Potassium 3.4 L Chloride 99 Carbon Dioxide 31.0 Anion Gap 5 BUN 18 Creatinine 0.93 Est GFR (MDRD) Af Amer 74 Est GFR (MDRD) Non-Af 61 BUN/Creatinine Ratio 19.3 Glucose 179 H Calcium 9.7 Discharge Plan Triage Chief Complaint: Shortness of Breath ED Provider: Todd Denis Dx/Rx/DC Orders Instructions: ED Chest Pain, Noncardiac, ED Dyspnea Prescriptions: No Action cholecalciferol (vitamin D3) 50,000 unit capsule 50,000 unit PO TH Rx Instructions: simvastatin 20 mg tablet 20 mg PO QHS trazodone 100 mg tablet 100 mg PO QHS lidocaine 4 % adhesive patch,medicated 1 patch TOPICAL DAILY PRN (Reason: Pain) cyanocobalamin (vitamin B-12) 1,000 mcg tablet 1,000 mcg PO DAILY Patient Comments: Take 1 tablet by mouth once daily. pantoprazole [Protonix] 40 mg tablet,delayed release (DR/EC) 40 mg PO BID Qty: 60 0RF oxybutynin chloride 10 mg tablet extended release 24hr 10 mg PO DAILY Patient Comments: Take 2 tablets by mouth once daily. nabumetone 500 mg tablet 500 mg DAILY Patient Comments: Take 1 tablet by mouth once daily. TAKE WITH FOOD [id number] 250 mg-200 mg- 1,500 unit Tablet 1 tab PO DAILY aspirin 81 mg Capsule 81 mg PO DAILY Hold Instructions: Resume on 10/25/22. metoprolol tartrate 25 mg tablet 25 mg PO DAILY Patient Comments: Take 1 tablet by mouth twice daily. hydrocodone-acetaminophen 5-325 mg Tablet 1 tab PO Q4H PRN PRN (Reason: pain 4-10) 3 Days Qty: 10 0RF magnesium hydroxide 400 mg/5 mL Suspension 30 ml PO DAILY PRN PRN (Reason: constipation) Qty: 0 0RF lidocaine 5 % Adhesive Patch,Medicated 2 patch topical DAILY Qty: 0 0RF Protocol: *Topical Application Instructions APPLICATION INSTRUCTIONS: L shoulder docusate sodium 100 mg Capsule 100 mg PO BID Qty: 0 0RF bisacodyl 5 mg Tablet,Delayed Release (Dr/Ec) 5 mg PO DAILY Qty: 0 0RF Mucinex DM 30-600 mg Tablet Extended Release 12 Hr 1 tab PO BID Qty: 0 0RF melatonin 3 mg Tablet 3 mg PO QHS PRN PRN (Reason: Insomnia) Qty: 0 0RF sucralfate [Carafate] 1 gram tablet 1 g PO DAILY Qty: 1 0RF furosemide [Lasix] 40 mg tablet 40 mg PO DAILY Qty: 30 0RF tramadol 50 mg tablet 50 mg PO Q6H PRN (Reason: pain) Qty: 30 0RF Primary Care Provider: Justin Tierney Referrals: Justin Tierney MD [Primary Care Provider] - Disposition Disposition: Home, Self Care Discharge Date/Time: 07/27/23 19:36
== END 2023-07-27 19:36 | disposition home or self-care (01) ==
PROVIDERS: Emergency Provider Student in an Organized Health Care Education/Training Program; PCP Family Medicine; Visit Provider Student in an Organized Health Care Education/Training Program
DX: R06.02 Shortness of breath (principal); R07.9 Chest pain, unspecified; N18.9 Chronic kidney disease, unspecified; E78.5 Hyperlipidemia, unspecified; I12.9 Hypertensive chronic kidney disease with stage 1 through stage 4 chronic kidney disease, or unspecified chronic kidney disease
CPT/HCPCS: 80048; 85025; 87811; 94760; 99284

== ENCOUNTER 2023-09-10 12:14 | Inpatient (IN) | payer MEDICARE, MEDICAID, SELFPAY ==
[2023-09-10] VITALS (9 sets, daily range): BP systolic 136–142; BP diastolic 78–83; PULSE 92–121; RESP 14–24; TEMP 36.2–37.3; O2SAT 89–100
--- NOTE | 2023-09-10 12:52 | RAD_ITS ---
STUDY: X-RAY CHEST REASON FOR EXAM: Female, 83 years old. COUGH TECHNIQUE: Single AP portable view of the chest. COMPARISON: Comparison is made with prior study dated October 13, 2022. FINDINGS: Persistent elevation of the left hemidiaphragm. Patchy left lower lobe infiltrate. There is no demonstrated pleural abnormality. Normal size heart. Normal mediastinum and merrill. Normal visualized pulmonary arteries. There is atherosclerotic calcification of the aortic arch with tortuosity. There are degenerative changes of the visualized thoracic spine. Normal visualized ribs, clavicles, and shoulders. There is no demonstrated abnormality of the visualized soft tissue structures of the upper abdomen. RAD/Chest 1 View (Portable) IMPRESSION: Patchy left lower lobe infiltrate. Electronically Signed: Gurpreet Chase MD at 13:24 EDT ,
[2023-09-10 13:45] LABS: Absolute Lymphocyte Count 0.51 X10^3/uL (0.83-4.51); Basophil# 0.02 X10^3/uL; Basophil% 0.3 % (0-1); Eosinophil# 0.03 X10^3/uL; Eosinophils% 0.4 % (0-5); Hematocrit 34.2 % (37-47); Hemoglobin 10.9 g/dL (12.0-15.0); Lymphocyte # 0.51 X10^3/ul (0.83-4.51); Lymphocyte % 6.6 % (19-41); Mean Corp Hgb Conc 31.9 g/dL (32-36); Mean Corpuscular Hgb 29.3 pg (27.0-32.0); Mean Corpuscular Volume 91.9 fL (81-99); Mean Platelet Vol. 9.5 fl (6.2-12.0); Monocyte# 1.13 X10^3/uL; Monocyte% 14.7 % (0-10); NRBC Flagged by Analyzer 0 % (0-5); Neutrophil # 5.96 X10^3/uL (2.7-7.7); Neutrophil % 77.5 % (47-70); POSITIVE DIFFERENTIAL YES; Platelet Count 221 K/mm3 (150-450); RBC Distribution Width CV 13.6 % (11.6-14.6); Red Blood Count 3.72 M/mm3 (4.2-5.4); White Blood Count 7.7 K/mm3 (4.4-11.0)
[2023-09-10 13:46] LABS: Differential Indicated SCAN CRITERIA MET
--- NOTE | 2023-09-10 13:52 | EX.ED.DYSGE1 ---
HPI <АЛЕКСАНДР Mckeon - Last Filed: 09/10/23 14:31> History of Present Illness Chief Complaint: Cough Narrative Narrative: Patient is a 83-year-old female with history of CHF, hypertension, thyroid disease, history of breast cancer presents to the emergency department for cough, fatigue that has been ongoing for 48 hours. Patient states that the cough is bringing up yellow sputum. She does have history of getting pneumonia and she is concerned. She denies any known fever or chills however states she does feel sweaty. She states she was on room air while doing her daily activities today. She denies any specific pain. Patient does have a history of arthritis. Patient denies any nausea or vomiting PFSH <АЛЕКСАНДР Mckeon - Last Filed: 09/10/23 14:31> PFSH Medical History Anemia Arthritis Benign positional vertigo Breast mass, left Cardiac contusion (11/27/18) Chronic kidney disease (CKD) Dyspnea on exertion Elevated troponin (11/27/18) FRACTURE LEFT ANKLE GERD (gastroesophageal reflux disease) History of fall (11/27/18) History of left heart catheterization History of subdural hematoma (post traumatic) (03/19/16) Hx of breast cancer Hx of pulmonary hypertension Hyperlipidemia Hypertension Osteopenia Pain in left shoulder Pleural effusion on left Sternal fracture (11/27/18) Thyroid disease Home Medications cholecalciferol (vitamin D3) 1,250 mcg (50,000 unit) capsule 50,000 unit PO TH supplement 04/02/19 [History Last Taken 10/12/22] simvastatin 20 mg tablet 20 mg PO QHS cholesterol 04/02/19 [History Last Taken 10/12/22] trazodone 100 mg tablet 100 mg PO QHS sleep 04/02/19 [History Last Taken 10/12/22] lidocaine 4 % topical patch 1 patch topical DAILY PRN Pain 04/08/19 [History Last Taken 10/09/19] cyanocobalamin (vitamin B-12) 1,000 mcg tablet 1,000 mcg PO DAILY supplement 07/23/22 [History Last Taken 10/12/22] pantoprazole 40 mg tablet,delayed release (Protonix) 40 mg PO BID #60 tabs 07/25/22 [Rx Last Taken 10/13/22] aspirin 81 mg capsule 81 mg PO DAILY 10/05/22 [History Last Taken 10/12/22] glucosamine 250 qd-maldx-jim 200 mg-D3 1,500 riml-J-ngvok-herbs tablet 1 tab PO DAILY 10/05/22 [History Last Taken Unknown] nabumetone 500 mg tablet 500 mg DAILY 10/05/22 [History Last Taken 10/12/22] oxybutynin chloride 10 mg tablet,extended release 24 hr 10 mg PO DAILY 10/05/22 [History Last Taken 10/13/22] metoprolol tartrate 25 mg tablet 25 mg PO DAILY HTN 10/13/22 [History Last Taken 10/13/22] bisacodyl 5 mg tablet,delayed release 5 mg PO DAILY #0 tabs 10/19/22 [Rx Last Taken Unknown] dextromethorphan-guaifenesin 30 mg-600 mg tablet extended [id number] hr (Mucinex DM) 1 tab PO BID #0 tabs 10/19/22 [Rx Last Taken Unknown] docusate sodium 100 mg capsule 100 mg PO BID #0 caps 10/19/22 [Rx Last Taken Unknown] furosemide 40 mg tablet (Lasix) 40 mg PO DAILY #30 tabs 10/19/22 [Rx Last Taken Unknown] hydrocodone-acetaminophen 5-325mg 5mg-325mg 1 tab PO Q4H PRN PRN pain 4-10 3 days #10 tabs 10/19/22 [Rx Last Taken Unknown] lidocaine 5 % topical patch 2 patch topical DAILY #0 ea 10/19/22 [Rx Last Taken Unknown] magnesium hydroxide 400 mg/5 mL oral suspension 30 ml PO DAILY PRN PRN constipation #0 mL 10/19/22 [Rx Last Taken Unknown] melatonin 3 mg tablet 3 mg PO QHS PRN PRN Insomnia #0 tabs 10/19/22 [Rx Last Taken Unknown] sucralfate 1 gram tablet (Carafate) 1 g PO DAILY #1 TAB 10/19/22 [Rx Last Taken 10/13/22] tramadol 50 mg tablet 50 mg PO Q6H PRN pain #30 tabs 11/14/22 [Rx Last Taken Unknown] potassium chloride 20 mEq tablet,extended release 20 meq PO DAILY 09/10/23 [History Last Taken 09/10/23] Allergy/AdvReac Type Severity Reaction Status Date / Time diazepam [From Valium] AdvReac Severe Other Verified 09/10/23 12:16 eszopiclone [From Lunesta] AdvReac Severe confusion Verified 09/10/23 12:16 morphine AdvReac Severe Other Verified 09/10/23 12:16 paroxetine HCl [From Paxil] AdvReac Severe Other Verified 09/10/23 12:16 zolpidem [From Ambien] AdvReac Severe confusion Verified 09/10/23 12:16 Family History Sister Breast cancer Heart disease Hypertension Father Heart disease Hypertension Surgical History History of bilateral knee replacement History of lumpectomy of left breast History of oophorectomy History of right cataract surgery History of tubal ligation Social History housing: house current occupational status: retired Smoking Status: Never smoker second hand exposure: No alcohol intake: never substance use type: does not use caffeine: Yes Type: coffee Number of servings: 2 what type of physical activity do you participate in: none frequency: does not exercise amador/confucianism: [employer] [facility] [employer] seatbelt use: sometimes additional social 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 She worked in an [employer], had to fly to get there. ROS <Ramez Davila NP-Jose - Last Filed: 09/10/23 14:31> ROS ED ROS Narrative Constitutional: Negative for fever, weight loss, weakness. Positive for chills Eyes: Negative for vision loss, vision change, double vision ENT: Negative for any sore throat, ear pain, congestion Cardiovascular: Negative for any chest pain, tightness, palpitations Respiratory: Negative for any hemoptysis, orthopnea. Positive for cough, sputum production, dyspnea, dyspnea on exertion Gastrointestinal: Negative for any abdominal pain, nausea, vomiting, diarrhea, constipation, blood in stool, blood in vomit : Negative for any urinary frequency, dysuria, retention, blood in urine Muscle skeletal: Negative for any muscle joint pain, stiffness, myalgias, arthralgias, neck pain, back pain Neurological: Negative for any headache, syncope, numbness or tingling, dizziness Skin: Negative for any rashes, lumps, itching, abrasions, lacerations Psychiatric: Negative for any depression, anxiety, stress, suicidal ideation, homicidal ideation Hematologic: Negative for any easy bruising, excessive bruising, easy bleeding Allergies: Negative for any eczema, hives, rash EXAM <АЛЕКСАНДР Mckeon - Last Filed: 09/10/23 14:31> Physical Exam Narrative Exam Narrative: Patient is in no obvious distress while at rest. Vital signs reviewed. HEET: Head normocephalic atraumatic, TMs clear bilaterally. Posterior pharynx is clear, moist mucous membranes. Nares clear bilaterally. Neck: Supple with no lymphadenopathy or tenderness. No signs of meningismus, negative jolt sign. Cardiac: Regular rate and rhythm no murmurs gallops or rubs, equal peripheral pulses bilaterally. Respiratory: Patient has crackles to left lower lung base. No chest tenderness. Abdomen: Soft, nontender, nondistended. No abdominal bruit or pulsatile masses. No hepatosplenomegaly Extremities: No peripheral edema, no signs of gross trauma or deformity. Active full range of motion of all extremities. Neuro: Cranial nerves II through XII intact, no focal neurological deficits. Skin: Clean dry and intact with no rash, purpura, petechiae, vesicles or pustules. Backs/flank: No CVA tenderness, no midline spinal tenderness, no deformity. Psych: Normal mood and affect. No SI, HI or acute psychosis. Const Vital Signs: 09/10/23 12:14 09/10/23 14:02 09/10/23 14:02 Temperature 97.2 F L Temperature Source Temporal Pulse Rate 121 H Respiratory Rate 14 22 H Respiratory Effort Blood Pressure 142/80 H Blood Pressure Mean 100 Pulse Ox 94 91 Oxygen Delivery Method Room Air Room Air Room Air Oxygen Flow Rate (L/min) 09/10/23 14:03 09/10/23 14:23 09/10/23 14:23 Temperature Temperature Source Pulse Rate Respiratory Rate Respiratory Effort Short of Breath Blood Pressure Blood Pressure Mean Pulse Ox 89 92 Oxygen Delivery Method Room Air Room Air Nasal Cannula Oxygen Flow Rate (L/min) 2 <Dr. Felton Goetz MD - Last Filed: 09/10/23 14:33> Physical Exam Const Vital Signs: 09/10/23 12:14 09/10/23 14:02 09/10/23 14:02 Temperature 97.2 F L Temperature Source Temporal Pulse Rate 121 H Respiratory Rate 14 22 H Respiratory Effort Blood Pressure 142/80 H Blood Pressure Mean 100 Pulse Ox 94 91 Oxygen Delivery Method Room Air Room Air Room Air Oxygen Flow Rate (L/min) 09/10/23 14:03 09/10/23 14:23 09/10/23 14:23 Temperature Temperature Source Pulse Rate Respiratory Rate Respiratory Effort Short of Breath Blood Pressure Blood Pressure Mean Pulse Ox 89 92 Oxygen Delivery Method Room Air Room Air Nasal Cannula Oxygen Flow Rate (L/min) 2 MDM <АЛЕКСАНДР Mckeon - Last Filed: 09/10/23 14:31> [facility] Lab Data Labs: Laboratory Results - last 24 hr 09/10/23 13:25 WBC 7.7 RBC 3.72 L Hgb 10.9 L Hct 34.2 L MCV 91.9 MCH 29.3 MCHC 31.9 L RDW Std Deviation 46.0 H RDW Coeff of Scott 13.6 Plt Count 221 MPV 9.5 Immature Gran % (Auto) 0.500 Neut % (Auto) 77.5 H Lymph % (Auto) 6.6 L Rankin % (Auto) 14.7 H Eos % (Auto) 0.4 Baso % (Auto) 0.3 Absolute Neuts (auto) 6.0 Absolute Lymphs (auto) 0.51 L Nucleated RBC % 0 Sodium 134 L Potassium 3.3 L Chloride 102 Carbon Dioxide 27.0 Anion Gap 5 BUN 17 Creatinine 0.81 Est GFR (MDRD) Af Amer 87 Est GFR (MDRD) Non-Af 72 BUN/Creatinine Ratio 20.9 H Glucose 138 H Calcium 8.8 Troponin I High Sens 10 Radiography Diagnostic Testing: Clinical Impression(s) from Imaging Studies Chest X-Ray 09/10/23 12:52 IMPRESSION: Patchy left lower lobe infiltrate. Electronically Signed: Gurpreet Chase MD at 13:24 EDT , EKG Normal sinus rhythm: Attestation: I personally reviewed and interpreted this EKG as follows: Comments: Normal sinus rhythm, rate of 97 bpm, TN interval 146 ms, QRS duration 74 ms, no acute ST elevation, no acute infarct noted. Treatment and Re-Evaluation :: Patient appears generally well, patient appears nontoxic. Patient presents to the emergency department with complaints of cough, generalized weakness and malaise. Patient did have some laboratory values completed prior towards me seeing her. Patient's CBC shows no leukocytosis, patient's hemoglobin is 10.9. Patient's chemistries were unremarkable, troponin was negative. Patient's COVID was negative. Patient did receive a chest x-ray this did show a patchy left lower lobe infiltrate. This is consistent with the patient's physical exam. Differential diagnosis includes community-acquired pneumonia, COPD exacerbation, CHF exacerbation, viral-like symptoms. Patient looks generally well, patient will ambulate on pulse oxygenation to see if she does come hypoxic. Patient was ambulated on room air, patient really dropped to 87 to 88%. Patient was tachypneic, felt short of breath and weak. Per the nurse, patient was able to walk very far. At this time, secondary to the pneumonia seen on the chest x-ray, as well as hypoxia, patient will need to be admitted to the hospital. I spoke with the patient, the patient's family they are agreement. I spoke with hospitalist who will accept the patient. Patient be a full admission to PCU. Patient will receive blood cultures x2, lactic <Dr. Felton Goetz MD - Last Filed: 09/10/23 14:33> [facility] Lab Data Attestation: I reviewed the patient's lab results. Labs: Laboratory Results - last 24 hr 09/10/23 13:25 WBC 7.7 RBC 3.72 L Hgb 10.9 L Hct 34.2 L MCV 91.9 MCH 29.3 MCHC 31.9 L RDW Std Deviation 46.0 H RDW Coeff of Scott 13.6 Plt Count 221 MPV 9.5 Immature Gran % (Auto) 0.500 Neut % (Auto) 77.5 H Lymph % (Auto) 6.6 L Rankin % (Auto) 14.7 H Eos % (Auto) 0.4 Baso % (Auto) 0.3 Absolute Neuts (auto) 6.0 Absolute Lymphs (auto) 0.51 L Nucleated RBC % 0 Sodium 134 L Potassium 3.3 L Chloride 102 Carbon Dioxide 27.0 Anion Gap 5 BUN 17 Creatinine 0.81 Est GFR (MDRD) Af Amer 87 Est GFR (MDRD) Non-Af 72 BUN/Creatinine Ratio 20.9 H Glucose 138 H Calcium 8.8 Troponin I High Sens 10 Radiography Chest X-Ray - ED: 1 View, Read by ED Physician and Left Infiltrate Diagnostic Testing: Clinical Impression(s) from Imaging Studies Chest X-Ray 09/10/23 12:52 IMPRESSION: Patchy left lower lobe infiltrate. Electronically Signed: Gurpreet Chase MD at 13:24 EDT , Rhythm Strip Rhythm Strip: Sinus Tach Rate: 104 Ectopy: None EKG Initial EKG: Attestation: I personally reviewed and interpreted this EKG as follows: Interpretation: Sinus Rhythm and No Acute Injury Pattern Comments: Normal EKG Management Discussion w/another healthcare provider: Hospitalist Treatment and Re-Evaluation Comments:: I have personally performed a face to face assessment of the patient and have reviewed the JUNAID Note. I performed a substantive portion of the visit including all aspects of the following. My gomez findings include: History is productive cough, dyspnea, hypoxemia at home for the past day or 2. No leg swelling orthopnea. Exam is few Rales in the left base otherwise clear no respiratory distress. No leg edema. No stridor. Speaking full sentences. Abdomen benign. No JVD. Medical Decison Making septic work-up, she is tachycardic. Given hypoxemia likely admit. Other additions or changes: [None] Discharge Plan Triage Chief Complaint: Cough ED Midlevel Provider: Ramez Davila ED Provider: Felton Goetz Dx/Rx/DC Orders Clinical Impression: Community acquired pneumonia, Hypoxia, Hypoxemia, Generalized weakness, Left lower lobe pneumonia Prescriptions: No Action cholecalciferol (vitamin D3) 50,000 unit capsule 50,000 unit PO TH Rx Instructions: simvastatin 20 mg tablet 20 mg PO QHS trazodone 100 mg tablet 100 mg PO QHS lidocaine 4 % adhesive patch,medicated 1 patch TOPICAL DAILY PRN (Reason: Pain) cyanocobalamin (vitamin B-12) 1,000 mcg tablet 1,000 mcg PO DAILY Patient Comments: Take 1 tablet by mouth once daily. pantoprazole [Protonix] 40 mg tablet,delayed release (DR/EC) 40 mg PO BID Qty: 60 0RF oxybutynin chloride 10 mg tablet extended release 24hr 10 mg PO DAILY Patient Comments: Take 2 tablets by mouth once daily. nabumetone 500 mg tablet 500 mg DAILY Patient Comments: Take 1 tablet by mouth once daily. TAKE WITH FOOD [id number] 250 mg-200 mg- 1,500 unit Tablet 1 tab PO DAILY aspirin 81 mg Capsule 81 mg PO DAILY Hold Instructions: Resume on 10/25/22. metoprolol tartrate 25 mg tablet 25 mg PO DAILY Patient Comments: Take 1 tablet by mouth twice daily. hydrocodone-acetaminophen 5-325 mg Tablet 1 tab PO Q4H PRN PRN (Reason: pain 4-10) 3 Days Qty: 10 0RF magnesium hydroxide 400 mg/5 mL Suspension 30 ml PO DAILY PRN PRN (Reason: constipation) Qty: 0 0RF lidocaine 5 % Adhesive Patch,Medicated 2 patch topical DAILY Qty: 0 0RF Protocol: *Topical Application Instructions APPLICATION INSTRUCTIONS: L shoulder docusate sodium 100 mg Capsule 100 mg PO BID Qty: 0 0RF bisacodyl 5 mg Tablet,Delayed Release (Dr/Ec) 5 mg PO DAILY Qty: 0 0RF Mucinex DM 30-600 mg Tablet Extended Release 12 Hr 1 tab PO BID Qty: 0 0RF melatonin 3 mg Tablet 3 mg PO QHS PRN PRN (Reason: Insomnia) Qty: 0 0RF sucralfate [Carafate] 1 gram tablet 1 g PO DAILY Qty: 1 0RF furosemide [Lasix] 40 mg tablet 40 mg PO DAILY Qty: 30 0RF tramadol 50 mg tablet 50 mg PO Q6H PRN (Reason: pain) Qty: 30 0RF Primary Care Provider: Justin Tierney Referrals: Justin Tierney MD [Primary Care Provider] - Disposition Disposition: Acute Care [facility]
[2023-09-10 13:54] LABS: Anion Gap 5 (5-15); BUN 17 mg/dL (7-18); BUN/Creat Ratio 20.9 RATIO (10-20); Calcium,Total 8.8 mg/dL (8.5-10.1); Chloride 102 mmol/L (98-107); Creatinine, Serum 0.81 mg/dL (0.55-1.02); EST Glomerular Filtration Rate 72 mL/min (>60); Est Glom Filt Rate - Afr Amer 87 mL/min (>60); Glucose 138 mg/dL (74-106); Potassium 3.3 mmol/L (3.5-5.1); Sodium Level 134 mmol/L (136-145); Troponin-I HS 10 pg/mL (3.0-54.0)
--- NOTE | 2023-09-10 14:05 | EKG12_ITS ---
Test Reason : SOB Blood Pressure : / mmHG Vent. Rate : 097 BPM Atrial Rate : 097 BPM P-R Int : 146 ms QRS Dur : 074 ms QT Int : 320 ms P-R-T Axes : 050 033 023 degrees QTc Int : 406 ms Normal sinus rhythm Normal ECG Confirmed by TAHMINA HARRISON, BELKYS ([id number]), video effects editor ALICIA PRECIADO ([id number]) on 09/12/2023 6:47:56 AM Referred By: Confirmed By:BELKYS MARTEL MD
[2023-09-10] MEDS: Azithromycin 500 MG in Dextrose 5%-Water (250mL Bag) 250 ML 250 MG IV (15:05)
[2023-09-10] MEDS: Potassium Chloride Oral Tablet 20 MEQ 40 MEQ PO (16:04)
[2023-09-10] MEDS: HYDROcodone Bitartrate/Apap 5/325 Tablet PO ×2 (16:04→22:37)
[2023-09-10] MEDS: Ceftriaxone 1 GM/50 ML BAG IV (16:10)
--- NOTE | 2023-09-10 18:31 | PCM.HP.STD ---
HPI - General General Date of Admission: 09/10/23 Date of Service: 09/10/23 Chief Complaint: Productive cough, shortness of breath HPI Narrative RAYMUNDO LANDRY, is a 83 F who presents to the emergency room at [facility] with complaints of cough productive of green sputum and increasing shortness of breath over the past 2 days. Patient has had sweats at home but no chills, she denies any fever. Patient states that she has oxygen at home that was her sisters who , she uses intermittently for shortness of breath, patient denies any history of COPD or congestive heart failure, she does state that she has a history of pulmonary hypertension but is not receiving any medication for this. Also states that she uses albuterol aerosols as needed from a nebulizer at home, she is unaware of the diagnosis as to why she is using the nebulizer. She states that when she left the [facility] last year, she was prescribed this. Patient has had no history of smoking. Work-up in the emergency room included a chest x-ray which showed a left lower lobe infiltrate, patient's white blood cell count was normal, hemoglobin was slightly low at 10.9, sodium was low at 134 and potassium was low at 3.3. Patient will be admitted to PCU for hypokalemia, hypoxia, and left lower lobe community-acquired pneumonia, she will be given Zithromax and Rocephin during her hospitalization and receive aerosol treatments. Pulse ox will be monitored, potassium replacement will be given. BMP will be rechecked. Patient's COVID antigen was negative today, her respiratory panel is pending at the time of this dictation. [facility] Medical History Anemia Arthritis Benign positional vertigo Breast mass, left Cardiac contusion (11/27/18) Chronic kidney disease (CKD) Dyspnea on exertion Elevated troponin (11/27/18) FRACTURE LEFT ANKLE GERD (gastroesophageal reflux disease) History of fall (11/27/18) History of left heart catheterization History of subdural hematoma (post traumatic) (03/19/16) Hx of breast cancer Hx of pulmonary hypertension Hyperlipidemia Hypertension Osteopenia Pain in left shoulder Pleural effusion on left Sternal fracture (11/27/18) Thyroid disease Home Medications cholecalciferol (vitamin D3) 1,250 mcg (50,000 unit) capsule 50,000 unit PO TH supplement 04/02/19 [History Last Taken 09/10/23] simvastatin 20 mg tablet 20 mg PO QHS cholesterol 04/02/19 [History Last Taken 09/09/23] trazodone 100 mg tablet 100 mg PO QHS sleep 04/02/19 [History Last Taken 09/09/23] cyanocobalamin (vitamin B-12) 1,000 mcg tablet 1,000 mcg PO DAILY supplement 07/23/22 [History Last Taken 09/10/23] pantoprazole 40 mg tablet,delayed release (Protonix) 40 mg PO BID #60 tabs 07/25/22 [Rx Last Taken 09/10/23] aspirin 81 mg capsule 81 mg PO DAILY 10/05/22 [History Last Taken 09/09/23] glucosamine 250 vs-sfbyp-mzn 200 mg-D3 1,500 ovuf-J-bncsl-herbs tablet 1 tab PO DAILY 10/05/22 [History Last Taken 09/10/23] oxybutynin chloride 10 mg tablet,extended release 24 hr 10 mg PO DAILY 10/05/22 [History Last Taken 09/10/23] metoprolol tartrate 25 mg tablet 25 mg PO DAILY HTN 10/13/22 [History Last Taken 09/10/23] bisacodyl 5 mg tablet,delayed release 5 mg PO DAILY #0 tabs 10/19/22 [Rx Last Taken Unknown] docusate sodium 100 mg capsule 100 mg PO BID #0 caps 10/19/22 [Rx Last Taken 09/10/23] furosemide 40 mg tablet (Lasix) 40 mg PO DAILY #30 tabs 10/19/22 [Rx Last Taken 09/10/23] hydrocodone-acetaminophen 5-325mg 5mg-325mg 1 tab PO Q4H PRN PRN pain 4-10 3 days #10 tabs 10/19/22 [Rx Last Taken 09/10/23] sucralfate 1 gram tablet (Carafate) 1 g PO DAILY #1 TAB 10/19/22 [Rx Last Taken 09/10/23] potassium chloride 20 mEq tablet,extended release 20 meq PO DAILY 09/10/23 [History Last Taken 09/10/23] Allergy/AdvReac Type Severity Reaction Status Date / Time diazepam [From Valium] AdvReac Severe Other Verified 09/10/23 12:16 eszopiclone [From Lunesta] AdvReac Severe confusion Verified 09/10/23 12:16 morphine AdvReac Severe Other Verified 09/10/23 12:16 paroxetine HCl [From Paxil] AdvReac Severe Other Verified 09/10/23 12:16 zolpidem [From Ambien] AdvReac Severe confusion Verified 09/10/23 12:16 Family History Sister Breast cancer Heart disease Hypertension Father Heart disease Hypertension Surgical History History of bilateral knee replacement History of lumpectomy of left breast History of oophorectomy History of right cataract surgery History of tubal ligation Social History housing: house current occupational status: retired Smoking Status: Never smoker second hand exposure: No alcohol intake: never substance use type: does not use caffeine: Yes Type: coffee Number of servings: 2 what type of physical activity do you participate in: none frequency: does not exercise amador/scientologist: Zoroastrianism of [facility] seatbelt use: sometimes additional 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 She worked in an [employer], had to fly to get there. ROS Constitutional Constitutional: Reports fatigue; Denies anorexia, change in weight, chills, fever(s), night sweats or weakness Eyes Eyes: Denies blurry vision, change in vision, discharge from eye(s) or eye pain Cardiovascular Cardiovascular: Reports dyspnea on exertion; Denies chest pain, claudication, edema or palpitations Respiratory/Chest Respiratory/Chest: Reports cough, productive cough, shortness of breath at rest and shortness of breath with exertion; Denies hemoptysis Gastrointestinal Gastrointestinal: Denies abdominal pain, coffee ground emesis, constipation, diarrhea, dyspepsia, hematemesis, hematochezia, melena, nausea or vomiting Genitourinary Genitourinary: Denies difficulty urinating, dysuria, hematuria, nocturia, urinary frequency, urinary hesitancy, urinary incontinence or urinary urgency Musculoskeletal Musculoskeletal: Denies back pain, joint pain, joint stiffness, joint swelling, myalgias or neck pain Neurologic Neurologic: Denies abnormal gait, abnormal speech, confusion, disequilibrium, dizziness, focal weakness, headache(s), loss of vision, numbness, other visual disturbances, paresthesias, syncope or tingling Psychiatric Psychiatric: Denies anxiety, cognitive impairment, depression, irritability, mood swings or suicidal ideation Endocrine Endocrinology: Denies change in body appearance, cold intolerance, excessive sweating, heat intolerance, polydipsia or polyuria Hematologic/Lymphatic Hematologic/Lymphatic: Denies none, anemia, easy bleeding, easy bruising or lymphadenopathy Allergic/Immunologic Allergic/Immunologic: Denies rhinitis, urticaria, eczemia or asthma Vital Signs Vital Signs Vital Signs: 09/10/23 12:14 09/10/23 14:02 09/10/23 14:02 Temperature 97.2 F L Temperature Source Temporal Pulse Rate 121 H Respiratory Rate 14 22 H Respiratory Effort Blood Pressure 142/80 H Blood Pressure Mean 100 Pulse Ox 94 91 Oxygen Delivery Method Room Air Room Air Room Air Oxygen Flow Rate (L/min) 09/10/23 14:03 09/10/23 14:23 09/10/23 14:23 Temperature Temperature Source Pulse Rate Respiratory Rate Respiratory Effort Short of Breath Blood Pressure Blood Pressure Mean Pulse Ox 89 92 Oxygen Delivery Method Room Air Room Air Nasal Cannula Oxygen Flow Rate (L/min) 2 09/10/23 16:03 09/10/23 16:49 Temperature Temperature Source Pulse Rate 100 Respiratory Rate 22 H Respiratory Effort Blood Pressure Blood Pressure Mean Pulse Ox 97 98 Oxygen Delivery Method Nasal Cannula Oxygen Flow Rate (L/min) 2 Weight Weight: 77 kg Body Mass Index (BMI) 30.0 Physical Exam Const alert, oriented x3, no apparent distress, average body habitus and healthy appearing General Appearance: cooperative, well kempt and well developed Orientation / Consciousness: awake, oriented to person, oriented to place and oriented to time HEENT normocephalic, head/scalp atraumatic, hearing grossly normal bilaterally and moist oral mucous membranes Eyes PERRL, EOMs intact bilaterally and conjunctivae normal Neck supple, no JVD, thyroid normal and no carotid bruits General: trachea midline Resp normal respiratory effort, no retractions and no use of accessory muscles Resp Narrative: There are some fine rales at the left lung base on inspiration, and no rhonchi or wheezing is noted Auscultation: Negative for rales, rhonchi or wheezes Cardio regular rate, regular rhythm, S1 normal heart sound, S2 normal heart sound, no murmurs, no rub and no gallops GI normal to inspection, nondistended, normoactive bowel sounds, soft to palpation, non-tender and non-distended Extremity no clubbing, cyanosis or edema Skin no rashes or lesions noted General Skin Exam: no breakdown Neuro oriented x3, CN's II-XII intact bilaterally, moves all extremities, no focal motor deficits and no sensory deficits noted Sensorium / Orientation: awake, alert, oriented to person, oriented to place and oriented to time Speech: speech normal Psych affect normal Results Lab / Micro Data 09/10/23 13:25 09/10/23 13:25 Labs: Laboratory Results - last 24 hr 09/10/23 13:25: WBC 7.7, RBC 3.72 L, Hgb 10.9 L, Hct 34.2 L, MCV 91.9, MCH 29.3, MCHC 31.9 L, RDW Std Deviation 46.0 H, RDW Coeff of Scott 13.6, Plt Count 221, MPV 9.5, Immature Gran % (Auto) 0.500, Neut % (Auto) 77.5 H, Lymph % (Auto) 6.6 L, [place] % (Auto) 14.7 H, Eos % (Auto) 0.4, Baso % (Auto) 0.3, Absolute Neuts (auto) 6.0, Absolute Lymphs (auto) 0.51 L, Nucleated RBC % 0, Sodium 134 L, Potassium 3.3 L, Chloride 102, Carbon Dioxide 27.0, Anion Gap 5, BUN 17, Creatinine 0.81, Est GFR (MDRD) Af Amer 87, Est GFR (MDRD) Non-Af 72, BUN/Creatinine Ratio 20.9 H, Glucose 138 H, Calcium 8.8, Troponin I High Sens 10 09/10/23 14:20: Lactic Acid 1.0 Micro: Microbiology 09/10/23 13:25 Nasal Secretion SARS-CoV-2 Antigen (Rapid) - Final Rhythm Strip Rhythm Strip: Sinus Tach Rate: 104 Ectopy: None Radiology Impression Chest X-Ray 09/10/23 12:52 IMPRESSION: Patchy left lower lobe infiltrate. Electronically Signed: Gurpreet Chase MD at 13:24 EDT , Assessment & Plan Assessment/Plan (1) Left lower lobe pneumonia: PLAN: Plan 1. Left lower lobe community-acquired pneumonia-again patient was admitted to PCU, she was placed on IV Rocephin and Zithromax, sputum culture was ordered, she will receive aerosol treatments #2 hypoxia secondary to #1-patient's pulse ox in the emergency room was in the mid 80s on 2 L, pulse ox will be monitored here, patient states that she has felt as if she needed oxygen for quite a while at home but has not brought this up to her family doctor #3 chronic hypoxia-etiology unclear at this time, again patient will need to be checked if she qualifies for home oxygen when she is discharged home #4 history of pulmonary hypertension-not presently being treated, patient follows up with a manager baby in [facility] #5 hypokalemia-patient will be given potassium supplementation, labs will be rechecked tomorrow #6 essential hypertension-patient will remain on her home medications which include metoprolol and Lasix #7 hyperlipidemia-patient is on simvastatin at home, she will remain on a statin here Total clinical time spent by myself addressing the patient's medical issues, reviewing all of her data, and collaborating with patient's care team: 55 minutes Charges/Coding Visit Charges Inpatient E&M: 34616 Init Hosp L2
[2023-09-10] MEDS: Ipratropium/Albuterol Sulfate 3 ML AMPUL.NEB INHALATION (19:58)
[2023-09-10] MEDS: MELATONIN 3 MG TABLET PO (22:35)
[2023-09-10] MEDS: Pantoprazole Sodium 40 MG Tablet PO (22:35)
[2023-09-10] MEDS: traZODone 100 MG Tablet PO (22:35)
[2023-09-10] MEDS: Atorvastatin Calcium 10 MG Tablet PO (22:35)
[2023-09-10] MEDS: guaiFENesin Dm 10 ML UDC PO (22:36)
[2023-09-11] VITALS (11 sets, daily range): BP systolic 108–135; BP diastolic 58–92; PULSE 81–103; RESP 15–20; TEMP 36.7–37.4; O2SAT 82–99
[2023-09-11] MEDS: Ipratropium/Albuterol Sulfate 3 ML AMPUL.NEB INHALATION ×4 (01:05→18:47)
[2023-09-11] MEDS: Acetaminophen 325 MG Tablet 650 MG PO (01:39)
[2023-09-11 03:57] LABS: Absolute Lymphocyte Count 0.84 X10^3/uL (0.83-4.51); Absolute Neutrophil Count 4.6 X10^3/uL (2.0-7.7); Basophil# 0.02 X10^3/uL; Basophil% 0.3 % (0-1); Eosinophil# 0.16 X10^3/uL; Eosinophils% 2.5 % (0-5); Hematocrit 33.7 % (37-47); Hemoglobin 10.5 g/dL (12.0-15.0); Lymphocyte # 0.84 X10^3/ul (0.83-4.51); Lymphocyte % 12.9 % (19-41); Mean Corp Hgb Conc 31.2 g/dL (32-36); Mean Corpuscular Hgb 29.3 pg (27.0-32.0); Mean Corpuscular Volume 94.1 fL (81-99); Mean Platelet Vol. 9.6 fl (6.2-12.0); Monocyte# 0.84 X10^3/uL; Monocyte% 12.9 % (0-10); NRBC Flagged by Analyzer 0 % (0-5); Neutrophil # 4.61 X10^3/uL (2.7-7.7); Neutrophil % 70.9 % (47-70); Platelet Count 217 K/mm3 (150-450); RBC Distribution Width CV 13.3 % (11.6-14.6); RBC Distribution Width SD 46.3 fl (35.1-43.9); Red Blood Count 3.58 M/mm3 (4.2-5.4); White Blood Count 6.5 K/mm3 (4.4-11.0)
[2023-09-11 04:18] LABS: Anion Gap 5 (5-15); BUN 14 mg/dL (7-18); BUN/Creat Ratio 18.8 RATIO (10-20); Calcium,Total 8.9 mg/dL (8.5-10.1); Chloride 103 mmol/L (98-107); Creatinine, Serum 0.74 mg/dL (0.55-1.02); EST Glomerular Filtration Rate 79 mL/min (>60); Est Glom Filt Rate - Afr Amer 96 mL/min (>60); Glucose 121 mg/dL (74-106); Sodium Level 135 mmol/L (136-145)
--- NOTE | 2023-09-11 08:14 | PN.HOSP_ITS ---
Reason for Visit Reason for Visit: Diagnoses Pneumonia, unspecified organism (09/10/23) Subjective Subjective Patient is an 83-year-old lady who presented with cough, upper respiratory tract symptoms as well as shortness of breath imaging studies obtained on admission demonstrated Patchy left lower lobe infiltrate. Objective Data Objective Data Vital Signs: Vital Signs Temp Pulse Resp BP Pulse Ox O2 Del Method O2 Flow Rate 98.1 F 87 15 108/58 L 98 Nasal Cannula 2 09/11/23 04:00 09/11/23 04:00 09/11/23 04:00 09/11/23 04:00 09/11/23 04:00 09/11/23 04:00 09/11/23 04:00 Oxygen Flow Rate (L/min) 2 Oxygen Delivery Method Nasal Cannula Weight: 71.668 kg Body Mass Index (BMI) 30.0 Intake & Output: Intake and Output for Last 24 Hours 09/09/23 09/10/23 09/11/23 23:59 23:59 23:59 Intake Total 305 / 305 Output Total 350 / 400 150 / 150 Balance -45 / -95 -150 / -150 Lab / Micro Data 09/11/23 03:50 09/11/23 03:50 Labs: Laboratory Results - last 24 hr 09/10/23 13:25: WBC 7.7, RBC 3.72 L, Hgb 10.9 L, Hct 34.2 L, MCV 91.9, MCH 29.3, MCHC 31.9 L, RDW Std Deviation 46.0 H, RDW Coeff of Scott 13.6, Plt Count 221, MPV 9.5, Immature Gran % (Auto) 0.500, Neut % (Auto) 77.5 H, Lymph % (Auto) 6.6 L, [place] % (Auto) 14.7 H, Eos % (Auto) 0.4, Baso % (Auto) 0.3, Absolute Neuts (auto) 6.0, Absolute Lymphs (auto) 0.51 L, Nucleated RBC % 0, Sodium 134 L, Potassium 3.3 L, Chloride 102, Carbon Dioxide 27.0, Anion Gap 5, BUN 17, Creatinine 0.81, Est GFR (MDRD) Af Amer 87, Est GFR (MDRD) Non-Af 72, BUN/Creatinine Ratio 20.9 H , Glucose 138 H, Calcium 8.8, Troponin I High Sens 10 10/30/23 14:20: Lactic Acid 1.0 09/11/23 03:50: WBC 6.5, RBC 3.58 L, Hgb 10.5 L, Hct 33.7 L, MCV 94.1, MCH 29.3, MCHC 31.2 L, RDW Std Deviation 46.3 H, RDW Coeff of Scott 13.3, Plt Count 217, MPV 9.6, Immature Gran % (Auto) 0.500, Neut % (Auto) 70.9 H, Lymph % (Auto) 12.9 L, [place] % (Auto) 12.9 H, Eos % (Auto) 2.5, Baso % (Auto) 0.3, Absolute Neuts (auto) 4.6, Absolute Lymphs (auto) 0.84, Nucleated RBC % 0, Sodium 135 L, Potassium 4.0, Chloride 103, Carbon Dioxide 27.0, Anion Gap 5, BUN 14, Creatinine 0.74, Estim Creat Clear Calc 36.50, Est GFR (MDRD) Af Amer 96, Est GFR (MDRD) Non-Af 79, BUN/Creatinine Ratio 18.8, Glucose 121 H, Calcium 8.9 Micro: Microbiology 09/10/23 00:54 Urine, Random Legionella Antigen - Final 09/10/23 00:54 Urine, Random Streptococcus pneumoniae Antigen (M - Final 09/10/23 15:04 Mucosa - Nasopharyngeal Respiratory Panel (PCR) - Final 09/10/23 13:25 Nasal Secretion SARS-CoV-2 Antigen (Rapid) - Final Radiography Diagnostic Testing: Radiology Impression Chest X-Ray 09/10/23 12:52 IMPRESSION: Patchy left lower lobe infiltrate. Electronically Signed: Gurpreet Chase MD at 13:24 EDT , Rhythm Strip Rhythm Strip: Sinus Tach Rate: 104 Ectopy: None Physical Exam Narrative GENERAL: Appears ill looking HEENT: Atraumatic; normocephalic EYES; Anicteric, Normal Conjunctiva NECK; supple, normal thyroid, RESPIRATORY: Diminished to auscultation CARDIOVASCULAR: Regular S1 S2, GI: soft, normoactive bowel sounds, : No Renal angle tenderness; EXTREMITIES: No edema, no clubbing, MUSCULOSKELETAL: no muscle wasting NEURO: Awake; no lateralizing signs. SKIN: No Rash PSYCH; Flat affect Assessment & Plan Assessment/Plan (1) Left lower lobe pneumonia: QUALIFIERS: Pneumonia type: due to unspecified organism Qualified Code(s): J18.9 - Pneumonia, unspecified organism PLAN: Plan Patient is an 83-year-old lady who presented with cough, upper respiratory tract symptoms as well as shortness of breath imaging studies obtained on admission demonstrated Patchy left lower lobe infiltrate. 1. Community-acquired pneumonia - Suspected to be secondary to streptococcal pneumonia, Blood and sputum cultures sent. Patient placed on Rocephin and Zithromax and placed on oxygen titrated to keep Pulse Ox greater than 90 2. Chronic hypoxia secondary to patient pulmonary hypertension ? Plan is for patient to be assessed for home oxygen prior to being discharged 3. Hypokalemia ? Corrected per protocol 4. Hypertension - Blood pressure controlled, home medications continued with dose adjustment as needed 5. Dyslipidemia -Patient is on statin therapy, continued at home dose 6. Obstructive sleep apnea ? Previously diagnosed patient however did not follow-up in obtaining her CPAP 7. History of breast cancer ? Currently remission 8. DVT prophylaxis ? SC Lovenox Time spent in the patient's overall evaluation,decision-making process, review of diagnostic data, adjustment of management, discussion with other providers, nursing nursing and ancillary staff involved in patient's care documentation, 50 Minutes Advance planning; did discuss with the patient regarding advanced directives as well as CODE STATUS. Did explain the various scenarios involved ( FULL CODE, DNR CCA, DNR CCA with no intubation, and DNR CC and what each meant) patient elected to be DNR CCA no intubation. Order was placed. Time spent on discussion 18 minutes. Charges/Coding Visit Charges Inpatient E&M: 10686 Subs Hosp L3 Procedures Hospitalists Procedures: 11483 Advncd Care Plan 30 Min
--- NOTE | 2023-09-11 08:42 | CASEMGMT ---
Discharge Planning Patient Azucena Silva w/[facility] called re:[id number]. She currently has waiver services, 1 day of adult day care at [place], 2 days of aide services for a total of 8hrs on , and 7 meals delivered on . Her number is [phone]
--- NOTE | 2023-09-11 08:45 | CASEMGMT ---
Discharge Planning Patient currently has waiver services through [facility]. Her pillowcase folder is Blanka Silva at [phone]. Patient receives 1 day of adult day care at [place], 2 days of aide services for a total of 8hrs on , and 7 meals delivered on . Blanka would like discharge summary faxed to her [phone]. SW's updated. Irene De Jesus, Discharge Planning Asst.
[2023-09-11] MEDS: HYDROcodone Bitartrate/Apap 5/325 Tablet PO ×3 (09:16→21:30)
[2023-09-11] MEDS: Aspirin 81 MG TAB.CHEW PO (09:17)
[2023-09-11] MEDS: Tolterodine Tartrate 2 MG CAP.SA PO (09:17)
[2023-09-11] MEDS: Furosemide 40 MG Tablet PO (09:17)
[2023-09-11] MEDS: Metoprolol Tartrate 25 MG Tablet PO (09:17)
[2023-09-11] MEDS: Pantoprazole Sodium 40 MG Tablet PO ×2 (09:18→21:30)
[2023-09-11] MEDS: Enoxaparin 40 MG/0.4 ML Syringe SC (10:51)
[2023-09-11] MEDS: Ceftriaxone 1 GM/50 ML BAG IV (10:51)
[2023-09-11] MEDS: 0.9% Normal Saline (250mL Bag) 250 ML 15 ML IV (10:52)
[2023-09-11] MEDS: Azithromycin 500 MG in Dextrose 5%-Water (250mL Bag) 250 ML 250 MG IV (10:52)
--- NOTE | 2023-09-11 12:25 | CASEMGMT ---
RN MARIANA Face to Face with patient for initial transition planning/care coordination assessment. RN CM introduced self and role at [facility]. Patient lying in bed, alert and oriented. Patient willing to participate in assessment and is able to answer all questions appropriately. Care providers, pharmacy, and demographics verified. Patient wishes to discharge home with HHC, CM to provide HHC list. Patient states she has no further needs or concerns at this time. CM to follow for discharge planning needs that may arise. PCP: Kelsy Specialists: Mireille, endless track vehicle supervisor; Derek, home health outreach coordinator Preferred Pharmacy: [facility] Insurance: [employer] Prescription Benefit: yes Living Will/HPOA: none LNOK: daughter, sister Living Arrangements: Patient lives alone in a mobile home with stair lift. Patient states she is independent at home. Transportation: sister DME/HHC: Patient has shower chair, raised toilet, cane, walker, rollator, grab bars, nebulizer, pulse ox and has person [employer] but not affiliated with DME agency. Patient has [facility] to [facility] and [facility]. [facility]. 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 Disposition Plan: Patient to discharge home with [facility], family support, and follow-up plans in place. Blanka TORRES, RN, CM
--- NOTE | 2023-09-11 15:28 | CHAPLAIN ---
Type of Pastoral Visit _x__ Initial Visit ___ Follow-up Visit ___ On-call Visit ___ General Patient Visit ___ Spiritual Assessment ___ Family Conference ___ Bereavement ___ Rapid Response ___ Code Blue ___ Other (describe below) Pastoral Care Referral From _x__ Patient ___ Family ___ Nurse ___ Physician ___ Fixture Designer ___ Planer Chain Offbearer ___ Other (describe below) Sacrament/Intervention _x__ Active listening ___ Anointing ___ Pentecostal ___ Bereavement ___ Communion ___ Ayesha exploration ___ _x__ Life review _x__ Prayer ___ Reconciliation ___ Sacrament of Sick _x__ Supportive presence ___ Wedding ___ Other (describe below) Pastoral Comments patient was talkative and stated that she wanted company while she is in the hospital; pt describes things about her life, her living situations, and her interests; pt has some family support but some live out of state; pt is given time to talk, express her feelings, and ask for prayer in healing and strength
[2023-09-11] MEDS: Sucralfate 1 GM Tablet PO (16:28)
[2023-09-11] MEDS: MELATONIN 3 MG TABLET PO (21:30)
[2023-09-11] MEDS: Atorvastatin Calcium 10 MG Tablet PO (21:30)
[2023-09-11] MEDS: traZODone 100 MG Tablet PO (21:30)
[2023-09-12] VITALS (12 sets, daily range): BP systolic 109–122; BP diastolic 60–87; PULSE 85–101; RESP 12–22; TEMP 36.6–37.4; O2SAT 92–98
[2023-09-12] MEDS: Ipratropium/Albuterol Sulfate 3 ML AMPUL.NEB INHALATION ×4 (01:24→18:52)
[2023-09-12] MEDS: HYDROcodone Bitartrate/Apap 5/325 Tablet PO ×3 (03:33→20:13)
[2023-09-12 03:49] LABS: Absolute Lymphocyte Count 1.12 X10^3/uL (0.83-4.51); Absolute Neutrophil Count 3.9 X10^3/uL (2.0-7.7); Basophil# 0.03 X10^3/uL; Basophil% 0.5 % (0-1); Eosinophil# 0.29 X10^3/uL; Eosinophils% 4.6 % (0-5); Hematocrit 31.6 % (37-47); Lymphocyte # 1.12 X10^3/ul (0.83-4.51); Lymphocyte % 17.9 % (19-41); Mean Corp Hgb Conc 31.6 g/dL (32-36); Mean Corpuscular Hgb 29.6 pg (27.0-32.0); Mean Corpuscular Volume 93.5 fL (81-99); Mean Platelet Vol. 9.3 fl (6.2-12.0); Monocyte% 14.4 % (0-10); NRBC Flagged by Analyzer 0 % (0-5); Neutrophil # 3.87 X10^3/uL (2.7-7.7); Neutrophil % 61.8 % (47-70); Platelet Count 239 K/mm3 (150-450); RBC Distribution Width CV 13.3 % (11.6-14.6); RBC Distribution Width SD 45.9 fl (35.1-43.9); Red Blood Count 3.38 M/mm3 (4.2-5.4); White Blood Count 6.3 K/mm3 (4.4-11.0)
[2023-09-12 04:02] LABS: Anion Gap 4 (5-15); BUN 13 mg/dL (7-18); BUN/Creat Ratio 14.4 RATIO (10-20); Calcium,Total 8.9 mg/dL (8.5-10.1); Chloride 101 mmol/L (98-107); EST Glomerular Filtration Rate 64 mL/min (>60); Est Glom Filt Rate - Afr Amer 77 mL/min (>60); Estimated Creatinine Clearance 40.55 ml/min; Glucose 132 mg/dL (74-106); Magnesium 1.7 mg/dL (1.6-2.6); Phosphorus 3.5 mg/dL (2.5-4.9); Potassium 3.5 mmol/L (3.5-5.1); Sodium Level 136 mmol/L (136-145)
--- NOTE | 2023-09-12 07:45 | PN.HOSP_ITS ---
Reason for Visit Reason for Visit: Diagnoses Pneumonia, unspecified organism (09/10/23) Objective Data Objective Data Vital Signs: Vital Signs Temp Pulse Resp BP Pulse Ox O2 Del Method O2 Flow Rate 98.2 F 97 12 120/73 98 Nasal Cannula 2 09/12/23 03:00 09/12/23 03:00 09/12/23 03:00 09/12/23 03:00 09/12/23 03:00 09/12/23 03:00 09/12/23 03:00 Oxygen Flow Rate (L/min) 2 Oxygen Delivery Method Nasal Cannula Weight: 71.668 kg Body Mass Index (BMI) 30.0 Intake & Output: Intake and Output for Last 24 Hours 09/10/23 09/11/23 09/12/23 23:59 23:59 23:59 Intake Total 305 / 305 305.25 / 305.25 Output Total 350 / 400 850 / 850 0 / 0 Balance -45 / -95 -544.75 / -544.75 0 / 0 Lab / Micro Data 09/12/23 03:42 09/12/23 03:42 Labs: Laboratory Results - last 24 hr 09/12/23 03:42: WBC 6.3, RBC 3.38 L, Hgb 10.0 L, Hct 31.6 L, MCV 93.5, MCH 29.6, MCHC 31.6 L, RDW Std Deviation 45.9 H, RDW Coeff of Scott 13.3, Plt Count 239, MPV 9.3, Immature Gran % (Auto) 0.800, Neut % (Auto) 61.8, Lymph % (Auto) 17.9 L, [place] % (Auto) 14.4 H, Eos % (Auto) 4.6, Baso % (Auto) 0.5, Absolute Neuts (auto) 3.9, Absolute Lymphs (auto) 1.12, Nucleated RBC % 0, Sodium 136, Potassium 3.5, Chloride 101, Carbon Dioxide 31.0, Anion Gap 4 L, BUN 13, Creatinine 0.90, Estim Creat Clear Calc 40.55, Est GFR (MDRD) Af Amer 77, Est GFR (MDRD) Non-Af 64, BUN/Creatinine Ratio 14.4, Glucose 132 H, Calcium 8.9, Phosphorus 3.5, Magnesium 1.7 Micro: Microbiology 09/11/23 00:54 Sputum, Expectorated/Coughed Gram Stain - Final 09/10/23 00:54 Urine, Random Legionella Antigen - Final 09/10/23 00:54 Urine, Random Streptococcus pneumoniae Antigen (M - Final 09/10/23 15:04 Mucosa - Nasopharyngeal Respiratory Panel (PCR) - Final 09/10/23 13:25 Nasal Secretion SARS-CoV-2 Antigen (Rapid) - Final Rhythm Strip Rhythm Strip: Sinus Tach Rate: 104 Ectopy: None Physical Exam Narrative GENERAL: Appears ill looking HEENT: Atraumatic; normocephalic EYES; Anicteric, Normal Conjunctiva NECK; supple, normal thyroid, RESPIRATORY: Diminished to auscultation CARDIOVASCULAR: Regular S1 S2, GI: soft, normoactive bowel sounds, : No Renal angle tenderness; EXTREMITIES: No edema, no clubbing, MUSCULOSKELETAL: no muscle wasting NEURO: Awake; no lateralizing signs. SKIN: No Rash PSYCH; Flat affect Assessment & Plan Assessment/Plan (1) Left lower lobe pneumonia: QUALIFIERS: Pneumonia type: due to unspecified organism Qualified Code(s): J18.9 - Pneumonia, unspecified organism PLAN: Plan Patient is an 83-year-old lady who presented with cough, upper respiratory tract symptoms as well as shortness of breath imaging studies obtained on admission demonstrated Patchy left lower lobe infiltrate. 1. Community-acquired pneumonia - Suspected to be secondary to streptococcal pneumonia, Blood and sputum cultures sent. Patient placed on Rocephin and Zithromax and placed on oxygen titrated to keep Pulse Ox greater than 90 2. Chronic hypoxia secondary to patient pulmonary hypertension ? Plan is for patient to be assessed for home oxygen prior to being discharged 3. Hypokalemia ? Corrected per protocol 4. Hypertension - Blood pressure controlled, home medications continued with dose adjustment as needed 5. Dyslipidemia -Patient is on statin therapy, continued at home dose 6. Obstructive sleep apnea ? Previously diagnosed patient however did not follow-up in obtaining her CPAP 7. History of breast cancer ? Currently remission 8. DVT prophylaxis ? SC Lovenox Time spent in the patient's overall evaluation,decision-making process, review of diagnostic data, adjustment of management, discussion with other providers, nursing nursing and ancillary staff involved in patient's care documentation, 50 Minutes Advance planning; did discuss with the patient regarding advanced directives as well as CODE STATUS. Did explain the various scenarios involved ( FULL CODE, DNR CCA, DNR CCA with no intubation, and DNR CC and what each meant) patient elected to be DNR CCA no intubation. Order was placed. Time spent on discussion 18 minutes.
[2023-09-12] MEDS: Sucralfate 1 GM Tablet PO ×3 (08:11→17:18)
[2023-09-12] MEDS: Pantoprazole Sodium 40 MG Tablet PO ×2 (08:12→22:35)
[2023-09-12] MEDS: Metoprolol Tartrate 25 MG Tablet PO (08:12)
[2023-09-12] MEDS: Furosemide 40 MG Tablet PO (08:12)
[2023-09-12] MEDS: Aspirin 81 MG TAB.CHEW PO (08:12)
[2023-09-12] MEDS: Tolterodine Tartrate 2 MG CAP.SA PO (08:13)
[2023-09-12] MEDS: Enoxaparin 40 MG/0.4 ML Syringe SC (08:15)
[2023-09-12] MEDS: Docusate Sodium 100 MG Capsule PO (08:15)
--- NOTE | 2023-09-12 09:00 | CASEMGMT ---
Discharge Planning A list of?HH providers including quality and resource use data and consistent with the patient's preferred geographic region, medical needs, and insurance network was created in [facility].? This list was provided to the RN MARIANA. Irene De Jesus, Discharge Planning Asst.
[2023-09-12] MEDS: Acetaminophen 325 MG Tablet 650 MG PO (10:00)
[2023-09-12] MEDS: Azithromycin 500 MG in Dextrose 5%-Water (250mL Bag) 250 ML 250 MG IV (10:01)
--- NOTE | 2023-09-12 11:31 | CASEMGMT ---
Addendum entered by Gumaro Randle 09/12/23 12:19: Per Irene production planner scheduler, [facility] can accept pt but unable to do SOC until next or Sun. DIRK PEÑA to room and pt was informed of same. Offered to do referral to another [facility] agency that may be able to do SOC sooner, but pt declines, stating she wants [facility] and is okay w/SOC next week or Sun. Irene made aware. Pt states her home health aide comes on @ 11:30 AM and she would like her to be notified that plan is for to discharge home tomorrow and to inquire if she is able to come later in the day tomorrow, if she is not home by 11:30 AM. VM left w/ADELIA Latif, to notify her. Original Note: DIRK PEÑA NOTE: DIRK PEÑA to room. Pt resting in bed, awake/alert/oriented. Pt provided w/HHC list that was prepared by Irene production planner scheduler. Pt states she wants [facility], as she has had them in the past and she does not want anyone else. Noted [facility] was not on the HHC list, but pt made aware a referral will be made with them and will notify her on response. Pt voices understanding. Martina TORRES RN, CM
--- NOTE | 2023-09-12 11:37 | CASEMGMT ---
Discharge Planning [facility]. Irene De Jesus, Discharge Planning Asst.
[2023-09-12] MEDS: Ceftriaxone 1 GM/50 ML BAG IV (12:11)
--- NOTE | 2023-09-12 12:17 | CASEMGMT ---
Discharge Planning [facility] accepted patient with SOC Mon/Tu. Patient is agreeable to delayed soc. Irene De Jesus, Discharge Planning Asst.
--- NOTE | 2023-09-12 14:03 | CASEMGMT ---
Social Work Phone call to Blanka Silva, pt's Direction Instrument Room Technician and left a VM informing that pt will possibly be discharged home tomorrow and pt does not want to miss her aid service tomorrow. SW will update CM when pt is discharged. JASON Noriega
[2023-09-12] MEDS: guaiFENesin Dm 10 ML UDC PO ×2 (15:02→22:35)
[2023-09-12] MEDS: traZODone 100 MG Tablet PO (22:35)
[2023-09-12] MEDS: Atorvastatin Calcium 10 MG Tablet PO (22:35)
[2023-09-13] VITALS (10 sets, daily range): BP systolic 115–130; BP diastolic 64–76; PULSE 98–122; RESP 15–20; TEMP 36.9–37.1; O2SAT 87–96
[2023-09-13] MEDS: Ipratropium/Albuterol Sulfate 3 ML AMPUL.NEB INHALATION ×2 (01:05→07:19)
[2023-09-13 04:16] LABS: Absolute Lymphocyte Count 1.07 X10^3/uL (0.83-4.51); Absolute Neutrophil Count 3.8 X10^3/uL (2.0-7.7); Basophil# 0.04 X10^3/uL; Basophil% 0.7 % (0-1); Eosinophil# 0.24 X10^3/uL; Hematocrit 30.4 % (37-47); Hemoglobin 9.3 g/dL (12.0-15.0); Lymphocyte # 1.07 X10^3/ul (0.83-4.51); Lymphocyte % 17.7 % (19-41); Mean Corp Hgb Conc 30.6 g/dL (32-36); Mean Corpuscular Hgb 29.1 pg (27.0-32.0); Mean Platelet Vol. 9.1 fl (6.2-12.0); Monocyte# 0.85 X10^3/uL; NRBC Flagged by Analyzer 0 % (0-5); Neutrophil # 3.82 X10^3/uL (2.7-7.7); Neutrophil % 62.9 % (47-70); Platelet Count 267 K/mm3 (150-450); RBC Distribution Width CV 13.3 % (11.6-14.6); RBC Distribution Width SD 46.4 fl (35.1-43.9); White Blood Count 6.1 K/mm3 (4.4-11.0)
[2023-09-13 04:32] LABS: Anion Gap 3 (5-15); BUN 14 mg/dL (7-18); BUN/Creat Ratio 19.2 RATIO (10-20); Calcium,Total 8.7 mg/dL (8.5-10.1); Chloride 102 mmol/L (98-107); Creatinine, Serum 0.73 mg/dL (0.55-1.02); EST Glomerular Filtration Rate 81 mL/min (>60); Est Glom Filt Rate - Afr Amer 99 mL/min (>60); Glucose 101 mg/dL (74-106); Potassium 3.6 mmol/L (3.5-5.1); Sodium Level 139 mmol/L (136-145)
[2023-09-13] MEDS: HYDROcodone Bitartrate/Apap 5/325 Tablet PO ×2 (06:21→11:04)
[2023-09-13] MEDS: Sucralfate 1 GM Tablet PO ×2 (08:11→11:04)
[2023-09-13] MEDS: guaiFENesin Dm 10 ML UDC PO (08:13)
--- NOTE | 2023-09-13 08:15 | PN.HOSP_ITS ---
Reason for Visit Reason for Visit: Diagnoses Pneumonia, unspecified organism (09/10/23) Subjective Subjective Patient seen admitted improvement in overall clinical condition she however complains of being constipated Objective Data Objective Data Vital Signs: Vital Signs Temp Pulse Resp BP Pulse Ox O2 Del Method O2 Flow Rate 98.5 F 112 H 15 130/76 H 87 Room Air 2 09/13/23 08:00 09/13/23 08:00 09/13/23 08:00 09/13/23 08:00 09/13/23 08:07 09/13/23 08:07 09/13/23 08:00 Oxygen Flow Rate (L/min) 2 Oxygen Delivery Method Room Air Weight: 71.668 kg Body Mass Index (BMI) 30.0 Intake & Output: Intake and Output for Last 24 Hours 09/11/23 09/12/23 09/13/23 23:59 23:59 23:59 Intake Total 305.25 / 305.25 825 / 825 Output Total 850 / 850 600 / 600 325 / 325 Balance -544.75 / -544.75 225 / 225 -325 / -325 Lab / Micro Data 09/13/23 04:11 09/13/23 04:11 Labs: Laboratory Results - last 24 hr 09/13/23 04:11: WBC 6.1, RBC 3.20 L, Hgb 9.3 L, Hct 30.4 L, MCV 95.0, MCH 29.1, MCHC 30.6 L, RDW Std Deviation 46.4 H, RDW Coeff of Scott 13.3, Plt Count 267, MPV 9.1, Immature Gran % (Auto) 0.700, Neut % (Auto) 62.9, Lymph % (Auto) 17.7 L, [place] % (Auto) 14.0 H, Eos % (Auto) 4.0, Baso % (Auto) 0.7, Absolute Neuts (auto) 3.8, Absolute Lymphs (auto) 1.07, Nucleated RBC % 0, Sodium 139, Potassium 3.6, Chloride 102, Carbon Dioxide 34.0 H, Anion Gap 3 L, BUN 14, Creatinine 0.73, Estim Creat Clear Calc 36.50, Est GFR (MDRD) Af Amer 99, Est GFR (MDRD) Non-Af 81, BUN/Creatinine Ratio 19.2, Glucose 101, Calcium 8.7 Micro: Microbiology 09/10/23 14:20 Blood Culture (Wb) - Right Hand Blood Culture - Preliminary No growth in 48 hours. 09/11/23 00:54 Sputum, Expectorated/Coughed Gram Stain - Final 09/10/23 00:54 Urine, Random Legionella Antigen - Final 09/10/23 00:54 Urine, Random Streptococcus pneumoniae Antigen (M - Final 09/10/23 15:04 Mucosa - Nasopharyngeal Respiratory Panel (PCR) - Final 09/10/23 13:25 Nasal Secretion SARS-CoV-2 Antigen (Rapid) - Final Rhythm Strip Rhythm Strip: Sinus Tach Rate: 104 Ectopy: None Physical Exam Narrative GENERAL: Appears ill looking HEENT: Atraumatic; normocephalic EYES; Anicteric, Normal Conjunctiva NECK; supple, normal thyroid, RESPIRATORY: Diminished to auscultation CARDIOVASCULAR: Regular S1 S2, GI: soft, normoactive bowel sounds, : No Renal angle tenderness; EXTREMITIES: No edema, no clubbing, MUSCULOSKELETAL: no muscle wasting NEURO: Awake; no lateralizing signs. SKIN: No Rash PSYCH; Flat affect Assessment & Plan Assessment/Plan (1) Left lower lobe pneumonia: QUALIFIERS: Pneumonia type: due to unspecified organism Qualified Code(s): J18.9 - Pneumonia, unspecified organism PLAN: Plan Patient is an 83-year-old lady who presented with cough, upper respiratory tract symptoms as well as shortness of breath imaging studies obtained on admission demonstrated Patchy left lower lobe infiltrate. 1. Community-acquired pneumonia - Suspected to be secondary to streptococcal pneumonia, Blood and sputum cultures sent. Patient placed on Rocephin and Zithromax and placed on oxygen titrated to keep Pulse Ox greater than 90 ? 09/12/2023 some improvement in her overall clinical condition 2. Chronic hypoxia secondary to patient pulmonary hypertension ? Plan is for patient to be assessed for home oxygen prior to being discharged 3. Hypokalemia ? Corrected per protocol 4. Hypertension - Blood pressure controlled, home medications continued with dose adjustment as needed 5. Dyslipidemia -Patient is on statin therapy, continued at home dose 6. Obstructive sleep apnea ? Previously diagnosed patient however did not follow-up in obtaining her CPAP 7. History of breast cancer ? Currently remission 8. DVT prophylaxis ? SC Lovenox ? 9. Constipation -patient is on Colace added MiraLAX Time spent in the patient's overall evaluation,decision-making process, review of diagnostic data, adjustment of management, discussion with other providers, nursing nursing and ancillary staff involved in patient's care documentation, 35 minutes Charges/Coding Visit Charges Inpatient E&M: 90343 Subs Hosp L2
[2023-09-13] MEDS: Docusate Sodium 100 MG Capsule PO (08:56)
[2023-09-13] MEDS: Metoprolol Tartrate 25 MG Tablet PO (08:56)
[2023-09-13] MEDS: Furosemide 40 MG Tablet PO (08:56)
[2023-09-13] MEDS: Aspirin 81 MG TAB.CHEW PO (08:56)
[2023-09-13] MEDS: Pantoprazole Sodium 40 MG Tablet PO (08:56)
[2023-09-13] MEDS: Enoxaparin 40 MG/0.4 ML Syringe SC (08:56)
[2023-09-13] MEDS: Tolterodine Tartrate 2 MG CAP.SA PO (08:56)
[2023-09-13] MEDS: Ceftriaxone 1 GM/50 ML BAG IV (09:07)
[2023-09-13] MEDS: 0.9% Saline Lock 10 ML Syringe IV ×2 (09:08→11:04)
[2023-09-13] MEDS: Azithromycin 500 MG in Dextrose 5%-Water (250mL Bag) 250 ML 250 MG IV (09:49)
--- NOTE | 2023-09-13 10:24 | PCM.DC.SUM ---
Providers Date of Admission: 09/10/23 Date of Discharge: 09/13/23 Primary Care Physician: Dr. Justin Tierney MD Reason For Visit: LEFT PNEUMONIA Diagnosis Discharge Diagnosis (1) Left lower lobe pneumonia: Status: Acute Code(s): J18.9 - Pneumonia, unspecified organism Qualifiers: Pneumonia type: due to unspecified organism Qualified Code(s): J18.9 - Pneumonia, unspecified organism Plan Patient is an 83-year-old lady who presented with cough, upper respiratory tract symptoms as well as shortness of breath imaging studies obtained on admission demonstrated Patchy left lower lobe infiltrate. 1. Community-acquired pneumonia - Suspected to be secondary to streptococcal pneumonia, Blood and sputum cultures sent. Patient placed on Rocephin and Zithromax and placed on oxygen titrated to keep Pulse Ox greater than 90 ? 09/12/2023 some improvement in her overall clinical condition 2. Chronic hypoxia secondary to patient pulmonary hypertension ? Plan is for patient to be assessed for home oxygen prior to being discharged 3. Hypokalemia ? Corrected per protocol 4. Hypertension - Blood pressure controlled, home medications continued with dose adjustment as needed 5. Dyslipidemia -Patient is on statin therapy, continued at home dose 6. Obstructive sleep apnea ? Previously diagnosed patient however did not follow-up in obtaining her CPAP 7. History of breast cancer ? Currently remission 8. DVT prophylaxis ? SC Lovenox ? 9. Constipation -patient is on Colace added MiraLAX Time spent in the patient's overall evaluation,decision-making process, review of diagnostic data, adjustment of management, discussion with other providers, nursing nursing and ancillary staff involved in patient's care documentation, 35 minutes Medications at Discharge Home Medications cholecalciferol (vitamin D3) 1,250 mcg (50,000 unit) capsule 50,000 unit PO TH supplement 04/02/19 simvastatin 20 mg tablet 20 mg PO QHS cholesterol 04/02/19 trazodone 100 mg tablet 100 mg PO QHS sleep 04/02/19 cyanocobalamin (vitamin B-12) 1,000 mcg tablet 1,000 mcg PO DAILY supplement 07/23/22 pantoprazole 40 mg tablet,delayed release (Protonix) 40 mg PO BID #60 tabs 07/25/22 aspirin 81 mg capsule 81 mg PO DAILY 10/05/22 glucosamine 250 hc-tscrs-chi 200 mg-D3 1,500 khmg-J-wnvrd-herbs tablet 1 tab PO DAILY 10/05/22 oxybutynin chloride 10 mg tablet,extended release 24 hr 10 mg PO DAILY 10/05/22 metoprolol tartrate 25 mg tablet 25 mg PO DAILY HTN 10/13/22 bisacodyl 5 mg tablet,delayed release 5 mg PO DAILY #0 tabs 10/19/22 docusate sodium 100 mg capsule 100 mg PO BID #0 caps 10/19/22 furosemide 40 mg tablet (Lasix) 40 mg PO DAILY #30 tabs 10/19/22 hydrocodone-acetaminophen 5-325mg 5mg-325mg 1 tab PO Q4H PRN PRN pain 4-10 3 days #10 tabs 10/19/22 sucralfate 1 gram tablet (Carafate) 1 g PO DAILY #1 TAB 10/19/22 potassium chloride 20 mEq tablet,extended release 20 meq PO DAILY 09/10/23 azithromycin 500 mg tablet (Zithromax) 500 mg PO DAILY 3 days #3 tabs 09/13/23 cefdinir 300 mg capsule 300 mg PO BID #14 caps 09/13/23 dextromethorphan-guaifenesin 10 mg-100 mg/5 mL oral syrup 10 ml PO Q6H PRN PRN COUGH #300 mL 09/13/23 prednisone 20 mg tablet 20 mg PO BID #10 tabs 09/13/23 Hospital Course Summary of Care Provided Minutes Spent on Discharge: 35 Physical Exam Narrative GENERAL: Appears ill looking HEENT: Atraumatic; normocephalic EYES; Anicteric, Normal Conjunctiva NECK; supple, normal thyroid, RESPIRATORY: Diminished to auscultation CARDIOVASCULAR: Regular S1 S2, GI: soft, normoactive bowel sounds, : No Renal angle tenderness; EXTREMITIES: No edema, no clubbing, MUSCULOSKELETAL: no muscle wasting NEURO: Awake; no lateralizing signs. SKIN: No Rash PSYCH; Flat affect Weight / BMI Weight Weight: 71.668 kg Body Mass Index (BMI) 30.0 ABG / Lab / Microbiology Data 09/13/23 04:11 09/13/23 04:11 Laboratory: Laboratory Results - last 24 hr 09/13/23 04:11: WBC 6.1, RBC 3.20 L, Hgb 9.3 L, Hct 30.4 L, MCV 95.0, MCH 29.1, MCHC 30.6 L, RDW Std Deviation 46.4 H, RDW Coeff of Scott 13.3, Plt Count 267, MPV 9.1, Immature Gran % (Auto) 0.700, Neut % (Auto) 62.9, Lymph % (Auto) 17.7 L, [place] % (Auto) 14.0 H, Eos % (Auto) 4.0, Baso % (Auto) 0.7, Absolute Neuts (auto) 3.8, Absolute Lymphs (auto) 1.07, Nucleated RBC % 0, Sodium 139, Potassium 3.6, Chloride 102, Carbon Dioxide 34.0 H, Anion Gap 3 L, BUN 14, Creatinine 0.73, Estim Creat Clear Calc 36.50, Est GFR (MDRD) Af Amer 99, Est GFR (MDRD) Non-Af 81, BUN/Creatinine Ratio 19.2, Glucose 101, Calcium 8.7 Microbiology: Microbiology 09/11/23 00:54 Sputum, Expectorated/Coughed Gram Stain - Final 09/11/23 00:54 Sputum, Expectorated/Coughed Respiratory Culture - Final Mixed normal respiratory jaylen. No Streptococcus pneumoniae, beta-hemolytic Streptococcus or Staphylococcus aureus isolated. 09/10/23 14:20 Blood Culture (Wb) - Right Hand Blood Culture - Preliminary No growth in 48 hours. 09/10/23 00:54 Urine, Random Legionella Antigen - Final 09/10/23 00:54 Urine, Random Streptococcus pneumoniae Antigen (M - Final 09/10/23 15:04 Mucosa - Nasopharyngeal Respiratory Panel (PCR) - Final 09/10/23 13:25 Nasal Secretion SARS-CoV-2 Antigen (Rapid) - Final D/C Instructions Discharge Diet: No restrictions Discharge Activity: Return to Normal Activity Call your doctor if you observe: Fever of 101 or Higher, Shortness of breath, Fainting spells and Chest pain Meaningful Use Info Meaningful Use Diagnoses (Choose all that apply): None applicable Discharge Plan Admission Admit Date/Time: 09/10/23 14:28 Attending Provider: Krishna Ferrer Primary Care Provider: Justin Tierney Consulting Providers: Girma Bynum Discharge Orders/Prescriptions Prescriptions: New cefdinir 300 mg capsule 300 mg PO BID Qty: 14 0RF azithromycin [Zithromax] 500 mg tablet 500 mg PO DAILY 3 Days Qty: 3 0RF prednisone 20 mg tablet 20 mg PO BID Qty: 10 0RF dextromethorphan-guaifenesin 10-100 mg/5 mL Syrup 10 ml PO Q6H PRN PRN (Reason: COUGH) Qty: 300 0RF Continued cholecalciferol (vitamin D3) 50,000 unit capsule 50,000 unit PO TH Patient Comments: PT STATES SHE TAKES VIT D DAILY Rx Instructions: simvastatin 20 mg tablet 20 mg PO QHS trazodone 100 mg tablet 100 mg PO QHS cyanocobalamin (vitamin B-12) 1,000 mcg tablet 1,000 mcg PO DAILY Patient Comments: Take 1 tablet by mouth once daily. pantoprazole [Protonix] 40 mg tablet,delayed release (DR/EC) 40 mg PO BID Qty: 60 0RF Patient Comments: PT STATES SHE TAKES ONCE DAILY oxybutynin chloride 10 mg tablet extended release 24hr 10 mg PO DAILY Patient Comments: Take 2 tablets by mouth once daily. [id number] 250 mg-200 mg- 1,500 unit Tablet 1 tab PO DAILY aspirin 81 mg Capsule 81 mg PO DAILY Hold Instructions: Resume on 10/25/22. metoprolol tartrate 25 mg tablet 25 mg PO DAILY Patient Comments: Take 1 tablet by mouth twice daily. hydrocodone-acetaminophen 5-325 mg Tablet 1 tab PO Q4H PRN PRN (Reason: pain 4-10) 3 Days Qty: 10 0RF docusate sodium 100 mg Capsule 100 mg PO BID Qty: 0 0RF bisacodyl 5 mg Tablet,Delayed Release (Dr/Ec) 5 mg PO DAILY Qty: 0 0RF sucralfate [Carafate] 1 gram tablet 1 g PO DAILY Qty: 1 0RF furosemide [Lasix] 40 mg tablet 40 mg PO DAILY Qty: 30 0RF potassium chloride 20 mEq tablet extended release 20 meq PO DAILY Patient Comments: Take 1 tablet by mouth once daily. Referrals / Follow Up: Justin Tierney MD [Primary Care Provider] - Within 1 Week Disposition Disposition (needs filled in before D/C Order can be placed): Home Health Service Charges/Coding Visit Charges Inpatient E&M: 65022 Disch Hosp >30min
--- NOTE | 2023-09-13 12:14 | CASEMGMT ---
Addendum entered by Gumaro Randle 09/13/23 13:48: Documentation of pt's need of home O2 by Dr Ferrer faxed to [facility] at this time. Addendum entered by Gumaro Randle 09/13/23 12:29: Per Bhavya DELVALLE, she contacted Blanka who will contact [facility] to inform them pt is discharging home today to inquire if aide can go to her home today, but she states she is not able to confirm they will be able to do this. Pt made aware. Original Note: RN MARIANA NOTE: Pt being discharged. RN CM to room. Pt sitting up in chair. Initially patient stated she was thinking long and hard about if she feels she is safe to go home alone and stated, I don't know if I can care for myself like I should. Patient asked if she goes home and then changes her mind and decides she needs to go somewhere, what she should do. Pt made aware she would need to return to [facility] ED to be admitted so referral process can be started for a SNF. Further questions answered. Pt then stated, I think I'll be okay. She stated she feels like she will be safe at home and able to get around her home and get meals and use the restroom. Discussed possible options of someone staying w/her for awhile once she returns home and she stated she didn't think that would be an option. Pt would still like her home-adult care provider to come to her home later today, if possible. Bhavya DELVALLE, is aware and to contact the agency to inquire about this. Pt aware of same. Therapy in to work w/pt after above discussion with patient. Per therapy, they feel pt is safe to discharge home alone. RN CM to room to talk w/pt again. Pt states she does feel safe to discharge home. She was reminded that [facility] unable to see her until next week for SN and therapy and she states she is still okay with this. Irene, inventory control planner, did contact [facility] to inquire if they may be able to see pt sooner and they stated will try, but do not have any openings at this time. Pt made aware of same. Pt qualifies for O2 @ 2 l/m w/exertion and she confirms she wants to get this from [facility]. Pt's sister is at bedside and has brought pt's portable oxygen concentrator in to [facility] for pt to go home on. Call placed to Katrina @ [facility] and she was made aware of need of Home O2 set up today. Script for O2 obtained from Dr Ferrer and faxed to [facility] per Katrina's request. O2 referral also sent to [facility] via [facility]. Pt provided w/[facility]'s # and instructed to contact them prior to leaving [facility] so they can arrange time to meet pt @ home. Pt confirms she has a pulse ox @ home. Pt denies having any further discharge planning needs or concerns. Pt's sister will take her home. Martina GREENEN RN CM
--- NOTE | 2023-09-13 12:26 | CASEMGMT ---
Social Work Pt planning to discharge home today. SW placed call to pt's Direction Retail Leasing Agent Blanka Barba and notified of discharge. Blanka will contact [facility] and request home health aid visit pt at home later today. Discharge summary faxed. JASON Rowe
== END 2023-09-13 12:55 | disposition home health service (06) | DRG 195 ==
LOC: ED 15:22 → ICU 17:07
PROVIDERS: Nurse Practitioner; Admitting Provider Internal Medicine; Emergency Provider Emergency Medicine; PCP Family Medicine; Visit Provider Internal Medicine
DX: J15.4 Pneumonia due to other streptococci (principal); I27.20 Pulmonary hypertension, unspecified; I10 Essential (primary) hypertension; E78.5 Hyperlipidemia, unspecified; G47.33 Obstructive sleep apnea (adult) (pediatric); E87.6 Hypokalemia; K59.00 Constipation, unspecified; R09.02 Hypoxemia; Z66 Do not resuscitate; Z79.82 Long term (current) use of aspirin; Z79.899 Other long term (current) drug therapy; Z85.3 Personal history of malignant neoplasm of breast
CPT/HCPCS: 71045; 80048; 83605; 83735; 84100; 84484; 85025; 87040; 87070; 87205; 87449; 87633; 87811; 93005; 94640; 94667; 94668; 94760; 94762; 97110; 97162; 97166; 97530; 97535; 99252; 99284; J7050; A4216; G0463

== ENCOUNTER → 2023-09-27 | Outpatient (CLI) | payer MEDICARE, MEDICAID, SELFPAY ==
[2023-09-27 14:25] LABS: Bacteria 0 SEEN /hpf (None Seen); Mucous, Urine 0 SEEN /hpf (<or=2+); Red Blood Cells-Urine 0 SEEN /hpf (0-5)
[2023-09-27 14:43] LABS: Color, Urine Yellow (Yellow); Glucose, Dipstick Normal (Normal); Ketone-Dipstick Negative (Negative); Leukocyte Esterase-Dipstick 100 /ul (Negative); Nitrite-Dipstick Negative (Negative); Occult Blood-Urine Negative /ul (Negative); Protein-Dipstick 15 mg/dl (Negative); Specific Gravity, Urine 1.025 (1.002-1.030); Urine Bilirubin Dipstick Negative (Negative); Urine Clarity Clear (Clear); Urine Urobilinogen Normal (Normal)
[2023-09-27 14:50] LABS: Calcium Oxalate Crystals Ur 1+ /hpf (<or=2+); Squamous Epithelial Cells - UA 0-5 SEEN /hpf (5-10); White Blood Cells 0-5 SEEN /hpf (0-5)
== END | disposition home or self-care (01) ==
LOC: LABSPEC 14:18
PROVIDERS: PCP Family Medicine; Visit Provider Family Medicine
DX: N39.0 Urinary tract infection, site not specified (principal)
CPT/HCPCS: 81001; 87086

== ENCOUNTER 2023-12-15 11:42 | Emergency (ER) | payer MEDICARE, MEDICAID, SELFPAY ==
[2023-12-15 11:43] VITALS: BP 126/60; PULSE 62; RESP 16; TEMP 36.3; O2SAT 97; BMI 29.8
--- NOTE | 2023-12-15 11:43 | EDS_ITS ---
HPI History of Present Illness Chief Complaint: Lower Extremity Injury [facility] Medical History Anemia Arthritis Benign positional vertigo Breast mass, left Cardiac contusion (11/27/18) Chronic kidney disease (CKD) Dyspnea on exertion Elevated troponin (11/27/18) FRACTURE LEFT ANKLE GERD (gastroesophageal reflux disease) History of fall (11/27/18) History of left heart catheterization History of subdural hematoma (post traumatic) (03/19/16) Hx of breast cancer Hx of pulmonary hypertension Hyperlipidemia Hypertension Osteopenia Pain in left shoulder Pleural effusion on left Sternal fracture (11/27/18) Thyroid disease Home Medications cholecalciferol (vitamin D3) 1,250 mcg (50,000 unit) capsule 50,000 unit PO DAILY supplement 04/02/19 [History Last Taken 12/15/23] simvastatin 20 mg tablet 20 mg PO QHS cholesterol 04/02/19 [History Last Taken 12/14/23] trazodone 100 mg tablet 100 mg PO QHS sleep 04/02/19 [History Last Taken 12/14/23] cyanocobalamin (vitamin B-12) 1,000 mcg tablet 1,000 mcg PO DAILY supplement 07/23/22 [History Last Taken 09/10/23] pantoprazole 40 mg tablet,delayed release (Protonix) 40 mg PO BID #60 tabs 07/25/22 [Rx Last Taken 12/15/23] aspirin 81 mg capsule 81 mg PO DAILY 10/05/22 [History Last Taken 12/15/23] glucosamine 250 bu-ukizj-hdd 200 mg-D3 1,500 bpun-X-miibg-herbs tablet 1 tab PO DAILY 10/05/22 [History Last Taken 12/15/23] oxybutynin chloride 10 mg tablet,extended release 24 hr 10 mg PO DAILY 10/05/22 [History Last Taken 12/15/23] bisacodyl 5 mg tablet,delayed release 5 mg PO DAILY #0 tabs 10/19/22 [Rx Last Taken 12/15/23] docusate sodium 100 mg capsule 100 mg PO BID #0 caps 10/19/22 [Rx Last Taken 09/10/23] furosemide 40 mg tablet (Lasix) 40 mg PO DAILY #30 tabs 10/19/22 [Rx Last Taken 12/15/23] sucralfate 1 gram tablet (Carafate) 1 g PO DAILY #1 TAB 10/19/22 [Rx Last Taken 12/15/23] potassium chloride 20 mEq tablet,extended release 20 meq PO DAILY 09/10/23 [History Last Taken 12/15/23] hydrocodone-acetaminophen 5-325mg 5mg-325mg 1 tab PO Q4H PRN pain 4-10 12/15/23 [History Last Taken 12/15/23] hydromorphone 2 mg tablet (Dilaudid) 2 mg PO Q6H PRN pain 3 days #12 tabs 12/15/23 [Rx Last Taken Unknown] metoprolol succinate 50 mg tablet,extended release 24 hr 50 mg PO DAILY BLOOD PRESSURE 12/15/23 [History Last Taken 12/15/23] nitroglycerin 0.4 mg sublingual tablet 0.4 mg sublingual Q5M PRN chest pain 12/15/23 [History Last Taken Unknown] sertraline 50 mg tablet 50 mg PO DAILY 12/15/23 [History Last Taken 12/15/23] Allergy/AdvReac Type Severity Reaction Status Date / Time diazepam [From Valium] AdvReac Severe Other Verified 12/15/23 11:48 eszopiclone [From Lunesta] AdvReac Severe confusion Verified 12/15/23 11:48 morphine AdvReac Severe Other Verified 12/15/23 11:48 paroxetine HCl [From Paxil] AdvReac Severe Other Verified 12/15/23 11:48 zolpidem [From Ambien] AdvReac Severe confusion Verified 12/15/23 11:48 Family History Sister Breast cancer Heart disease Hypertension Father Heart disease Hypertension Surgical History History of bilateral knee replacement History of lumpectomy of left breast History of oophorectomy History of right cataract surgery History of tubal ligation Social History housing: house current occupational status: retired Smoking Status: Never smoker second hand exposure: No alcohol intake: never substance use type: does not use caffeine: Yes Type: coffee Number of servings: 2 what type of physical activity do you participate in: none frequency: does not exercise amador/adventist: [employer] of [employer] seatbelt use: sometimes 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, had to fly to get there. EXAM Physical Exam Const Vital Signs: 12/15/23 11:43 Temperature 97.3 F L Temperature Source Temporal Pulse Rate 62 Respiratory Rate 16 Blood Pressure 126/60 H Blood Pressure Mean 82 Pulse Ox 97 Oxygen Delivery Method Nasal Cannula Oxygen Flow Rate (L/min) 2 MDM MDM MDM Narrative Medical decision making narrative: HISTORY OF PRESENT ILLNESS: 83-year-old female Notes left hip pain for 1 week. Denies back pain or falls. Patient denies any saddle anesthesia, urinary retention, bowel or bladder incontinence, lower extremity weakness, fever or IV drug use, no recent spinal manipulation or surgery, no recent urinary catheterization. REVIEW OF SYSTEMS: Pertinent positives: Hip pain Pertinent negatives: Abdominal pain, urinary complaints, back pain PHYSICAL EXAM: Nursing triage notes reviewed, Vital signs reviewed Constitutional: please see mdm HENT: MMM Eyes: Pupils equal round and reactive to light, Extraocular muscles intact Neck: No stridor, no JVD, full neck ROM Lungs: Clear to auscultation, No wheezing or rales. No increased work of breathing, no conversational dyspnea, no accessory muscle use, no nasal flaring. No respiratory distress noted Heart: Regular rate and rhythm, No murmurs, No rubs and No gallops, 2+ distal pulses (radial, femoral, posterior tibial) in all extremities Abdomen: Soft, there is no tenderness, rigidity, rebound or guarding, no obvious peritoneal signs, no palpable pulsatile abdominal masses, no auscultated abdominal bruit : No CVAT Extremities: No edema, TTP over left hip, intact internal/external rotation flexion extension of left hip. Pelvis stable to compression. Neuro: Intact sensation L1-S1 dermatomal distributions. Intact 5/5 strength in hip flexion (T12-L3). Knee extension (L2-L4). Ankle dorsiflexion (L4-L5). Ankle plantar flexion (S1). Great toe extension (L5). 2+ patellar and Achilles DTRs. Skin: No rash or lesions noted MEDICAL DECISION MAKING: Chief Complaint: Hip pain External records reviewed: No recent advanced imaging is of the involved extremity Factors affecting care: osteoarthritis, osteopenia, hyperlipidemia, hypertension, CKD, history of left ankle fracture Social determinants of health: Elderly MDM Narrative: The patient was hemodynamically stable, afebrile, nontoxic-appearing. Exam without obvious bony deformity. Intact range of motion. I considered the following differential diagnosis: Hip fracture, dislocation, hip osteoarthritis ALL IMAGES (IF OBTAINED) HAVE BEEN PERSONALLY REVIEWED AND INTERPRETED BY MYSELF. X-ray was read reviewed myself shows no evidence of obvious abnormality shows evidence of likely osteoarthritis. Treat the patient with oral narcotics, ibuprofen. X-ray was negative. Patient ambulated in the ED. She is capable to meet her ADLs and does not meet criteria for admission. The patient and/or family, caregivers express understanding. The patient and/or family, caregivers agrees with the plan. Shared decision making: I will have a discussion with the patient and or visitors regarding risk/benefits of further testing or admission. They will be made aware of of the risk/benefits inherent in this decision they will be given the opportunity to voice understanding. Total critical care time today provided was at least 0 minutes. This excludes separately billable procedures. Critical care time (if documented) is secondary to the patient having high probability of clinically significant/life threatening deterioration in the patient's condition which required my urgent intervention. Impression: 1. Left hip pain Dispo: This note was generated with [employer] dictation software. It may contain incorrect words, spelling, and punctuation that were not noted in review of the chart prior to signing. Radiography Diagnostic Testing: Clinical Impression(s) from Imaging Studies Hip/Pelvis X-Ray 12/15/23 12:22 IMPRESSION: No evidence of displaced pelvic or hip fracture. Electronically Signed: Aaron Lacey MD at 13:33 EST , Discharge Plan Triage Chief Complaint: Lower Extremity Injury ED Provider: Kurtis Baig Dx/Rx/DC Orders Clinical Impression: Osteopenia, Hip pain Instructions: ED Arthralgia Prescriptions: New hydromorphone [Dilaudid] 2 mg tablet 2 mg PO Q6H PRN (Reason: pain) 3 Days Qty: 12 0RF No Action cholecalciferol (vitamin D3) 50,000 unit capsule 50,000 unit PO DAILY simvastatin 20 mg tablet 20 mg PO QHS trazodone 100 mg tablet 100 mg PO QHS cyanocobalamin (vitamin B-12) 1,000 mcg tablet 1,000 mcg PO DAILY Patient Comments: PT STATES ON BACKORDER AND PHARMACY HASNT BEEN ABLE TO FILL pantoprazole [Protonix] 40 mg tablet,delayed release (DR/EC) 40 mg PO BID Qty: 60 0RF Patient Comments: PT STATES SHE TAKES ONCE DAILY oxybutynin chloride 10 mg tablet extended release 24hr 10 mg PO DAILY [id number] 250 mg-200 mg- 1,500 unit Tablet 1 tab PO DAILY aspirin 81 mg Capsule 81 mg PO DAILY Hold Instructions: Resume on 10/25/22. docusate sodium 100 mg Capsule 100 mg PO BID Qty: 0 0RF bisacodyl 5 mg Tablet,Delayed Release (Dr/Ec) 5 mg PO DAILY Qty: 0 0RF sucralfate [Carafate] 1 gram tablet 1 g PO DAILY Qty: 1 0RF furosemide [Lasix] 40 mg tablet 40 mg PO DAILY Qty: 30 0RF potassium chloride 20 mEq tablet extended release 20 meq PO DAILY metoprolol succinate 50 mg tablet extended release 24 hr 50 mg PO DAILY nitroglycerin 0.4 mg tablet, sublingual 0.4 mg sublingual Q5M PRN (Reason: chest pain) Patient Comments: Dissolve 1 tablet under the tongue every 5 minutes for 3 doses. FOR CHEST PAIN. IF NO RELIEF CALL 911 sertraline 50 mg tablet 50 mg PO DAILY hydrocodone-acetaminophen 5-325 mg Tablet 1 tab PO Q4H PRN (Reason: pain 4-10) Primary Care Provider: Justin Tierney Referrals: Justin Tierney MD [Primary Care Provider] - Bismark Chester MD [Med Staff - Active Staff] - Activity Restrictions/Additional Instructions: Thank you for trusting us with your care today! Please take Tylenol (2 pills, 650 mg), ibuprofen (2 pills, 400 mg) every 6 hours as needed for pain and fever control. Please continue take already prescribed narcotic as needed for additional pain control. Please go to your pharmacy or drugstore and obtain Salonpas lidocaine patches for topical pain relief. Please return to the emergency department if your symptoms change or worsen. Please follow with your primary care physician and orthopedic surgery for further outpatient evaluation and management. Specifically follow with orthopedic surgery for evaluation for possible hip replacement. Disposition Disposition: Home, Self Care Discharge Date/Time: 12/15/23 15:23
[2023-12-15] MEDS: Ibuprofen 200 MG Tablet 400 MG PO (12:10)
[2023-12-15] MEDS: Oxycodone/Apap 5/325 Tablet PO (12:10)
--- NOTE | 2023-12-15 12:22 | RAD_ITS ---
EXAM: XR LEFT HIP WITH PELVIS WHEN PERFORMED, 2 OR 3 VIEWS CLINICAL INDICATION: left hip pain TECHNIQUE: Two or three views of the left hip with pelvis when performed. COMPARISON: No relevant prior studies available. FINDINGS: BONES/JOINTS: No acute abnormality. SOFT TISSUES: Normal. No soft tissue swelling or gas. RAD/HIP, UNI W/ Pelvis 2-3 Views IMPRESSION: No evidence of displaced pelvic or hip fracture. Electronically Signed: Aaron Lacey MD at 13:33 EST ,
--- NOTE | 2023-12-15 14:04 | ED.RN ---
PT AMBULATED W STEADY GAIT, PT DID STEP SLOWLY AND C/O BEING VERY PAINFUL WITH EVERY STEP. PT TATES SHE IS CONCERNED ABOUT GOING HOME ALONE AND FALLING
== END 2023-12-15 15:23 | disposition home or self-care (01) ==
PROVIDERS: Emergency Provider Emergency Medicine; PCP Family Medicine; Visit Provider Emergency Medicine
DX: M85.80 Other specified disorders of bone density and structure, unspecified site (principal); M25.552 Pain in left hip; I12.9 Hypertensive chronic kidney disease with stage 1 through stage 4 chronic kidney disease, or unspecified chronic kidney disease; M19.90 Unspecified osteoarthritis, unspecified site; E78.5 Hyperlipidemia, unspecified; N18.9 Chronic kidney disease, unspecified; Z79.899 Other long term (current) drug therapy
CPT/HCPCS: 73502; 99283

== ENCOUNTER 2024-06-22 07:14 | Observation (INO) | payer MEDICARE, MEDICAID, SELFPAY ==
[2024-06-22] VITALS (15 sets, daily range): BP systolic 106–148; BP diastolic 56–90; PULSE 74–98; RESP 14–20; TEMP 36.2–36.9; O2SAT 89–99; BMI 30.2; BMI 28.9
--- NOTE | 2024-06-22 07:28 | ED.VIS.CHEST ---
HPI History of Present Illness Chief Complaint: Chest Pain Informant: patient Onset/Context/Timing Onset: Today Activity at onset: sudden Timing: Continuous Quality: Positive for Sharp Location: Substernal, Left Parasternal and Left Chest Worsened By: Nothing Relieved By: NTG Associated Symptoms: Positive for Cough; Negative for Nausea, Vomiting, Diaphoresis, Dyspnea, Fever, Lightheadedness, Acid Reflux or Palpitations Narrative Narrative: The patient presents with chest pain that began today. Patient states it woke her up in the middle of the night. Patient states it is constant. Patient states it is sharp. Patient states it starts over the substernal area and radiates to the left chest. Patient states that EMS administered aspirin and nitroglycerin which helped somewhat. Patient states nothing makes it worse. Patient admits to a mild cough. Patient denies any shortness of breath. Patient denies any nausea or vomiting. Patient denies any diaphoresis. CVD Risk Factors: Positive for Hypertension; Negative for Diabetes, Hypercholesterolemia, Family History 1' </=55 or Smoking PE Risk Factors: Positive for Cancer; Negative for Recent Travel/Surgery, Recent Immobilization or Prior DVT or PE [facility] Medical History Pain in left shoulder Hx of pulmonary hypertension History of left heart catheterization Pleural effusion on left History of subdural hematoma (post traumatic) (03/19/16) Benign positional vertigo Anemia Dyspnea on exertion History of fall (11/27/18) Hyperlipidemia Elevated troponin (11/27/18) Cardiac contusion (11/27/18) Sternal fracture (11/27/18) Breast mass, left Arthritis Thyroid disease Hx of breast cancer FRACTURE LEFT ANKLE Osteopenia GERD (gastroesophageal reflux disease) Hypertension Chronic kidney disease (CKD) Home Medications ?Medication ?Instructions ?Recorded ?Last Taken ?Type cholecalciferol (vitamin D3) 1,250 50,000 unit PO DAILY supplement 04/02/19 12/15/23 History mcg (50,000 unit) capsule simvastatin 20 mg tablet 20 mg PO QHS cholesterol 04/02/19 12/14/23 History trazodone 100 mg tablet 100 mg PO QHS sleep 04/02/19 12/14/23 History cyanocobalamin (vitamin B-12) 1,000 mcg PO DAILY supplement 07/23/22 09/10/23 History 1,000 mcg tablet pantoprazole 40 mg tablet,delayed 40 mg PO BID #60 tabs 07/25/22 12/15/23 Rx release (Protonix) aspirin 81 mg capsule 81 mg PO DAILY 10/05/22 12/15/23 History glucosamine 250 [id number] 200 1 tab PO DAILY 10/05/22 12/15/23 History mg-D3 1,500 oemm-G-embrr-herbs tablet oxybutynin chloride 10 mg 10 mg PO DAILY 10/05/22 12/15/23 History tablet,extended release 24 hr bisacodyl 5 mg tablet,delayed 5 mg PO DAILY #0 tabs 10/19/22 12/15/23 Rx release docusate sodium 100 mg capsule 100 mg PO BID #0 caps 10/19/22 09/10/23 Rx furosemide 40 mg tablet (Lasix) 40 mg PO DAILY #30 tabs 10/19/22 12/15/23 Rx sucralfate 1 gram tablet (Carafate) 1 g PO DAILY #1 TAB 10/19/22 12/15/23 Rx potassium chloride 20 mEq 20 meq PO DAILY 09/10/23 12/15/23 History tablet,extended release hydrocodone-acetaminophen 5-325mg 1 tab PO Q4H PRN pain 4-10 12/15/23 12/15/23 History 5mg-325mg hydromorphone 2 mg tablet 2 mg PO Q6H PRN pain 3 days #12 12/15/23 Unknown Rx (Dilaudid) tabs metoprolol succinate 50 mg 50 mg PO DAILY BLOOD PRESSURE 12/15/23 12/15/23 History tablet,extended release 24 hr nitroglycerin 0.4 mg sublingual 0.4 mg sublingual Q5M PRN chest 12/15/23 Unknown History tablet pain sertraline 50 mg tablet 50 mg PO DAILY 12/15/23 12/15/23 History Allergy/AdvReac Type Severity Reaction Status Date / Time diazepam (From Valium) AdvReac Severe Other Verified 06/22/24 07:25 eszopiclone (From Lunesta) AdvReac Severe confusion Verified 06/22/24 07:25 morphine AdvReac Severe Other Verified 06/22/24 07:25 paroxetine HCl (From Paxil) AdvReac Severe Other Verified 06/22/24 07:25 zolpidem (From Ambien) AdvReac Severe confusion Verified 06/22/24 07:25 Family History Sister Breast cancer Heart disease Hypertension Father Heart disease Hypertension Surgical History History of right cataract surgery History of lumpectomy of left breast History of oophorectomy History of bilateral knee replacement History of tubal ligation Social History housing: house current occupational status: retired Smoking Status: Never smoker second hand exposure: No alcohol intake: never substance use type: does not use caffeine: Yes Type: coffee Number of servings: 2 what type of physical activity do you participate in: none frequency: does not exercise amador/islam: Mandaeism of [employer] Sabianism seatbelt use: sometimes 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 ROS ROS ED Constitutional Constitutional ED: Denies chills or fever(s) Eyes Eyes: Denies blurry vision or change in vision ENT ENT ED: Denies rhinorrhea or sore throat Cardiovascular Cardiovascular: Reports chest pain; Denies palpitations Respiratory/Chest Respiratory/Chest: Reports cough; Denies dyspnea Gastrointestinal Gastrointestinal: Denies nausea or vomiting Genitourinary Genitourinary ED: Denies dysuria or hematuria Musculoskeletal Musculoskeletal: Denies back pain or neck pain Integumentary Denies abscess or rash Neurologic Neurologic: Denies headache(s) or weakness Hematologic/Lymphatic Hematologic/Lymphatic: Reports easy bruising Allergic/Immunologic Allergic/Immunologic ED: Denies mouth swelling or urticaria EXAM Physical Exam Const Vital Signs: 06/22/24 07:17 06/22/24 07:42 06/22/24 08:15 Temperature 98.5 F Temperature Source Oral Pulse Rate 87 97 Respiratory Rate 18 20 H Blood Pressure 148/80 H 133/66 H Blood Pressure Mean 102 88 Pulse Ox 92 95 96 Oxygen Delivery Method Nasal Cannula Nasal Cannula Nasal Cannula Oxygen Flow Rate (L/min) 2 2 Fraction of Inspired Oxygen (FIO2) 2 06/22/24 09:00 06/22/24 10:00 06/22/24 11:07 Temperature Temperature Source Pulse Rate 78 98 74 Respiratory Rate 16 16 16 Blood Pressure 139/76 H 106/59 L 110/56 L Blood Pressure Mean 97 74 74 Pulse Ox 98 98 96 Oxygen Delivery Method Room Air Room Air Room Air Oxygen Flow Rate (L/min) Fraction of Inspired Oxygen (FIO2) 06/22/24 12:00 Temperature Temperature Source Pulse Rate 84 Respiratory Rate 19 H Blood Pressure 129/66 H Blood Pressure Mean 87 Pulse Ox 98 Oxygen Delivery Method Nasal Cannula Oxygen Flow Rate (L/min) Fraction of Inspired Oxygen (FIO2) 2 Positive well nourished and well developed General Appearance ED: well developed and NAD HEENT Reports moist mucous membranes Neck supple and no JVD Resp normal respiratory effort and clear to auscultation bilaterally Cardio regular rate and regular rhythm GI soft to palpation, non-tender and non-distended Neuro oriented x3, CN's II-XII intact bilaterally and no sensory deficits noted Sensorium / Orientation: awake and alert Motor Exam: strength 5/5 throughout Psych mental status grossly normal Heart Score History: Slightly/Non-Suspicious ECG: Nonspecific Repolarization Age: >/= 65 years Risk Factors: >/= 3 Risk Factors or History of CAD Troponin: </= Normal Limit Score: 5 MDM MDM MDM Narrative Medical decision making narrative: Differential diagnosis includes cardiac dysrhythmia, cardiac ischemia, pulmonary embolism, pneumonia, pneumothorax, sepsis electrolyte abnormality, GERD, musculoskeletal pain, and anxiety. EKG will be obtained to assess for cardiac dysrhythmia and cardiac ischemia. CBC will be obtained to assess for leukocytosis and anemia. Basic metabolic profile will be obtained to assess for electrolyte abnormality and renal function. High-sensitivity troponin will be obtained to assess for cardiac ischemia. 2-hour repeat high-sensitivity troponin will be obtained to assess for ongoing cardiac ischemia. D-dimer will be obtained to assess for pulmonary embolism. Chest x-ray will be obtained to assess for pneumonia and pneumothorax. Lab Data Attestation: I reviewed the patient's lab results. Lab results narrative: CBC was reviewed. There is a mild anemia with a hemoglobin of 11.2 and hematocrit 36.1. The remainder was within normal limits. PT was INR and PTT were reviewed and were within normal limits. D-dimer was reviewed and was elevated at 3.09. Basic metabolic profile was reviewed and was within normal limits. Initial high-sensitivity troponin was reviewed and was normal at 9. 2-hour repeat high-sensitivity troponin was reviewed and was normal at 14. Labs: Laboratory Results - last 24 hr 06/22/24 06/22/24 07:02 10:10 WBC 7.6 RBC 3.96 L Hgb 11.2 L Hct 36.1 L MCV 91.2 MCH 28.3 MCHC 31.0 L RDW Std Deviation 47.7 H RDW Coeff of Scott 14.2 Plt Count 296 MPV 9.2 Immature Gran % (Auto) 0.400 Neut % (Auto) 74.5 H Lymph % (Auto) 11.3 L Norman % (Auto) 11.3 H Eos % (Auto) 2.1 Baso % (Auto) 0.4 Absolute Neuts (auto) 5.7 Absolute Lymphs (auto) 0.86 Nucleated RBC % 0 PT 13.7 INR 1.0 APTT 36.4 H D-Dimer Quant (PE/DVT) 3.09 H* Sodium 139 Potassium 3.8 Chloride 104 Carbon Dioxide 30.0 Anion Gap 5 BUN 17 Creatinine 0.88 Estim Creat Clear Calc 49.42 Est GFR (MDRD) Af Amer 79 Est GFR (MDRD) Non-Af 65 BUN/Creatinine Ratio 19.3 Glucose 115 H Calcium 9.0 Troponin I High Sens 9 14 Radiography Diagnostic Testing: Clinical Impression(s) from Imaging Studies Chest X-Ray 06/22/24 07:43 IMPRESSION: Mild lingular atelectasis or pneumonia. Gaseous distention of bowel in the upper abdomen. Electronically Signed: Giulia Mcdermott MD at 8:25 EDT , Chest CTA 06/22/24 09:25 IMPRESSION: No evidence of pulmonary embolism. Mild pulmonary atelectasis and scarring. Electronically Signed: Giulia Mcdermott MD at 10:12 EDT , PA and lateral chest x-ray was obtained. There are 2 views. On my independent interpretation, lung dhillon shows mild lingular atelectasis versus infiltrate. There is gaseous distention of bowel in the upper abdomen. There is normal cardiac silhouette. Bony thorax is normal. There is no acute process noted. Radiologist also interpreted the x-ray and agrees. Because of the elevated D-dimer, CTA of the chest was obtained. There is no evidence of pulmonary embolism. There is pulmonary atelectasis and scarring. There is no acute infiltrate. There is no evidence of aortic dissection. This was interpreted by the radiologist and was also independently reviewed by myself. EKG Initial EKG: Attestation: I personally reviewed and interpreted this EKG as follows: Interpretation: Sinus Rhythm (94) and Non-Specific ST Changes Comments: EKG was obtained. On my independent interpretation, it showed a normal sinus rhythm with a rate of 94. NE interval, QRS interval, and QTc intervals were all normal. [place] was normal. There are nonspecific ST-T wave changes. Prior EKG tracings: available for review Prior: Unchanged (09/10/2023) Management Discussion w/another healthcare provider: Hospitalist Treatment and Re-Evaluation :: Patient was given aspirin and nitroglycerin. Patient was feeling better on reevaluation. Patient was advised of her findings. Patient has a HEART score of 5. Patient states she had a right and left heart catheterization 3 months ago at [facility] which were all normal. However, I attempted to obtain her cath report through [employer] and was unable to find any records of a heart catheterization. Patient ambulated here in the emergency department on room air. Patient's oxygen saturation dropped to 88% while ambulating. Patient developed chest pain with ambulation. Because of this, I recommended admission to the hospital. Case was discussed with the hospitalist. He will admit the patient to his service for observation. Patient understood and was agreeable with the plan. All questions were answered. Discharge Plan Dx/Rx/DC Orders Clinical Impression: Chest pain, Hypertension, Dyspnea on exertion Disposition Disposition: [facility]
--- NOTE | 2024-06-22 07:42 | EKG12_ITS ---
Test Reason : CP Blood Pressure : / mmHG Vent. Rate : 094 BPM Atrial Rate : 094 BPM P-R Int : 134 ms QRS Dur : 070 ms QT Int : 330 ms P-R-T Axes : 066 039 037 degrees QTc Int : 412 ms Normal sinus rhythm Nonspecific ST abnormality Abnormal ECG Confirmed by TAHMINA HARRISON, BELKYS ([id number]), story editor ALICIA PRECIADO ([id number]) on 06/23/2024 9:43:44 AM Referred By: NAT Confirmed By:BELKYS MARTEL MD
--- NOTE | 2024-06-22 07:43 | RAD_ITS ---
HISTORY: PT WOKE UP WITH CHEST PAIN. SHE CALLED THE [facility] AND HAD 2 DOSES OF NIRO. AFTER THE SECOND DOSE HER PAIN STARTED TO SUBSIDE BUT IS STILL PRESENT. TECHNIQUE: XR Chest 2 Views. COMPARISON: 09/10/2023. FINDINGS: CARDIOMEDIASTINAL BORDERS: Cardiac silhouette and mediastinal contour unchanged with mild cardiomegaly and calcification of the aorta. LUNGS: Mild linear atelectasis and scarring in the mid to lower lobes with chronic elevation of the left hemidiaphragm. Mild patchy lingular opacity. PLEURA: No pleural effusion or pneumothorax seen. OTHER: Degenerative changes of the osseous structures. Chronic gaseous distention of bowel in the abdomen. RAD/Chest PA and Lateral IMPRESSION: Mild lingular atelectasis or pneumonia. Gaseous distention of bowel in the upper abdomen. Electronically Signed: Giulia Mcdermott MD at 8:25 EDT ,
--- NOTE | 2024-06-22 07:52 | ED.RN ---
EMS GAVE 324 OF ASA AND 2 NITRO
[2024-06-22 08:05] LABS: Absolute Lymphocyte Count 0.86 X10^3/uL (0.83-4.51); Absolute Neutrophil Count 5.7 X10^3/uL (2.0-7.7); Basophil# 0.03 X10^3/uL; Basophil% 0.4 % (0-1); Eosinophil# 0.16 X10^3/uL; Eosinophils% 2.1 % (0-5); Hematocrit 36.1 % (37-47); Hemoglobin 11.2 g/dL (12.0-15.0); Lymphocyte # 0.86 X10^3/ul (0.83-4.51); Lymphocyte % 11.3 % (19-41); Mean Corpuscular Hgb 28.3 pg (27.0-32.0); Mean Corpuscular Volume 91.2 fL (81-99); Mean Platelet Vol. 9.2 fl (6.2-12.0); Monocyte# 0.86 X10^3/uL; Monocyte% 11.3 % (0-10); NRBC Flagged by Analyzer 0 % (0-5); Neutrophil # 5.67 X10^3/uL (2.7-7.7); Neutrophil % 74.5 % (47-70); Platelet Count 296 K/mm3 (150-450); RBC Distribution Width CV 14.2 % (11.6-14.6); RBC Distribution Width SD 47.7 fl (35.1-43.9); Red Blood Count 3.96 M/mm3 (4.2-5.4); White Blood Count 7.6 K/mm3 (4.4-11.0)
[2024-06-22 08:26] LABS: Anion Gap 5 (5-15); BUN 17 mg/dL (7-18); BUN/Creat Ratio 19.3 RATIO (10-20); Chloride 104 mmol/L (98-107); Creatinine, Serum 0.88 mg/dL (0.55-1.02); EST Glomerular Filtration Rate 65 mL/min (>60); Est Glom Filt Rate - Afr Amer 79 mL/min (>60); Estimated Creatinine Clearance 49.42 ml/min; Glucose 115 mg/dL (74-106); Potassium 3.8 mmol/L (3.5-5.1); Sodium Level 139 mmol/L (136-145); Troponin-I HS (w/2H Reflex) 9 pg/mL (3.0-54.0)
[2024-06-22 08:44] LABS: Prothrombin Time (Protime)PT. 13.7 SECONDS (11.7-14.9)
[2024-06-22 08:45] LABS: Partial Thromboplast Time 36.4 Seconds (24.1-36.2)
[2024-06-22 09:18] LABS: D-Dimer Quantitative (DVT/PE) 3.09 FEU/ug/m (0.27-0.49)
--- NOTE | 2024-06-22 09:25 | CT_ITS ---
HISTORY: Elevated D-dimer. TECHNIQUE: CT angiogram of the chest was performed after the intravenous administration of 100 mL Isovue-370. Post-processing of the angiographic images was performed with multiplanar reformation and 3D reconstruction. Individualized dose optimization techniques were used for this CT. 1173 images. COMPARISON: XR same day. FINDINGS: CENTRAL AIRWAYS: Mild fluid in the damien extending into the left bronchus. LUNGS: Mild left upper lobe and lingular scarring with scattered mild bilateral atelectasis. PLEURA: No pneumothorax or significant pleural effusion. HEART/PERICARDIUM: Heart within normal limits in size with coronary artery calcification. No pericardial effusion. PULMONARY ARTERIES: No filling defect. Central pulmonary artery enlargement suggesting pulmonary hypertension. AORTA/VESSELS: No thoracic aortic aneurysm or dissection flap. Atherosclerosis present. MEDIASTINUM/NICO: No pathologically enlarged lymph nodes. OSSEOUS STRUCTURES: Degenerative change. Old upper sternal body fracture. Degenerative endplate sclerosis of T7-8. UPPER ABDOMEN: Gaseous and stool distention of the colon. CT/CTA Chest W/WO Contrast IMPRESSION: No evidence of pulmonary embolism. Mild pulmonary atelectasis and scarring. Electronically Signed: Giulia Mcdermott MD at 10:12 EDT ,
[2024-06-22 09:59] LABS: Reflex Troponin-HS? (from REC) Y
[2024-06-22 10:34] LABS: Troponin-I HS 14 pg/mL (3.0-54.0)
--- NOTE | 2024-06-22 12:59 | PCM.HP.STD ---
HPI - General General Date of Admission: 06/22/24 Date of Service: 06/22/24 Chief Complaint: Woke up with chest pain today. Again had chest pain on walking in the ED. Mild hypoxia HPI Narrative RAYMUNDO LANDRY, is a 83 F with history of pulmonary hypertension and heart failure came to ED with sudden onset of left-sided chest pain with radiation to left arm that woke her up from sleep in the morning today. She has chronic dyspnea on exertion and is on water pill. She has mild dry cough for about 1 to 2 weeks about once a day she is not concerned much of that. No fever or acute shortness of breath. She felt very weak and could not move because of chest pain. She has prescribed 2 L of oxygen but is not using it for last 3 months. She had relief with 2 doses of nitro given by EMS but pain did not go away completely and still has mild pain. She was brought by EMS and EKG showed normal sinus rhythm. First troponin negative. D-dimer high therefore had CTPA was negative for acute PE but shows mild left upper lobe, lingular lobe atelectasis.. Patient further admitted for workup of chest pain. [facility] Medical History Pain in left shoulder Hx of pulmonary hypertension History of left heart catheterization Pleural effusion on left History of subdural hematoma (post traumatic) (03/19/16) Benign positional vertigo Anemia Dyspnea on exertion History of fall (11/27/18) Hyperlipidemia Elevated troponin (11/27/18) Cardiac contusion (11/27/18) Sternal fracture (11/27/18) Breast mass, left Arthritis Thyroid disease Hx of breast cancer FRACTURE LEFT ANKLE Osteopenia GERD (gastroesophageal reflux disease) Hypertension Chronic kidney disease (CKD) Home Medications ?Medication ?Instructions ?Recorded ?Last Taken ?Type cholecalciferol (vitamin D3) 1,250 50,000 unit PO DAILY supplement 04/02/19 12/15/23 History mcg (50,000 unit) capsule simvastatin 20 mg tablet 20 mg PO QHS cholesterol 04/02/19 12/14/23 History trazodone 100 mg tablet 100 mg PO QHS sleep 04/02/19 12/14/23 History cyanocobalamin (vitamin B-12) 1,000 mcg PO DAILY supplement 07/23/22 09/10/23 History 1,000 mcg tablet pantoprazole 40 mg tablet,delayed 40 mg PO BID #60 tabs 07/25/22 12/15/23 Rx release (Protonix) aspirin 81 mg capsule 81 mg PO DAILY 10/05/22 12/15/23 History glucosamine 250 fl-znayi-tab 200 1 tab PO DAILY 10/05/22 12/15/23 History mg-D3 1,500 wwhv-M-mzlzv-herbs tablet oxybutynin chloride 10 mg 10 mg PO DAILY 10/05/22 12/15/23 History tablet,extended release 24 hr bisacodyl 5 mg tablet,delayed 5 mg PO DAILY #0 tabs 10/19/22 12/15/23 Rx release docusate sodium 100 mg capsule 100 mg PO BID #0 caps 10/19/22 09/10/23 Rx furosemide 40 mg tablet (Lasix) 40 mg PO DAILY #30 tabs 10/19/22 12/15/23 Rx sucralfate 1 gram tablet (Carafate) 1 g PO DAILY #1 TAB 10/19/22 12/15/23 Rx potassium chloride 20 mEq 20 meq PO DAILY 09/10/23 12/15/23 History tablet,extended release hydrocodone-acetaminophen 5-325mg 1 tab PO Q4H PRN pain 4-10 12/15/23 12/15/23 History 5mg-325mg hydromorphone 2 mg tablet 2 mg PO Q6H PRN pain 3 days #12 12/15/23 Unknown Rx (Dilaudid) tabs metoprolol succinate 50 mg 50 mg PO DAILY BLOOD PRESSURE 12/15/23 12/15/23 History tablet,extended release 24 hr nitroglycerin 0.4 mg sublingual 0.4 mg sublingual Q5M PRN chest 12/15/23 Unknown History tablet pain sertraline 50 mg tablet 50 mg PO DAILY 12/15/23 12/15/23 History Allergy/AdvReac Type Severity Reaction Status Date / Time diazepam (From Valium) AdvReac Severe Other Verified 06/22/24 07:25 eszopiclone (From Lunesta) AdvReac Severe confusion Verified 06/22/24 07:25 morphine AdvReac Severe Other Verified 06/22/24 07:25 paroxetine HCl (From Paxil) AdvReac Severe Other Verified 06/22/24 07:25 zolpidem (From Ambien) AdvReac Severe confusion Verified 06/22/24 07:25 Family History Sister Breast cancer Heart disease Hypertension Father Heart disease Hypertension Surgical History History of right cataract surgery History of lumpectomy of left breast History of oophorectomy History of bilateral knee replacement History of tubal ligation Social History housing: house current occupational status: retired Smoking Status: Never smoker second hand exposure: No alcohol intake: never substance use type: does not use caffeine: Yes Type: coffee Number of servings: 2 what type of physical activity do you participate in: none frequency: does not exercise amador/religious: Jain of [employer] seatbelt use: sometimes additional social history: 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 She worked in an [employer], had to fly to get there. ROS ROS Narrative Constitutional: Reports fatigue and weakness. No fever. HEENT: Reports systems reviewed and no addt'l complaints, except as documented Respiratory/Chest: No acute shortness of breath or respiratory distress or wheezing. Chronic pulmonary hypertension. CVS: As described in HPI Gastrointestinal: Denies coffee ground emesis, hematemesis or vomiting Genitourinary: Denies burning urination or new urinary tract symptoms Musculoskeletal: Denies acute joint pain or limited range of motion. No acute injury. Bilateral TKR. Bilateral left more than right shoulder arthritis and chronic pain Neurologic: Denies seizure-like symptoms. No strokelike symptoms. skin: No ulcer. No rash Endocrinology: Reports systems reviewed and no addt'l complaints, except as documented Hematologic/Lymphatic: Reports systems reviewed and no addt'l complaints, except as documented Rest 14 ROS are negative except as mentioned in HPI Vital Signs Vital Signs Vital Signs: 06/22/24 07:17 06/22/24 07:42 06/22/24 08:15 Temperature 98.5 F Temperature Source Oral Pulse Rate 87 97 Respiratory Rate 18 20 H Blood Pressure 148/80 H 133/66 H Blood Pressure Mean 102 88 Pulse Ox 92 95 96 Oxygen Delivery Method Nasal Cannula Nasal Cannula Nasal Cannula Oxygen Flow Rate (L/min) 2 2 Fraction of Inspired Oxygen (FIO2) 2 06/22/24 09:00 06/22/24 10:00 06/22/24 11:07 Temperature Temperature Source Pulse Rate 78 98 74 Respiratory Rate 16 16 16 Blood Pressure 139/76 H 106/59 L 110/56 L Blood Pressure Mean 97 74 74 Pulse Ox 98 98 96 Oxygen Delivery Method Room Air Room Air Room Air Oxygen Flow Rate (L/min) Fraction of Inspired Oxygen (FIO2) 06/22/24 12:00 Temperature Temperature Source Pulse Rate 84 Respiratory Rate 19 H Blood Pressure 129/66 H Blood Pressure Mean 87 Pulse Ox 98 Oxygen Delivery Method Nasal Cannula Oxygen Flow Rate (L/min) Fraction of Inspired Oxygen (FIO2) 2 Weight Weight: 170 lb 13.732 oz Body Mass Index (BMI) 30.2 Physical Exam Narrative General: Alert, Oriented x3, Cooperative HEENT: Atraumatic, PERRLA, EOMI, Normocephalic Oral: Oral mucosa dry. No Gingival or Mucosal Lesions/ Ulcerations Neck: Supple, No JVD, Negative Carotid Bruits Chest wall/Lungs: Air entry diminished in bilateral lung bases. No crepitation/rhonchi Cardiovascular: Sinus rhythm, P2 loud., Systolic murmur over LLSB. No pacemaker or open heart surgery. Abdomen: Bowel Sounds Present, Soft, Non Tender, Non-Distended : No dysuria. No renal angle tenderness. No suprapubic tenderness. Extremities: Subtle to mild bilateral lower extremity edema, Capillary Refill Less than 3 Seconds Skin: No rashes, No breakdown Musculoskeletal: Bilateral TKR. No Tenderness to Palpation of Joints or Extremities Neurological: Cranial nerves II-XII grossly intact, DTR 2+/4. No acute focal neurological deficit. Psych/Mental Status: Flat affect. Results Lab / Micro Data 06/22/24 07:02 06/22/24 07:02 Labs: Laboratory Results - last 24 hr 06/22/24 07:02: WBC 7.6, RBC 3.96 L, Hgb 11.2 L, Hct 36.1 L, MCV 91.2, MCH 28.3, MCHC 31.0 L, RDW Std Deviation 47.7 H, RDW Coeff of Scott 14.2, Plt Count 296, MPV 9.2, Immature Gran % (Auto) 0.400, Neut % (Auto) 74.5 H, Lymph % (Auto) 11.3 L, [place] % (Auto) 11.3 H, Eos % (Auto) 2.1, Baso % (Auto) 0.4, Absolute Neuts (auto) 5.7, Absolute Lymphs (auto) 0.86, Nucleated RBC % 0, PT 13.7, INR 1.0, APTT 36.4 H, D-Dimer Quant (PE/DVT) 3.09 H*, Sodium 139, Potassium 3.8, Chloride 104, Carbon Dioxide 30.0, Anion Gap 5, BUN 17, Creatinine 0.88, Estim Creat Clear Calc 49.42, Est GFR (MDRD) Af Amer 79, Est GFR (MDRD) Non-Af 65, BUN/Creatinine Ratio 19.3, Glucose 115 H, Calcium 9.0, Troponin I High Sens 9 06/22/24 10:10: Troponin I High Sens 14 Imaging Radiology Impression Chest X-Ray 06/22/24 07:43 IMPRESSION: Mild lingular atelectasis or pneumonia. Gaseous distention of bowel in the upper abdomen. Electronically Signed: Giulia Mcdermott MD at 8:25 EDT , Chest CTA 06/22/24 09:25 IMPRESSION: No evidence of pulmonary embolism. Mild pulmonary atelectasis and scarring. Electronically Signed: Giulia Mcdermott MD at 10:12 EDT , Assessment & Plan Assessment/Plan (1) Chest pain: PLAN: Plan This is a 83-year-old female being admitted for evaluation of atypical persistent chest pain that woke her up. 1. Atypical chest pain with chronic GONZALEZ exact etiology unclear, rule out ACS: Patient is being admitted in PCU as an observation status. She has history of pulmonary artery hypertension and chronic HFpEF being managed by [facility] manager business banking Dr. Gilmore and president educational institution Dr. Bose as an outpatient. She had LHC about 3 to 4 months ago and did not had stent or major coronary obstruction. First troponin normal. Twelve-lead EKG in ED, EMS and previous are all normal sinus rhythm. No significant acute change. Cycle troponin enzymes. If troponins negative, pharmacological nuclear stress test tomorrow AM. 2D echo ordered. 2. Chronic hypoxia due to chronic pulmonary hypertension with severe TR: Patient on furosemide at home changed to IV 40 mg daily, first dose now. Chest x-ray and CTPA initially reviewed shows central pulmonary artery enlargement. Mild left upper lobe and lingula scarring with bilateral atelectasis. Incentive spirometry. DuoNeb as needed. Avoid hypotension. Patient not related to home oxygen prescribed. On 2 L of oxygen needed. 2D echo is ordered. 2D echo 10/31/2022 The left ventricular ejection fraction is 60 %. Stage 2 diastolic dysfunction. The left atrium is mildly enlarged. Moderately severe (3+) tricuspid valve insufficiency. Severe pulmonary hypertension. PASP 74 mmHg Mildly dilated aortic root. 3. Chronic HFpEF: BNP ordered. Clinically patient does not look like any acute heart failure exacerbation. JVD not elevated. 4. Hypertension: BP is controlled. Home medication continued. 5. Dyslipidemia -Patient is on statin therapy, continued at home dose 6. Obstructive sleep apnea: Not using CPAP that was recommended in the past. 7. History of breast cancer ? Currently remission 8. DVT prophylaxis, high risk: Enoxaparin 40 mg subcu daily. Discontinue if platelet count drops less than 50,000 or hemoglobin less than 8 g% 9. Chronic constipation: On senna S and Dulcolax oral. 10. Chronic multiple joints degenerative arthritis, status post bilateral TKR and shoulder arthritis: Patient is stated she is on Tracy, Tylenol and gabapentin at home. I do not see gabapentin on home medication but ordered. Living will/advanced directive/end of life care: Patient does not have living will or advanced directive. Her sister is power of cement truck loader for health. Her daughter lives in [place], [place]. After discussion of benefits/risks procedures involved with full code, DNR CC arrest and DNR CC, the patient opted for DNR CC arrest with no intubation. She said she is on palliative care. Patient doesn't want artificial life support including intubation, tube feed, ventilator and/chest compression, central venous catheter, vasopressor and DC shock if needed Total time spent in [id number] encounter in discussion of advanced directive 17 minutes. Laboratory Results 06/22/24 07:02: WBC 7.6, RBC 3.96 L, Hgb 11.2 L, Hct 36.1 L, MCV 91.2, MCH 28.3, MCHC 31.0 L, RDW Std Deviation 47.7 H, RDW Coeff of Scott 14.2, Plt Count 296, MPV 9.2, Immature Gran % (Auto) 0.400, Neut % (Auto) 74.5 H, Lymph % (Auto) 11.3 L, [place] % (Auto) 11.3 H, Eos % (Auto) 2.1, Baso % (Auto) 0.4, Absolute Neuts (auto) 5.7, Absolute Lymphs (auto) 0.86, Nucleated RBC % 0, PT 13.7, INR 1.0, APTT 36.4 H, D-Dimer Quant (PE/DVT) 3.09 H*, Sodium 139, Potassium 3.8, Chloride 104, Carbon Dioxide 30.0, Anion Gap 5, BUN 17, Creatinine 0.88, Estim Creat Clear Calc 49.42, Est GFR (MDRD) Af Amer 79, Est GFR (MDRD) Non-Af 65, BUN/Creatinine Ratio 19.3, Glucose 115 H, Calcium 9.0, Troponin I High Sens 9, B-Natriuretic Peptide Pending 06/22/24 10:10: Magnesium Pending, Troponin I High Sens 14 Clinical Impression(s) from Imaging Studies Chest X-Ray 06/22/24 07:43 IMPRESSION: Mild lingular atelectasis or pneumonia. Gaseous distention of bowel in the upper abdomen. Chest CTA 06/22/24 09:25 IMPRESSION: No evidence of pulmonary embolism. Mild pulmonary atelectasis and scarring. Charges/Coding Visit Charges Inpatient E&M: 76258 Init Hosp L3 Procedures Hospitalists Procedures: 68198 Advncd Care Plan 30 Min
[2024-06-22 13:57] LABS: Magnesium 1.8 mg/dL (1.6-2.6)
--- NOTE | 2024-06-22 14:08 | EKG12_ITS ---
Test Reason : Blood Pressure : / mmHG Vent. Rate : 078 BPM Atrial Rate : 078 BPM P-R Int : 142 ms QRS Dur : 082 ms QT Int : 364 ms P-R-T Axes : 068 058 063 degrees QTc Int : 414 ms Normal sinus rhythm Increased R/S ratio in V1, consider early transition or posterior infarct Abnormal ECG When compared with ECG of 22-JUN-2024 07:20, MANUAL COMPARISON REQUIRED, DATA IS UNCONFIRMED Confirmed by TAHMINA HARRISON, BELKYS ([id number]), manuscript editor ALICIA PRECIADO ([id number]) on 06/23/2024 2:17:05 PM Referred By: JUAN Confirmed By:BELKYS MARTEL MD
[2024-06-22 14:26] LABS: BNP,B-Type NATRIURETIC PEPTIDE 83.2 pg/mL (0-100)
[2024-06-22 14:54] LABS: Troponin-I HS 10 pg/mL (3.0-54.0)
[2024-06-22] MEDS: Metoprolol(XL)Succ 50 MG Tablet PO (15:39)
[2024-06-22] MEDS: Gabapentin 100 MG Capsule 200 MG PO (15:39)
[2024-06-22] MEDS: Acetaminophen 500 MG Tablet 1000 MG PO ×2 (15:39→21:46)
[2024-06-22] MEDS: Bisacodyl 5 MG Tablet PO (15:39)
[2024-06-22] MEDS: HYDROcodone Bitartrate/Apap 5/325 Tablet PO (15:40)
[2024-06-22] MEDS: Furosemide 40 MG/4 ML Vial IV (15:40)
[2024-06-22] MEDS: Enoxaparin 40 MG/0.4 ML Syringe SC (15:40)
[2024-06-22] MEDS: Nitroglycerin Oint 1 INCH PACKET TD (15:40)
[2024-06-22] MEDS: Atorvastatin Calcium 20 MG Tablet PO (21:46)
[2024-06-22] MEDS: Senna/Docusate Sodium 1 Tablet 2 TABLET PO (21:46)
[2024-06-22] MEDS: Pantoprazole Sodium 40 MG Tablet PO (21:46)
[2024-06-22] MEDS: traZODone 100 MG Tablet PO (21:46)
[2024-06-23] VITALS (7 sets, daily range): BP systolic 108–139; BP diastolic 54–75; PULSE 60–86; RESP 18; TEMP 36.3–36.7; O2SAT 94–99; BMI 29.3
[2024-06-23] MEDS: HYDROcodone Bitartrate/Apap 5/325 Tablet PO (00:19)
[2024-06-23 05:41] LABS: Absolute Lymphocyte Count 0.81 X10^3/uL (0.83-4.51); Absolute Neutrophil Count 3.2 X10^3/uL (2.0-7.7); Basophil# 0.03 X10^3/uL; Basophil% 0.6 % (0-1); Eosinophil# 0.17 X10^3/uL; Eosinophils% 3.4 % (0-5); Hematocrit 33.6 % (37-47); Hemoglobin 10.3 g/dL (12.0-15.0); Lymphocyte # 0.81 X10^3/ul (0.83-4.51); Mean Corp Hgb Conc 30.7 g/dL (32-36); Mean Corpuscular Hgb 28.3 pg (27.0-32.0); Mean Corpuscular Volume 92.3 fL (81-99); Mean Platelet Vol. 8.7 fl (6.2-12.0); Monocyte# 0.82 X10^3/uL; Monocyte% 16.2 % (0-10); NRBC Flagged by Analyzer 0 % (0-5); Neutrophil % 63.4 % (47-70); Platelet Count 256 K/mm3 (150-450); RBC Distribution Width SD 47.7 fl (35.1-43.9); Red Blood Count 3.64 M/mm3 (4.2-5.4); White Blood Count 5.1 K/mm3 (4.4-11.0)
--- NOTE | 2024-06-23 05:55 | ECHOD_ITS ---
Reason For Study: PULM HTN Procedure This was a 2D Doppler, Color Flow transthoracic echocardiogram. Exam performed in department. Left Ventricle Normal LV size. Left ventricular systolic function is normal. The left ventricular ejection fraction is 60 %. No regional wall motion abnormalities noted. Right Ventricle Normal size and thickness. Normal systolic function. Atria Normal left atrium. Normal right atrium. Mitral Valve Normal mitral valve. Tricuspid Valve Normal tricuspid valve. Moderate (2+) tricuspid valve insufficiency. Pulmonary artery systolic pressure is 55 mmHg. Moderate pulmonary hypertension. Aortic Valve Normal aortic valve. Pulmonic Valve Normal pulmonic valve. Great Vessels Normal aortic root. Pericardium/Pleural No pericardial effusion. MMode/2D Measurements & Calculations Ao root diam: 3.3 cm LAV(MOD-bp): 67.0 ml LVAd ap4: 25.7 cm2 LAV(MOD-bp) Indexed: 37.6 ml/m2 LVLd ap4: 6.8 cm LAV(MOD-sp2): 60.4 ml EDV(MOD-sp4): 79.4 ml LAV(MOD-sp4): 70.8 ml EDV(sp4-el): 82.6 ml LVAs ap4: 15.0 cm2 LVLs ap4: 5.9 cm ESV(MOD-sp4): 32.9 ml ESV(sp4-el): 32.3 ml EF(MOD-sp4): 58.6 % EF(sp4-el): 60.9 % SV(MOD-sp4): 46.5 ml SV(sp4-el): 50.3 ml LA A4 area: 22.4 cm2 LA dimension(2D): 3.6 cm RA A4 area: 18.9 cm2 Time Measurements MV dec time: 0.21 sec Doppler Measurements & Calculations MV E max ramos: 96.4 cm/sec Lat Peak E' Ramos: 8.2 cm/sec Med Peak E' Ramos: 9.2 cm/sec MV A max ramos: 95.7 cm/sec E/E' lat: 11.7 E/E' med: 10.5 MV E/A: 1.0 MV V2 max: 106.4 cm/sec MV dec slope: 470.1 cm/sec2 Ao V2 max: 124.5 cm/sec MV max P.5 mmHg Ao max P.2 mmHg MV V2 mean: 65.1 cm/sec Ao V2 mean: 86.3 cm/sec MV mean P.9 mmHg Ao mean P.4 mmHg MV V2 VTI: 41.2 cm Ao V2 VTI: 29.4 cm AV (velocity ratio): 0.91 LV V1 max: 113.1 cm/sec PA V2 max: 63.0 cm/sec TR max ramos: 361.3 cm/sec LV V1 max P.1 mmHg PA V2 mean: 42.6 cm/sec TR max P.2 mmHg LV V1 mean P.5 mmHg LV V1 mean: 72.4 cm/sec LV V1 VTI: 26.8 cm ECHO/Echo Complete Interpretation Summary Normal LV size. Left ventricular systolic function is normal. The left ventricular ejection fraction is 60 %. Moderate pulmonary hypertension. Pulmonary artery systolic pressure is 55 mmHg. Ordering Physician: Tiburcio Arteaga Referring Physician: NANCY CARROLL Performed By: Soo Fan RCS
--- NOTE | 2024-06-23 05:55 | EKG12_ITS ---
Test Reason : AM EKG Blood Pressure : / mmHG Vent. Rate : 063 BPM Atrial Rate : 063 BPM P-R Int : 158 ms QRS Dur : 090 ms QT Int : 406 ms P-R-T Axes : 074 068 059 degrees QTc Int : 415 ms Normal sinus rhythm Increased R/S ratio in V1, consider early transition or posterior infarct Abnormal ECG Confirmed by BELKYS MARTEL MD ([id number]), supervising film or videotape editor ALICIA PRECIADO ([id number]) on 06/23/2024 2:16:26 PM Referred By: JUAN Confirmed By:BELKYS MARTEL MD
[2024-06-23 06:10] LABS: Anion Gap 4 (5-15); BUN 14 mg/dL (7-18); BUN/Creat Ratio 20.8 RATIO (10-20); Calcium,Total 8.8 mg/dL (8.5-10.1); Chloride 99 mmol/L (98-107); Cholesterol 95 mg/dL (200); Creatinine, Serum 0.67 mg/dL (0.55-1.02); EST Glomerular Filtration Rate 89 mL/min (>60); Est Glom Filt Rate - Afr Amer 108 mL/min (>60); Estimated Creatinine Clearance 53.53 ml/min; Glucose 103 mg/dL (74-106); High Density Lipoprotein 61 mg/dL; Potassium 3.4 mmol/L (3.5-5.1); Sodium Level 134 mmol/L (136-145); Thyroid Stim Hormone (TSH) 2.46 uIU/mL (0.358-3.74); Triglycerides 59 mg/dL; Very Low Density Lipoprotein 12 mg/dL (5-40)
[2024-06-23] MEDS: Acetaminophen 500 MG Tablet 1000 MG PO (06:14)
[2024-06-23] MEDS: Aspirin 81 MG TAB.CHEW PO (06:15)
[2024-06-23] MEDS: Potassium Chloride Oral Tablet 20 MEQ PO (07:41)
[2024-06-23] MEDS: Metoprolol(XL)Succ 50 MG Tablet PO (10:14)
[2024-06-23] MEDS: Tolterodine Tartrate 2 MG CAP.SA PO (10:14)
[2024-06-23] MEDS: Senna/Docusate Sodium 1 Tablet 2 TABLET PO (10:14)
[2024-06-23] MEDS: Bisacodyl 5 MG Tablet PO (10:14)
[2024-06-23] MEDS: Pantoprazole Sodium 40 MG Tablet PO (10:14)
[2024-06-23] MEDS: Enoxaparin 40 MG/0.4 ML Syringe SC (10:49)
[2024-06-23] MEDS: Furosemide 40 MG/4 ML Vial IV (10:49)
--- NOTE | 2024-06-23 11:45 | STRESSREP ---
Stress Test Report Pharmacologic myocardial perfusion stress test. 83-year-old lady with a history of chest pain Resting EKG demonstrates sinus rhythm with a rate of 63 bpm. Resting blood pressure is 142/70 mmHg. 0.4 mg of regadenoson was infused per usual protocol followed by rapid intravenous saline flush injection. Continuous EKG monitoring was performed. The maximum heart rate was 80 bpm which was 57% of max impacted heart rate the maximum workload was 1 metabolic equivalent. At rest there were no ST or T wave changes noted to suggest ischemia and at peak infusion nonspecific ST changes were noted which did not meet the criteria for ischemia. No clinical angina is noted. The final blood pressure was 120/70 mmHg. Myocardial perfusion protocol. 11 point mCi of technetium 99m sestamibi was injected at rest. 0.4 mg of regadenoson was infused per usual protocol. At peak infusion 35 mCi of technetium 99m sestamibi was injected stress images were obtained stress and rest images were reconstructed and compared in the short axis vertical long and horizontal long axis. Gated images were also obtained. Perfusion SPECT analysis: Review of the stress images demonstrate normal uptake of tracer noted in all areas of the myocardium. The resting images similar demonstrated normal uptake of tracer noted in all areas of the myocardium. No areas of reversibility are noted to suggest ischemia and no previous infarct is noted. Gated SPECT analysis: The gated ejection fraction is 64%. Conclusion: Normal pharmacologic myocardial perfusion stress test. Preserved ejection fraction.
--- NOTE | 2024-06-23 12:00 | CASEMGMT ---
Addendum entered by Мария Pike 06/23/24 14:21: Social Work Pt is discharged, SW left a message for pt's CM Balnka Jonesthomas with [facility] to let her know pt discharged today. [place]AN [place] Original Note: Social Work SW met w/pt to complete SDOH, was triggered in error. Pt states will go home when ready. Pt lives home alone, does have aides through [facility] on Sunday and , Blanka Jonesthomas is her sample case porter. Pt has Mom's meals and a life alert button also. Her niece comes up every weekend to help w/groceries and takes pt out to eat. Plan is for pt to return home at discharge. SW will let Blanka know when pt is discharged. SW will continue to follow. [place]AN [place]
--- NOTE | 2024-06-23 12:56 | PCM.DC.SUM ---
Providers Date of Admission: 06/22/24 Date of Discharge: 06/23/24 Primary Care Physician: Dr. Nancy Carroll MD Reason For Visit: ATYPICAL CHEST PAIN Diagnosis Discharge Diagnosis (1) Chest pain: Status: Acute Code(s): R07.9 - Chest pain, unspecified Medications at Discharge Home Medications cholecalciferol (vitamin D3) 1,250 mcg (50,000 unit) capsule 50,000 unit PO DAILY supplement 04/02/19 simvastatin 20 mg tablet 20 mg PO QHS cholesterol 04/02/19 trazodone 100 mg tablet 100 mg PO QHS sleep 04/02/19 cyanocobalamin (vitamin B-12) 1,000 mcg tablet 1,000 mcg PO DAILY supplement 07/23/22 pantoprazole 40 mg tablet,delayed release (Protonix) 40 mg PO BID reflux #60 tabs 07/25/22 aspirin 81 mg capsule 81 mg PO DAILY heart health 10/05/22 glucosamine 250 ad-hwpey-yvp 200 mg-D3 1,500 jtlt-A-skgyx-herbs tablet 1 tab PO DAILY supplement 10/05/22 oxybutynin chloride 10 mg tablet,extended release 24 hr 10 mg PO DAILY urine 10/05/22 bisacodyl 5 mg tablet,delayed release 5 mg PO DAILY stool softner #0 tabs 10/19/22 docusate sodium 100 mg capsule 100 mg PO BID stool softner #0 caps 10/19/22 furosemide 40 mg tablet (Lasix) 40 mg PO DAILY diuretic #30 tabs 10/19/22 potassium chloride 20 mEq tablet,extended release 20 meq PO DAILY supplement 09/10/23 hydrocodone-acetaminophen 5-325mg 5mg-325mg 1 tab PO Q4H PRN pain 4-10 12/15/23 metoprolol succinate 50 mg tablet,extended release 24 hr 25 mg PO DAILY BLOOD PRESSURE 12/15/23 nitroglycerin 0.4 mg sublingual tablet 0.4 mg sublingual Q5M PRN chest pain 12/15/23 sertraline 50 mg tablet 50 mg PO DAILY mental health 12/15/23 Hospital Course Operations None Procedures EKG, Stress test, Transthoracic echo and - (Chest x-ray, CTA chest) Summary of Care Provided Minutes Spent on Discharge: 35 Hospital Course: Patient is an 83-year-old female who presented to [facility] ED on 06/22/2024 with chest pain. Short hospital course as noted below. Patient discharged home with no therapy needs in stable condition on 06/23. 1. Chest pain, ACS ruled out ? Presented with atypical chest pain. EKG normal sinus rhythm, no ST changes. Troponins negative x 2. Echo 06/23 showed EF 60%, no wall motion normalities, normal RV function and size, pulmonary artery systolic pressure of 55 mmHg (improved from 74 mmHg in October 2022), no other significant abnormalities. Stress test was unremarkable. Continued home medications as noted below. Outpatient follow-up with cardiology and pulmonology below as needed. 2. HFpEF with chronic pulmonary hypertension and chronic respiratory failure, hypertension, hyperlipidemia ? Follows with cardiology and pulmonology at [facility]. Notably had left heart cath done 3 to 4 months prior to this hospitalization with no major coronary obstruction. Has 2 L nasal cannula prescribed for her but she has not been wearing her oxygen for the past 2 to 3 months. Chest x-ray and CTPA on admit showed central pulmonary artery enlargement but no other significant abnormalities. Was given 2 doses of IV Lasix with good urine output. Continue home Lasix, Toprol, aspirin and simvastatin on discharge. Follow-up with outpatient cardiology and pulmonology as needed. Chronic medical conditions: ? JEANA: Nonadherent to home CPAP. ? GERD: Continue home PPI. ? Mood disorder: Stable. Continue home sertraline and trazodone at night. ? Urinary incontinence: Continue home oxybutynin. Total clinical time spent by myself addressing the patient's medical issues, reviewing all the data, and collaborating with patient's care team: 35 minutes. Physical Exam Const alert, oriented x3 and no apparent distress General Appearance: cooperative and comfortable HEENT normocephalic, head/scalp atraumatic, hearing grossly normal bilaterally, nasal mucous membranes and turbinates normal and moist oral mucous membranes Eyes PERRL, EOMs intact bilaterally and conjunctivae normal Neck full ROM Chest inspection of chest normal Resp normal respiratory effort and no use of accessory muscles Resp Narrative: Breathing comfortably on room air at rest. Mildly diminished breath sounds bilaterally throughout, no wheezing or crackles noted. Cardio regular rate, regular rhythm, no murmurs and peripheral pulses 2+ throughout GI normal to inspection, nondistended, normoactive bowel sounds, soft to palpation, non-tender and non-distended Back/Spine normal ROM Extremity normal to inspection, full ROM and no pedal edema Skin no rashes or lesions noted Neuro moves all extremities and no focal motor deficits Speech: speech normal Psych mental status grossly normal Weight / BMI Weight Weight: 75.1 kg Body Mass Index (BMI) 29.3 ABG / Lab / Microbiology Data 06/23/24 05:29 06/23/24 05:29 Laboratory: Laboratory Results - last 24 hr 06/22/24 07:02: B-Natriuretic Peptide 83.2 06/22/24 10:10: Magnesium 1.8 06/22/24 14:25: Troponin I High Sens 10 06/23/24 05:29: WBC 5.1, RBC 3.64 L, Hgb 10.3 L, Hct 33.6 L, MCV 92.3, MCH 28.3, MCHC 30.7 L, RDW Std Deviation 47.7 H, RDW Coeff of Scott 14.0, Plt Count 256, MPV 8.7, Immature Gran % (Auto) 0.400, Neut % (Auto) 63.4, Lymph % (Auto) 16.0 L, Randolph % (Auto) 16.2 H, Eos % (Auto) 3.4, Baso % (Auto) 0.6, Absolute Neuts (auto) 3.2, Absolute Lymphs (auto) 0.81 L, Nucleated RBC % 0, Sodium 134 L, Potassium 3.4 L, Chloride 99, Carbon Dioxide 31.0, Anion Gap 4 L, BUN 14, Creatinine 0.67, Estim Creat Clear Calc 53.53, Est GFR (MDRD) Af Amer 108, Est GFR (MDRD) Non-Af 89, BUN/Creatinine Ratio 20.8 H, Glucose 103, Calcium 8.8, Triglycerides 59, Cholesterol 95, LDL Cholesterol 22, VLDL Cholesterol 12, HDL Cholesterol 61, TSH 2.46 Radiography Diagnostic Testing: Radiology Impression Echocardiogram 06/23/24 05:55 Interpretation Summary Normal LV size. Left ventricular systolic function is normal. The left ventricular ejection fraction is 60 %. Moderate pulmonary hypertension. Pulmonary artery systolic pressure is 55 mmHg. Ordering Physician: Tiburcio Arteaga Referring Physician: NANCY CARROLL Performed By: Soo Fan RCS Meaningful Use Info Meaningful Use Meaningful Use Diagnoses (Choose all that apply): None applicable Ischemic Stroke Statin Dosing Therapy Reference: STATIN DOSE THERAPY REFERENCE: * Patients > 75 years receive moderate or high dose statin therapy. * Patients 75 years or YOUNGER should receive HIGH intensity statin dose unless contraindicated. You will be required to document reason for non-treatment if statin daily dose does not meet guidelines. HIGH DOSE STATIN THERAPY DAILY Atorvastatin > than or = to 40 mg Rosuvastatin > than or = to 20 mg Amlodipine + Atorvastatin > than or = to 2.5/40 mg Ezetimibe + Simvastatin 10/80 mg Simvastatin 80mg Discharge Plan Admission Admit Date/Time: 06/22/24 12:57 Primary Reason for Your Visit: chest pain Attending Provider: Reinaldo Campos Primary Care Provider: Nancy Carroll Consulting Providers: Tiburcio Arteaga Instructions Additional Instructions / Restrictions: Please continue all home medications as normal. Follow-up with your foreign food cook specialty in [place] as needed. Discharge Orders/Prescriptions Prescriptions: Continued cholecalciferol (vitamin D3) 50,000 unit capsule 50,000 unit PO DAILY simvastatin 20 mg tablet 20 mg PO QHS trazodone 100 mg tablet 100 mg PO QHS cyanocobalamin (vitamin B-12) 1,000 mcg tablet 1,000 mcg PO DAILY Patient Comments: PT STATES ON BACKORDER AND PHARMACY HASNT BEEN ABLE TO FILL pantoprazole [Protonix] 40 mg tablet,delayed release (DR/EC) 40 mg PO BID Qty: 60 0RF Patient Comments: PT STATES SHE TAKES ONCE DAILY oxybutynin chloride 10 mg tablet extended release 24hr 10 mg PO DAILY [id number] 250 mg-200 mg- 1,500 unit Tablet 1 tab PO DAILY aspirin 81 mg Capsule 81 mg PO DAILY docusate sodium 100 mg Capsule 100 mg PO BID Qty: 0 0RF bisacodyl 5 mg Tablet,Delayed Release (Dr/Ec) 5 mg PO DAILY Qty: 0 0RF furosemide [Lasix] 40 mg tablet 40 mg PO DAILY Qty: 30 0RF potassium chloride 20 mEq tablet extended release 20 meq PO DAILY metoprolol succinate 50 mg tablet extended release 24 hr 25 mg PO DAILY nitroglycerin 0.4 mg tablet, sublingual 0.4 mg sublingual Q5M PRN (Reason: chest pain) Patient Comments: Dissolve 1 tablet under the tongue every 5 minutes for 3 doses. FOR CHEST PAIN. IF NO RELIEF CALL 911 sertraline 50 mg tablet 50 mg PO DAILY hydrocodone-acetaminophen 5-325 mg Tablet 1 tab PO Q4H PRN (Reason: pain 4-10) Referrals / Follow Up: Nancy Carroll MD [Primary Care Provider] - Disposition Disposition (needs filled in before D/C Order can be placed): Home, Self Care Charges/Coding Visit Charges Inpatient E&M: 62723 Disch Hosp >30min
--- NOTE | 2024-06-23 13:16 | CASEMGMT ---
Patient has order for discharge. DIRK PEÑA in to discuss needs at discharge. Patient states she will return home with her [facility] with [employer]. Patient denied further needs or help at home. Patient had no further questions or concenrs. DIRK PEÑA updated discharge community planning technician to send discahrge paperwork to [employer].
--- NOTE | 2024-06-23 14:19 | PHA.DC.MR.R ---
Pharmacy [place] Med Reconciliation Pharmacy Service has performed discharge medication reconciliation for this patient. The patient's discharge medication list was reviewed for discrepancies and discrepancies were resolved. Medications at Discharge Home Medications cholecalciferol (vitamin D3) 1,250 mcg (50,000 unit) capsule 50,000 unit PO DAILY supplement 04/02/19 simvastatin 20 mg tablet 20 mg PO QHS cholesterol 04/02/19 trazodone 100 mg tablet 100 mg PO QHS sleep 04/02/19 cyanocobalamin (vitamin B-12) 1,000 mcg tablet 1,000 mcg PO DAILY supplement 07/23/22 pantoprazole 40 mg tablet,delayed release (Protonix) 40 mg PO BID reflux #60 tabs 07/25/22 aspirin 81 mg capsule 81 mg PO DAILY heart health 10/05/22 glucosamine 250 vg-qivyw-zow 200 mg-D3 1,500 pjac-W-svdlk-herbs tablet 1 tab PO DAILY supplement 10/05/22 oxybutynin chloride 10 mg tablet,extended release 24 hr 10 mg PO DAILY urine 10/05/22 bisacodyl 5 mg tablet,delayed release 5 mg PO DAILY stool softner #0 tabs 10/19/22 docusate sodium 100 mg capsule 100 mg PO BID stool softner #0 caps 10/19/22 furosemide 40 mg tablet (Lasix) 40 mg PO DAILY diuretic #30 tabs 10/19/22 potassium chloride 20 mEq tablet,extended release 20 meq PO DAILY supplement 09/10/23 hydrocodone-acetaminophen 5-325mg 5mg-325mg 1 tab PO Q4H PRN pain 4-10 12/15/23 metoprolol succinate 50 mg tablet,extended release 24 hr 25 mg PO DAILY BLOOD PRESSURE 12/15/23 nitroglycerin 0.4 mg sublingual tablet 0.4 mg sublingual Q5M PRN chest pain 12/15/23 sertraline 50 mg tablet 50 mg PO DAILY mental health 12/15/23
--- NOTE | 2024-06-23 15:09 | CASEMGMT ---
Met with patient to complete BORREGO form. BORREGO form explained to patient who voiced understanding and signed form. Original form placed in pt?s chart and copy provided to patient. Irene De Jesus, Discharge Planning Asst
== END 2024-06-23 13:02 | disposition home or self-care (01) ==
LOC: ED 12:43 → PCU 13:16
PROVIDERS: Admitting Provider Internal Medicine; Emergency Provider Emergency Medicine; PCP Family Medicine; Visit Provider Hospitalist
DX: R07.89 Other chest pain (principal); J96.11 Chronic respiratory failure with hypoxia; I13.0 Hypertensive heart and chronic kidney disease with heart failure and stage 1 through stage 4 chronic kidney disease, or unspecified chronic kidney disease; I50.32 Chronic diastolic (congestive) heart failure; I27.20 Pulmonary hypertension, unspecified; F39 Unspecified mood [affective] disorder; K21.9 Gastro-esophageal reflux disease without esophagitis; J98.11 Atelectasis; E78.5 Hyperlipidemia, unspecified; N18.9 Chronic kidney disease, unspecified; R32 Unspecified urinary incontinence; G47.33 Obstructive sleep apnea (adult) (pediatric); Z79.82 Long term (current) use of aspirin; Z79.899 Other long term (current) drug therapy; R06.09 Other forms of dyspnea; Z86.711 Personal history of pulmonary embolism; K59.09 Other constipation
CPT/HCPCS: 36415; 71046; 71275; 78452; 80048; 80061; 83735; 83880; 84443; 84484; 85025; 85379; 85610; 85730; 93005; 93017; 93306; 94668; 96372; 96374; 96376; 97162; 97166; 99221; 99285; A9500; Q9967; A4216; G0378; J1940; J2785

== ENCOUNTER 2024-10-14 15:41 | Emergency (ER) | payer MEDICARE, MEDICAID, SELFPAY ==
[2024-10-14 15:44] VITALS: BP 154/95; PULSE 82; RESP 18; TEMP 36.6; O2SAT 94
--- NOTE | 2024-10-14 15:54 | EDS_ITS ---
HPI History of Present Illness Chief Complaint: Edema Detail of Chief Complaint: Swelling lateral aspect of the right ankle and foot Informant: patient Onset/Context/Timing Onset: Days (2 days) Context: Sudden Onset Timing: Continuous Quality: Patient states she was bit by an insect 2 days ago. Location: She complains of itching and swelling lateral right foot/ankle Current Severity: Mild Maximum Severity: Mild Worsened by: Insect bite Relieved by: Nothing Associated Symptoms Associated Symptoms: Patient has no constitutional symptoms, respiratory, cardiac or GI Narrative Narrative: Patient is an 84-year-old woman. She has multiple medical problems. She states she was bit/stung by insect lateral aspect of the right foot/ankle. This occur red 2 days ago. Since that time she has had swelling and itching. She has not take anything for it. She denies shortness of breath or difficulty breathing. She denies chest discomfort. She denies orthostatic symptoms. She denies vomiting diarrhea. She denies rash. Patient is concerned because of the amount of swelling at her ankle. Prior similar symptoms: No Recent Illness/Hospitalization: No [facility] Medical History Pain in left shoulder Hx of pulmonary hypertension History of left heart catheterization Pleural effusion on left History of subdural hematoma (post traumatic) (03/19/16) Benign positional vertigo Anemia Dyspnea on exertion History of fall (11/27/18) Hyperlipidemia Elevated troponin (11/27/18) Cardiac contusion (11/27/18) Sternal fracture (11/27/18) Breast mass, left Arthritis Thyroid disease Hx of breast cancer FRACTURE LEFT ANKLE Osteopenia GERD (gastroesophageal reflux disease) Hypertension Chronic kidney disease (CKD) Home Medications ?Medication ?Instructions ?Recorded ?Last Taken ?Type cholecalciferol (vitamin D3) 1,250 50,000 unit PO DAILY supplement 04/02/19 12/15/23 History mcg (50,000 unit) capsule simvastatin 20 mg tablet 20 mg PO QHS cholesterol 04/02/19 12/14/23 History trazodone 100 mg tablet 100 mg PO QHS sleep 04/02/19 12/14/23 History cyanocobalamin (vitamin B-12) 1,000 mcg PO DAILY supplement 07/23/22 09/10/23 History 1,000 mcg tablet pantoprazole 40 mg tablet,delayed 40 mg PO BID reflux #60 tabs 07/25/22 12/15/23 Rx release (Protonix) aspirin 81 mg capsule 81 mg PO DAILY heart health 10/05/22 12/15/23 History glucosamine 250 ix-gtfng-uhe 200 1 tab PO DAILY supplement 10/05/22 12/15/23 History mg-D3 1,500 drwn-M-quyke-herbs tablet oxybutynin chloride 10 mg 10 mg PO DAILY urine 10/05/22 12/15/23 History tablet,extended release 24 hr bisacodyl 5 mg tablet,delayed 5 mg PO DAILY stool softner #0 tabs 10/19/22 12/15/23 Rx release docusate sodium 100 mg capsule 100 mg PO BID stool softner #0 caps 10/19/22 09/10/23 Rx furosemide 40 mg tablet (Lasix) 40 mg PO DAILY diuretic #30 tabs 10/19/22 12/15/23 Rx potassium chloride 20 mEq 20 meq PO DAILY supplement 09/10/23 12/15/23 History tablet,extended release hydrocodone-acetaminophen 5-325mg 1 tab PO Q4H PRN pain 4-10 12/15/23 12/15/23 History 5mg-325mg metoprolol succinate 50 mg 25 mg PO DAILY BLOOD PRESSURE 12/15/23 12/15/23 History tablet,extended release 24 hr nitroglycerin 0.4 mg sublingual 0.4 mg sublingual Q5M PRN chest 12/15/23 Unknown History tablet pain sertraline 50 mg tablet 50 mg PO DAILY mental health 12/15/23 12/15/23 History loratadine 10 mg tablet (Claritin) 10 mg PO Q24H #7 tabs 10/14/24 Unknown Rx Allergy/AdvReac Type Severity Reaction Status Date / Time diazepam (From Valium) AdvReac Severe Other Verified 10/14/24 15:44 eszopiclone (From Lunesta) AdvReac Severe confusion Verified 10/14/24 15:44 morphine AdvReac Severe Other Verified 10/14/24 15:44 paroxetine HCl (From Paxil) AdvReac Severe Other Verified 10/14/24 15:44 zolpidem (From Ambien) AdvReac Severe confusion Verified 10/14/24 15:44 Family History Sister Breast cancer Heart disease Hypertension Father Heart disease Hypertension Surgical History History of right cataract surgery History of lumpectomy of left breast History of oophorectomy History of bilateral knee replacement History of tubal ligation Social History housing: house current occupational status: retired Smoking Status: Never smoker second hand exposure: No alcohol intake: never substance use type: does not use caffeine: Yes Type: coffee Number of servings: 2 what type of physical activity do you participate in: none frequency: does not exercise amador/scientology: [employer] seatbelt use: sometimes additional social history: 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 She worked in an [employer], had to fly to get there. ROS ROS ED Constitutional Constitutional ED: Denies chills, fever(s) or subjective ENT ENT ED: Denies ear pain or rhinorrhea Cardiovascular Cardiovascular: Denies chest pain, palpitations or racing heartbeat Respiratory/Chest Respiratory/Chest: Denies dyspnea or dyspnea on exertion Gastrointestinal Gastrointestinal: Denies abdominal pain, diarrhea or vomiting Integumentary Denies rash Hematologic/Lymphatic Hematologic/Lymphatic: Reports systems reviewed and no addt'l complaints, except as documented EXAM Physical Exam Const Vital Signs: 10/14/24 15:44 10/14/24 15:48 Temperature 97.8 F Temperature Source Temporal Pulse Rate 82 Respiratory Rate 18 Respiratory Effort Normal Non-Labored Respiratory Pattern Normal Blood Pressure 154/95 H Blood Pressure Mean 114 Pulse Ox 94 Oxygen Delivery Method Room Air Positive well nourished Constitutional Narrative: BMI greater than 30. General Appearance ED: NAD; Negative for cyanotic or diaphoretic HEENT Reports moist mucous membranes Eyes PERRL and EOMs intact bilaterally General Eye ED: Negative for pale conjunctiva or scleral icterus Resp normal respiratory effort Cardio regular rate and regular rhythm Extremity Extremity Narrative: There is swelling right lateral ankle inferior the lateral malleolus. There is areas of excoriation. Is no evidence of infection. There is no neurovasc compromise to the foot. There is no lymphangitis. There is no popliteal lymphadenopathy. The swelling is localized to the lateral aspect of the ankle/foot. Neuro oriented x3 and CN's II-XII intact bilaterally Sensorium / Orientation: alert Skin Skin Narrative: Areas of excoriation due to the area being itchy per patient. MDM MDM MDM Narrative Medical decision making narrative: Patient with a localized allergic reaction. There is no systemic involvement. Patient has been told since there is compartments in the foot that the swelling may take several days to go down. Recommended elevation, ice and will place on Claritin. Since there is no history of trauma there is no concern for ankle sprain. Furthermore there is no tenderness over the anterior talofibular ligament or the calcaneofibular ligament. Discharge Plan Triage Chief Complaint: Edema ED Provider: Aureliano Owens Dx/Rx/DC Orders Clinical Impression: Allergic reaction, GERD (gastroesophageal reflux disease), Hx of breast cancer, Thyroid disease, Chronic kidney disease (CKD) Instructions: ED Insect Sting, Local Reaction Prescriptions: New loratadine [Claritin] 10 mg tablet 10 mg PO Q24H Qty: 7 0RF No Action cholecalciferol (vitamin D3) 50,000 unit capsule 50,000 unit PO DAILY simvastatin 20 mg tablet 20 mg PO QHS trazodone 100 mg tablet 100 mg PO QHS cyanocobalamin (vitamin B-12) 1,000 mcg tablet 1,000 mcg PO DAILY Patient Comments: PT STATES ON BACKORDER AND PHARMACY HASNT BEEN ABLE TO FILL pantoprazole [Protonix] 40 mg tablet,delayed release (DR/EC) 40 mg PO BID Qty: 60 0RF Patient Comments: PT STATES SHE TAKES ONCE DAILY oxybutynin chloride 10 mg tablet extended release 24hr 10 mg PO DAILY [id number] 250 mg-200 mg- 1,500 unit Tablet 1 tab PO DAILY aspirin 81 mg Capsule 81 mg PO DAILY docusate sodium 100 mg Capsule 100 mg PO BID Qty: 0 0RF bisacodyl 5 mg Tablet,Delayed Release (Dr/Ec) 5 mg PO DAILY Qty: 0 0RF furosemide [Lasix] 40 mg tablet 40 mg PO DAILY Qty: 30 0RF potassium chloride 20 mEq tablet extended release 20 meq PO DAILY metoprolol succinate 50 mg tablet extended release 24 hr 25 mg PO DAILY nitroglycerin 0.4 mg tablet, sublingual 0.4 mg sublingual Q5M PRN (Reason: chest pain) Patient Comments: Dissolve 1 tablet under the tongue every 5 minutes for 3 doses. FOR CHEST PAIN. IF NO RELIEF CALL 911 sertraline 50 mg tablet 50 mg PO DAILY hydrocodone-acetaminophen 5-325 mg Tablet 1 tab PO Q4H PRN (Reason: pain 4-10) Primary Care Provider: Justin Tierney Referrals: Justin Tierney MD [Primary Care Provider] - As Needed Print Language: Sammarinese Disposition Disposition: Home, Self Care
[2024-10-14] MEDS: Loratadine 10 MG Tablet PO (16:03)
--- NOTE | 2024-10-14 16:08 | ED.RN ---
called friend Marisol [phone] for ride home. she will come after work.
== END 2024-10-14 16:09 | disposition home or self-care (01) ==
PROVIDERS: Emergency Provider Emergency Medicine; PCP Family Medicine; Visit Provider Emergency Medicine
DX: T78.40XA Allergy, unspecified, initial encounter (principal); K21.9 Gastro-esophageal reflux disease without esophagitis; I12.9 Hypertensive chronic kidney disease with stage 1 through stage 4 chronic kidney disease, or unspecified chronic kidney disease; R60.9 Edema, unspecified; E78.5 Hyperlipidemia, unspecified; N18.9 Chronic kidney disease, unspecified; E07.9 Disorder of thyroid, unspecified; Z85.3 Personal history of malignant neoplasm of breast; W57.XXXA Bitten or stung by nonvenomous insect and other nonvenomous arthropods, initial encounter
CPT/HCPCS: 99282

== ENCOUNTER 2025-04-29 14:10 | Emergency (ER) | payer MEDICARE, MEDICAID, SELFPAY ==
[2025-04-29 14:12] VITALS: BP 150/92; PULSE 100; RESP 18; TEMP 37; O2SAT 96
--- NOTE | 2025-04-29 14:35 | RAD_ITS ---
PROCEDURE: ANKLE MIN 3 VIEWS 04/29/2025 REASON FOR EXAM: ANKLE INJURY TECHNIQUE: ANKLE MIN 3 VIEWS COMPARISON: None FINDINGS: Bones: No fracture. Joints: No dislocation. The ankle mortise is intact. Soft tissues: Soft tissue swelling. Other: RAD/Ankle min 3 Views IMPRESSION: Soft tissue swelling. No acute abnormality is seen. Reading Location: [place] [id number]
[2025-04-29 16:12] VITALS: BP 148/76; PULSE 78; RESP 14; O2SAT 98
--- NOTE | 2025-04-29 17:16 | EX.ED.GENINJ ---
HPI History of Present Illness Chief Complaint: Fall Informant: patient and family Narrative Narrative: 84-year-old female presenting to the emergency room with right ankle injury. Patient states that around 0430 this morning she was attempting to ambulate with her rollator and the rollator got caught causing her to fall. She states that the rollator hit her right ankle and she was unable to get up for about 25 minutes. Patient notes pain over the outside of her ankle in a very focal spot. Patient denies hitting her head. She denies any loss of consciousness. She also states she has a cough with some sputum production. She notes some rhinorrhea. No fever. [facility] Medical History Pain in left shoulder Hx of pulmonary hypertension History of left heart catheterization Pleural effusion on left History of subdural hematoma (post traumatic) (03/19/16) Benign positional vertigo Anemia Dyspnea on exertion History of fall (11/27/18) Hyperlipidemia Elevated troponin (11/27/18) Cardiac contusion (11/27/18) Sternal fracture (11/27/18) Breast mass, left Arthritis Thyroid disease Hx of breast cancer FRACTURE LEFT ANKLE Osteopenia GERD (gastroesophageal reflux disease) Hypertension Chronic kidney disease (CKD) Home Medications ?Medication ?Instructions ?Recorded ?Last Taken ?Type cholecalciferol (vitamin D3) 1,250 50,000 unit PO DAILY supplement 04/02/19 12/15/23 History mcg (50,000 unit) capsule simvastatin 20 mg tablet 20 mg PO QHS cholesterol 04/02/19 12/14/23 History trazodone 100 mg tablet 100 mg PO QHS sleep 04/02/19 12/14/23 History cyanocobalamin (vitamin B-12) 1,000 mcg PO DAILY supplement 07/23/22 09/10/23 History 1,000 mcg tablet pantoprazole 40 mg tablet,delayed 40 mg PO BID reflux #60 tabs 07/25/22 12/15/23 Rx release (Protonix) aspirin 81 mg capsule 81 mg PO DAILY heart health 10/05/22 12/15/23 History glucosamine 250 [id number] 200 1 tab PO DAILY supplement 10/05/22 12/15/23 History mg-D3 1,500 [id number]-[id number] tablet oxybutynin chloride 10 mg 10 mg PO DAILY urine 10/05/22 12/15/23 History tablet,extended release 24 hr bisacodyl 5 mg tablet,delayed 5 mg PO DAILY stool softner #0 tabs 10/19/22 12/15/23 Rx release docusate sodium 100 mg capsule 100 mg PO BID stool softner #0 caps 10/19/22 09/10/23 Rx furosemide 40 mg tablet (Lasix) 40 mg PO DAILY diuretic #30 tabs 10/19/22 12/15/23 Rx potassium chloride 20 mEq 20 meq PO DAILY supplement 09/10/23 12/15/23 History tablet,extended release hydrocodone-acetaminophen 5-325mg 1 tab PO Q4H PRN pain 4-10 12/15/23 12/15/23 History 5mg-325mg metoprolol succinate 50 mg 25 mg PO DAILY BLOOD PRESSURE 12/15/23 12/15/23 History tablet,extended release 24 hr nitroglycerin 0.4 mg sublingual 0.4 mg sublingual Q5M PRN chest 12/15/23 Unknown History tablet pain sertraline 50 mg tablet 50 mg PO DAILY mental health 12/15/23 12/15/23 History loratadine 10 mg tablet (Claritin) 10 mg PO Q24H #7 tabs 10/14/24 Unknown Rx Allergy/AdvReac Type Severity Reaction Status Date / Time diazepam (From Valium) AdvReac Severe Other Verified 04/29/25 14:15 eszopiclone (From Lunesta) AdvReac Severe confusion Verified 04/29/25 14:15 morphine AdvReac Severe Other Verified 04/29/25 14:15 paroxetine HCl (From Paxil) AdvReac Severe Other Verified 04/29/25 14:15 zolpidem (From Ambien) AdvReac Severe confusion Verified 04/29/25 14:15 Family History Sister Breast cancer Heart disease Hypertension Father Heart disease Hypertension Surgical History History of right cataract surgery History of lumpectomy of left breast History of oophorectomy History of bilateral knee replacement History of tubal ligation Social History housing: house current occupational status: retired Smoking Status: Never smoker second hand exposure: No alcohol intake: never substance use type: does not use caffeine: Yes Type: coffee Number of servings: 2 what type of physical activity do you participate in: none frequency: does not exercise amador/confucianism: Buddhist of [employer] seatbelt use: sometimes additional social history: 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 She worked in an [employer], had to fly to get there. ROS ROS ED Constitutional Constitutional ED: Denies chills, fever(s) or weight loss Eyes Eyes: Denies change in vision or diplopia ENT ENT ED: Reports rhinorrhea; Denies ear pain or sore throat Cardiovascular Cardiovascular: Denies chest pain, orthopnea, palpitations or racing heartbeat Respiratory/Chest Respiratory/Chest: Reports cough; Denies dyspnea, dyspnea on exertion or orthopnea Gastrointestinal Gastrointestinal: Denies abdominal pain, diarrhea, nausea or vomiting Genitourinary Genitourinary ED: Denies dysuria, hematuria or urinary frequency Musculoskeletal Musculoskeletal: Reports other Details: Right ankle pain ; Denies arthralgias, back pain, myalgias or neck pain Integumentary Denies abscess or rash Neurologic Neurologic: Denies headache(s) or weakness Psychiatric Psychiatric: Denies anxiety, depression, suicidal ideation or suicidal thoughts Endocrine Endocrinology: Denies polydipsia, polyphagia or polyuria Allergic/Immunologic Allergic/Immunologic ED: Denies mouth swelling, tongue swelling or urticaria EXAM Physical Exam Const Vital Signs: 04/29/25 14:12 04/29/25 16:12 04/29/25 16:12 Temperature 98.6 F Temperature Source Oral Pulse Rate 100 78 Respiratory Rate 18 14 Respiratory Effort Normal Respiratory Depth Normal Respiratory Pattern Normal Blood Pressure 150/92 H 148/76 H Blood Pressure Mean 111 100 Pulse Ox 96 98 Oxygen Delivery Method Room Air Room Air Room Air 04/29/25 17:47 Temperature 97.9 F Temperature Source Pulse Rate 77 Respiratory Rate 14 Respiratory Effort Respiratory Depth Respiratory Pattern Blood Pressure 140/71 H Blood Pressure Mean 94 Pulse Ox 98 Oxygen Delivery Method Positive well nourished and well developed General Appearance ED: well developed and NAD HEENT Reports normocephalic, head/scalp atraumatic and moist mucous membranes Eyes PERRL and EOMs intact bilaterally Neck no lymphadenopathy, supple and no JVD Resp normal respiratory effort and clear to auscultation bilaterally Resp Narrative: No conversational dyspnea. Patient has a moist cough which seems to be coming more from upper airway. Lung sounds are clear bilaterally. Auscultation: Negative for diminished lung sounds Cardio regular rate, regular rhythm and no murmurs GI normal to inspection, nondistended, normoactive bowel sounds and non-tender Palpation: soft Back/Spine no CVA tenderness and normal ROM Extremity Extremity Narrative: Tender to palpation over the lateral malleolus and the ATF region on the right ankle. I do not appreciate any significant swelling compared to the left. There is no fifth metatarsal or fibular head pain. Achilles tendon palpates and functionally it is intact. There is no posterior malleolar or medial malleolar pain. I do not appreciate ecchymosis. General Extremety ED: Negative for edema General Extremity: Negative for edema Neuro oriented x3 and CN's II-XII intact bilaterally Sensorium / Orientation: alert Motor Exam: strength 5/5 throughout Psych mental status grossly normal Mood & Affect: Negative for depressed or tearful Skin no rashes or lesions noted and no wounds MDM MDM MDM Narrative Medical decision making narrative: Differential diagnosis includes but not limited to fracture distal patient ligamentous injury tendon injury viral URI allergies bronchospasm My independent interpretation of the plain films of the right ankle which were ordered through nursing triage shows no acute fracture. Radiology concurs. The placed a air splint on the patient and had her ambulate with the rollator. Nursing states the patient ambulated well. I think the patient may have a viral illness versus environmental allergens given the cough. She is not toxic. Has no dyspnea. Lung sounds are clear. History & Record Review Discussion w/independent historian: Patient and Family Radiography Diagnostic Testing: Clinical Impression(s) from Imaging Studies Ankle X-Ray 04/29/25 14:35 IMPRESSION: Soft tissue swelling. No acute abnormality is seen. Reading Location: [facility] Discharge Plan Triage Chief Complaint: Fall ED Provider: Raul Falcon Dx/Rx/DC Orders Clinical Impression: Fall, Ankle sprain Instructions: ED Ankle Sprain (Adult) Prescriptions: No Action cholecalciferol (vitamin D3) 50,000 unit capsule 50,000 unit PO DAILY simvastatin 20 mg tablet 20 mg PO QHS trazodone 100 mg tablet 100 mg PO QHS cyanocobalamin (vitamin B-12) 1,000 mcg tablet 1,000 mcg PO DAILY Patient Comments: PT STATES ON BACKORDER AND PHARMACY HASNT BEEN ABLE TO FILL pantoprazole [Protonix] 40 mg tablet,delayed release (DR/EC) 40 mg PO BID Qty: 60 0RF Patient Comments: PT STATES SHE TAKES ONCE DAILY oxybutynin chloride 10 mg tablet extended release 24hr 10 mg PO DAILY [id number] 250 mg-200 mg- 1,500 unit Tablet 1 tab PO DAILY aspirin 81 mg Capsule 81 mg PO DAILY docusate sodium 100 mg Capsule 100 mg PO BID Qty: 0 0RF bisacodyl 5 mg Tablet,Delayed Release (Dr/Ec) 5 mg PO DAILY Qty: 0 0RF furosemide [Lasix] 40 mg tablet 40 mg PO DAILY Qty: 30 0RF potassium chloride 20 mEq tablet extended release 20 meq PO DAILY metoprolol succinate 50 mg tablet extended release 24 hr 25 mg PO DAILY nitroglycerin 0.4 mg tablet, sublingual 0.4 mg sublingual Q5M PRN (Reason: chest pain) Patient Comments: Dissolve 1 tablet under the tongue every 5 minutes for 3 doses. FOR CHEST PAIN. IF NO RELIEF CALL 911 sertraline 50 mg tablet 50 mg PO DAILY hydrocodone-acetaminophen 5-325 mg Tablet 1 tab PO Q4H PRN (Reason: pain 4-10) loratadine [Claritin] 10 mg tablet 10 mg PO Q24H Qty: 7 0RF Primary Care Provider: Justin Tierney Referrals: Justin Tierney MD [Primary Care Provider] - 10-14 Days if not better Print Language: Armenian Disposition Disposition: Home, Self Care Discharge Date/Time: 04/29/25 17:48
[2025-04-29 17:47] VITALS: BP 140/71; PULSE 77; RESP 14; TEMP 36.6; O2SAT 98
== END 2025-04-29 17:48 | disposition home or self-care (01) ==
PROVIDERS: Emergency Provider Emergency Medicine; PCP Family Medicine; Visit Provider Emergency Medicine
DX: S93.401A Sprain of unspecified ligament of right ankle, initial encounter (principal); I12.9 Hypertensive chronic kidney disease with stage 1 through stage 4 chronic kidney disease, or unspecified chronic kidney disease; E78.5 Hyperlipidemia, unspecified; N18.9 Chronic kidney disease, unspecified; K21.9 Gastro-esophageal reflux disease without esophagitis; W01.198A Fall on same level from slipping, tripping and stumbling with subsequent striking against other object, initial encounter; Z99.89 Dependence on other enabling machines and devices
CPT/HCPCS: 73610; 99284